=== PATIENT | female | born 1950 | race Caucasian/White ===

== ENCOUNTER 2018-01-13 17:11 | Inpatient (IN) | payer MEDICARE, OTHER, SELFPAY ==
[2018-01-13] VITALS (27 sets, daily range): BP systolic 69–143; BP diastolic 40–93; PULSE 94–118; RESP 17–30; TEMP 36.6–36.7; O2SAT 91–100; BMI 21.9
[2018-01-13] MEDS: Lactated Ringers 1,000 ML 250 ML IV (14:30)
--- NOTE | 2018-01-13 14:38 | PCM.CON.CC ---
Reason for Consult Date of Consultation: 01/13/18 Reason for Consultation: Diabetic ketoacidosis/metabolic encephalopathy/acute kidney injury History of Present Illness: The patient is a 67-year-old female, with a history as outlined below, who presented as a direct admit to the ICU from [facility] on January 13 with complaints of generalized malaise, weakness, poor p.o. intake, nausea and vomiting of 3-4 days duration. 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 She denies a previous history of diabetes. On presentation to the outside hospital emergency department, the patient was noted to be hypotensive and tachycardic. However, she was maintaining appropriate oxygen saturations on room air. Initial laboratory evaluation revealed a sodium of 114, potassium of 3.1, chloride of 77, serum bicarbonate of 20 and an elevated creatinine of 2.78. There was evidence of transaminitis with an elevated AST and ALT to 230 and 128, respectively. Alkaline phosphatase was elevated to 373. Glucose was elevated to 903. The patient had an elevated white blood cell count of 14,000. Platelet count was noted to be 83,000. CK was elevated to 1406 with an INR of 1.32. Venous blood gas pH was noted to be 7.28. Urinalysis was negative for nitrites, positive for leukocyte esterase, 6-12 white blood cells and many bacteria. Lipase was normal at 65. Troponin was negative. Small serum acetone was noted. Plain film chest x-ray was obtained and revealed no acute cardiopulmonary process. The patient received several liters of supplemental IV fluids along with ceftriaxone and potassium repletion. Past Medical History Home Medications: Ambulatory Orders Medication Instructions Recorded Aspirin [Aspirin, Baby] 81 mg PO DAILY@0800 01/13/18 Fish Oil/Dha/Epa [Fish Oil 1,200 2 each PO DAILY 01/13/18 mg Fish Oil] Lactobacillus Combination No.4 1 each PO DAILY 01/13/18 [Probiotic] Multivitamin [Daily Multiple 1 tab PO DAILY 01/13/18 Vitamin] Vit A/C/E/Zinc/Selenium/Copper 1 each PO DAILY 01/13/18 [Vision Formula Tablet] - *Family History Maternal History Items: No pertinent history Paternal History Items: No pertinent history Review of Systems Constitutional: Reports: Anorexia, Malaise, Weakness, Fatigue Eyes: Denies: Blurred vision, Double vision HEENT: Denies: Head Aches, Sinus Congestion, Sinus Drainage Cardiovascular: Denies: Chest Pain, Palpitations Respiratory: Denies: Cough, Shortness of breath at rest, Sputum production Gastrointestinal: Reports: Abdominal Pain, Diarrhea, Nausea, Vomiting Genitourinary: Reports: Incontinence Musculoskeletal: Denies: Joint Pain, Joint Tenderness Skin: Denies: Rash, Wounds Neurological: Reports: Confusion Psychiatric: Denies: Anxiety, Depression, Homicidal Ideations, Suicidal Ideations Hematologic/ Lymphatic: Denies: Easy Bruising, Easy Bleeding Patient Problems: Active and Suspected Problems Lethargy (Acute) Altered mental status (Acute) Objective: The patient's most recent lab work, culture data and imaging studies have all been personally reviewed. - Physical Exam General: Alert, Confused, Disoriented, - - Quite ill in appearance. HEENT: Atraumatic, PERRLA, Normocephalic Oral: Dry Mucosa, - - Edentulous Neck: Supple, No Nodes, Trachea Midline Lungs: No rhonchi, No wheeze, No rales, - - Poor inspiratory effort. Cardiovascular: Normal S1, Normal S2, No murmurs, Tachycardic Abdomen: Soft, Non Tender, Hypoactive Bowel Sounds Extremities: No clubbing, No cyanosis, No edema Skin: No breakdown Musculoskeletal: No Tenderness to Palpation of Joints or Extremities Lymphatic: No Cervical, Supraclavicular, or Inguinal Adenopathy Neurological: - - No focal neurological deficits. Psych/Mental Status: Flat Affect Labs (Last 48 Hours) 01/13/18 01/13/18 01/13/18 14:55 14:55 14:55 Sodium 122 L Potassium 3.8 Chloride 86 L Carbon Dioxide 18.0 L Anion Gap 18 H BUN 62 H Creatinine 3.04 H Estim Creat Clear Calc 15.26 Est GFR (MDRD) Af Amer 20 L Est GFR (MDRD) Non-Af 16 L BUN/Creatinine Ratio 20.4 H Glucose 785 H* Hemoglobin A1c 13.5 H Serum Osmolality 316 H Lactic Acid Calcium 7.1 L Total Bilirubin 0.50 GGT 20 AST 310 H ALT 148 H Alkaline Phosphatase 264 H Total Protein 5.4 L Albumin 1.9 L Globulin 3.5 Albumin/Globulin Ratio 0.5 L Acetone Level 10/24/18 10/24/18 14:55 14:55 Sodium Potassium Chloride Carbon Dioxide Anion Gap BUN Creatinine Estim Creat Clear Calc Est GFR (MDRD) Af Amer Est GFR (MDRD) Non-Af BUN/Creatinine Ratio Glucose Hemoglobin A1c Serum Osmolality Lactic Acid Pending Calcium Total Bilirubin GGT AST ALT Alkaline Phosphatase Total Protein Albumin Globulin Albumin/Globulin Ratio Acetone Level NEGATIVE Assessment/Plan Active and Suspected Problems Lethargy (Acute) Altered mental status (Acute) RECOMMENDATIONS: 1. Continue supplemental IV fluid hydration. 2. Place central venous catheter and initiate Levophed, if indicated, to maintain a mean arterial pressure at or above 65 mmHg. 3. Continue insulin drip and monitor serial electrolytes. 4. Obtain blood and urine cultures. 5. Start broad-spectrum antibiotics, pending infectious workup. Check MRSA screen. 6. Check serum GGT level, lactic acid and serum osmolality. IMPRESSIONS: 1. Combined hypovolemic and septic shock The patient appears to be clearly volume depleted, likely in the setting of osmotic diuresis from profound hyperglycemia. Her p.o. intake has also been poor. In addition, she does appear to have evidence of cystitis. The patient will be volume resuscitated per sepsis protocol. A central line will be placed for refractory hypotension and to initiate vasopressor support, if needed. Levophed can be started to maintain a mean arterial pressure at or above 65 mmHg. Broad-spectrum antibiotic will be initiated, pending thorough infectious workup. Will obtain urine and blood cultures accordingly. Plain film chest x-ray post central venous catheter insertion is pending. Check serum lactate level. 2. Diabetic ketoacidosis The patient appears to be a newly diagnosed diabetic who presented to the hospital in diabetic ketoacidosis, which may have been precipitated by an underlying infectious process. The patient's hemoglobin A1c is noted to be 13.5. She denies ever having been diagnosed with diabetes previously. She will be managed per DKA protocol with IV volume resuscitation and continuous insulin infusion. Aggressive electrolyte repletion as indicated. Continue insulin infusion at the very minimal until the patient's anion gap has been closed x2. 3. Metabolic encephalopathy Likely secondary to the above. Anticipate improvement in mentation with correction of the patient's underlying metabolic derangements. CT head was noted to be negative. Avoid sedating medications. 4. Hypovolemic hyponatremia Again likely secondary to osmotic diuresis in the setting of diabetic ketoacidosis. The patient is currently being volume resuscitated. Close monitoring of serum sodium level is indicated. 5. Acute kidney injury/anion gap metabolic acidosis Likely prerenal in etiology with possible ischemic ATN in the setting of #1. Continue current supportive measures as outlined above and initiate vasopressor support, as clinically indicated, to maintain a mean arterial pressure at or above 65 mmHg. Anticipate improvement in creatinine with stabilization of hemodynamics. Continue to monitor urine output. No current indication for renal replacement therapy. Renal ultrasound is currently pending. 6. Elevated transaminases Likely secondary to the patient's hypovolemic state. Given elevated alkaline phosphatase, will check serum GGT. If elevated, would recommend checking liver ultrasound. 7. Thrombocytopenia Unclear chronicity, as there are no previous lab work available for comparison. However, this may be secondary to a consumptive process in the setting of septic shock. We will continue to monitor accordingly. No indication for transfusion at this time. TIME: 45 minutes of critical care time, independent of procedures, was spent addressing the patient's combined hypovolemic and septic shock, diabetic ketoacidosis, metabolic encephalopathy, hypovolemic hyponatremia, acute kidney injury, anion gap metabolic acidosis, elevated transaminases, thrombocytopenia, review of all data and collaboration with the care team. ([id number]) Code Visit 9xxxx: 11215 Critical care first hour
--- NOTE | 2018-01-13 15:11 | PCM.HP.STD ---
Problem List (1) Lethargy Status: Acute (2) Altered mental status Status: Acute History of Present Illness Date of Admission: 01/13/18 Chief Complaint: lethargy, altered mental status The patient is a 67 year old F with no significant PMH. She was admitted from [facility] where she had reported with a complaint of worsening lethargy, confusion and altered mental status for a few days prior to admission. History was mainly taken from her . He said he had noticed that she had been loosing weight for the past few months. Over the past few days, she started getting increasingly lethargic, with associated frequency of urination and weakness. She had no associated fever, chills, cough, chest pain, SOB, abdominal pain, diarrhea or vomiting. He took her to [place] ED today after he found her on the floor with the gas on, and she said she was too weak to even get up to turn the gas off. In [place], she was found to have markedly elevated blood sugars, and was also hypotensive and tachycardic. Labs done in [place] showed sodium of 114, potassium of 3.1, bicarb of 20 and Cr of 2.78. glucose was 903. Initial troponin was negative, and UA showed 6-12 wbc and many bacteria, and LEs. Small acetone was noted and CXR showed no acute cardiopulmonary process. Patient received IVF, potassium supplementation and IV ceftriaxone and was transferred to [facility]. 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 Denies: Chills, Fever Eyes: Denies: Blurred vision HEENT: Denies: Head Aches, Sinus Congestion, Sinus Drainage Cardiovascular: Denies: Chest Pain, Palpitations Respiratory: Denies: Cough, Shortness of breath at rest, Sputum production Gastrointestinal: Denies: Abdominal Pain, Nausea, Vomiting Genitourinary: Reports: Frequency. Denies: Dysuria Musculoskeletal: Denies: Joint Pain, Joint Tenderness Skin: Denies: Rash, Wounds Neurological: Reports: Confusion. Denies: Focal weakness, Numbness, Tingling Psychiatric: Denies: Anxiety, Depression, Homicidal Ideations, Suicidal Ideations Hematologic/ Lymphatic: Denies: Easy Bruising, Easy Bleeding VTE Information - Inpt Only VTE Present on Admission: No VTE Pharm Prophylaxis ordered?: Yes Patient Problems: Active and Suspected Problems Lethargy (Acute) Altered mental status (Acute) - Physical Exam General: Confused, Disoriented, Lethargic HEENT: Atraumatic, PERRLA, EOMI, Normocephalic Oral: Dry Mucosa Neck: Supple, No JVD, Negative Carotid Bruits Lungs: Clear to auscultation, Normal air movement, No rhonchi, No wheeze, No rales Cardiovascular: Normal S1, Normal S2, No murmurs, Tachycardic Abdomen: Bowel Sounds Present, Soft, Non Tender, Non-Distended, No Hepato-splenomegaly Extremities: No clubbing, No cyanosis, No edema, Capillary Refill Less than 3 Seconds Skin: No rashes, No breakdown, - - few abrasions on knee from when she fell at home Musculoskeletal: No Tenderness to Palpation of Joints or Extremities Lymphatic: No Cervical, Supraclavicular, or Inguinal Adenopathy Neurological: - - mild left nasolabial flattening. RLE is externally rotated. Patient unable to follow instructions very well; power ~4/5 in UEs and 3/5 in LEs. CN otherwise intact. Unable to check sensory response to light touch, but patient flexes towards pain. GCS-11/15 Psych/Mental Status: - - confused Weight: 123 lb 10.869 oz Body Mass Index (BMI) 21.9 Laboratory Tests Past 24 Hrs 1001/13/18 01/13/18 14:55 14:55 14:55 Sodium Pending Potassium Pending Chloride Pending Carbon Dioxide Pending Anion Gap Pending BUN Pending Creatinine Pending Est GFR (MDRD) Af Amer Pending Est GFR (MDRD) Non-Af Pending BUN/Creatinine Ratio Pending Glucose Pending Hemoglobin A1c Pending Serum Osmolality Pending Lactic Acid Calcium Pending Total Bilirubin Pending GGT Pending AST Pending ALT Pending Alkaline Phosphatase Pending Total Protein Pending Albumin Pending Acetone Level 01/13/18 01/13/18 14:55 14:55 Sodium Potassium Chloride Carbon Dioxide Anion Gap BUN Creatinine Est GFR (MDRD) Af Amer Est GFR (MDRD) Non-Af BUN/Creatinine Ratio Glucose Hemoglobin A1c Serum Osmolality Lactic Acid Pending Calcium Total Bilirubin GGT AST ALT Alkaline Phosphatase Total Protein Albumin Acetone Level Pending Diagnostic Data Chest X-Ray 01/13/18 16:15 IMPRESSION: Right IJ catheter as above. No pneumothorax. Electronically Signed: Jamison Munguia MD at 16:23 EDT , Service support , Assessment/Plan All Active Problems Lethargy (Acute) Altered mental status (Acute) 67 y/o with no signficant PMH presenting with altered mental status, lethargy and elevated blood sugars 1. 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 Will get CT brain to evaluate for any intracranial pathology 2. DKA in a newly diagnosed diabetic as under 1. 3. Hypovolemic and hypovolemic shock due to severe dehydration from DKA and also sepsis from UTI BP was 69/57 on admission SIRS criteria is central line inserted in ICU; on IVF and pressors for BP support continue IVF and pressors 4. SEptic shock due to UTI: UA showed brown, turbid urine, with LE of 500. on IV cefepime 5. BIBIANA: Cr was 3.04 on admission to [facility]. Baseline unknown. Likely pre-renal due to severe dehydration will check urine electrolytes and renal USG if Cr doesnt trend down, will get nephrology consult continue hydration with IVF and levophed for pressor support 6. ANion gap acidosis: due to DKA and lactic acidosis. osmolar gap is 6, therefore it is unlikely there is anything else contributing to anion gap acidosis. ABG pending. Will continue hydration with IVF and trend lactic acid. Check BNP q2 hourly 7. Lactic acidosis: lactic acid is 4.2; likely due to hypovolemic and septic shock. Continue IVF hydration and trend. 8. Acute hyponatremia: Na is 122; baseline not known. THis is likely due to hyperglycemia. Corrected sodium is 133. Will likely correct with IVF administration 9. Elevated transaminases: AST/ALT elevated at 310/148 and ALP is 264. This is likely due to shock. Will trend; should improve once shock resolves DVT prophylaxis: heparin GI prophylaxis: famotidine Code status: full code patient's , who is her next of kin counselled about different types of code status, namely full code, DNRCC and DNRCCA. elects for patient to be full code. Code Visit Inpatient E&M: 65895 Init Hosp L3 Procedures: 36811 Advncd Care Plan 30 Min
[2018-01-13 15:19] LABS: Osmolality, Serum 316 mOsm/KG (280-301)
[2018-01-13 15:25] LABS: ALB/GLOB Ratio 0.5 RATIO (0.9-2.4); AST(SGOT) 310 U/L (15-37); Alanine Aminotransfer ALT/SGPT 148 U/L (13-56); Albumin, Serum 1.9 g/dL (3.2-5.0); Alkaline Phosphatase 264 U/L (45-117); Anion Gap 18 (5-15); BUN 62 mg/dL (7-18); BUN/Creat Ratio 20.4 RATIO (10-20); Calcium,Total 7.1 mg/dL (8.5-10.1); Chloride 86 mmol/L (98-107); Creatinine, Serum 3.04 mg/dL (0.55-1.02); EST Glomerular Filtration Rate 16 mL/min (>60); Est Glom Filt Rate - Afr Amer 20 mL/min (>60); Estimated Creatinine Clearance 15.26 ml/min; GGTP 20 U/L (5-55); Globulin 3.5 g/dL (2.2-4.2); Glucose 785 mg/dL (74-106); Potassium 3.8 mmol/L (3.5-5.1); Protein, Total 5.4 g/dL (6.4-8.2); Sodium Level 122 mmol/L (136-145)
[2018-01-13 15:26] LABS: Hemoglobin A1c 13.5 % (4.2-6.3)
[2018-01-13 15:38] LABS: Lactic Acid 4.2 mmol/L (0.4-2.0)
[2018-01-13] MEDS: 0.9% Normal Saline 1,000 ML 999 ML IV (15:55)
--- NOTE | 2018-01-13 16:02 | NURSING ---
1600: Unable to increase levophed gtts at this time. Levophed infusing into peripheral IV. Waiting for central line confirmation. Bolus infusing.
--- NOTE | 2018-01-13 16:13 | CT_ITS ---
STUDY: CT BRAIN WITHOUT CONTRAST REASON FOR EXAM: Female, 67 years old. Confusion RADIATION DOSAGE (If Supplied By Facility): CTDIvol = ( 60.81 ) mGy, DLP = ( 1021.47 ) mGycm TECHNIQUE: Transaxial CT imaging of the brain was performed without administration of intravenous contrast material. Individualized dose optimization techniques were used for this CT. COMPARISON: None. FINDINGS: Normal soft tissue structures. Normal calvarium. Normal size ventricles and extra-axial spaces for the patient's age. Normal white matter tracts of the cerebral hemispheres. Normal basal ganglia and thalami. Normal brainstem. Normal cerebellum. There is no intracranial hemorrhage. There are no findings of an acute ischemic infarction. Normal visualized paranasal sinuses. CT/Brain/Head without Contrast IMPRESSION: Normal unenhanced CT scan of the brain. Electronically Signed: Jamison Munguia MD at 17:33 EDT , Service support ,
--- NOTE | 2018-01-13 16:15 | RAD_ITS ---
STUDY: X-RAY CHEST REASON FOR EXAM: Female, 67 years old. Line placement TECHNIQUE: Single frontal view of the chest. COMPARISON: None. FINDINGS: Right IJ catheter terminates in the right atrium. No pneumothorax. The lungs are clear and expanded. There is no demonstrated pleural abnormality. Normal size heart. Normal mediastinum and hermann. Normal visualized pulmonary arteries. Normal visualized aortic arch and descending thoracic aorta. Normal visualized thoracic spine. Normal visualized ribs, clavicles, and shoulders. There is no demonstrated abnormality of the visualized soft tissue structures of the upper abdomen. RAD/Chest 1 View (Portable) IMPRESSION: Right IJ catheter as above. No pneumothorax. Electronically Signed: Jamison Munguia MD at 16:23 EDT , Service support ,
[2018-01-13 16:39] LABS: Bacteria 0 SEEN /hpf (None Seen); Mucous, Urine 0 SEEN /hpf (<or=2+); Red Blood Cells-Urine 0 SEEN /hpf (0-5); Squamous Epithelial Cells - UA 0 SEEN /hpf (5-10)
--- NOTE | 2018-01-13 16:39 | PCM.OP.BLANK ---
Operative Report Date of Procedure: 01/13/18 Central line placement procedure note Indication: IV access/hemodynamic instability/vasoactive medications Procedure: A time-out was completed to verify correct patient, indication, medication allergies, procedure, coagulation studies, informed consent signed, and equipment needed. The patient was placed in the supine position for a central line placement to the rt IJ vein. The patients rt neck was prepped using chlorhexidine and a full body sterile drape was applied. 1% lidocaine was used to anesthetize the surrounding skin. A 7fr 16 cm blue guard triple lumen catheter introduced into the internal jugular vein using the modified Seldinger technique with the assistance of ultrasound. The catheter was threaded smoothly over the guidewire, the guidewire was removed easily, nonpulsatile blood returned. All ports were aspirated of air and flushed with sterile saline. The catheter was sutured in place and covered with an occlusive dressing impregnated with chlorhexidine. Post-procedure: The patient tolerated the procedure well. Vital signs remained stable. EBL 3 cc. No complications. Chest X Ray ordered and confirmed tip placement and ruled out pneumothorax. The catheter is okay to use. Code Visit Procedures: [id number] Insert Non-tunnel CV Cath
[2018-01-13 17:02] LABS: Color, Urine Brown (Yellow); Glucose, Dipstick 1000 mg/dl (Normal); Ketone-Dipstick 5 mg/dl (Negative); Leukocyte Esterase-Dipstick 500 /ul (Negative); Nitrite-Dipstick Negative (Negative); Occult Blood-Urine 250 /ul (Negative); Protein-Dipstick 500 mg/dl (Negative); Urine Bilirubin Dipstick Negative (Negative); Urine Clarity Turbid (Clear); Urine Urobilinogen Normal (Normal)
[2018-01-13 17:14] LABS: White Blood Cells >100 SEEN /hpf (0-5)
[2018-01-13] MEDS: 0.9% Normal Saline 1,000 ML 500 ML IV (17:15)
--- NOTE | 2018-01-13 17:18 | US_ITS ---
STUDY: RENAL ULTRASOUND - COMPLETE REASON FOR EXAM: Female, 67 years old. Acute renal failure TECHNIQUE: Ultrasound evaluation of the kidneys was performed with real-time and static jolly-scale imaging. COMPARISON: None. FINDINGS: RIGHT KIDNEY: Normal location of the right kidney, which is normal in size. The right kidney measures 11 cm. There is a normal cortex of the right kidney. The renal cortex measures 1.3 cm. There is no right renal mass or cyst. There are no right renal calculi. There is no right hydronephrosis. DISTAL RIGHT URETER: There is non-visualization of the distal right ureter. There is no demonstrated right ureterovesical junction calculus. There is a non-visualized right ureteral jet. LEFT KIDNEY: Normal location of the left kidney, which is normal in size. The left kidney measures 11.5 cm. There is a normal cortex of the left kidney. The renal cortex measures 1.6 cm. There is no left renal mass or cyst. There are no left renal calculi. There is no left hydronephrosis. DISTAL LEFT URETER: There is non-visualization of the distal left ureter. There is no demonstrated left ureterovesical junction calculus. There is a non-visualized left ureteral jet. The visualized BLADDER: Decompressed with a Miranda catheter. US/Kidney and Bladder IMPRESSION: Normal ultrasound of the kidneys and urinary bladder. Electronically Signed: Jamison Munguia MD at 20:48 EDT , Service support ,
[2018-01-13 17:20] LABS: Bedside Glucose > 500 mg/dL (70-110)
[2018-01-13 18:03] LABS: Glucose 706 mg/dL (74-106)
--- NOTE | 2018-01-13 18:06 | NURSING ---
Lab notified this RN of critical glucose value drawn at 1715. DKA Protocol followed
[2018-01-13 18:11] LABS: M R Staph aureus DNA By PCR Negative (Negative); Probe Check PASS; Specimen Processing Control PASS
[2018-01-13 18:51] LABS: Allen Test POS; Base Excess -13 mmol/L (-2 to +2); Bicarbonate 13.7 mmol/L (22-26); Blood Gas Specimen Type ART; O2 Delivery Device Room Air; PO2 70 mmHG (75-100); SITE L Radial; SO2 92 % (95-99); Time Given 1838; Total Carbon Dioxide 15 mmol/L; pCO2 27.8 mmHg (35-45)
[2018-01-13] MEDS: 0.9% Normal Saline 1,000 ML 250 ML IV (18:54)
[2018-01-13 18:55] LABS: Bedside Glucose > 500 mg/dL (70-110)
[2018-01-13 18:57] LABS: Metamyelocyte 2 % (0-1); Monocyte 4 % (0-10); Neutrophil-Band 16 % (0-5); Neutrophil-Segmented 78 % (47-70); Total Cells Counted 100 (MANUAL DIFF)
[2018-01-13 19:04] LABS: Reflex Lactate? Y
[2018-01-13] MEDS: 0.9% NaCl Peripheral Flush Adult/Peds IV ×3 (19:36→23:12)
[2018-01-13 19:54] LABS: Anion Gap 15 (5-15); BUN 61 mg/dL (7-18); BUN/Creat Ratio 22.3 RATIO (10-20); Chloride 93 mmol/L (98-107); Creatinine, Serum 2.74 mg/dL (0.55-1.02); EST Glomerular Filtration Rate 18 mL/min (>60); Est Glom Filt Rate - Afr Amer 22 mL/min (>60); Estimated Creatinine Clearance 16.93 ml/min; Glucose 624 mg/dL (74-106); Potassium 3.4 mmol/L (3.5-5.1); Sodium Level 126 mmol/L (136-145)
[2018-01-13 20:16] LABS: Lactic Acid 3.5 mmol/L (0.4-2.0)
[2018-01-13] MEDS: Heparin Injection (Vial) 5,000 UNIT/ML VIAL 5000 UNIT SC (21:18)
[2018-01-13 21:31] LABS: Hematocrit 33.4 % (37-47); Hemoglobin 11.5 g/dl (12.0-15.0); Mean Corp Hgb Conc 34.4 g/gl (32-36); Mean Corpuscular Hgb 28.7 pg (27.0-32.0); Mean Corpuscular Volume 83.3 fL (81-99); RBC Distribution Width CV 12.5 % (11.6-14.6); RBC Distribution Width SD 38.1 fl (35.1-43.9); Red Blood Count 4.01 M/mm3 (4.2-5.4)
[2018-01-13 21:32] LABS: Differential Indicated MANUAL DIFF; Mean Platelet Vol. 12.3 fl (6.2-12.0); POSITIVE COUNT YES; POSITIVE DIFFERENTIAL NO; POSITIVE MORPHOLOGY YES
[2018-01-13 21:34] LABS: Platelet Morphology LARGE
[2018-01-13 21:35] LABS: Platelet Count 39 K/mm3 (150-450)
[2018-01-13 21:36] LABS: Absolute Nucleated RBC Count 0.02 10^3/uL (0-5); NRBC Flagged by Analyzer 0.1 % (0-5)
[2018-01-13 21:39] LABS: Urine Sodium 53 mmol/L (Not Establ.)
--- NOTE | 2018-01-13 21:45 | US_ITS ---
STUDY: ABDOMINAL ULTRASOUND - RIGHT UPPER QUADRANT REASON FOR VISIT: Female, 67 years old. Abnormal labs TECHNIQUE: Ultrasound evaluation of the right upper quadrant was performed with real-time and static ann-scale imaging. TECHNICAL QUALITY: Adequate. COMPARISON: Renal ultrasound January 13, 2018 FINDINGS: Liver: The liver measures 14.9 cm. There is normal echogenicity of the liver. The bile ducts are within normal limits. There is hepatic color flow. The direction of portal flow is hepatopetal. There is no demonstrated mass lesion. Gallbladder: Normal distended gallbladder. The gallbladder wall measures 2 mm. There is a negative sonographic Nolasco's sign. There is no pericholecystic fluid. There are no gallstones. Common Bile Duct (C.B.D.): The common bile duct measures 4 mm. Pancreas: Normal size of the head, body and tail of the pancreas. There is normal echogenicity of the pancreas. There is no demonstrated pancreatic mass or cyst. Right Kidney: Normal size of the right kidney. The right kidney measures 11.6 cm. Normal renal cortex. The right cortex measures 1.5 cm. There is no demonstrated renal mass or cyst. There is no right hydronephrosis. Trace Right pleural effusion and ascites US/Liver IMPRESSION: Small right pleural effusion and ascites otherwise no acute disease Electronically Signed: Jamison Munguia MD at 23:07 EDT , Service support ,
[2018-01-13 22:00] LABS: Glucose 606 mg/dL (74-106)
[2018-01-13 23:06] LABS: Bedside Glucose > 500 mg/dL (70-110)
[2018-01-13 23:06] LABS: Bedside Glucose > 500 mg/dL (70-110)
[2018-01-13] MEDS: 0.9% Normal Saline 1,000 ML 125 ML IV (23:08)
[2018-01-13 23:45] LABS: Anion Gap 15 (5-15); BUN 65 mg/dL (7-18); BUN/Creat Ratio 25.3 RATIO (10-20); Chloride 96 mmol/L (98-107); Creatinine, Serum 2.57 mg/dL (0.55-1.02); EST Glomerular Filtration Rate 20 mL/min (>60); Est Glom Filt Rate - Afr Amer 24 mL/min (>60); Estimated Creatinine Clearance 18.05 ml/min; Glucose 569 mg/dL (74-106); Potassium 4.6 mmol/L (3.5-5.1); Sodium Level 129 mmol/L (136-145)
[2018-01-14] VITALS (26 sets, daily range): BP systolic 80–102; BP diastolic 53–67; PULSE 102–112; RESP 17–36; TEMP 36.4–37.1; O2SAT 93–98
[2018-01-14 00:06] LABS: Bedside Glucose > 500 mg/dL (70-110)
[2018-01-14 00:56] LABS: Bedside Glucose > 500 mg/dL (70-110)
[2018-01-14 02:56] LABS: Bedside Glucose > 500 mg/dL (70-110)
[2018-01-14 02:56] LABS: Bedside Glucose > 500 mg/dL (70-110)
[2018-01-14 03:13] LABS: Absolute Lymphocyte Count 0.46 X10^3/ul (0.83-4.51); Basophil# 0.02 X10^3/uL; Basophil% 0.1 % (0-1); Eosinophil# 0.01 X10^3/uL; Eosinophils% 0.1 % (0-5); Hematocrit 30.5 % (37-47); Hemoglobin 10.4 g/dl (12.0-15.0); Lymphocyte # 0.46 X10^3/ul (4.0); Lymphocyte % 2.7 % (19-41); Mean Corp Hgb Conc 34.1 g/gl (32-36); Mean Corpuscular Hgb 28.3 pg (27.0-32.0); Mean Corpuscular Volume 82.9 fL (81-99); Monocyte# 0.42 X10^3/uL; Monocyte% 2.4 % (0-10); Neutrophil # 15.99 X10^3/uL (2.7-7.7); RBC Distribution Width CV 12.5 % (11.6-14.6); RBC Distribution Width SD 37.8 fl (35.1-43.9); Red Blood Count 3.68 M/mm3 (4.2-5.4); White Blood Count 17.2 K/mm3 (4.4-11.0)
[2018-01-14 03:15] LABS: Differential Indicated SCAN CRITERIA MET; POSITIVE COUNT YES; POSITIVE DIFFERENTIAL YES; POSITIVE MORPHOLOGY YES; Platelet Count 19 K/mm3 (150-450)
[2018-01-14 03:44] LABS: Anion Gap 12 (5-15); BUN 68 mg/dL (7-18); Chloride 98 mmol/L (98-107); Creatinine, Serum 2.62 mg/dL (0.55-1.02); EST Glomerular Filtration Rate 19 mL/min (>60); Est Glom Filt Rate - Afr Amer 24 mL/min (>60); Estimated Creatinine Clearance 17.71 ml/min; Glucose 497 mg/dL (74-106); Potassium 4.3 mmol/L (3.5-5.1); Sodium Level 129 mmol/L (136-145)
[2018-01-14] MEDS: 0.9% Normal Saline 1,000 ML 125 ML IV ×2 (03:54→07:20)
[2018-01-14] MEDS: CHLORHEXIDINE GLUC 2% CLOTH 1 EACH TOWELETTE TOPICAL (04:17)
[2018-01-14 04:39] LABS: Differential Comment SCANNED
[2018-01-14 05:15] LABS: Bedside Glucose 460 mg/dL (70-110)
[2018-01-14 05:15] LABS: Bedside Glucose > 500 mg/dL (70-110)
--- NOTE | 2018-01-14 07:04 | PN_ITS ---
Subjective: The patient was seen and examined at the bedside this morning. Events from the last 24 hours have been reviewed. The patient is currently afebrile, hemodynamically stable and maintaining appropriate oxygen saturations on room air. The patient's Levophed was discontinued last evening around 2100 hrs. Although her hemodynamics remain tenuous, vasopressor support never had to be reinitiated. The patient is currently overall net +4.6 L for the admission. Metabolic derangements are improving. The patient's thrombocytopenia has worsened overnight. The patient subcutaneous heparin was subsequently discontinued. The patient's anion gap remains elevated to 17, when corrected for albumin level. She remains on an insulin infusion. The patient has a corrected serum sodium of 135, when accounting for hyperglycemia. The patient's mentation is improved this morning. She is alert and oriented x3. She denies any pain complaints. She denies shortness of breath, chest pain or cough. Objective: The patient's most recent lab work, culture data and imaging studies have all been personally reviewed. Both liver and renal ultrasound were unremarkable. Plain film chest x-ray revealed no acute cardiopulmonary process with stable central venous catheter in place. Head CT was unremarkable. Blood and urine cultures are currently pending. General: Alert, Cooperative, No apparent distress HEENT: Atraumatic, PERRLA, Normocephalic Oral: Moist Mucosa, - - Edentulous Neck: Supple, No Nodes, Trachea Midline, - - Right-sided central venous catheter in place Lungs: No rhonchi, No wheeze, No rales, Diminished Cardiovascular: Normal S1, Normal S2, No murmurs, No rub noted, No Gallop, Tachycardic Abdomen: Soft, Non Tender, Hypoactive Bowel Sounds Extremities: No clubbing, No cyanosis, No edema Skin: - - No significant change from previous. Musculoskeletal: No Tenderness to Palpation of Joints or Extremities Lymphatic: No Cervical, Supraclavicular, or Inguinal Adenopathy Neurological: Neuro grossly intact Psych/Mental Status: Normal Affect, Appropriate Vital Signs Temp Pulse Resp BP Pulse Ox 98.0 F 107 H 29 H 88/59 L 95 01/14/18 04:00 01/14/18 06:00 01/14/18 06:00 01/14/18 06:00 01/14/18 06:00 Oxygen Flow Rate (L/min) 2 Oxygen Delivery Method Room Air Weight: 124 lb 12.506 oz Body Mass Index (BMI) 21.9 Finger Stick Blood Glucose 408 Intake and Output for Last 24 Hours 01/12/18 01/13/18 01/14/18 23:59 23:59 23:59 Intake Total 2156.1 / 2156.1 3332.6 / 3332.6 Output Total 375 / 375 450 / 450 Balance 1781.1 / 1781.1 2882.6 / 2882.6 Labs (Last 48 Hours) 01/13/18 01/13/18 01/13/18 14:55 14:55 14:55 WBC RBC Hgb Hct MCV MCH MCHC RDW RDW Differential Plt Count MPV Immature Gran % (Auto) Neut % (Auto) Lymph % (Auto) [place] % (Auto) Eos % (Auto) Baso % (Auto) Absolute Neuts (auto) Absolute Lymphs (auto) Total Counted Neutrophils % (Manual) Band Neutrophils % Monocytes % (Manual) Metamyelocytes % Nucleated RBC % Differential Comment Diff Path Review Plt Morphology Comment Absolute Retic Specimen Type Sample Site pH Bicarbonate Actual POC Total CO2 Base Excess O2 Saturation ABG pCO2 ABG pO2 Jose David Test O2 Delivery Device Blood Gas Notified Whom Blood Gas Notified Time Sodium 122 L Potassium 3.8 Chloride 86 L Carbon Dioxide 18.0 L Anion Gap 18 H BUN 62 H Creatinine 3.04 H Estim Creat Clear Calc 15.26 Est GFR (MDRD) Af Amer 20 L Est GFR (MDRD) Non-Af 16 L BUN/Creatinine Ratio 20.4 H Glucose 785 H* Hemoglobin A1c 13.5 H Serum Osmolality 316 H Lactic Acid Calcium 7.1 L Total Bilirubin 0.50 GGT 20 AST 310 H ALT 148 H Alkaline Phosphatase 264 H Total Protein 5.4 L Albumin 1.9 L Globulin 3.5 Albumin/Globulin Ratio 0.5 L Urine Color Urine Clarity Urine pH Ur Specific [place] Urine Protein Urine Glucose (UA) Urine Ketones Urine Occult Blood Urine Nitrite Urine Bilirubin Urine Urobilinogen Ur Leukocyte Esterase Urine RBC Urine WBC Ur Squamous Epith Cells Urine Bacteria Urine Mucus Ur Random Sodium Urine Creatinine Acetone Level MRSA (PCR) POC Glucose 01/13/18 01/13/18 01/13/18 14:55 14:55 14:55 WBC 18.0 H RBC 4.01 L Hgb 11.5 L Hct 33.4 L MCV 83.3 MCH 28.7 MCHC 34.4 RDW 12.5 RDW Differential 38.1 Plt Count 39 L* MPV 12.3 H Immature Gran % (Auto) Neut % (Auto) Not Reportable Lymph % (Auto) [place] % (Auto) Eos % (Auto) Baso % (Auto) Absolute Neuts (auto) 17.0 H Absolute Lymphs (auto) 0.00 L Total Counted 100 Neutrophils % (Manual) 78 H Band Neutrophils % 16 H Monocytes % (Manual) 4 Metamyelocytes % 2 H Nucleated RBC % 0.1 Differential Comment Diff Path Review May foll Plt Morphology Comment LARGE Absolute Retic 0.02 Specimen Type Sample Site pH Bicarbonate Actual POC Total CO2 Base Excess O2 Saturation ABG pCO2 ABG pO2 Jose David Test O2 Delivery Device Blood Gas Notified Whom Blood Gas Notified Time Sodium Potassium Chloride Carbon Dioxide Anion Gap BUN Creatinine Estim Creat Clear Calc Est GFR (MDRD) Af Amer Est GFR (MDRD) Non-Af BUN/Creatinine Ratio Glucose Hemoglobin A1c Serum Osmolality Lactic Acid 4.2 H* Calcium Total Bilirubin GGT AST ALT Alkaline Phosphatase Total Protein Albumin Globulin Albumin/Globulin Ratio Urine Color Urine Clarity Urine pH Ur Specific [place] Urine Protein Urine Glucose (UA) Urine Ketones Urine Occult Blood Urine Nitrite Urine Bilirubin Urine Urobilinogen Ur Leukocyte Esterase Urine RBC Urine WBC Ur Squamous Epith Cells Urine Bacteria Urine Mucus Ur Random Sodium Urine Creatinine Acetone Level NEGATIVE MRSA (PCR) POC Glucose 01/13/18 01/13/18 01/13/18 15:30 16:40 17:15 WBC RBC Hgb Hct MCV MCH MCHC RDW RDW Differential Plt Count MPV Immature Gran % (Auto) Neut % (Auto) Lymph % (Auto) [place] % (Auto) Eos % (Auto) Baso % (Auto) Absolute Neuts (auto) Absolute Lymphs (auto) Total Counted Neutrophils % (Manual) Band Neutrophils % Monocytes % (Manual) Metamyelocytes % Nucleated RBC % Differential Comment Diff Path Review Plt Morphology Comment Absolute Retic Specimen Type Sample Site pH Bicarbonate Actual POC Total CO2 Base Excess O2 Saturation ABG pCO2 ABG pO2 Jose David Test O2 Delivery Device Blood Gas Notified Whom Blood Gas Notified Time Sodium Potassium Chloride Carbon Dioxide Anion Gap BUN Creatinine Estim Creat Clear Calc Est GFR (MDRD) Af Amer Est GFR (MDRD) Non-Af BUN/Creatinine Ratio Glucose 706 H* Hemoglobin A1c Serum Osmolality Lactic Acid Calcium Total Bilirubin GGT AST ALT Alkaline Phosphatase Total Protein Albumin Globulin Albumin/Globulin Ratio Urine Color Brown Urine Clarity Turbid Urine pH 5.0 Ur Specific [place] 1.020 Urine Protein 500 H Urine Glucose (UA) 1000 H Urine Ketones 5 H Urine Occult Blood 250 H Urine Nitrite Negative Urine Bilirubin Negative Urine Urobilinogen Normal Ur Leukocyte Esterase 500 H Urine RBC 0 SEEN Urine WBC >100 SEEN Ur Squamous Epith Cells 0 SEEN Urine Bacteria 0 SEEN Urine Mucus 0 SEEN Ur Random Sodium Urine Creatinine Acetone Level MRSA (PCR) Negative POC Glucose 01/13/18 01/13/18 01/13/18 17:16 18:45 18:50 WBC RBC Hgb Hct MCV MCH MCHC RDW RDW Differential Plt Count MPV Immature Gran % (Auto) Neut % (Auto) Lymph % (Auto) [place] % (Auto) Eos % (Auto) Baso % (Auto) Absolute Neuts (auto) Absolute Lymphs (auto) Total Counted Neutrophils % (Manual) Band Neutrophils % Monocytes % (Manual) Metamyelocytes % Nucleated RBC % Differential Comment Diff Path Review Plt Morphology Comment Absolute Retic Specimen Type ART Sample Site L Radial pH 7.30 L Bicarbonate Actual 13.7 L POC Total CO2 15 Base Excess -13 L O2 Saturation 92 L ABG pCO2 27.8 L ABG pO2 70 L Jose David Test POS O2 Delivery Device Room Air Blood Gas Notified Whom HOSP Blood Gas Notified Time 1838 Sodium Potassium Chloride Carbon Dioxide Anion Gap BUN Creatinine Estim Creat Clear Calc Est GFR (MDRD) Af Amer Est GFR (MDRD) Non-Af BUN/Creatinine Ratio Glucose Hemoglobin A1c Serum Osmolality Lactic Acid Calcium Total Bilirubin GGT AST ALT Alkaline Phosphatase Total Protein Albumin Globulin Albumin/Globulin Ratio Urine Color Urine Clarity Urine pH Ur Specific [place] Urine Protein Urine Glucose (UA) Urine Ketones Urine Occult Blood Urine Nitrite Urine Bilirubin Urine Urobilinogen Ur Leukocyte Esterase Urine RBC Urine WBC Ur Squamous Epith Cells Urine Bacteria Urine Mucus Ur Random Sodium Urine Creatinine Acetone Level MRSA (PCR) POC Glucose > 500 H* > 500 H* 01/13/18 01/13/18 01/13/18 18:55 19:40 20:00 WBC RBC Hgb Hct MCV MCH MCHC RDW RDW Differential Plt Count MPV Immature Gran % (Auto) Neut % (Auto) Lymph % (Auto) [place] % (Auto) Eos % (Auto) Baso % (Auto) Absolute Neuts (auto) Absolute Lymphs (auto) Total Counted Neutrophils % (Manual) Band Neutrophils % Monocytes % (Manual) Metamyelocytes % Nucleated RBC % Differential Comment Diff Path Review Plt Morphology Comment Absolute Retic Specimen Type Sample Site pH Bicarbonate Actual POC Total CO2 Base Excess O2 Saturation ABG pCO2 ABG pO2 Jose David Test O2 Delivery Device Blood Gas Notified Whom Blood Gas Notified Time Sodium 126 L Potassium 3.4 L Chloride 93 L Carbon Dioxide 18.0 L Anion Gap 15 BUN 61 H Creatinine 2.74 H Estim Creat Clear Calc 16.93 Est GFR (MDRD) Af Amer 22 L Est GFR (MDRD) Non-Af 18 L BUN/Creatinine Ratio 22.3 H Glucose 624 H* Hemoglobin A1c Serum Osmolality Lactic Acid 3.5 H Calcium 7.0 L Total Bilirubin GGT AST ALT Alkaline Phosphatase Total Protein Albumin Globulin Albumin/Globulin Ratio Urine Color Urine Clarity Urine pH Ur Specific [place] Urine Protein Urine Glucose (UA) Urine Ketones Urine Occult Blood Urine Nitrite Urine Bilirubin Urine Urobilinogen Ur Leukocyte Esterase Urine RBC Urine WBC Ur Squamous Epith Cells Urine Bacteria Urine Mucus Ur Random Sodium Urine Creatinine 18.60 Acetone Level MRSA (PCR) POC Glucose 01/13/18 01/13/18 01/13/18 20:00 21:05 21:10 WBC RBC Hgb Hct MCV MCH MCHC RDW RDW Differential Plt Count MPV Immature Gran % (Auto) Neut % (Auto) Lymph % (Auto) [place] % (Auto) Eos % (Auto) Baso % (Auto) Absolute Neuts (auto) Absolute Lymphs (auto) Total Counted Neutrophils % (Manual) Band Neutrophils % Monocytes % (Manual) Metamyelocytes % Nucleated RBC % Differential Comment Diff Path Review Plt Morphology Comment Absolute Retic Specimen Type Sample Site pH Bicarbonate Actual POC Total CO2 Base Excess O2 Saturation ABG pCO2 ABG pO2 Jose David Test O2 Delivery Device Blood Gas Notified Whom Blood Gas Notified Time Sodium Potassium Chloride Carbon Dioxide Anion Gap BUN Creatinine Estim Creat Clear Calc Est GFR (MDRD) Af Amer Est GFR (MDRD) Non-Af BUN/Creatinine Ratio Glucose 606 H* Hemoglobin A1c Serum Osmolality Lactic Acid Calcium Total Bilirubin GGT AST ALT Alkaline Phosphatase Total Protein Albumin Globulin Albumin/Globulin Ratio Urine Color Urine Clarity Urine pH Ur Specific [place] Urine Protein Urine Glucose (UA) Urine Ketones Urine Occult Blood Urine Nitrite Urine Bilirubin Urine Urobilinogen Ur Leukocyte Esterase Urine RBC Urine WBC Ur Squamous Epith Cells Urine Bacteria Urine Mucus Ur Random Sodium 53 Urine Creatinine Acetone Level MRSA (PCR) POC Glucose > 500 H* 01/13/18 01/13/18 01/13/18 22:09 23:10 23:15 WBC RBC Hgb Hct MCV MCH MCHC RDW RDW Differential Plt Count MPV Immature Gran % (Auto) Neut % (Auto) Lymph % (Auto) [place] % (Auto) Eos % (Auto) Baso % (Auto) Absolute Neuts (auto) Absolute Lymphs (auto) Total Counted Neutrophils % (Manual) Band Neutrophils % Monocytes % (Manual) Metamyelocytes % Nucleated RBC % Differential Comment Diff Path Review Plt Morphology Comment Absolute Retic Specimen Type Sample Site pH Bicarbonate Actual POC Total CO2 Base Excess O2 Saturation ABG pCO2 ABG pO2 Jose David Test O2 Delivery Device Blood Gas Notified Whom Blood Gas Notified Time Sodium 129 L Potassium 4.6 Chloride 96 L Carbon Dioxide 18.0 L Anion Gap 15 BUN 65 H Creatinine 2.57 H Estim Creat Clear Calc 18.05 Est GFR (MDRD) Af Amer 24 L Est GFR (MDRD) Non-Af 20 L BUN/Creatinine Ratio 25.3 H Glucose 569 H* Hemoglobin A1c Serum Osmolality Lactic Acid Calcium 7.0 L Total Bilirubin GGT AST ALT Alkaline Phosphatase Total Protein Albumin Globulin Albumin/Globulin Ratio Urine Color Urine Clarity Urine pH Ur Specific [place] Urine Protein Urine Glucose (UA) Urine Ketones Urine Occult Blood Urine Nitrite Urine Bilirubin Urine Urobilinogen Ur Leukocyte Esterase Urine RBC Urine WBC Ur Squamous Epith Cells Urine Bacteria Urine Mucus Ur Random Sodium Urine Creatinine Acetone Level MRSA (PCR) POC Glucose > 500 H* > 500 H* 01/14/18 01/14/18 01/14/18 00:02 01:04 02:02 WBC RBC Hgb Hct MCV MCH MCHC RDW RDW Differential Plt Count MPV Immature Gran % (Auto) Neut % (Auto) Lymph % (Auto) [place] % (Auto) Eos % (Auto) Baso % (Auto) Absolute Neuts (auto) Absolute Lymphs (auto) Total Counted Neutrophils % (Manual) Band Neutrophils % Monocytes % (Manual) Metamyelocytes % Nucleated RBC % Differential Comment Diff Path Review Plt Morphology Comment Absolute Retic Specimen Type Sample Site pH Bicarbonate Actual POC Total CO2 Base Excess O2 Saturation ABG pCO2 ABG pO2 Jose David Test O2 Delivery Device Blood Gas Notified Whom Blood Gas Notified Time Sodium Potassium Chloride Carbon Dioxide Anion Gap BUN Creatinine Estim Creat Clear Calc Est GFR (MDRD) Af Amer Est GFR (MDRD) Non-Af BUN/Creatinine Ratio Glucose Hemoglobin A1c Serum Osmolality Lactic Acid Calcium Total Bilirubin GGT AST ALT Alkaline Phosphatase Total Protein Albumin Globulin Albumin/Globulin Ratio Urine Color Urine Clarity Urine pH Ur Specific [place] Urine Protein Urine Glucose (UA) Urine Ketones Urine Occult Blood Urine Nitrite Urine Bilirubin Urine Urobilinogen Ur Leukocyte Esterase Urine RBC Urine WBC Ur Squamous Epith Cells Urine Bacteria Urine Mucus Ur Random Sodium Urine Creatinine Acetone Level MRSA (PCR) POC Glucose > 500 H* > 500 H* > 500 H* 01/14/18 01/14/18 01/14/18 02:50 02:50 02:54 WBC 17.2 H RBC 3.68 L Hgb 10.4 L Hct 30.5 L MCV 82.9 MCH 28.3 MCHC 34.1 RDW 12.5 RDW Differential 37.8 Plt Count 19 L* MPV Immature Gran % (Auto) 1.700 H Neut % (Auto) 93.0 H Lymph % (Auto) 2.7 L [place] % (Auto) 2.4 Eos % (Auto) 0.1 Baso % (Auto) 0.1 Absolute Neuts (auto) 16.0 H Absolute Lymphs (auto) 0.46 L Total Counted Not Reportable Neutrophils % (Manual) Band Neutrophils % Monocytes % (Manual) Metamyelocytes % Nucleated RBC % Differential Comment SCANNED Diff Path Review May foll Plt Morphology Comment Absolute Retic Specimen Type Sample Site pH Bicarbonate Actual POC Total CO2 Base Excess O2 Saturation ABG pCO2 ABG pO2 Jose David Test O2 Delivery Device Blood Gas Notified Whom Blood Gas Notified Time Sodium 129 L Potassium 4.3 Chloride 98 Carbon Dioxide 19.0 L Anion Gap 12 BUN 68 H Creatinine 2.62 H Estim Creat Clear Calc 17.71 Est GFR (MDRD) Af Amer 24 L Est GFR (MDRD) Non-Af 19 L BUN/Creatinine Ratio 26.0 H Glucose 497 H* Hemoglobin A1c Serum Osmolality Lactic Acid Calcium 7.0 L Total Bilirubin GGT AST ALT Alkaline Phosphatase Total Protein Albumin Globulin Albumin/Globulin Ratio Urine Color Urine Clarity Urine pH Ur Specific [place] Urine Protein Urine Glucose (UA) Urine Ketones Urine Occult Blood Urine Nitrite Urine Bilirubin Urine Urobilinogen Ur Leukocyte Esterase Urine RBC Urine WBC Ur Squamous Epith Cells Urine Bacteria Urine Mucus Ur Random Sodium Urine Creatinine Acetone Level MRSA (PCR) POC Glucose > 500 H* 01/14/18 04:00 WBC RBC Hgb Hct MCV MCH MCHC RDW RDW Differential Plt Count MPV Immature Gran % (Auto) Neut % (Auto) Lymph % (Auto) [place] % (Auto) Eos % (Auto) Baso % (Auto) Absolute Neuts (auto) Absolute Lymphs (auto) Total Counted Neutrophils % (Manual) Band Neutrophils % Monocytes % (Manual) Metamyelocytes % Nucleated RBC % Differential Comment Diff Path Review Plt Morphology Comment Absolute Retic Specimen Type Sample Site pH Bicarbonate Actual POC Total CO2 Base Excess O2 Saturation ABG pCO2 ABG pO2 Jose David Test O2 Delivery Device Blood Gas Notified Whom Blood Gas Notified Time Sodium Potassium Chloride Carbon Dioxide Anion Gap BUN Creatinine Estim Creat Clear Calc Est GFR (MDRD) Af Amer Est GFR (MDRD) Non-Af BUN/Creatinine Ratio Glucose Hemoglobin A1c Serum Osmolality Lactic Acid Calcium Total Bilirubin GGT AST ALT Alkaline Phosphatase Total Protein Albumin Globulin Albumin/Globulin Ratio Urine Color Urine Clarity Urine pH Ur Specific [place] Urine Protein Urine Glucose (UA) Urine Ketones Urine Occult Blood Urine Nitrite Urine Bilirubin Urine Urobilinogen Ur Leukocyte Esterase Urine RBC Urine WBC Ur Squamous Epith Cells Urine Bacteria Urine Mucus Ur Random Sodium Urine Creatinine Acetone Level MRSA (PCR) POC Glucose 460 H* Clinical Impression(s) from Imaging Studies Brain CT 01/13/18 16:13 IMPRESSION: Normal unenhanced CT scan of the brain. Electronically Signed: Jamison Munguia MD at 17:33 EDT , Service support , Chest X-Ray 01/13/18 16:15 IMPRESSION: Right IJ catheter as above. No pneumothorax. Electronically Signed: Jamison Munguia MD at 16:23 EDT , Service support , Renal Ultrasound 01/13/18 17:18 IMPRESSION: Normal ultrasound of the kidneys and urinary bladder. Electronically Signed: Jamison Munguia MD at 20:48 EDT , Service support , Liver Ultrasound 01/13/18 21:45 IMPRESSION: Small right pleural effusion and ascites otherwise no acute disease Electronically Signed: Jamison Munguia MD at 23:07 EDT , Service support , Medical Necessity - Tobacco Use Smoking Status: Never smoker Tobacco Use: Non-smoker Assessment/Plan All Active Problems Lethargy (Acute) Altered mental status (Acute) RECOMMENDATIONS: 1. Continue supplemental IV fluid hydration until the patient is no longer n.p.o. 2. Continue insulin infusion, as the patient's anion gap remains elevated when corrected for albumin level. 3. Monitor platelet count carefully. Given that spontaneous bleeding is more likely to occur with a platelet count below 10,000, would plan to transfuse if her level reaches that threshold. 4. Continue broad-spectrum antibiotics, pending finalized infectious workup. 5. Physical therapy to work with patient today. 6. Recommend speech therapy evaluation prior to advancing diet. IMPRESSIONS: 1. Combined hypovolemic and septic shock The patient appears to be clearly volume depleted, likely in the setting of osmotic diuresis from profound hyperglycemia. Her p.o. intake has also been poor. In addition, she does appear to have evidence of cystitis. The patient was volume resuscitated per sepsis protocol. The patient did require transient vasopressor support to maintain hemodynamic stability. The patient will be continued on supplemental IV fluid hydration until her p.o. status is advanced. Broad-spectrum antibiotics will be continued, pending finalized infectious workup. 2. Diabetic ketoacidosis The patient appears to be a newly diagnosed diabetic who presented to the hospital in diabetic ketoacidosis, which may have been precipitated by an underlying infectious process. The patient's hemoglobin A1c is noted to be 13.5. She denies ever having been diagnosed with diabetes previously. She will continue to be managed per DKA protocol with IV volume resuscitation and continuous insulin infusion. Aggressive electrolyte repletion as indicated. Continue insulin infusion at the very minimal until the patient's anion gap has been closed x2. Although her anion gap is reported to be normal on her chemistry profile, when corrected for serum albumin level it is still elevated. 3. Metabolic encephalopathy Improving. Likely secondary to the above. Anticipate improvement in mentation with correction of the patient's underlying metabolic derangements. CT head was noted to be negative. Avoid sedating medications. 4. Hypovolemic hyponatremia Improving. Again likely secondary to osmotic diuresis in the setting of diabetic ketoacidosis. The patient is currently being volume resuscitated. Close monitoring of serum sodium level is indicated. 5. Acute kidney injury/anion gap metabolic acidosis Likely prerenal in etiology with possible ischemic ATN in the setting of #1. Continue current supportive measures as outlined above. Anticipate improvement in creatinine with stabilization of hemodynamics. Continue to monitor urine output. No current indication for renal replacement therapy. Renal ultrasound was unremarkable. 6. Elevated transaminases Likely secondary to the patient's hypovolemic state. Liver ultrasound was unremarkable. Recheck hepatic function profile this morning. 7. Thrombocytopenia Unclear chronicity, as there are no previous lab work available for comparison. However, this may be secondary to a consumptive process in the setting of septic shock. The patient's platelet count again dropped this morning. All heparin containing products have been discontinued. We will continue to monitor accordingly. Would plan to transfuse if the patient's platelet count drops below 10,000, as she would be at increased risk for spontaneous bleeding. This note was generated with [employer] dictation software. It may contain incorrect words, spelling, and punctuation that were not noted in checking the note before signing. Code Visit Inpatient E&M: 08900 [facility]
[2018-01-14 07:16] LABS: Bedside Glucose 425 mg/dL (70-110)
[2018-01-14 07:16] LABS: Bedside Glucose 408 mg/dL (70-110)
[2018-01-14 07:27] LABS: Anion Gap 14 (5-15); BUN 70 mg/dL (7-18); BUN/Creat Ratio 26.6 RATIO (10-20); Calcium,Total 6.9 mg/dL (8.5-10.1); Chloride 101 mmol/L (98-107); Creatinine, Serum 2.63 mg/dL (0.55-1.02); EST Glomerular Filtration Rate 19 mL/min (>60); Est Glom Filt Rate - Afr Amer 23 mL/min (>60); Estimated Creatinine Clearance 17.64 ml/min; Glucose 403 mg/dL (74-106); Sodium Level 132 mmol/L (136-145)
[2018-01-14 08:16] LABS: Bedside Glucose 435 mg/dL (70-110)
[2018-01-14 08:16] LABS: Bedside Glucose 365 mg/dL (70-110)
[2018-01-14] MEDS: 0.9% NaCl Peripheral Flush Adult/Peds IV ×4 (08:27→23:27)
[2018-01-14 08:48] LABS: AST(SGOT) 541 U/L (15-37); Alanine Aminotransfer ALT/SGPT 301 U/L (13-56); Albumin, Serum 1.4 g/dL (3.2-5.0); Alkaline Phosphatase 164 U/L (45-117); Bilirubin, Direct 0.21 mg/dL (0.00-0.30); Globulin 3.1 g/dL (2.2-4.2); Protein, Total 4.5 g/dL (6.4-8.2)
--- NOTE | 2018-01-14 08:50 | PCM.PN.HOSP ---
Patient Problems: Active and Suspected Problems Lethargy (Acute) Altered mental status (Acute) Subjective: Resting comfortably, denies pain, and states she feels a little better Vitals/I&O's: Vital Signs Temp Pulse Resp BP Pulse Ox 97.6 F L 102 H 24 H 98/66 94 01/14/18 08:00 01/14/18 08:00 01/14/18 08:00 01/14/18 08:00 01/14/18 08:00 Oxygen Flow Rate (L/min) 2 Oxygen Delivery Method Room Air Weight: 124 lb 12.506 oz Body Mass Index (BMI) 21.9 Finger Stick Blood Glucose 365 Intake and Output for Last 24 Hours 01/12/18 01/13/18 01/14/18 23:59 23:59 23:59 Intake Total 2156.1 / 2156.1 3332.6 / 3332.6 Output Total 375 / 375 450 / 450 Balance 1781.1 / 1781.1 2882.6 / 2882.6 General: Alert, Oriented x3, Cooperative, No apparent distress HEENT: Atraumatic, EOMI, Normocephalic Oral: Moist Mucosa Neck: Supple, No JVD Lungs: Clear to auscultation, Normal air movement, No rhonchi, No wheeze, No rales, Diminished Cardiovascular: Regular Rhythm, Normal S1, Normal S2, Tachycardic Abdomen: Soft, Non Tender, Non-Distended, No Hepato-splenomegaly Extremities: No edema, Capillary Refill Less than 3 Seconds Skin: No rashes, No breakdown Neurological: Neuro grossly intact, Sensory exam intact to light touch and pain Psych/Mental Status: Normal Affect, Appropriate Laboratory Results 01/13/18 14:55: Hemoglobin A1c 13.5 H 01/13/18 14:55: Sodium 122 L, Potassium 3.8, Chloride 86 L, Carbon Dioxide 18.0 L, Anion Gap 18 H, BUN 62 H, Creatinine 3.04 H, Estim Creat Clear Calc 15.26, Est GFR (MDRD) Af Amer 20 L, Est GFR (MDRD) Non-Af 16 L, BUN/Creatinine Ratio 20.4 H, Glucose 785 H*, Calcium 7.1 L, Total Bilirubin 0.50, GGT 20, AST 310 H, ALT 148 H, Alkaline Phosphatase 264 H, Total Protein 5.4 L, Albumin 1.9 L, Globulin 3.5, Albumin/Globulin Ratio 0.5 L 01/13/18 14:55: Serum Osmolality 316 H 01/13/18 14:55: Acetone Level NEGATIVE 01/13/18 14:55: Lactic Acid 4.2 H* 01/13/18 14:55: WBC 18.0 H, RBC 4.01 L, Hgb 11.5 L, Hct 33.4 L, MCV 83.3, MCH 28.7, MCHC 34.4, RDW 12.5, RDW Differential 38.1, Plt Count 39 L*, MPV 12.3 H, Neut % (Auto) Not Reportable, Absolute Neuts (auto) 17.0 H, Absolute Lymphs (auto) 0.00 L, Total Counted 100, Neutrophils % (Manual) 78 H, Band Neutrophils % 16 H, Monocytes % (Manual) 4, Metamyelocytes % 2 H, Nucleated RBC % 0.1, Diff Path Review May foll, Plt Morphology Comment LARGE, Absolute Retic 0.02 01/13/18 15:30: Urine Color Brown, Urine Clarity Turbid, Urine pH 5.0, Ur Specific [place] 1.020, Urine Protein 500 H, Urine Glucose (UA) 1000 H, Urine Ketones 5 H, Urine Occult Blood 250 H, Urine Nitrite Negative, Urine Bilirubin Negative, Urine Urobilinogen Normal, Ur Leukocyte Esterase 500 H, Urine RBC 0 SEEN, Urine WBC >100 SEEN, Ur Squamous Epith Cells 0 SEEN, Urine Bacteria 0 SEEN, Urine Mucus 0 SEEN 01/13/18 16:40: MRSA (PCR) Negative 01/13/18 17:15: Glucose 706 H* 01/13/18 17:16: POC Glucose > 500 H* 01/13/18 18:45: Specimen Type ART, Sample Site L Radial, pH 7.30 L, Bicarbonate Actual 13.7 L, POC Total CO2 15, Base Excess -13 L, O2 Saturation 92 L, ABG pCO2 27.8 L, ABG pO2 70 L, Jose David Test POS, O2 Delivery Device Room Air, Blood Gas Notified Whom JORDY CAIN, Blood Gas Notified Time 1838 01/13/18 18:50: POC Glucose > 500 H* 01/13/18 18:55: Sodium 126 L, Potassium 3.4 L, Chloride 93 L, Carbon Dioxide 18.0 L, Anion Gap 15, BUN 61 H, Creatinine 2.74 H, Estim Creat Clear Calc 16.93, Est GFR (MDRD) Af Amer 22 L, Est GFR (MDRD) Non-Af 18 L, BUN/Creatinine Ratio 22.3 H, Glucose 624 H*, Calcium 7.0 L 01/13/18 19:40: Lactic Acid 3.5 H 01/13/18 20:00: Urine Creatinine 18.60 01/13/18 20:00: Ur Random Sodium 53 01/13/18 21:05: POC Glucose > 500 H* 01/13/18 21:10: Glucose 606 H* 01/13/18 22:09: POC Glucose > 500 H* 01/13/18 23:10: POC Glucose > 500 H* 01/13/18 23:15: Sodium 129 L, Potassium 4.6, Chloride 96 L, Carbon Dioxide 18.0 L, Anion Gap 15, BUN 65 H, Creatinine 2.57 H, Estim Creat Clear Calc 18.05, Est GFR (MDRD) Af Amer 24 L, Est GFR (MDRD) Non-Af 20 L, BUN/Creatinine Ratio 25.3 H, Glucose 569 H*, Calcium 7.0 L 01/14/18 00:02: POC Glucose > 500 H* 01/14/18 01:04: POC Glucose > 500 H* 01/14/18 02:02: POC Glucose > 500 H* 01/14/18 02:50: Sodium 129 L, Potassium 4.3, Chloride 98, Carbon Dioxide 19.0 L, Anion Gap 12, BUN 68 H, Creatinine 2.62 H, Estim Creat Clear Calc 17.71, Est GFR (MDRD) Af Amer 24 L, Est GFR (MDRD) Non-Af 19 L, BUN/Creatinine Ratio 26.0 H, Glucose 497 H*, Calcium 7.0 L 01/14/18 02:50: WBC 17.2 H, RBC 3.68 L, Hgb 10.4 L, Hct 30.5 L, MCV 82.9, MCH 28.3, MCHC 34.1, RDW 12.5, RDW Differential 37.8, Plt Count 19 L*, Immature Gran % (Auto) 1.700 H, Neut % (Auto) 93.0 H, Lymph % (Auto) 2.7 L, [place] % (Auto) 2.4, Eos % (Auto) 0.1, Baso % (Auto) 0.1, Absolute Neuts (auto) 16.0 H, Absolute Lymphs (auto) 0.46 L, Total Counted Not Reportable, Differential Comment SCANNED, Diff Path Review July01/14/18 02:54: POC Glucose > 500 H* 01/14/18 04:00: POC Glucose 460 H* 01/14/18 05:12: POC Glucose 425 H 01/14/18 06:16: POC Glucose 408 H 01/14/18 07:02: POC Glucose 435 H 01/14/18 07:03: Sodium 132 L, Potassium 4.0, Chloride 101, Carbon Dioxide 17.0 L, Anion Gap 14, BUN 70 H, Creatinine 2.63 H, Estim Creat Clear Calc 17.64, Est GFR (MDRD) Af Amer 23 L, Est GFR (MDRD) Non-Af 19 L, BUN/Creatinine Ratio 26.6 H, Glucose 403 H, Calcium 6.9 L 01/14/18 07:03: Total Bilirubin 0.40, Direct Bilirubin 0.21, AST 541 H, ALT 301 H, Alkaline Phosphatase 164 H, Total Protein 4.5 L, Albumin 1.4 L, Globulin 3.1 01/14/18 08:14: POC Glucose 365 H Current Medications Chlorhexidine Gluconate () 1 each TOPICAL DAILY [facility] Last Admin: 01/14/18 04:17 Dose: 1 each Dextrose (D50w Syringe) 0 gm IV X1 PRN; Protocol PRN Reason: HYPOGLYCEMIA Sodium Chloride () 250 mls @ 15 mls/hr IV .[id number] PRN PRN Reason: SALINE FLUSH Last Admin: 01/14/18 04:16 Dose: 15 mls/hr Sodium Chloride () 500 mls @ 15 mls/hr IV .[id number] PRN PRN Reason: SALINE FLUSH Cefepime HCl 2 gm/ Sodium (Chloride) 100 mls @ 200 mls/hr IV Q24 [facility] Last Admin: 01/13/18 16:23 Dose: 200 mls/hr Insulin Human Lispro 100 unit/ (Sodium Chloride) 100 mls @ 5.61 mls/hr IV .[id number] [facility]; Protocol Last Admin: 01/14/18 08:33 Dose: Not Given Pantoprazole Sodium 40 mg/ (Sodium Chloride) 110 mls @ 330 mls/hr IV Q12 [facility] Last Admin: 01/13/18 23:12 Dose: 330 mls/hr Sodium Chloride () 1,000 mls @ 125 mls/hr IV .Q8H [facility] Last Admin: 01/14/18 07:20 Dose: 125 mls/hr Magnesium Hydroxide (Milk Of Magnesia) 30 ml PO DAILY PRN PRN PRN Reason: Constipation Sodium Chloride () 5 - 30 ml IV UD PRN PRN Reason: SALINE FLUSH Last Admin: 01/14/18 08:29 Dose: 20 ml Medical Necessity - Tobacco Use Smoking Status: Never smoker Tobacco Use: Non-smoker Assessment/Plan All Active Problems Lethargy (Acute) Altered mental status (Acute) 1. 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
--- NOTE | 2018-01-14 08:54 | PN_ITS ---
Patient Problems: Active and Suspected Problems Lethargy (Acute) Altered mental status (Acute) Subjective: Resting comfortably, denies pain, and states she feels a little better Vitals/I&O's: Vital Signs Temp Pulse Resp BP Pulse Ox 97.6 F L 102 H 24 H 98/66 94 01/14/18 08:00 01/14/18 08:00 01/14/18 08:00 01/14/18 08:00 01/14/18 08:00 Oxygen Flow Rate (L/min) 2 Oxygen Delivery Method Room Air Weight: 124 lb 12.506 oz Body Mass Index (BMI) 21.9 Finger Stick Blood Glucose 365 Intake and Output for Last 24 Hours 01/12/18 01/13/18 01/14/18 23:59 23:59 23:59 Intake Total 2156.1 / 2156.1 3332.6 / 3332.6 Output Total 375 / 375 450 / 450 Balance 1781.1 / 1781.1 2882.6 / 2882.6 General: Alert, Oriented x3, Cooperative, No apparent distress HEENT: Atraumatic, EOMI, Normocephalic Oral: Moist Mucosa Neck: Supple, No JVD Lungs: Clear to auscultation, Normal air movement, No rhonchi, No wheeze, No rales, Diminished Cardiovascular: Regular Rhythm, Normal S1, Normal S2, Tachycardic Abdomen: Soft, Non Tender, Non-Distended, No Hepato-splenomegaly Extremities: No edema, Capillary Refill Less than 3 Seconds Skin: No rashes, No breakdown Neurological: Neuro grossly intact, Sensory exam intact to light touch and pain Psych/Mental Status: Normal Affect, Appropriate Laboratory Results 01/13/18 14:55: Hemoglobin A1c 13.5 H 01/13/18 14:55: Sodium 122 L, Potassium 3.8, Chloride 86 L, Carbon Dioxide 18.0 L, Anion Gap 18 H, BUN 62 H, Creatinine 3.04 H, Estim Creat Clear Calc 15.26, Est GFR (MDRD) Af Amer 20 L, Est GFR (MDRD) Non-Af 16 L, BUN/Creatinine Ratio 20.4 H, Glucose 785 H*, Calcium 7.1 L, Total Bilirubin 0.50, GGT 20, AST 310 H, ALT 148 H, Alkaline Phosphatase 264 H, Total Protein 5.4 L, Albumin 1.9 L, Globulin 3.5, Albumin/Globulin Ratio 0.5 L 01/13/18 14:55: Serum Osmolality 316 H 01/13/18 14:55: Acetone Level NEGATIVE 01/13/18 14:55: Lactic Acid 4.2 H* 01/13/18 14:55: WBC 18.0 H, RBC 4.01 L, Hgb 11.5 L, Hct 33.4 L, MCV 83.3, MCH 28.7, MCHC 34.4, RDW 12.5, RDW Differential 38.1, Plt Count 39 L*, MPV 12.3 H, Neut % (Auto) Not Reportable, Absolute Neuts (auto) 17.0 H, Absolute Lymphs (auto) 0.00 L, Total Counted 100, Neutrophils % (Manual) 78 H, Band Neutrophils % 16 H, Monocytes % (Manual) 4, Metamyelocytes % 2 H, Nucleated RBC % 0.1, Diff Path Review May foll, Plt Morphology Comment LARGE, Absolute Retic 0.02 01/13/18 15:30: Urine Color Brown, Urine Clarity Turbid, Urine pH 5.0, Ur S pecific [place] 1.020, Urine Protein 500 H, Urine Glucose (UA) 1000 H, Urine Ketones 5 H, Urine Occult Blood 250 H, Urine Nitrite Negative, Urine Bilirubin Negative, Urine Urobilinogen Normal, Ur Leukocyte Esterase 500 H, Urine RBC 0 SEEN, Urine WBC >100 SEEN, Ur Squamous Epith Cells 0 SEEN, Urine Bacteria 0 SEEN, Urine Mucus 0 SEEN 01/13/18 16:40: MRSA (PCR) Negative 01/13/18 17:15: Glucose 706 H* 01/13/18 17:16: POC Glucose > 500 H* 01/13/18 18:45: Specimen Type ART, Sample Site L Radial, pH 7.30 L, Bicarbonate Actual 13.7 L, POC Total CO2 15, Base Excess -13 L, O2 Saturation 92 L, ABG pCO2 27.8 L, ABG pO2 70 L, Jose Daivd Test POS, O2 Delivery Device Room Air, Blood Gas Notified Whom JORDY CAIN, Blood Gas Notified Time 1838 01/13/18 18:50: POC Glucose > 500 H* 01/13/18 18:55: Sodium 126 L, Potassium 3.4 L, Chloride 93 L, Carbon Dioxide 18.0 L, Anion Gap 15, BUN 61 H, Creatinine 2.74 H, Estim Creat Clear Calc 16.93, Est GFR (MDRD) Af Amer 22 L, Est GFR (MDRD) Non-Af 18 L, BUN/Creatinine Ratio 22.3 H, Glucose 624 H*, Calcium 7.0 L 01/13/18 19:40: Lactic Acid 3.5 H 01/13/18 20:00: Urine Creatinine 18.60 01/13/18 20:00: Ur Random Sodium 53 01/13/18 21:05: POC Glucose > 500 H* 01/13/18 21:10: Glucose 606 H* 01/13/18 22:09: POC Glucose > 500 H* 01/13/18 23:10: POC Glucose > 500 H* 01/13/18 23:15: Sodium 129 L, Potassium 4.6, Chloride 96 L, Carbon Dioxide 18.0 L, Anion Gap 15, BUN 65 H, Creatinine 2.57 H, Estim Creat Clear Calc 18.05, Est GFR (MDRD) Af Amer 24 L, Est GFR (MDRD) Non-Af 20 L, BUN/Creatinine Ratio 25.3 H , Glucose 569 H*, Calcium 7.0 L 01/14/18 00:02: POC Glucose > 500 H* 01/14/18 01:04: POC Glucose > 500 H* 01/14/18 02:02: POC Glucose > 500 H* 01/14/18 02:50: Sodium 129 L, Potassium 4.3, Chloride 98, Carbon Dioxide 19.0 L, Anion Gap 12, BUN 68 H, Creatinine 2.62 H, Estim Creat Clear Calc 17.71, Est GFR (MDRD) Af Amer 24 L, Est GFR (MDRD) Non-Af 19 L, BUN/Creatinine Ratio 26.0 H, Glucose 497 H*, Calcium 7.0 L 01/14/18 02:50: WBC 17.2 H, RBC 3.68 L, Hgb 10.4 L, Hct 30.5 L, MCV 82.9, MCH 28.3, MCHC 34.1, RDW 12.5, RDW Differential 37.8, Plt Count 19 L*, Immature Gran % (Auto) 1.700 H, Neut % (Auto) 93.0 H, Lymph % (Auto) 2.7 L, [place] % (Auto) 2.4, Eos % (Auto) 0.1, Baso % (Auto) 0.1, Absolute Neuts (auto) 16.0 H, Absolute Lymphs (auto) 0.46 L, Total Counted Not Reportable, Differential Comment SCANNED, Diff Path Review July01/14/18 02:54: POC Glucose > 500 H* 01/14/18 04:00: POC Glucose 460 H* 01/14/18 05:12: POC Glucose 425 H 01/14/18 06:16: POC Glucose 408 H 01/14/18 07:02: POC Glucose 435 H 01/14/18 07:03: Sodium 132 L, Potassium 4.0, Chloride 101, Carbon Dioxide 17.0 L , Anion Gap 14, BUN 70 H, Creatinine 2.63 H, Estim Creat Clear Calc 17.64, Est GFR (MDRD) Af Amer 23 L, Est GFR (MDRD) Non-Af 19 L, BUN/Creatinine Ratio 26.6 H , Glucose 403 H, Calcium 6.9 L 01/14/18 07:03: Total Bilirubin 0.40, Direct Bilirubin 0.21, AST 541 H, ALT 301 H, Alkaline Phosphatase 164 H, Total Protein 4.5 L, Albumin 1.4 L, Globulin 3.1 01/14/18 08:14: POC Glucose 365 H Current Medications Chlorhexidine Gluconate () 1 each TOPICAL DAILY [facility] Last Admin: 01/14/18 04:17 Dose: 1 each Dextrose (D50w Syringe) 0 gm IV X1 PRN; Protocol PRN Reason: HYPOGLYCEMIA Sodium Chloride () 250 mls @ 15 mls/hr IV .[id number] PRN PRN Reason: SALINE FLUSH Last Admin: 01/14/18 04:16 Dose: 15 mls/hr Sodium Chloride () 500 mls @ 15 mls/hr IV .[id number] PRN PRN Reason: SALINE FLUSH Cefepime HCl 2 gm/ Sodium (Chloride) 100 mls @ 200 mls/hr IV Q24 [facility] Last Admin: 01/13/18 16:23 Dose: 200 mls/hr Insulin Human Lispro 100 unit/ (Sodium Chloride) 100 mls @ 5.61 mls/hr IV .[id number] [facility]; Protocol Last Admin: 01/14/18 08:33 Dose: Not Given Pantoprazole Sodium 40 mg/ (Sodium Chloride) 110 mls @ 330 mls/hr IV Q12 [facility] Last Admin: 01/13/18 23:12 Dose: 330 mls/hr Sodium Chloride () 1,000 mls @ 125 mls/hr IV .Q8H [facility] Last Admin: 01/14/18 07:20 Dose: 125 mls/hr Magnesium Hydroxide (Milk Of Magnesia) 30 ml PO DAILY PRN PRN PRN Reason: Constipation Sodium Chloride () 5 - 30 ml IV UD PRN PRN Reason: SALINE FLUSH Last Admin: 01/14/18 08:29 Dose: 20 ml Medical Necessity - Tobacco Use Smoking Status: Never smoker Tobacco Use: Non-smoker Assessment/Plan All Active Problems Lethargy (Acute) Altered mental status (Acute) 1. 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
[2018-01-14 09:31] LABS: Bedside Glucose 339 mg/dL (70-110)
--- NOTE | 2018-01-14 10:18 | NURSING ---
wound photo: left knee
--- NOTE | 2018-01-14 10:19 | NURSING ---
wound photo: right knee
[2018-01-14 10:25] LABS: Bedside Glucose > 500 mg/dL (70-110)
[2018-01-14 10:25] LABS: Bedside Glucose 335 mg/dL (70-110)
[2018-01-14 10:25] LABS: Bedside Glucose > 500 mg/dL (70-110)
--- NOTE | 2018-01-14 10:50 | CASEMGMT ---
RENEE SAMAYOA INITIAL REVIEW ASSESSMENT D/C PLAN: Undetermined at this time. Face to Face with family for initial transition planning/care coordination assessment. RENEE SAMAYOA introduced self and role at [facility]. Pt sleepy and drifted off to sleep throughout the assessment. , son, and DIL all @ bedside and provided information. Demographics verified. PCP: No PCP. Family given local PCP list. RENEE SAMAYOA discussed with family importance of getting PCP established as soon as possible for follow-up and monitoring Insurance: [facility] A & B. Preferred Pharmacy/Prescription Benefit: Does not have prescription coverage. Family made aware when pt given discharge instructions and once prescriptions are given that izquierdo checks can be done on medications to determine [id number] cost. states prefers [facility] in [place] but is also interested in [facility] Retail pharmacy on day of discharge, depending on cost of meds. Also given information on [facility] to assist w/prescription cost and family provided with list of diabetic meds on the $4 list @ [facility]. Pt with new diabetic diagnosis this admission and does not have any diabetic supplies or meds at home. Family provided with Diabetic Clinic information as well. Living Will/HPOA: Does not have LW or HCPOA. Family state they are interested in further information. Given AD packet. Informed that SW can discuss this with pt once she is oriented and able to make these decisions. Family also made aware AD can be done as an out-pt and provided with AD info card with phone number to make appt then if they would like to. HANS Li, made aware family would like for SW to talk with pt about AD once she is able to. LNOK: , Thom. Pt has one son, who is present in room during assessment. He states he and his live in [place]. Living Arrangements: Lives with Thom in a 2-story home. 4 steps to enter. 13 steps b/w ground floor and upstairs. There is a 1/2 bath on ground floor (has no shower/tub). Bedroom and full bathroom w/shower is on the 2nd floor. Transportation: Pt drove prior to hospitalization. drives and able to assist with transportation if needed. DIL states she has family that live fairly close that can also assist. 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 states there is a cane available but no one uses it. Hand held shower in the home. Unknown at this time if pt will need any DME upon discharge. states he prefers [facility]. Made aware [facility] is closing this week and given a list of DME companies and phone numbers in the area. CM to continue to follow for any DME needs. HH/CSNF: Pt has never used HHC or been to a SNF in the past. Family agreeable to [facility] on d/c if pt would need/qualify for it. SNF not discussed at this time. Awaiting PT/OT/ST budals. Family made aware it is currently open enrollment for prescription coverage and insurance coverage at this time and RN CM recommended they look into this to get further information. Family informed CM will continue to follow pt and help with discharge planning needs as they arise. Get BATES RN CM
[2018-01-14 11:25] LABS: Anion Gap 11 (5-15); BUN 70 mg/dL (7-18); BUN/Creat Ratio 27.7 RATIO (10-20); Chloride 104 mmol/L (98-107); Creatinine, Serum 2.53 mg/dL (0.55-1.02); EST Glomerular Filtration Rate 20 mL/min (>60); Est Glom Filt Rate - Afr Amer 24 mL/min (>60); Estimated Creatinine Clearance 18.34 ml/min; Glucose 321 mg/dL (74-106); Potassium 3.8 mmol/L (3.5-5.1); Sodium Level 133 mmol/L (136-145)
[2018-01-14 11:25] LABS: Bedside Glucose 292 mg/dL (70-110)
[2018-01-14] MEDS: Menthol/Lanolin/Calamine/Znox 113 GM Tube 1 APPLIC TOPICAL ×2 (12:00→22:00)
[2018-01-14 12:56] LABS: Bedside Glucose 292 mg/dL (70-110)
[2018-01-14 13:29] LABS: Pathologist Review Reviewed
[2018-01-14 13:32] LABS: Pathologist Review Reviewed
[2018-01-14 15:11] LABS: Bedside Glucose 267 mg/dL (70-110)
[2018-01-14 15:33] LABS: Anion Gap 13 (5-15); BUN 71 mg/dL (7-18); BUN/Creat Ratio 28.4 RATIO (10-20); Chloride 105 mmol/L (98-107); EST Glomerular Filtration Rate 21 mL/min (>60); Est Glom Filt Rate - Afr Amer 25 mL/min (>60); Estimated Creatinine Clearance 18.56 ml/min; Glucose 253 mg/dL (74-106); Potassium 3.6 mmol/L (3.5-5.1); Sodium Level 135 mmol/L (136-145)
[2018-01-14 16:11] LABS: Bedside Glucose 231 mg/dL (70-110)
[2018-01-14] MEDS: Dext 5%-0.45% NS 1,000 ML 125 ML IV (17:05)
[2018-01-14 18:16] LABS: Bedside Glucose 220 mg/dL (70-110)
[2018-01-14 20:08] LABS: Anion Gap 11 (5-15); BUN 73 mg/dL (7-18); BUN/Creat Ratio 29.7 RATIO (10-20); Calcium,Total 7.1 mg/dL (8.5-10.1); Chloride 107 mmol/L (98-107); Creatinine, Serum 2.46 mg/dL (0.55-1.02); EST Glomerular Filtration Rate 21 mL/min (>60); Est Glom Filt Rate - Afr Amer 25 mL/min (>60); Estimated Creatinine Clearance 18.86 ml/min; Glucose 246 mg/dL (74-106); Potassium 3.7 mmol/L (3.5-5.1); Sodium Level 135 mmol/L (136-145)
[2018-01-14 20:16] LABS: Bedside Glucose 239 mg/dL (70-110)
[2018-01-14 22:15] LABS: Bedside Glucose 233 mg/dL (70-110)
[2018-01-15] VITALS (23 sets, daily range): BP systolic 90–133; BP diastolic 53–101; PULSE 85–112; RESP 11–24; TEMP 36.4–37.1; O2SAT 96–100
[2018-01-15 00:12] LABS: Anion Gap 12 (5-15); BUN 72 mg/dL (7-18); BUN/Creat Ratio 28.6 RATIO (10-20); Chloride 107 mmol/L (98-107); Creatinine, Serum 2.52 mg/dL (0.55-1.02); EST Glomerular Filtration Rate 20 mL/min (>60); Est Glom Filt Rate - Afr Amer 25 mL/min (>60); Estimated Creatinine Clearance 18.41 ml/min; Glucose 254 mg/dL (74-106); Potassium 3.5 mmol/L (3.5-5.1); Sodium Level 136 mmol/L (136-145)
[2018-01-15 00:16] LABS: Bedside Glucose 247 mg/dL (70-110)
[2018-01-15 01:06] LABS: Bedside Glucose 212 mg/dL (70-110)
[2018-01-15] MEDS: Dext 5%-0.45% NS 1,000 ML 125 ML IV ×2 (01:15→08:52)
[2018-01-15 02:06] LABS: Bedside Glucose 243 mg/dL (70-110)
[2018-01-15] MEDS: 0.9% NaCl Peripheral Flush Adult/Peds IV ×3 (03:02→19:13)
[2018-01-15 03:06] LABS: Bedside Glucose 215 mg/dL (70-110)
[2018-01-15 03:26] LABS: Hematocrit 30.1 % (37-47); Hemoglobin 10.1 g/dl (12.0-15.0); Mean Corp Hgb Conc 33.6 g/gl (32-36); Mean Corpuscular Hgb 27.9 pg (27.0-32.0); Mean Corpuscular Volume 83.1 fL (81-99); RBC Distribution Width CV 12.5 % (11.6-14.6); RBC Distribution Width SD 36.7 fl (35.1-43.9); Red Blood Count 3.62 M/mm3 (4.2-5.4); White Blood Count 20.9 K/mm3 (4.4-11.0)
[2018-01-15 03:27] LABS: Platelet Count 13 K/mm3 (150-450); Scan Indicated on CBC? Y/N YES- FLAGS NOTED
[2018-01-15 03:36] LABS: Anion Gap 13 (5-15); BUN 76 mg/dL (7-18); BUN/Creat Ratio 30.5 RATIO (10-20); Calcium,Total 7.2 mg/dL (8.5-10.1); Chloride 108 mmol/L (98-107); Creatinine, Serum 2.49 mg/dL (0.55-1.02); EST Glomerular Filtration Rate 21 mL/min (>60); Est Glom Filt Rate - Afr Amer 25 mL/min (>60); Estimated Creatinine Clearance 18.63 ml/min; Glucose 231 mg/dL (74-106); Potassium 3.3 mmol/L (3.5-5.1); Sodium Level 138 mmol/L (136-145)
[2018-01-15 05:06] LABS: Bedside Glucose 201 mg/dL (70-110)
[2018-01-15 06:11] LABS: Bedside Glucose 177 mg/dL (70-110)
--- NOTE | 2018-01-15 06:21 | PN_ITS ---
Subjective: The patient was seen and examined at the bedside this morning. Events from the last 24 hours have been reviewed. The patient is currently afebrile, hemodynamically stable and maintaining appropriate oxygen saturations on room air. The patient's white blood cell count remains elevated. Platelet count remains depressed at 13,000. Creatinine appears to have plateaued at 2.5. The patient remains on a continuous insulin infusion at this time. The patient denies abdominal pain, shortness of breath or chest pain. Objective: The patient's most recent lab work, culture data and imaging studies have all been personally reviewed. Both liver and renal ultrasound were unremarkable. Plain film chest x-ray revealed no acute cardiopulmonary process with stable central venous catheter in place. Head CT was unremarkable. Blood cultures are pending. Urine Gram stain revealed the presence of a gram-negative cherelle. General: Alert, Cooperative, Confused HEENT: Atraumatic, PERRLA, Normocephalic Oral: No Gingival or Mucosal Lesions/ Ulcerations, - - Edentulous Neck: Supple, No Nodes, Trachea Midline, - - Right-sided central venous catheter remains in place Lungs: No rhonchi, No wheeze, No rales, Diminished Cardiovascular: Regular rate, Regular Rhythm, Normal S1, Normal S2, No murmurs Abdomen: Bowel Sounds Present, Soft, Non Tender Extremities: No clubbing, No cyanosis, Edema - Trace Skin: - - No significant change from previous Musculoskeletal: No Tenderness to Palpation of Joints or Extremities Lymphatic: No Cervical, Supraclavicular, or Inguinal Adenopathy Neurological: - - No focal neurological deficits Psych/Mental Status: Flat Affect Vital Signs Temp Pulse Resp BP Pulse Ox 97.5 F L 107 H 17 98/76 98 01/15/18 04:00 01/15/18 06:00 01/15/18 06:00 01/15/18 06:00 01/15/18 06:00 Oxygen Flow Rate (L/min) 2 Oxygen Delivery Method Room Air Weight: 130 lb 11.746 oz Body Mass Index (BMI) 21.9 Finger Stick Blood Glucose 177 Intake and Output for Last 24 Hours 01/13/18 01/14/18 01/15/18 23:59 23:59 23:59 Intake Total 2156.1 / 2156.1 5349.6 / 5349.6 1682.7 / 1682.7 Output Total 375 / 375 925 / 925 750 / 750 Balance 1781.1 / 1781.1 4424.6 / 4424.6 932.7 / 932.7 Labs (Last 48 Hours) 01/13/18 01/13/18 01/13/18 14:28 14:30 14:55 WBC RBC Hgb Hct MCV MCH MCHC RDW RDW Differential Plt Count MPV Immature Gran % (Auto) Neut % (Auto) Lymph % (Auto) [place] % (Auto) Eos % (Auto) Baso % (Auto) Absolute Neuts (auto) Absolute Lymphs (auto) Total Counted Neutrophils % (Manual) Band Neutrophils % Monocytes % (Manual) Metamyelocytes % Nucleated RBC % Differential Comment Diff Path Review Plt Morphology Comment Absolute Retic Specimen Type Sample Site pH Bicarbonate Actual POC Total CO2 Base Excess O2 Saturation ABG pCO2 ABG pO2 Jose David Test O2 Delivery Device Blood Gas Notified Whom Blood Gas Notified Time Sodium Potassium Chloride Carbon Dioxide Anion Gap BUN Creatinine Estim Creat Clear Calc Est GFR (MDRD) Af Amer Est GFR (MDRD) Non-Af BUN/Creatinine Ratio Glucose Hemoglobin A1c 13.5 H Serum Osmolality Lactic Acid Calcium Total Bilirubin Direct Bilirubin GGT AST ALT Alkaline Phosphatase Total Protein Albumin Globulin Albumin/Globulin Ratio Urine Color Urine Clarity Urine pH Ur Specific Angle Inlet Urine Protein Urine Glucose (UA) Urine Ketones Urine Occult Blood Urine Nitrite Urine Bilirubin Urine Urobilinogen Ur Leukocyte Esterase Urine RBC Urine WBC Ur Squamous Epith Cells Urine Bacteria Urine Mucus Ur Random Sodium Urine Creatinine Acetone Level MRSA (PCR) POC Glucose > 500 H* > 500 H* Blood Type Antibody Screen 01/13/18 01/13/18 01/13/18 14:55 14:55 14:55 WBC RBC Hgb Hct MCV MCH MCHC RDW RDW Differential Plt Count MPV Immature Gran % (Auto) Neut % (Auto) Lymph % (Auto) [place] % (Auto) Eos % (Auto) Baso % (Auto) Absolute Neuts (auto) Absolute Lymphs (auto) Total Counted Neutrophils % (Manual) Band Neutrophils % Monocytes % (Manual) Metamyelocytes % Nucleated RBC % Differential Comment Diff Path Review Plt Morphology Comment Absolute Retic Specimen Type Sample Site pH Bicarbonate Actual POC Total CO2 Base Excess O2 Saturation ABG pCO2 ABG pO2 Jose David Test O2 Delivery Device Blood Gas Notified Whom Blood Gas Notified Time Sodium 122 L Potassium 3.8 Chloride 86 L Carbon Dioxide 18.0 L Anion Gap 18 H BUN 62 H Creatinine 3.04 H Estim Creat Clear Calc 15.26 Est GFR (MDRD) Af Amer 20 L Est GFR (MDRD) Non-Af 16 L BUN/Creatinine Ratio 20.4 H Glucose 785 H* Hemoglobin A1c Serum Osmolality 316 H Lactic Acid Calcium 7.1 L Total Bilirubin 0.50 Direct Bilirubin GGT 20 AST 310 H ALT 148 H Alkaline Phosphatase 264 H Total Protein 5.4 L Albumin 1.9 L Globulin 3.5 Albumin/Globulin Ratio 0.5 L Urine Color Urine Clarity Urine pH Ur Specific Angle Inlet Urine Protein Urine Glucose (UA) Urine Ketones Urine Occult Blood Urine Nitrite Urine Bilirubin Urine Urobilinogen Ur Leukocyte Esterase Urine RBC Urine WBC Ur Squamous Epith Cells Urine Bacteria Urine Mucus Ur Random Sodium Urine Creatinine Acetone Level NEGATIVE MRSA (PCR) POC Glucose Blood Type Antibody Screen 01/13/18 01/13/18 01/13/18 14:55 14:55 15:30 WBC 18.0 H RBC 4.01 L Hgb 11.5 L Hct 33.4 L MCV 83.3 MCH 28.7 MCHC 34.4 RDW 12.5 RDW Differential 38.1 Plt Count 39 L* MPV 12.3 H Immature Gran % (Auto) Neut % (Auto) Not Reportable Lymph % (Auto) [place] % (Auto) Eos % (Auto) Baso % (Auto) Absolute Neuts (auto) 17.0 H Absolute Lymphs (auto) 0.00 L Total Counted 100 Neutrophils % (Manual) 78 H Band Neutrophils % 16 H Monocytes % (Manual) 4 Metamyelocytes % 2 H Nucleated RBC % 0.1 Differential Comment Diff Path Review Reviewed Plt Morphology Comment LARGE Absolute Retic 0.02 Specimen Type Sample Site pH Bicarbonate Actual POC Total CO2 Base Excess O2 Saturation ABG pCO2 ABG pO2 Jose David Test O2 Delivery Device Blood Gas Notified Whom Blood Gas Notified Time Sodium Potassium Chloride Carbon Dioxide Anion Gap BUN Creatinine Estim Creat Clear Calc Est GFR (MDRD) Af Amer Est GFR (MDRD) Non-Af BUN/Creatinine Ratio Glucose Hemoglobin A1c Serum Osmolality Lactic Acid 4.2 H* Calcium Total Bilirubin Direct Bilirubin GGT AST ALT Alkaline Phosphatase Total Protein Albumin Globulin Albumin/Globulin Ratio Urine Color Brown Urine Clarity Turbid Urine pH 5.0 Ur Specific Angle Inlet 1.020 Urine Protein 500 H Urine Glucose (UA) 1000 H Urine Ketones 5 H Urine Occult Blood 250 H Urine Nitrite Negative Urine Bilirubin Negative Urine Urobilinogen Normal Ur Leukocyte Esterase 500 H Urine RBC 0 SEEN Urine WBC >100 SEEN Ur Squamous Epith Cells 0 SEEN Urine Bacteria 0 SEEN Urine Mucus 0 SEEN Ur Random Sodium Urine Creatinine Acetone Level MRSA (PCR) POC Glucose Blood Type Antibody Screen 01/13/18 01/13/18 01/13/18 16:40 17:15 17:16 WBC RBC Hgb Hct MCV MCH MCHC RDW RDW Differential Plt Count MPV Immature Gran % (Auto) Neut % (Auto) Lymph % (Auto) [place] % (Auto) Eos % (Auto) Baso % (Auto) Absolute Neuts (auto) Absolute Lymphs (auto) Total Counted Neutrophils % (Manual) Band Neutrophils % Monocytes % (Manual) Metamyelocytes % Nucleated RBC % Differential Comment Diff Path Review Plt Morphology Comment Absolute Retic Specimen Type Sample Site pH Bicarbonate Actual POC Total CO2 Base Excess O2 Saturation ABG pCO2 ABG pO2 Jose David Test O2 Delivery Device Blood Gas Notified Whom Blood Gas Notified Time Sodium Potassium Chloride Carbon Dioxide Anion Gap BUN Creatinine Estim Creat Clear Calc Est GFR (MDRD) Af Amer Est GFR (MDRD) Non-Af BUN/Creatinine Ratio Glucose 706 H* Hemoglobin A1c Serum Osmolality Lactic Acid Calcium Total Bilirubin Direct Bilirubin GGT AST ALT Alkaline Phosphatase Total Protein Albumin Globulin Albumin/Globulin Ratio Urine Color Urine Clarity Urine pH Ur Specific Angle Inlet Urine Protein Urine Glucose (UA) Urine Ketones Urine Occult Blood Urine Nitrite Urine Bilirubin Urine Urobilinogen Ur Leukocyte Esterase Urine RBC Urine WBC Ur Squamous Epith Cells Urine Bacteria Urine Mucus Ur Random Sodium Urine Creatinine Acetone Level MRSA (PCR) Negative POC Glucose > 500 H* Blood Type Antibody Screen 01/13/18 01/13/18 01/13/18 18:45 18:50 18:55 WBC RBC Hgb Hct MCV MCH MCHC RDW RDW Differential Plt Count MPV Immature Gran % (Auto) Neut % (Auto) Lymph % (Auto) [place] % (Auto) Eos % (Auto) Baso % (Auto) Absolute Neuts (auto) Absolute Lymphs (auto) Total Counted Neutrophils % (Manual) Band Neutrophils % Monocytes % (Manual) Metamyelocytes % Nucleated RBC % Differential Comment Diff Path Review Plt Morphology Comment Absolute Retic Specimen Type ART Sample Site L Radial pH 7.30 L Bicarbonate Actual 13.7 L POC Total CO2 15 Base Excess -13 L O2 Saturation 92 L ABG pCO2 27.8 L ABG pO2 70 L Jose David Test POS O2 Delivery Device Room Air Blood Gas Notified Whom [facility] Blood Gas Notified Time 1838 Sodium 126 L Potassium 3.4 L Chloride 93 L Carbon Dioxide 18.0 L Anion Gap 15 BUN 61 H Creatinine 2.74 H Estim Creat Clear Calc 16.93 Est GFR (MDRD) Af Amer 22 L Est GFR (MDRD) Non-Af 18 L BUN/Creatinine Ratio 22.3 H Glucose 624 H* Hemoglobin A1c Serum Osmolality Lactic Acid Calcium 7.0 L Total Bilirubin Direct Bilirubin GGT AST ALT Alkaline Phosphatase Total Protein Albumin Globulin Albumin/Globulin Ratio Urine Color Urine Clarity Urine pH Ur Specific Angle Inlet Urine Protein Urine Glucose (UA) Urine Ketones Urine Occult Blood Urine Nitrite Urine Bilirubin Urine Urobilinogen Ur Leukocyte Esterase Urine RBC Urine WBC Ur Squamous Epith Cells Urine Bacteria Urine Mucus Ur Random Sodium Urine Creatinine Acetone Level MRSA (PCR) POC Glucose > 500 H* Blood Type Antibody Screen 01/13/18 01/13/18 01/13/18 19:40 20:00 20:00 WBC RBC Hgb Hct MCV MCH MCHC RDW RDW Differential Plt Count MPV Immature Gran % (Auto) Neut % (Auto) Lymph % (Auto) [place] % (Auto) Eos % (Auto) Baso % (Auto) Absolute Neuts (auto) Absolute Lymphs (auto) Total Counted Neutrophils % (Manual) Band Neutrophils % Monocytes % (Manual) Metamyelocytes % Nucleated RBC % Differential Comment Diff Path Review Plt Morphology Comment Absolute Retic Specimen Type Sample Site pH Bicarbonate Actual POC Total CO2 Base Excess O2 Saturation ABG pCO2 ABG pO2 Jose David Test O2 Delivery Device Blood Gas Notified Whom Blood Gas Notified Time Sodium Potassium Chloride Carbon Dioxide Anion Gap BUN Creatinine Estim Creat Clear Calc Est GFR (MDRD) Af Amer Est GFR (MDRD) Non-Af BUN/Creatinine Ratio Glucose Hemoglobin A1c Serum Osmolality Lactic Acid 3.5 H Calcium Total Bilirubin Direct Bilirubin GGT AST ALT Alkaline Phosphatase Total Protein Albumin Globulin Albumin/Globulin Ratio Urine Color Urine Clarity Urine pH Ur Specific Angle Inlet Urine Protein Urine Glucose (UA) Urine Ketones Urine Occult Blood Urine Nitrite Urine Bilirubin Urine Urobilinogen Ur Leukocyte Esterase Urine RBC Urine WBC Ur Squamous Epith Cells Urine Bacteria Urine Mucus Ur Random Sodium 53 Urine Creatinine 18.60 Acetone Level MRSA (PCR) POC Glucose Blood Type Antibody Screen 01/13/18 01/13/18 01/13/18 21:05 21:10 22:09 WBC RBC Hgb Hct MCV MCH MCHC RDW RDW Differential Plt Count MPV Immature Gran % (Auto) Neut % (Auto) Lymph % (Auto) [place] % (Auto) Eos % (Auto) Baso % (Auto) Absolute Neuts (auto) Absolute Lymphs (auto) Total Counted Neutrophils % (Manual) Band Neutrophils % Monocytes % (Manual) Metamyelocytes % Nucleated RBC % Differential Comment Diff Path Review Plt Morphology Comment Absolute Retic Specimen Type Sample Site pH Bicarbonate Actual POC Total CO2 Base Excess O2 Saturation ABG pCO2 ABG pO2 Jose David Test O2 Delivery Device Blood Gas Notified Whom Blood Gas Notified Time Sodium Potassium Chloride Carbon Dioxide Anion Gap BUN Creatinine Estim Creat Clear Calc Est GFR (MDRD) Af Amer Est GFR (MDRD) Non-Af BUN/Creatinine Ratio Glucose 606 H* Hemoglobin A1c Serum Osmolality Lactic Acid Calcium Total Bilirubin Direct Bilirubin GGT AST ALT Alkaline Phosphatase Total Protein Albumin Globulin Albumin/Globulin Ratio Urine Color Urine Clarity Urine pH Ur Specific Angle Inlet Urine Protein Urine Glucose (UA) Urine Ketones Urine Occult Blood Urine Nitrite Urine Bilirubin Urine Urobilinogen Ur Leukocyte Esterase Urine RBC Urine WBC Ur Squamous Epith Cells Urine Bacteria Urine Mucus Ur Random Sodium Urine Creatinine Acetone Level MRSA (PCR) POC Glucose > 500 H* > 500 H* Blood Type Antibody Screen 01/13/18 01/13/18 01/14/18 23:10 23:15 00:02 WBC RBC Hgb Hct MCV MCH MCHC RDW RDW Differential Plt Count MPV Immature Gran % (Auto) Neut % (Auto) Lymph % (Auto) [place] % (Auto) Eos % (Auto) Baso % (Auto) Absolute Neuts (auto) Absolute Lymphs (auto) Total Counted Neutrophils % (Manual) Band Neutrophils % Monocytes % (Manual) Metamyelocytes % Nucleated RBC % Differential Comment Diff Path Review Plt Morphology Comment Absolute Retic Specimen Type Sample Site pH Bicarbonate Actual POC Total CO2 Base Excess O2 Saturation ABG pCO2 ABG pO2 Jose David Test O2 Delivery Device Blood Gas Notified Whom Blood Gas Notified Time Sodium 129 L Potassium 4.6 Chloride 96 L Carbon Dioxide 18.0 L Anion Gap 15 BUN 65 H Creatinine 2.57 H Estim Creat Clear Calc 18.05 Est GFR (MDRD) Af Amer 24 L Est GFR (MDRD) Non-Af 20 L BUN/Creatinine Ratio 25.3 H Glucose 569 H* Hemoglobin A1c Serum Osmolality Lactic Acid Calcium 7.0 L Total Bilirubin Direct Bilirubin GGT AST ALT Alkaline Phosphatase Total Protein Albumin Globulin Albumin/Globulin Ratio Urine Color Urine Clarity Urine pH Ur Specific Angle Inlet Urine Protein Urine Glucose (UA) Urine Ketones Urine Occult Blood Urine Nitrite Urine Bilirubin Urine Urobilinogen Ur Leukocyte Esterase Urine RBC Urine WBC Ur Squamous Epith Cells Urine Bacteria Urine Mucus Ur Random Sodium Urine Creatinine Acetone Level MRSA (PCR) POC Glucose > 500 H* > 500 H* Blood Type Antibody Screen 01/14/18 01/14/18 01/14/18 01:04 02:02 02:50 WBC RBC Hgb Hct MCV MCH MCHC RDW RDW Differential Plt Count MPV Immature Gran % (Auto) Neut % (Auto) Lymph % (Auto) [place] % (Auto) Eos % (Auto) Baso % (Auto) Absolute Neuts (auto) Absolute Lymphs (auto) Total Counted Neutrophils % (Manual) Band Neutrophils % Monocytes % (Manual) Metamyelocytes % Nucleated RBC % Differential Comment Diff Path Review Plt Morphology Comment Absolute Retic Specimen Type Sample Site pH Bicarbonate Actual POC Total CO2 Base Excess O2 Saturation ABG pCO2 ABG pO2 Jose David Test O2 Delivery Device Blood Gas Notified Whom Blood Gas Notified Time Sodium 129 L Potassium 4.3 Chloride 98 Carbon Dioxide 19.0 L Anion Gap 12 BUN 68 H Creatinine 2.62 H Estim Creat Clear Calc 17.71 Est GFR (MDRD) Af Amer 24 L Est GFR (MDRD) Non-Af 19 L BUN/Creatinine Ratio 26.0 H Glucose 497 H* Hemoglobin A1c Serum Osmolality Lactic Acid Calcium 7.0 L Total Bilirubin Direct Bilirubin GGT AST ALT Alkaline Phosphatase Total Protein Albumin Globulin Albumin/Globulin Ratio Urine Color Urine Clarity Urine pH Ur Specific Angle Inlet Urine Protein Urine Glucose (UA) Urine Ketones Urine Occult Blood Urine Nitrite Urine Bilirubin Urine Urobilinogen Ur Leukocyte Esterase Urine RBC Urine WBC Ur Squamous Epith Cells Urine Bacteria Urine Mucus Ur Random Sodium Urine Creatinine Acetone Level MRSA (PCR) POC Glucose > 500 H* > 500 H* Blood Type Antibody Screen 01/14/18 01/14/18 01/14/18 02:50 02:54 04:00 WBC 17.2 H RBC 3.68 L Hgb 10.4 L Hct 30.5 L MCV 82.9 MCH 28.3 MCHC 34.1 RDW 12.5 RDW Differential 37.8 Plt Count 19 L* MPV Immature Gran % (Auto) 1.700 H Neut % (Auto) 93.0 H Lymph % (Auto) 2.7 L [place] % (Auto) 2.4 Eos % (Auto) 0.1 Baso % (Auto) 0.1 Absolute Neuts (auto) 16.0 H Absolute Lymphs (auto) 0.46 L Total Counted Not Reportable Neutrophils % (Manual) Band Neutrophils % Monocytes % (Manual) Metamyelocytes % Nucleated RBC % Differential Comment SCANNED Diff Path Review Reviewed Plt Morphology Comment Absolute Retic Specimen Type Sample Site pH Bicarbonate Actual POC Total CO2 Base Excess O2 Saturation ABG pCO2 ABG pO2 Jose David Test O2 Delivery Device Blood Gas Notified Whom Blood Gas Notified Time Sodium Potassium Chloride Carbon Dioxide Anion Gap BUN Creatinine Estim Creat Clear Calc Est GFR (MDRD) Af Amer Est GFR (MDRD) Non-Af BUN/Creatinine Ratio Glucose Hemoglobin A1c Serum Osmolality Lactic Acid Calcium Total Bilirubin Direct Bilirubin GGT AST ALT Alkaline Phosphatase Total Protein Albumin Globulin Albumin/Globulin Ratio Urine Color Urine Clarity Urine pH Ur Specific Angle Inlet Urine Protein Urine Glucose (UA) Urine Ketones Urine Occult Blood Urine Nitrite Urine Bilirubin Urine Urobilinogen Ur Leukocyte Esterase Urine RBC Urine WBC Ur Squamous Epith Cells Urine Bacteria Urine Mucus Ur Random Sodium Urine Creatinine Acetone Level MRSA (PCR) POC Glucose > 500 H* 460 H* Blood Type Antibody Screen 01/14/18 01/14/18 01/14/18 05:12 06:16 07:02 WBC RBC Hgb Hct MCV MCH MCHC RDW RDW Differential Plt Count MPV Immature Gran % (Auto) Neut % (Auto) Lymph % (Auto) [place] % (Auto) Eos % (Auto) Baso % (Auto) Absolute Neuts (auto) Absolute Lymphs (auto) Total Counted Neutrophils % (Manual) Band Neutrophils % Monocytes % (Manual) Metamyelocytes % Nucleated RBC % Differential Comment Diff Path Review Plt Morphology Comment Absolute Retic Specimen Type Sample Site pH Bicarbonate Actual POC Total CO2 Base Excess O2 Saturation ABG pCO2 ABG pO2 Jose David Test O2 Delivery Device Blood Gas Notified Whom Blood Gas Notified Time Sodium Potassium Chloride Carbon Dioxide Anion Gap BUN Creatinine Estim Creat Clear Calc Est GFR (MDRD) Af Amer Est GFR (MDRD) Non-Af BUN/Creatinine Ratio Glucose Hemoglobin A1c Serum Osmolality Lactic Acid Calcium Total Bilirubin Direct Bilirubin GGT AST ALT Alkaline Phosphatase Total Protein Albumin Globulin Albumin/Globulin Ratio Urine Color Urine Clarity Urine pH Ur Specific Angle Inlet Urine Protein Urine Glucose (UA) Urine Ketones Urine Occult Blood Urine Nitrite Urine Bilirubin Urine Urobilinogen Ur Leukocyte Esterase Urine RBC Urine WBC Ur Squamous Epith Cells Urine Bacteria Urine Mucus Ur Random Sodium Urine Creatinine Acetone Level MRSA (PCR) POC Glucose 425 H 408 H 435 H Blood Type Antibody Screen 01/14/18 01/14/18 01/14/18 07:03 07:03 08:14 WBC RBC Hgb Hct MCV MCH MCHC RDW RDW Differential Plt Count MPV Immature Gran % (Auto) Neut % (Auto) Lymph % (Auto) [place] % (Auto) Eos % (Auto) Baso % (Auto) Absolute Neuts (auto) Absolute Lymphs (auto) Total Counted Neutrophils % (Manual) Band Neutrophils % Monocytes % (Manual) Metamyelocytes % Nucleated RBC % Differential Comment Diff Path Review Plt Morphology Comment Absolute Retic Specimen Type Sample Site pH Bicarbonate Actual POC Total CO2 Base Excess O2 Saturation ABG pCO2 ABG pO2 Jose David Test O2 Delivery Device Blood Gas Notified Whom Blood Gas Notified Time Sodium 132 L Potassium 4.0 Chloride 101 Carbon Dioxide 17.0 L Anion Gap 14 BUN 70 H Creatinine 2.63 H Estim Creat Clear Calc 17.64 Est GFR (MDRD) Af Amer 23 L Est GFR (MDRD) Non-Af 19 L BUN/Creatinine Ratio 26.6 H Glucose 403 H Hemoglobin A1c Serum Osmolality Lactic Acid Calcium 6.9 L Total Bilirubin 0.40 Direct Bilirubin 0.21 GGT AST 541 H ALT 301 H Alkaline Phosphatase 164 H Total Protein 4.5 L Albumin 1.4 L Globulin 3.1 Albumin/Globulin Ratio Urine Color Urine Clarity Urine pH Ur Specific Angle Inlet Urine Protein Urine Glucose (UA) Urine Ketones Urine Occult Blood Urine Nitrite Urine Bilirubin Urine Urobilinogen Ur Leukocyte Esterase Urine RBC Urine WBC Ur Squamous Epith Cells Urine Bacteria Urine Mucus Ur Random Sodium Urine Creatinine Acetone Level MRSA (PCR) POC Glucose 365 H Blood Type Antibody Screen 01/14/18 01/14/18 01/14/18 09:20 10:21 10:55 WBC RBC Hgb Hct MCV MCH MCHC RDW RDW Differential Plt Count MPV Immature Gran % (Auto) Neut % (Auto) Lymph % (Auto) [place] % (Auto) Eos % (Auto) Baso % (Auto) Absolute Neuts (auto) Absolute Lymphs (auto) Total Counted Neutrophils % (Manual) Band Neutrophils % Monocytes % (Manual) Metamyelocytes % Nucleated RBC % Differential Comment Diff Path Review Plt Morphology Comment Absolute Retic Specimen Type Sample Site pH Bicarbonate Actual POC Total CO2 Base Excess O2 Saturation ABG pCO2 ABG pO2 Jose David Test O2 Delivery Device Blood Gas Notified Whom Blood Gas Notified Time Sodium 133 L Potassium 3.8 Chloride 104 Carbon Dioxide 18.0 L Anion Gap 11 BUN 70 H Creatinine 2.53 H Estim Creat Clear Calc 18.34 Est GFR (MDRD) Af Amer 24 L Est GFR (MDRD) Non-Af 20 L BUN/Creatinine Ratio 27.7 H Glucose 321 H Hemoglobin A1c Serum Osmolality Lactic Acid Calcium 7.0 L Total Bilirubin Direct Bilirubin GGT AST ALT Alkaline Phosphatase Total Protein Albumin Globulin Albumin/Globulin Ratio Urine Color Urine Clarity Urine pH Ur Specific Angle Inlet Urine Protein Urine Glucose (UA) Urine Ketones Urine Occult Blood Urine Nitrite Urine Bilirubin Urine Urobilinogen Ur Leukocyte Esterase Urine RBC Urine WBC Ur Squamous Epith Cells Urine Bacteria Urine Mucus Ur Random Sodium Urine Creatinine Acetone Level MRSA (PCR) POC Glucose 339 H 335 H Blood Type Antibody Screen 01/14/18 01/14/18 01/14/18 10:55 11:19 12:29 WBC RBC Hgb Hct MCV MCH MCHC RDW RDW Differential Plt Count MPV Immature Gran % (Auto) Neut % (Auto) Lymph % (Auto) [place] % (Auto) Eos % (Auto) Baso % (Auto) Absolute Neuts (auto) Absolute Lymphs (auto) Total Counted Neutrophils % (Manual) Band Neutrophils % Monocytes % (Manual) Metamyelocytes % Nucleated RBC % Differential Comment Diff Path Review Plt Morphology Comment Absolute Retic Specimen Type Sample Site pH Bicarbonate Actual POC Total CO2 Base Excess O2 Saturation ABG pCO2 ABG pO2 Jose David Test O2 Delivery Device Blood Gas Notified Whom Blood Gas Notified Time Sodium Potassium Chloride Carbon Dioxide Anion Gap BUN Creatinine Estim Creat Clear Calc Est GFR (MDRD) Af Amer Est GFR (MDRD) Non-Af BUN/Creatinine Ratio Glucose Hemoglobin A1c Serum Osmolality Lactic Acid Calcium Total Bilirubin Direct Bilirubin GGT AST ALT Alkaline Phosphatase Total Protein Albumin Globulin Albumin/Globulin Ratio Urine Color Urine Clarity Urine pH Ur Specific Angle Inlet Urine Protein Urine Glucose (UA) Urine Ketones Urine Occult Blood Urine Nitrite Urine Bilirubin Urine Urobilinogen Ur Leukocyte Esterase Urine RBC Urine WBC Ur Squamous Epith Cells Urine Bacteria Urine Mucus Ur Random Sodium Urine Creatinine Acetone Level MRSA (PCR) POC Glucose 292 H 292 H Blood Type A POSITIVE Antibody Screen NEGATIVE 01/14/18 01/14/18 01/14/18 14:22 15:00 15:00 WBC RBC Hgb Hct MCV MCH MCHC RDW RDW Differential Plt Count 13 L* MPV Immature Gran % (Auto) Neut % (Auto) Lymph % (Auto) [place] % (Auto) Eos % (Auto) Baso % (Auto) Absolute Neuts (auto) Absolute Lymphs (auto) Total Counted Neutrophils % (Manual) Band Neutrophils % Monocytes % (Manual) Metamyelocytes % Nucleated RBC % Differential Comment Diff Path Review Plt Morphology Comment Absolute Retic Specimen Type Sample Site pH Bicarbonate Actual POC Total CO2 Base Excess O2 Saturation ABG pCO2 ABG pO2 Jose David Test O2 Delivery Device Blood Gas Notified Whom Blood Gas Notified Time Sodium 135 L Potassium 3.6 Chloride 105 Carbon Dioxide 17.0 L Anion Gap 13 BUN 71 H Creatinine 2.50 H Estim Creat Clear Calc 18.56 Est GFR (MDRD) Af Amer 25 L Est GFR (MDRD) Non-Af 21 L BUN/Creatinine Ratio 28.4 H Glucose 253 H Hemoglobin A1c Serum Osmolality Lactic Acid Calcium 7.0 L Total Bilirubin Direct Bilirubin GGT AST ALT Alkaline Phosphatase Total Protein Albumin Globulin Albumin/Globulin Ratio Urine Color Urine Clarity Urine pH Ur Specific Angle Inlet Urine Protein Urine Glucose (UA) Urine Ketones Urine Occult Blood Urine Nitrite Urine Bilirubin Urine Urobilinogen Ur Leukocyte Esterase Urine RBC Urine WBC Ur Squamous Epith Cells Urine Bacteria Urine Mucus Ur Random Sodium Urine Creatinine Acetone Level MRSA (PCR) POC Glucose 267 H Blood Type Antibody Screen 01/14/18 01/14/18 01/14/18 16:04 18:04 19:30 WBC RBC Hgb Hct MCV MCH MCHC RDW RDW Differential Plt Count MPV Immature Gran % (Auto) Neut % (Auto) Lymph % (Auto) [place] % (Auto) Eos % (Auto) Baso % (Auto) Absolute Neuts (auto) Absolute Lymphs (auto) Total Counted Neutrophils % (Manual) Band Neutrophils % Monocytes % (Manual) Metamyelocytes % Nucleated RBC % Differential Comment Diff Path Review Plt Morphology Comment Absolute Retic Specimen Type Sample Site pH Bicarbonate Actual POC Total CO2 Base Excess O2 Saturation ABG pCO2 ABG pO2 Jose David Test O2 Delivery Device Blood Gas Notified Whom Blood Gas Notified Time Sodium 135 L Potassium 3.7 Chloride 107 Carbon Dioxide 17.0 L Anion Gap 11 BUN 73 H Creatinine 2.46 H Estim Creat Clear Calc 18.86 Est GFR (MDRD) Af Amer 25 L Est GFR (MDRD) Non-Af 21 L BUN/Creatinine Ratio 29.7 H Glucose 246 H Hemoglobin A1c Serum Osmolality Lactic Acid Calcium 7.1 L Total Bilirubin Direct Bilirubin GGT AST ALT Alkaline Phosphatase Total Protein Albumin Globulin Albumin/Globulin Ratio Urine Color Urine Clarity Urine pH Ur Specific Angle Inlet Urine Protein Urine Glucose (UA) Urine Ketones Urine Occult Blood Urine Nitrite Urine Bilirubin Urine Urobilinogen Ur Leukocyte Esterase Urine RBC Urine WBC Ur Squamous Epith Cells Urine Bacteria Urine Mucus Ur Random Sodium Urine Creatinine Acetone Level MRSA (PCR) POC Glucose 231 H 220 H Blood Type Antibody Screen 01/14/18 01/14/18 01/14/18 20:08 21:55 23:30 WBC RBC Hgb Hct MCV MCH MCHC RDW RDW Differential Plt Count MPV Immature Gran % (Auto) Neut % (Auto) Lymph % (Auto) [place] % (Auto) Eos % (Auto) Baso % (Auto) Absolute Neuts (auto) Absolute Lymphs (auto) Total Counted Neutrophils % (Manual) Band Neutrophils % Monocytes % (Manual) Metamyelocytes % Nucleated RBC % Differential Comment Diff Path Review Plt Morphology Comment Absolute Retic Specimen Type Sample Site pH Bicarbonate Actual POC Total CO2 Base Excess O2 Saturation ABG pCO2 ABG pO2 Jose David Test O2 Delivery Device Blood Gas Notified Whom Blood Gas Notified Time Sodium 136 Potassium 3.5 Chloride 107 Carbon Dioxide 17.0 L Anion Gap 12 BUN 72 H Creatinine 2.52 H Estim Creat Clear Calc 18.41 Est GFR (MDRD) Af Amer 25 L Est GFR (MDRD) Non-Af 20 L BUN/Creatinine Ratio 28.6 H Glucose 254 H Hemoglobin A1c Serum Osmolality Lactic Acid Calcium 7.0 L Total Bilirubin Direct Bilirubin GGT AST ALT Alkaline Phosphatase Total Protein Albumin Globulin Albumin/Globulin Ratio Urine Color Urine Clarity Urine pH Ur Specific Angle Inlet Urine Protein Urine Glucose (UA) Urine Ketones Urine Occult Blood Urine Nitrite Urine Bilirubin Urine Urobilinogen Ur Leukocyte Esterase Urine RBC Urine WBC Ur Squamous Epith Cells Urine Bacteria Urine Mucus Ur Random Sodium Urine Creatinine Acetone Level MRSA (PCR) POC Glucose 239 H 233 H Blood Type Antibody Screen 01/15/18 01/15/18 01/15/18 00:09 01:00 02:02 WBC RBC Hgb Hct MCV MCH MCHC RDW RDW Differential Plt Count MPV Immature Gran % (Auto) Neut % (Auto) Lymph % (Auto) [place] % (Auto) Eos % (Auto) Baso % (Auto) Absolute Neuts (auto) Absolute Lymphs (auto) Total Counted Neutrophils % (Manual) Band Neutrophils % Monocytes % (Manual) Metamyelocytes % Nucleated RBC % Differential Comment Diff Path Review Plt Morphology Comment Absolute Retic Specimen Type Sample Site pH Bicarbonate Actual POC Total CO2 Base Excess O2 Saturation ABG pCO2 ABG pO2 Jose David Test O2 Delivery Device Blood Gas Notified Whom Blood Gas Notified Time Sodium Potassium Chloride Carbon Dioxide Anion Gap BUN Creatinine Estim Creat Clear Calc Est GFR (MDRD) Af Amer Est GFR (MDRD) Non-Af BUN/Creatinine Ratio Glucose Hemoglobin A1c Serum Osmolality Lactic Acid Calcium Total Bilirubin Direct Bilirubin GGT AST ALT Alkaline Phosphatase Total Protein Albumin Globulin Albumin/Globulin Ratio Urine Color Urine Clarity Urine pH Ur Specific Angle Inlet Urine Protein Urine Glucose (UA) Urine Ketones Urine Occult Blood Urine Nitrite Urine Bilirubin Urine Urobilinogen Ur Leukocyte Esterase Urine RBC Urine WBC Ur Squamous Epith Cells Urine Bacteria Urine Mucus Ur Random Sodium Urine Creatinine Acetone Level MRSA (PCR) POC Glucose 247 H 212 H 243 H Blood Type Antibody Screen 01/15/18 01/15/18 01/15/18 02:59 03:00 03:00 WBC 20.9 H RBC 3.62 L Hgb 10.1 L Hct 30.1 L MCV 83.1 MCH 27.9 MCHC 33.6 RDW 12.5 RDW Differential 36.7 Plt Count 13 L* MPV Immature Gran % (Auto) Neut % (Auto) Lymph % (Auto) [place] % (Auto) Eos % (Auto) Baso % (Auto) Absolute Neuts (auto) Absolute Lymphs (auto) Total Counted Neutrophils % (Manual) Band Neutrophils % Monocytes % (Manual) Metamyelocytes % Nucleated RBC % Differential Comment Diff Path Review May foll Plt Morphology Comment Absolute Retic Specimen Type Sample Site pH Bicarbonate Actual POC Total CO2 Base Excess O2 Saturation ABG pCO2 ABG pO2 Jose David Test O2 Delivery Device Blood Gas Notified Whom Blood Gas Notified Time Sodium 138 Potassium 3.3 L Chloride 108 H Carbon Dioxide 17.0 L Anion Gap 13 BUN 76 H Creatinine 2.49 H Estim Creat Clear Calc 18.63 Est GFR (MDRD) Af Amer 25 L Est GFR (MDRD) Non-Af 21 L BUN/Creatinine Ratio 30.5 H Glucose 231 H Hemoglobin A1c Serum Osmolality Lactic Acid Calcium 7.2 L Total Bilirubin Direct Bilirubin GGT AST ALT Alkaline Phosphatase Total Protein Albumin Globulin Albumin/Globulin Ratio Urine Color Urine Clarity Urine pH Ur Specific Angle Inlet Urine Protein Urine Glucose (UA) Urine Ketones Urine Occult Blood Urine Nitrite Urine Bilirubin Urine Urobilinogen Ur Leukocyte Esterase Urine RBC Urine WBC Ur Squamous Epith Cells Urine Bacteria Urine Mucus Ur Random Sodium Urine Creatinine Acetone Level MRSA (PCR) POC Glucose 215 H Blood Type Antibody Screen 01/15/18 01/15/18 04:59 06:06 WBC RBC Hgb Hct MCV MCH MCHC RDW RDW Differential Plt Count MPV Immature Gran % (Auto) Neut % (Auto) Lymph % (Auto) [place] % (Auto) Eos % (Auto) Baso % (Auto) Absolute Neuts (auto) Absolute Lymphs (auto) Total Counted Neutrophils % (Manual) Band Neutrophils % Monocytes % (Manual) Metamyelocytes % Nucleated RBC % Differential Comment Diff Path Review Plt Morphology Comment Absolute Retic Specimen Type Sample Site pH Bicarbonate Actual POC Total CO2 Base Excess O2 Saturation ABG pCO2 ABG pO2 Jose David Test O2 Delivery Device Blood Gas Notified Whom Blood Gas Notified Time Sodium Potassium Chloride Carbon Dioxide Anion Gap BUN Creatinine Estim Creat Clear Calc Est GFR (MDRD) Af Amer Est GFR (MDRD) Non-Af BUN/Creatinine Ratio Glucose Hemoglobin A1c Serum Osmolality Lactic Acid Calcium Total Bilirubin Direct Bilirubin GGT AST ALT Alkaline Phosphatase Total Protein Albumin Globulin Albumin/Globulin Ratio Urine Color Urine Clarity Urine pH Ur Specific Angle Inlet Urine Protein Urine Glucose (UA) Urine Ketones Urine Occult Blood Urine Nitrite Urine Bilirubin Urine Urobilinogen Ur Leukocyte Esterase Urine RBC Urine WBC Ur Squamous Epith Cells Urine Bacteria Urine Mucus Ur Random Sodium Urine Creatinine Acetone Level MRSA (PCR) POC Glucose 201 H 177 H Blood Type Antibody Screen Microbiology 01/13/18 15:30 Urine Catheter - Miranda Urine Culture - Preliminary Gram negative cherelle Clinical Impression(s) from Imaging Studies Brain CT 01/13/18 16:13 IMPRESSION: Normal unenhanced CT scan of the brain. Electronically Signed: Jamison Munguia MD at 17:33 EDT , Service support , Chest X-Ray 01/13/18 16:15 IMPRESSION: Right IJ catheter as above. No pneumothorax. Electronically Signed: Jamison Munguia MD at 16:23 EDT , Service support , Renal Ultrasound 01/13/18 17:18 IMPRESSION: Normal ultrasound of the kidneys and urinary bladder. Electronically Signed: Jamison Munguia MD at 20:48 EDT , Service support , Liver Ultrasound 01/13/18 21:45 IMPRESSION: Small right pleural effusion and ascites otherwise no acute disease Electronically Signed: Jamison Munguia MD at 23:07 EDT , Service support , Medical Necessity - Tobacco Use Smoking Status: Never smoker Tobacco Use: Non-smoker Assessment/Plan All Active Problems Lethargy (Acute) Altered mental status (Acute) RECOMMENDATIONS: 1. Initiate modified diet per speech therapy recommendations. 2. Once tolerating p.o. intake, discontinue supplemental IV fluids. 3. Transition from continuous insulin infusion to basal insulin and sliding scale coverage. 4. Potassium repletion as ordered. 5. Aggressive physical therapy. 6. Given that spontaneous bleeding is more likely to occur with a platelet count below 10,000, will transfuse platelets today. 7. Continue antibiotics IMPRESSIONS: 1. Combined hypovolemic and septic shock Resolved. The patient appeared to be clearly volume depleted, likely in the setting of osmotic diuresis from profound hyperglycemia. Her p.o. intake has also been poor. In addition, she does appear to have evidence of cystitis. The patient was volume resuscitated per sepsis protocol. The patient did require transient vasopressor support to maintain hemodynamic stability. The patient will be continued on supplemental IV fluid hydration until her p.o. status is advanced. Antibiotics will also be continued. 2. Diabetic ketoacidosis Resolved. The patient appeared to be a newly diagnosed diabetic who presented to the hospital in diabetic ketoacidosis, which may have been precipitated by an underlying infectious process. The patient's hemoglobin A1c is noted to be 13.5. She denied ever having been diagnosed with diabetes previously. The patient's insulin drip can be discontinued from my perspective and she can be transitioned to a basal insulin regimen. 3. Metabolic encephalopathy Improving. Likely secondary to the above. Anticipate improvement in mentation with correction of the patient's underlying metabolic derangements. CT head was noted to be negative. Avoid sedating medications. 4. Hypovolemic hyponatremia Improving. Again likely secondary to osmotic diuresis in the setting of diabetic ketoacidosis. The patient is currently being volume resuscitated. Close monitoring of serum sodium level is indicated. 5. Acute kidney injury/anion gap metabolic acidosis Likely prerenal in etiology with possible ischemic ATN in the setting of #1. Continue current supportive measures as outlined above. Anticipate improvement in creatinine with stabilization of hemodynamics. Continue to monitor urine output. No current indication for renal replacement therapy. Renal ultrasound was unremarkable. 6. Elevated transaminases Likely secondary to the patient's hypovolemic state. Liver ultrasound was unremarkable. 7. Hypophosphatemia Electrolyte repletion is underway. Recheck levels in the morning. 8. Thrombocytopenia Unclear chronicity, as there are no previous lab work available for comparison. However, this may be secondary to a consumptive process in the setting of septic shock. The patient's platelet count currently anita at 13,000. Given the increased risk of spontaneous bleeding at or below a platelet count of 10,000, will empirically provide the patient with a platelet transfusion today. This note was generated with [employer] dictation software. It may contain incorrect words, spelling, and punctuation that were not noted in checking the note before signing. Code Visit Inpatient E&M: 02948 [facility] L3
[2018-01-15 07:01] LABS: Bedside Glucose 170 mg/dL (70-110)
[2018-01-15 09:00] LABS: Bedside Glucose 147 mg/dL (70-110)
--- NOTE | 2018-01-15 09:10 | PCM.PN.HOSP ---
Patient Problems: Active and Suspected Problems Lethargy (Acute) Altered mental status (Acute) Subjective: Feels much better than when she came in. No pain Vitals/I&O's: Vital Signs Temp Pulse Resp BP Pulse Ox 97.5 F L 108 H 24 H 97/68 99 01/15/18 04:00 01/15/18 09:00 01/15/18 09:00 01/15/18 09:00 01/15/18 09:00 Oxygen Flow Rate (L/min) 2 Oxygen Delivery Method Room Air Weight: 130 lb 11.746 oz Body Mass Index (BMI) 21.9 Finger Stick Blood Glucose 147 Intake and Output for Last 24 Hours 01/13/18 01/14/18 01/15/18 23:59 23:59 23:59 Intake Total 2156.1 / 2156.1 5349.6 / 5349.6 1682.7 / 1682.7 Output Total 375 / 375 925 / 925 750 / 750 Balance 1781.1 / 1781.1 4424.6 / 4424.6 932.7 / 932.7 General: Alert, Oriented x3, Cooperative, No apparent distress HEENT: Atraumatic, EOMI, Normocephalic Oral: Moist Mucosa Neck: Supple, No JVD Lungs: Clear to auscultation, Normal air movement, No rhonchi, No wheeze, No rales, Diminished Cardiovascular: Regular Rhythm, Normal S1, Normal S2, Tachycardic Abdomen: Soft, Non Tender, Non-Distended, No Hepato-splenomegaly Extremities: No edema, Capillary Refill Less than 3 Seconds Skin: No rashes, No breakdown Neurological: Neuro grossly intact, Sensory exam intact to light touch and pain Psych/Mental Status: Normal Affect, Appropriate Microbiology Past 72 Hours 01/13/18 15:30 Urine Catheter - Miranda Urine Culture - Preliminary Gram negative cherelle Laboratory Results 01/13/18 14:28: POC Glucose > 500 H* 01/13/18 14:30: POC Glucose > 500 H* 01/13/18 14:55: Diff Path Review Reviewed 01/14/18 02:50: Diff Path Review Reviewed 01/14/18 09:20: POC Glucose 339 H 01/14/18 10:21: POC Glucose 335 H 01/14/18 10:55: Sodium 133 L, Potassium 3.8, Chloride 104, Carbon Dioxide 18.0 L, Anion Gap 11, BUN 70 H, Creatinine 2.53 H, Estim Creat Clear Calc 18.34, Est GFR (MDRD) Af Amer 24 L, Est GFR (MDRD) Non-Af 20 L, BUN/Creatinine Ratio 27.7 H, Glucose 321 H, Calcium 7.0 L 01/14/18 10:55: Blood Type A POSITIVE, Antibody Screen NEGATIVE 01/14/18 11:19: POC Glucose 292 H 01/14/18 12:29: POC Glucose 292 H 01/14/18 14:22: POC Glucose 267 H 01/14/18 15:00: Sodium 135 L, Potassium 3.6, Chloride 105, Carbon Dioxide 17.0 L, Anion Gap 13, BUN 71 H, Creatinine 2.50 H, Estim Creat Clear Calc 18.56, Est GFR (MDRD) Af Amer 25 L, Est GFR (MDRD) Non-Af 21 L, BUN/Creatinine Ratio 28.4 H, Glucose 253 H, Calcium 7.0 L 01/14/18 15:00: Plt Count 13 L* 01/14/18 16:04: POC Glucose 231 H 01/14/18 18:04: POC Glucose 220 H 01/14/18 19:30: Sodium 135 L, Potassium 3.7, Chloride 107, Carbon Dioxide 17.0 L, Anion Gap 11, BUN 73 H, Creatinine 2.46 H, Estim Creat Clear Calc 18.86, Est GFR (MDRD) Af Amer 25 L, Est GFR (MDRD) Non-Af 21 L, BUN/Creatinine Ratio 29.7 H, Glucose 246 H, Calcium 7.1 L 01/14/18 20:08: POC Glucose 239 H 01/14/18 21:55: POC Glucose 233 H 01/14/18 23:30: Sodium 136, Potassium 3.5, Chloride 107, Carbon Dioxide 17.0 L, Anion Gap 12, BUN 72 H, Creatinine 2.52 H, Estim Creat Clear Calc 18.41, Est GFR (MDRD) Af Amer 25 L, Est GFR (MDRD) Non-Af 20 L, BUN/Creatinine Ratio 28.6 H, Glucose 254 H, Calcium 7.0 L 01/15/18 00:09: POC Glucose 247 H 01/15/18 01:00: POC Glucose 212 H 01/15/18 02:02: POC Glucose 243 H 01/15/18 02:59: POC Glucose 215 H 01/15/18 03:00: Sodium 138, Potassium 3.3 L, Chloride 108 H, Carbon Dioxide 17.0 L, Anion Gap 13, BUN 76 H, Creatinine 2.49 H, Estim Creat Clear Calc 18.63, Est GFR (MDRD) Af Amer 25 L, Est GFR (MDRD) Non-Af 21 L, BUN/Creatinine Ratio 30.5 H, Glucose 231 H, Calcium 7.2 L 01/15/18 03:00: WBC 20.9 H, RBC 3.62 L, Hgb 10.1 L, Hct 30.1 L, MCV 83.1, MCH 27.9, MCHC 33.6, RDW 12.5, RDW Differential 36.7, Plt Count 13 L*, Differential Comment , Diff Path Review July01/15/18 04:59: POC Glucose 201 H 01/15/18 06:06: POC Glucose 177 H 01/15/18 06:58: POC Glucose 170 H 01/15/18 08:57: POC Glucose 147 H Current Medications Calamine/Phenol (Calmoseptine Ointment) 1 applic TOPICAL BID MENG; Protocol Last Admin: 01/14/18 22:00 Dose: 1 applicatio Chlorhexidine Gluconate () 1 each TOPICAL DAILY MENG Last Admin: 01/14/18 04:17 Dose: 1 each Dextrose (D50w Syringe) 0 gm IV X1 PRN; Protocol PRN Reason: HYPOGLYCEMIA Sodium Chloride () 250 mls @ 15 mls/hr IV .[id number] PRN PRN Reason: SALINE FLUSH Last Admin: 01/14/18 22:08 Dose: 15 mls/hr Sodium Chloride () 500 mls @ 15 mls/hr IV .[id number] PRN PRN Reason: SALINE FLUSH Cefepime HCl 2 gm/ Sodium (Chloride) 100 mls @ 200 mls/hr IV Q24 MENG Last Admin: 01/14/18 10:24 Dose: 200 mls/hr Insulin Human Lispro 100 unit/ (Sodium Chloride) 100 mls @ 5.61 mls/hr IV .[id number] MENG; Protocol Last Admin: 01/14/18 22:01 Dose: 5.61 mls/hr Pantoprazole Sodium 40 mg/ (Sodium Chloride) 110 mls @ 330 mls/hr IV Q12 MENG Last Admin: 01/14/18 22:01 Dose: 330 mls/hr Dextrose/Sodium Chloride () 1,000 mls @ 125 mls/hr IV .Q8H MENG Last Admin: 01/15/18 08:52 Dose: 125 mls/hr Potassium Chloride 40 meq/ (Sodium Chloride) 120 mls @ 100 mls/hr IV BOLUS X1 ONE Stop: 01/15/18 09:41 Last Admin: 01/15/18 08:51 Dose: 100 mls/hr Magnesium Hydroxide (Milk Of Magnesia) 30 ml PO DAILY PRN PRN PRN Reason: Constipation Sodium Chloride () 5 - 30 ml IV UD PRN PRN Reason: SALINE FLUSH Last Admin: 01/15/18 03:02 Dose: 20 ml Medical Necessity - Tobacco Use Smoking Status: Never smoker Tobacco Use: Non-smoker Assessment/Plan All Active Problems Lethargy (Acute) Altered mental status (Acute) 1. DKA with metabolic encephalopathy/Hypovolemic shock (resolved)/Septic shock (resolved) d/t UTI/BIBIANA/elevated liver function tests with thrombocytopenia - Transfer from [facility] with BG >900, not transferred on an Insulin drip - CO2 on transfer was 20, on admission was 18 - Central line placed and on insulin drip which is being weaned as her BG is 231 - Start 70/30 20 U BID and a SSI - A1c 13.5 - Urine cx pending - Gap is closed - C/w IVF resuscitation, Bp is imprvong with MAPs in the 70's - IV cefepime for the UTI - Will monitor LFTs which hopefully improve with hemodynamic and intravascular volume stabilization - Presented with BIBIANA and Cr holding stable at 2.62, she is making urine and this is likely now ATN, she will need metformin as an outpatient once her creatinine improves DVT prophylaxis: heparin Diet: Cardiac Code Visit Inpatient E&M: 60031 Subs Hosp L2
--- NOTE | 2018-01-15 09:15 | PN_ITS ---
Patient Problems: Active and Suspected Problems Lethargy (Acute) Altered mental status (Acute) Subjective: Feels much better than when she came in. No pain Vitals/I&O's: Vital Signs Temp Pulse Resp BP Pulse Ox 97.5 F L 108 H 24 H 97/68 99 01/15/18 04:00 01/15/18 09:00 01/15/18 09:00 01/15/18 09:00 01/15/18 09:00 Oxygen Flow Rate (L/min) 2 Oxygen Delivery Method Room Air Weight: 130 lb 11.746 oz Body Mass Index (BMI) 21.9 Finger Stick Blood Glucose 147 Intake and Output for Last 24 Hours 01/13/18 01/14/18 01/15/18 23:59 23:59 23:59 Intake Total 2156.1 / 2156.1 5349.6 / 5349.6 1682.7 / 1682.7 Output Total 375 / 375 925 / 925 750 / 750 Balance 1781.1 / 1781.1 4424.6 / 4424.6 932.7 / 932.7 General: Alert, Oriented x3, Cooperative, No apparent distress HEENT: Atraumatic, EOMI, Normocephalic Oral: Moist Mucosa Neck: Supple, No JVD Lungs: Clear to auscultation, Normal air movement, No rhonchi, No wheeze, No rales, Diminished Cardiovascular: Regular Rhythm, Normal S1, Normal S2, Tachycardic Abdomen: Soft, Non Tender, Non-Distended, No Hepato-splenomegaly Extremities: No edema, Capillary Refill Less than 3 Seconds Skin: No rashes, No breakdown Neurological: Neuro grossly intact, Sensory exam intact to light touch and pain Psych/Mental Status: Normal Affect, Appropriate Microbiology Past 72 Hours 01/13/18 15:30 Urine Catheter - Miranda Urine Culture - Preliminary Gram negative cherelle Laboratory Results 01/13/18 14:28: POC Glucose > 500 H* 01/13/18 14:30: POC Glucose > 500 H* 01/13/18 14:55: Diff Path Review Reviewed 01/14/18 02:50: Diff Path Review Reviewed 01/14/18 09:20: POC Glucose 339 H 01/14/18 10:21: POC Glucose 335 H 01/14/18 10:55: Sodium 133 L, Potassium 3.8, Chloride 104, Carbon Dioxide 18.0 L , Anion Gap 11, BUN 70 H, Creatinine 2.53 H, Estim Creat Clear Calc 18.34, Est GFR (MDRD) Af Amer 24 L, Est GFR (MDRD) Non-Af 20 L, BUN/Creatinine Ratio 27.7 H , Glucose 321 H, Calcium 7.0 L 01/14/18 10:55: Blood Type A POSITIVE, Antibody Screen NEGATIVE 01/14/18 11:19: POC Glucose 292 H 01/14/18 12:29: POC Glucose 292 H 01/14/18 14:22: POC Glucose 267 H 01/14/18 15:00: Sodium 135 L, Potassium 3.6, Chloride 105, Carbon Dioxide 17.0 L , Anion Gap 13, BUN 71 H, Creatinine 2.50 H, Estim Creat Clear Calc 18.56, Est GFR (MDRD) Af Amer 25 L, Est GFR (MDRD) Non-Af 21 L, BUN/Creatinine Ratio 28.4 H , Glucose 253 H, Calcium 7.0 L 01/14/18 15:00: Plt Count 13 L* 01/14/18 16:04: POC Glucose 231 H 01/14/18 18:04: POC Glucose 220 H 01/14/18 19:30: Sodium 135 L, Potassium 3.7, Chloride 107, Carbon Dioxide 17.0 L , Anion Gap 11, BUN 73 H, Creatinine 2.46 H, Estim Creat Clear Calc 18.86, Est GFR (MDRD) Af Amer 25 L, Est GFR (MDRD) Non-Af 21 L, BUN/Creatinine Ratio 29.7 H , Glucose 246 H, Calcium 7.1 L 01/14/18 20:08: POC Glucose 239 H 01/14/18 21:55: POC Glucose 233 H 01/14/18 23:30: Sodium 136, Potassium 3.5, Chloride 107, Carbon Dioxide 17.0 L, Anion Gap 12, BUN 72 H, Creatinine 2.52 H, Estim Creat Clear Calc 18.41, Est GFR (MDRD) Af Amer 25 L, Est GFR (MDRD) Non-Af 20 L, BUN/Creatinine Ratio 28.6 H, Glucose 254 H, Calcium 7.0 L 01/15/18 00:09: POC Glucose 247 H 01/15/18 01:00: POC Glucose 212 H 01/15/18 02:02: POC Glucose 243 H 01/15/18 02:59: POC Glucose 215 H 01/15/18 03:00: Sodium 138, Potassium 3.3 L, Chloride 108 H, Carbon Dioxide 17.0 L, Anion Gap 13, BUN 76 H, Creatinine 2.49 H, Estim Creat Clear Calc 18.63, Est GFR (MDRD) Af Amer 25 L, Est GFR (MDRD) Non-Af 21 L, BUN/Creatinine Ratio 30.5 H , Glucose 231 H, Calcium 7.2 L 01/15/18 03:00: WBC 20.9 H, RBC 3.62 L, Hgb 10.1 L, Hct 30.1 L, MCV 83.1, MCH 27.9, MCHC 33.6, RDW 12.5, RDW Differential 36.7, Plt Count 13 L*, Differential Comment , Diff Path Review July01/15/18 04:59: POC Glucose 201 H 01/15/18 06:06: POC Glucose 177 H 01/15/18 06:58: POC Glucose 170 H 01/15/18 08:57: POC Glucose 147 H Current Medications Calamine/Phenol (Calmoseptine Ointment) 1 applic TOPICAL BID MENG; Protocol Last Admin: 01/14/18 22:00 Dose: 1 applicatio Chlorhexidine Gluconate () 1 each TOPICAL DAILY MENG Last Admin: 01/14/18 04:17 Dose: 1 each Dextrose (D50w Syringe) 0 gm IV X1 PRN; Protocol PRN Reason: HYPOGLYCEMIA Sodium Chloride () 250 mls @ 15 mls/hr IV .[id number] PRN PRN Reason: SALINE FLUSH Last Admin: 01/14/18 22:08 Dose: 15 mls/hr Sodium Chloride () 500 mls @ 15 mls/hr IV .[id number] PRN PRN Reason: SALINE FLUSH Cefepime HCl 2 gm/ Sodium (Chloride) 100 mls @ 200 mls/hr IV Q24 MENG Last Admin: 01/14/18 10:24 Dose: 200 mls/hr Insulin Human Lispro 100 unit/ (Sodium Chloride) 100 mls @ 5.61 mls/hr IV .[id number] MENG; Protocol Last Admin: 01/14/18 22:01 Dose: 5.61 mls/hr Pantoprazole Sodium 40 mg/ (Sodium Chloride) 110 mls @ 330 mls/hr IV Q12 MENG Last Admin: 01/14/18 22:01 Dose: 330 mls/hr Dextrose/Sodium Chloride () 1,000 mls @ 125 mls/hr IV .Q8H MENG Last Admin: 01/15/18 08:52 Dose: 125 mls/hr Potassium Chloride 40 meq/ (Sodium Chloride) 120 mls @ 100 mls/hr IV BOLUS X1 ONE Stop: 01/15/18 09:41 Last Admin: 01/15/18 08:51 Dose: 100 mls/hr Magnesium Hydroxide (Milk Of Magnesia) 30 ml PO DAILY PRN PRN PRN Reason: Constipation Sodium Chloride () 5 - 30 ml IV UD PRN PRN Reason: SALINE FLUSH Last Admin: 01/15/18 03:02 Dose: 20 ml Medical Necessity - Tobacco Use Smoking Status: Never smoker Tobacco Use: Non-smoker Assessment/Plan All Active Problems Lethargy (Acute) Altered mental status (Acute) 1. DKA with metabolic encephalopathy/Hypovolemic shock (resolved)/Septic shock (resolved) d/t UTI/BIBIANA/elevated liver function tests with thrombocytopenia - Transfer from [facility] with BG >900, not transferred on an Insulin drip - CO2 on transfer was 20, on admission was 18 - Central line placed and on insulin drip which is being weaned as her BG is 231 - Start 70/30 20 U BID and a SSI - A1c 13.5 - Urine cx pending - Gap is closed - C/w IVF resuscitation, Bp is imprvong with MAPs in the 70's - IV cefepime for the UTI - Will monitor LFTs which hopefully improve with hemodynamic and intravascular volume stabilization - Presented with BIBIANA and Cr holding stable at 2.62, she is making urine and this is likely now ATN, she will need metformin as an outpatient once her creatinine improves DVT prophylaxis: heparin Diet: Cardiac Code Visit Inpatient E&M: 12719 Subs Hosp L2
[2018-01-15 09:49] LABS: Magnesium 1.7 mg/dL (1.6-2.6); Phosphorus 1.1 mg/dL (2.5-4.9)
[2018-01-15] MEDS: CHLORHEXIDINE GLUC 2% CLOTH 1 EACH TOWELETTE TOPICAL (10:02)
[2018-01-15] MEDS: Menthol/Lanolin/Calamine/Znox 113 GM Tube 1 APPLIC TOPICAL ×2 (10:02→21:40)
--- NOTE | 2018-01-15 10:03 | CASEMGMT ---
Addendum entered by Jen Sampson 01/15/18 11:37: TCU can take pt. SW let pt's and daughter in law in room know that TCU nena have a bed for pt when ready, family in agreement w/plan. Green sheet placed on chart in anticipation of weekend discharge. SW also did leave SW in TCU a message to speak w/pt about POA when pt is able, and to let her know that pt does not have prescription coverage, so may need assist w/meds when discharged from TCU, as pt is a newly diagnosed diabetic. KEN Henderson, PHYTOCHEMISTRY PROFESSOR Original Note: SW spoke w/pt and family in room, pt's , son and daughter in law are present. We reviewed discharge options, family in agreement w/pt going somewhere short term for rehab. SW reviewed how SNF is covered under Medicare, gave a list of nursing homes in the area. They would like pt to go to TCU. SW explained will call and make referral, will let them know. SW called TCU, spoke w/Shara, she will let this SW know if they can take pt. KEN Henderson, PHYTOCHEMISTRY PROFESSOR
[2018-01-15] MEDS: Insulin Human 75/25 Kwickpen 20 UNIT SC ×2 (10:11→18:58)
[2018-01-15 10:21] LABS: Bedside Glucose 152 mg/dL (70-110)
[2018-01-15 12:20] LABS: Bedside Glucose 152 mg/dL (70-110)
[2018-01-15 16:56] LABS: Bedside Glucose 298 mg/dL (70-110)
[2018-01-15] MEDS: Dext 5%-0.45% NS 1,000 ML 100 ML IV (18:08)
[2018-01-15] MEDS: Insulin Lispro 100 UNIT/ML INSULN.PEN SC ×2 (18:52→21:41)
[2018-01-15 21:45] LABS: Bedside Glucose 364 mg/dL (70-110)
[2018-01-16 01:39] VITALS: BP 98/60; PULSE 99; RESP 16; TEMP 36.7; O2SAT 96
[2018-01-16 04:14] LABS: Hematocrit 28.9 % (37-47); Hemoglobin 9.8 g/dl (12.0-15.0); Mean Corp Hgb Conc 33.9 g/gl (32-36); Mean Corpuscular Hgb 28.2 pg (27.0-32.0); Mean Platelet Vol. 10.6 fl (6.2-12.0); RBC Distribution Width CV 13.6 % (11.6-14.6); RBC Distribution Width SD 41.2 fl (35.1-43.9); Red Blood Count 3.48 M/mm3 (4.2-5.4); White Blood Count 24.5 K/mm3 (4.4-11.0)
[2018-01-16 04:21] LABS: Anion Gap 13 (5-15); BUN 75 mg/dL (7-18); Chloride 105 mmol/L (98-107); Creatinine, Serum 2.27 mg/dL (0.55-1.02); EST Glomerular Filtration Rate 23 mL/min (>60); Est Glom Filt Rate - Afr Amer 28 mL/min (>60); Estimated Creatinine Clearance 20.44 ml/min; Glucose 324 mg/dL (74-106); Potassium 4.1 mmol/L (3.5-5.1); Sodium Level 133 mmol/L (136-145)
[2018-01-16 04:29] LABS: Phosphorus 2.7 mg/dL (2.5-4.9)
[2018-01-16 04:41] LABS: Differential Indicated MANUAL DIFF; POSITIVE COUNT YES; POSITIVE DIFFERENTIAL NO; POSITIVE MORPHOLOGY YES; Platelet Count 30 K/mm3 (150-450)
[2018-01-16 04:58] LABS: Lymphocyte 2 % (19-41); Monocyte 4 % (0-10); Neutrophil-Band 3 % (0-5); Neutrophil-Segmented 91 % (47-70); Total Cells Counted 100 (MANUAL DIFF)
[2018-01-16] MEDS: Dext 5%-0.45% NS 1,000 ML 100 ML IV (04:59)
[2018-01-16] MEDS: 0.9% NaCl Peripheral Flush Adult/Peds IV (04:59)
[2018-01-16 05:00] LABS: Absolute Lymphocyte Count 0.49 X10^3/ul (0.83-4.51)
--- NOTE | 2018-01-16 06:35 | PCM.PROGNOTE ---
Patient Problems: Active and Suspected Problems Lethargy (Acute) Altered mental status (Acute) Subjective: The patient was seen and examined at the bedside this morning. Events from the last 24 hours have been reviewed. The patient is currently afebrile, hemodynamically stable and maintaining appropriate oxygen saturations on room air. The patient is currently overall net +9.9 L for the admission. The patient did receive a transfusion of 1 pack of platelets yesterday. Her platelet count is increased to 30,000 this morning. Her creatinine is slowly improving. Glucose is elevated this morning to 324. Objective: The patient's most recent lab work, culture data and imaging studies have all been personally reviewed. Both liver and renal ultrasound were unremarkable. Plain film chest x-ray revealed no acute cardiopulmonary process with stable central venous catheter in place. Head CT was unremarkable. Blood cultures are pending. Urine Gram stain revealed the presence of a gram-negative cherelle. - Physical Exam General: Alert, Cooperative, No apparent distress HEENT: Atraumatic, PERRLA, Normocephalic Oral: No Gingival or Mucosal Lesions/ Ulcerations Neck: Supple, No Nodes, Trachea Midline Lungs: No rhonchi, No wheeze, No rales, Diminished Cardiovascular: Regular rate, Regular Rhythm, Normal S1, Normal S2, No murmurs Abdomen: Bowel Sounds Present, Soft, Non Tender Extremities: No clubbing, No cyanosis, Edema Skin: - - No significant change from previous. Musculoskeletal: No Tenderness to Palpation of Joints or Extremities Lymphatic: No Cervical, Supraclavicular, or Inguinal Adenopathy Neurological: Cranial nerves II-XII grossly intact, Neuro grossly intact Psych/Mental Status: Normal Affect, Appropriate Vital Signs Temp Pulse Resp BP Pulse Ox 98.1 F 99 16 98/60 96 01/16/18 01:39 01/16/18 01:39 01/16/18 01:39 01/16/18 01:39 01/16/18 01:39 Oxygen Flow Rate (L/min) 2 Oxygen Delivery Method Room Air Weight: 138 lb 7.205 oz Body Mass Index (BMI) 21.9 Finger Stick Blood Glucose 152 Intake and Output for Last 24 Hours 01/14/18 01/15/18 01/16/18 23:59 23:59 23:59 Intake Total 5349.6 / 5349.6 4878.7 / 4878.7 1283 / 1283 Output Total 925 / 925 1175 / 1175 1275 / 1275 Balance 4424.6 / 4424.6 3703.7 / 3703.7 8 Microbiology Past 72 Hours 01/13/18 15:30 Urine Culture - Preliminary Urine Catheter - 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 Laboratory Tests Past 24 Hrs 01/15/18 01/16/18 01/16/18 03:00 03:20 03:20 WBC 24.5 H RBC 3.48 L Hgb 9.8 L Hct 28.9 L MCV 83.0 MCH 28.2 MCHC 33.9 RDW 13.6 RDW Differential 41.2 Plt Count 30 L* MPV 10.6 Neut % (Auto) Not Reportable Absolute Neuts (auto) 23.0 H Absolute Lymphs (auto) 0.49 L Total Counted 100 Neutrophils % (Manual) 91 H Band Neutrophils % 3 Lymphocytes % (Manual) 2 L Monocytes % (Manual) 4 Diff Path Review May foll Sodium 133 L Potassium 4.1 Chloride 105 Carbon Dioxide 15.0 L Anion Gap 13 BUN 75 H Creatinine 2.27 H Estim Creat Clear Calc 20.44 Est GFR (MDRD) Af Amer 28 L Est GFR (MDRD) Non-Af 23 L BUN/Creatinine Ratio 33.0 H Glucose 324 H Calcium 7.0 L Phosphorus 1.1 L* Magnesium 1.7 2.0 01/16/18 03:20 WBC RBC Hgb Hct MCV MCH MCHC RDW RDW Differential Plt Count MPV Neut % (Auto) Absolute Neuts (auto) Absolute Lymphs (auto) Total Counted Neutrophils % (Manual) Band Neutrophils % Lymphocytes % (Manual) Monocytes % (Manual) Diff Path Review Sodium Potassium Chloride Carbon Dioxide Anion Gap BUN Creatinine Estim Creat Clear Calc Est GFR (MDRD) Af Amer Est GFR (MDRD) Non-Af BUN/Creatinine Ratio Glucose Calcium Phosphorus 2.7 Magnesium POC Glucose 01/15/18 01/15/18 01/15/18 21:34 16:47 12:15 POC Glucose 364 H 298 H 152 H 01/15/18 01/15/18 01/15/18 10:10 08:57 06:58 POC Glucose 152 H 147 H 170 H Clinical Impression(s) from Imaging Studies Brain CT 01/13/18 16:13 IMPRESSION: Normal unenhanced CT scan of the brain. Electronically Signed: Jamison Munguia MD at 17:33 EDT , Service support , Chest X-Ray 01/13/18 16:15 IMPRESSION: Right IJ catheter as above. No pneumothorax. Electronically Signed: Jamison Munguia MD at 16:23 EDT , Service support , Renal Ultrasound 01/13/18 17:18 IMPRESSION: Normal ultrasound of the kidneys and urinary bladder. Electronically Signed: Jamison Munguia MD at 20:48 EDT , Service support , Liver Ultrasound 01/13/18 21:45 IMPRESSION: Small right pleural effusion and ascites otherwise no acute disease Electronically Signed: Jamison Munguia MD at 23:07 EDT , Service support , Medical Necessity - Tobacco Use Smoking Status: Never smoker Tobacco Use: Non-smoker Assessment/Plan All Active Problems Lethargy (Acute) Altered mental status (Acute) RECOMMENDATIONS: 1. Continue modified diet per speech therapy recommendations. 2. Continue basal insulin and sliding scale coverage, with upward titration as indicated. 3. Monitor CBC daily. 4. Aggressive physical therapy. 5. Continue antibiotics IMPRESSIONS: 1. Combined hypovolemic and septic shock Resolved. The patient appeared to be clearly volume depleted, likely in the setting of osmotic diuresis from profound hyperglycemia. Her p.o. intake has also been poor. In addition, she did have evidence of gram-negative cystitis. The patient was volume resuscitated per sepsis protocol. The patient did require transient vasopressor support to maintain hemodynamic stability. The patient has remained hemodynamically stable at this time. Continue antibiotics as ordered. 2. Diabetic ketoacidosis Resolved. The patient appeared to be a newly diagnosed diabetic who presented to the hospital in diabetic ketoacidosis, which may have been precipitated by an underlying infectious process. The patient's hemoglobin A1c is noted to be 13.5. She denied ever having been diagnosed with diabetes previously. Continue basal insulin regimen with sliding scale coverage. The patient will likely require upward titration, given her elevated blood sugar this morning. 3. Metabolic encephalopathy Improved. Likely secondary to the above. Improvement in mentation was noted with correction of the patient's underlying metabolic derangements. CT head was noted to be negative. Avoid sedating medications. 4. Acute kidney injury/anion gap metabolic acidosis Improving. Likely prerenal in etiology with possible ischemic ATN in the setting of #1. Continue current supportive measures as outlined above. Anticipate improvement in creatinine with stabilization of hemodynamics. Continue to monitor urine output. No current indication for renal replacement therapy. Renal ultrasound was unremarkable. 5. Elevated transaminases Likely secondary to the patient's hypovolemic state. Liver ultrasound was unremarkable. 6. Thrombocytopenia Unclear chronicity, as there are no previous lab work available for comparison. However, this may be secondary to a consumptive process in the setting of septic shock. The patient's anita platelet count was 13,000, for which she received a transfusion of platelets. There is no clinically evident bleeding present. We will continue to monitor clinically. This note was generated with [employer] dictation software. It may contain incorrect words, spelling, and punctuation that were not noted in checking the note before signing. DISPOSITION: Given the patient's lack of ongoing ICU/pulmonary needs, will sign off. Please call with any additional questions. Code Visit Inpatient E&M: [id number] Subs Hosp L2
--- NOTE | 2018-01-16 06:42 | PN_ITS ---
Patient Problems: Active and Suspected Problems Lethargy (Acute) Altered mental status (Acute) Subjective: The patient was seen and examined at the bedside this morning. Events from the last 24 hours have been reviewed. The patient is currently afebrile, hemodynamically stable and maintaining appropriate oxygen saturations on room air. The patient is currently overall net +9.9 L for the admission. The patient did receive a transfusion of 1 pack of platelets yesterday. Her platelet count is increased to 30,000 this morning. Her creatinine is slowly improving. Glucose is elevated this morning to 324. Objective: The patient's most recent lab work, culture data and imaging studies have all been personally reviewed. Both liver and renal ultrasound were unremarkable. Plain film chest x-ray revealed no acute cardiopulmonary process with stable central venous catheter in place. Head CT was unremarkable. Blood cultures are pending. Urine Gram stain revealed the presence of a gram-negative cherelle. - Physical Exam General: Alert, Cooperative, No apparent distress HEENT: Atraumatic, PERRLA, Normocephalic Oral: No Gingival or Mucosal Lesions/ Ulcerations Neck: Supple, No Nodes, Trachea Midline Lungs: No rhonchi, No wheeze, No rales, Diminished Cardiovascular: Regular rate, Regular Rhythm, Normal S1, Normal S2, No murmurs Abdomen: Bowel Sounds Present, Soft, Non Tender Extremities: No clubbing, No cyanosis, Edema Skin: - - No significant change from previous. Musculoskeletal: No Tenderness to Palpation of Joints or Extremities Lymphatic: No Cervical, Supraclavicular, or Inguinal Adenopathy Neurological: Cranial nerves II-XII grossly intact, Neuro grossly intact Psych/Mental Status: Normal Affect, Appropriate Vital Signs Temp Pulse Resp BP Pulse Ox 98.1 F 99 16 98/60 96 01/16/18 01:39 01/16/18 01:39 01/16/18 01:39 01/16/18 01:39 01/16/18 01:39 Oxygen Flow Rate (L/min) 2 Oxygen Delivery Method Room Air Weight: 138 lb 7.205 oz Body Mass Index (BMI) 21.9 Finger Stick Blood Glucose 152 Intake and Output for Last 24 Hours 01/14/18 01/15/18 01/16/18 23:59 23:59 23:59 Intake Total 5349.6 / 5349.6 4878.7 / 4878.7 1283 / 1283 Output Total 925 / 925 1175 / 1175 1275 / 1275 Balance 4424.6 / 4424.6 3703.7 / 3703.7 8 Microbiology Past 72 Hours 01/13/18 15:30 Urine Culture - Preliminary Urine Catheter - 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 Laboratory Tests Past 24 Hrs 01/15/18 01/16/18 01/16/18 03:00 03:20 03:20 WBC 24.5 H RBC 3.48 L Hgb 9.8 L Hct 28.9 L MCV 83.0 MCH 28.2 MCHC 33.9 RDW 13.6 RDW Differential 41.2 Plt Count 30 L* MPV 10.6 Neut % (Auto) Not Reportable Absolute Neuts (auto) 23.0 H Absolute Lymphs (auto) 0.49 L Total Counted 100 Neutrophils % (Manual) 91 H Band Neutrophils % 3 Lymphocytes % (Manual) 2 L Monocytes % (Manual) 4 Diff Path Review May foll Sodium 133 L Potassium 4.1 Chloride 105 Carbon Dioxide 15.0 L Anion Gap 13 BUN 75 H Creatinine 2.27 H Estim Creat Clear Calc 20.44 Est GFR (MDRD) Af Amer 28 L Est GFR (MDRD) Non-Af 23 L BUN/Creatinine Ratio 33.0 H Glucose 324 H Calcium 7.0 L Phosphorus 1.1 L* Magnesium 1.7 2.0 01/16/18 03:20 WBC RBC Hgb Hct MCV MCH MCHC RDW RDW Differential Plt Count MPV Neut % (Auto) Absolute Neuts (auto) Absolute Lymphs (auto) Total Counted Neutrophils % (Manual) Band Neutrophils % Lymphocytes % (Manual) Monocytes % (Manual) Diff Path Review Sodium Potassium Chloride Carbon Dioxide Anion Gap BUN Creatinine Estim Creat Clear Calc Est GFR (MDRD) Af Amer Est GFR (MDRD) Non-Af BUN/Creatinine Ratio Glucose Calcium Phosphorus 2.7 Magnesium POC Glucose 01/15/18 01/15/18 01/15/18 21:34 16:47 12:15 POC Glucose 364 H 298 H 152 H 01/15/18 01/15/18 01/15/18 10:10 08:57 06:58 POC Glucose 152 H 147 H 170 H Clinical Impression(s) from Imaging Studies Brain CT 01/13/18 16:13 IMPRESSION: Normal unenhanced CT scan of the brain. Electronically Signed: Jamison Munguia MD at 17:33 EDT , Service support , Chest X-Ray 01/13/18 16:15 IMPRESSION: Right IJ catheter as above. No pneumothorax. Electronically Signed: Jamison Munguia MD at 16:23 EDT , Service support , Renal Ultrasound 01/13/18 17:18 IMPRESSION: Normal ultrasound of the kidneys and urinary bladder. Electronically Signed: Jamison Munguia MD at 20:48 EDT , Service support , Liver Ultrasound 01/13/18 21:45 IMPRESSION: Small right pleural effusion and ascites otherwise no acute disease Electronically Signed: Jamison Munguia MD at 23:07 EDT , Service support , Medical Necessity - Tobacco Use Smoking Status: Never smoker Tobacco Use: Non-smoker Assessment/Plan All Active Problems Lethargy (Acute) Altered mental status (Acute) RECOMMENDATIONS: 1. Continue modified diet per speech therapy recommendations. 2. Continue basal insulin and sliding scale coverage, with upward titration as indicated. 3. Monitor CBC daily. 4. Aggressive physical therapy. 5. Continue antibiotics IMPRESSIONS: 1. Combined hypovolemic and septic shock Resolved. The patient appeared to be clearly volume depleted, likely in the setting of osmotic diuresis from profound hyperglycemia. Her p.o. intake has also been poor. In addition, she did have evidence of gram-negative cystitis. The patient was volume resuscitated per sepsis protocol. The patient did require transient vasopressor support to maintain hemodynamic stability. The patient has remained hemodynamically stable at this time. Continue antibiotics as ordered. 2. Diabetic ketoacidosis Resolved. The patient appeared to be a newly diagnosed diabetic who presented to the hospital in diabetic ketoacidosis, which may have been precipitated by an underlying infectious process. The patient's hemoglobin A1c is noted to be 13.5. She denied ever having been diagnosed with diabetes previously. Continue basal insulin regimen with sliding scale coverage. The patient will likely require upward titration, given her elevated blood sugar this morning. 3. Metabolic encephalopathy Improved. Likely secondary to the above. Improvement in mentation was noted with correction of the patient's underlying metabolic derangements. CT head was noted to be negative. Avoid sedating medications. 4. Acute kidney injury/anion gap metabolic acidosis Improving. Likely prerenal in etiology with possible ischemic ATN in the setting of #1. Continue current supportive measures as outlined above. Anticipate improvement in creatinine with stabilization of hemodynamics. Cont inue to monitor urine output. No current indication for renal replacement therapy. Renal ultrasound was unremarkable. 5. Elevated transaminases Likely secondary to the patient's hypovolemic state. Liver ultrasound was unremarkable. 6. Thrombocytopenia Unclear chronicity, as there are no previous lab work available for comparison. However, this may be secondary to a consumptive process in the setting of septic shock. The patient's anita platelet count was 13,000, for which she received a transfusion of platelets. There is no clinically evident bleeding present. We will continue to monitor clinically. This note was generated with [employer] dictation software. It may contain incorrect words, spelling, and punctuation that were not noted in checking the note before signing. DISPOSITION: Given the patient's lack of ongoing ICU/pulmonary needs, will sign off. Please call with any additional questions. Code Visit Inpatient E&M: 62178 Subs Hosp L2
[2018-01-16 06:55] VITALS: O2SAT 96
[2018-01-16 07:40] VITALS: BP 112/64; PULSE 96; RESP 16; TEMP 36.8; O2SAT 96
[2018-01-16 07:46] LABS: Bedside Glucose 366 mg/dL (70-110)
[2018-01-16] MEDS: Insulin Lispro 100 UNIT/ML INSULN.PEN SC ×5 (08:27→16:54)
[2018-01-16] MEDS: Insulin Human 75/25 Kwickpen 20 UNIT SC (08:32)
[2018-01-16] MEDS: Menthol/Lanolin/Calamine/Znox 113 GM Tube 1 APPLIC TOPICAL ×2 (10:37→22:17)
[2018-01-16] MEDS: Glucerna Shake 120 ML LIQUID PO ×2 (10:40→22:22)
--- NOTE | 2018-01-16 10:44 | PCM.PN.HOSP ---
Patient Problems: Active and Suspected Problems Lethargy (Acute) Altered mental status (Acute) Subjective: Feels better with more energy after her phos was replaced. No nausea or vomiting Vitals/I&O's: Vital Signs Temp Pulse Resp BP Pulse Ox 98.2 F 96 16 112/64 96 01/16/18 07:40 01/16/18 07:40 01/16/18 07:40 01/16/18 07:40 01/16/18 07:40 Oxygen Flow Rate (L/min) 2 Oxygen Delivery Method Room Air Weight: 138 lb 7.205 oz Body Mass Index (BMI) 21.9 Finger Stick Blood Glucose 152 Intake and Output for Last 24 Hours 01/14/18 01/15/18 01/16/18 23:59 23:59 23:59 Intake Total 5349.6 / 5349.6 4878.7 / 4878.7 1283 / 1283 Output Total 925 / 925 1175 / 1175 1275 / 1275 Balance 4424.6 / 4424.6 3703.7 / 3703.7 General: Alert, Oriented x3, Cooperative, No apparent distress HEENT: Atraumatic, EOMI, Normocephalic Oral: Moist Mucosa Neck: Supple, No JVD Lungs: Clear to auscultation, Normal air movement, No rhonchi, No wheeze, No rales, Diminished Cardiovascular: Regular rate, Regular Rhythm, Normal S1, Normal S2 Abdomen: Soft, Non Tender, Non-Distended, No Hepato-splenomegaly Extremities: No edema, Capillary Refill Less than 3 Seconds Skin: No rashes, No breakdown Neurological: Neuro grossly intact, Sensory exam intact to light touch and pain Psych/Mental Status: Normal Affect, Appropriate Microbiology Past 72 Hours 01/13/18 15:30 Urine Catheter - Miranda Urine Culture - Preliminary Klebsiella pneumoniae sp pneum 01/13/18 16:45 Blood Culture (Wb) - Line Draw Blood Culture - Preliminary No growth in 48 hours. Laboratory Results 01/15/18 12:15: POC Glucose 152 H 01/15/18 16:47: POC Glucose 298 H 01/15/18 21:34: POC Glucose 364 H 01/16/18 03:20: WBC 24.5 H, RBC 3.48 L, Hgb 9.8 L, Hct 28.9 L, MCV 83.0, MCH 28.2, MCHC 33.9, RDW 13.6, RDW Differential 41.2, Plt Count 30 L*, MPV 10.6, Neut % (Auto) Not Reportable, Absolute Neuts (auto) 23.0 H, Absolute Lymphs (auto) 0.49 L, Total Counted 100, Neutrophils % (Manual) 91 H, Band Neutrophils % 3, Lymphocytes % (Manual) 2 L, Monocytes % (Manual) 4, Diff Path Review July01/16/18 03:20: Sodium 133 L, Potassium 4.1, Chloride 105, Carbon Dioxide 15.0 L, Anion Gap 13, BUN 75 H, Creatinine 2.27 H, Estim Creat Clear Calc 20.44, Est GFR (MDRD) Af Amer 28 L, Est GFR (MDRD) Non-Af 23 L, BUN/Creatinine Ratio 33.0 H, Glucose 324 H, Calcium 7.0 L, Magnesium 2.0 01/16/18 03:20: Phosphorus 2.7 01/16/18 07:30: POC Glucose 366 H Current Medications Calamine/Phenol (Calmoseptine Ointment) 1 applic TOPICAL BID MENG; Protocol Last Admin: 01/16/18 10:37 Dose: 1 applicatio Chlorhexidine Gluconate () 1 each TOPICAL DAILY MENG Last Admin: 01/15/18 10:02 Dose: 1 each Dextrose (D50w Syringe) 0 gm IV X1 PRN; Protocol PRN Reason: HYPOGLYCEMIA Sodium Chloride () 250 mls @ 15 mls/hr IV .[id number] PRN PRN Reason: SALINE FLUSH Last Admin: 01/14/18 22:08 Dose: 15 mls/hr Sodium Chloride () 500 mls @ 15 mls/hr IV .[id number] PRN PRN Reason: SALINE FLUSH Cefepime HCl 2 gm/ Sodium (Chloride) 100 mls @ 200 mls/hr IV Q24 MENG Last Admin: 01/15/18 10:02 Dose: 200 mls/hr Pantoprazole Sodium 40 mg/ (Sodium Chloride) 110 mls @ 330 mls/hr IV Q12 MENG Last Admin: 01/16/18 10:40 Dose: 330 mls/hr Insulin Human Lispro (Humalog Kwikpen (Bkc)) 0 unit SC ACHS MENG; Protocol Last Admin: 01/16/18 08:27 Dose: 8 units Insulin Human Lispro (Humalog Kwikpen (Bkc)) 5 unit SC TIDAC MENG Magnesium Hydroxide (Milk Of Magnesia) 30 ml PO DAILY PRN PRN PRN Reason: Constipation Nutritional Formula (Lactose Free) (Glucerna Shake) 120 ml PO 4X/DAY MENG Last Admin: 01/16/18 10:40 Dose: 120 ml Sodium Chloride () 5 - 30 ml IV UD PRN PRN Reason: SALINE FLUSH Last Admin: 01/16/18 04:59 Dose: 30 ml Medical Necessity - Tobacco Use Smoking Status: Never smoker Tobacco Use: Non-smoker Assessment/Plan All Active Problems Lethargy (Acute) Altered mental status (Acute) 1. DKA with metabolic encephalopathy/Hypovolemic shock (resolved)/Septic shock (resolved) d/t UTI/BIBIANA/elevated liver function tests with thrombocytopenia - Transfer from [facility] with BG >900, not transferred on an Insulin drip - CO2 on transfer was 20, on admission was 18 - c/w 75/25 30 U BID and a SSI as well as mealtime - A1c 13.5 - Urine cx K. pneumoniae, sensitive to keflex - Gap is closed - DC IVF, BP stable, remove CVC - Will monitor LFTs which hopefully improve with hemodynamic and intravascular volume stabilization - Presented with BIBIANA and Cr improved to 2.27, she is making urine and this is likely now ATN, she will need metformin as an outpatient once her creatinine improves DVT prophylaxis: heparin Diet: Cardiac Code Visit Inpatient E&M: [id number] Subs Hosp L2
--- NOTE | 2018-01-16 10:55 | PN_ITS ---
Patient Problems: Active and Suspected Problems Lethargy (Acute) Altered mental status (Acute) Subjective: Feels better with more energy after her phos was replaced. No nausea or vomiting Vitals/I&O's: Vital Signs Temp Pulse Resp BP Pulse Ox 98.2 F 96 16 112/64 96 01/16/18 07:40 01/16/18 07:40 01/16/18 07:40 01/16/18 07:40 01/16/18 07:40 Oxygen Flow Rate (L/min) 2 Oxygen Delivery Method Room Air Weight: 138 lb 7.205 oz Body Mass Index (BMI) 21.9 Finger Stick Blood Glucose 152 Intake and Output for Last 24 Hours 01/14/18 01/15/18 01/16/18 23:59 23:59 23:59 Intake Total 5349.6 / 5349.6 4878.7 / 4878.7 1283 / 1283 Output Total 925 / 925 1175 / 1175 1275 / 1275 Balance 4424.6 / 4424.6 3703.7 / 3703.7 General: Alert, Oriented x3, Cooperative, No apparent distress HEENT: Atraumatic, EOMI, Normocephalic Oral: Moist Mucosa Neck: Supple, No JVD Lungs: Clear to auscultation, Normal air movement, No rhonchi, No wheeze, No rales, Diminished Cardiovascular: Regular rate, Regular Rhythm, Normal S1, Normal S2 Abdomen: Soft, Non Tender, Non-Distended, No Hepato-splenomegaly Extremities: No edema, Capillary Refill Less than 3 Seconds Skin: No rashes, No breakdown Neurological: Neuro grossly intact, Sensory exam intact to light touch and pain Psych/Mental Status: Normal Affect, Appropriate Microbiology Past 72 Hours 01/13/18 15:30 Urine Catheter - Miranda Urine Culture - Preliminary Klebsiella pneumoniae sp pneum 01/13/18 16:45 Blood Culture (Wb) - Line Draw Blood Culture - Preliminary No growth in 48 hours. Laboratory Results 01/15/18 12:15: POC Glucose 152 H 01/15/18 16:47: POC Glucose 298 H 01/15/18 21:34: POC Glucose 364 H 01/16/18 03:20: WBC 24.5 H, RBC 3.48 L, Hgb 9.8 L, Hct 28.9 L, MCV 83.0, MCH 28.2, MCHC 33.9, RDW 13.6, RDW Differential 41.2, Plt Count 30 L*, MPV 10.6, Neut % (Auto) Not Reportable, Absolute Neuts (auto) 23.0 H, Absolute Lymphs (auto) 0.49 L, Total Counted 100, Neutrophils % (Manual) 91 H, Band Neutrophils % 3, Lymphocytes % (Manual) 2 L, Monocytes % (Manual) 4, Diff Path Review July01/16/18 03:20: Sodium 133 L, Potassium 4.1, Chloride 105, Carbon Dioxide 15.0 L , Anion Gap 13, BUN 75 H, Creatinine 2.27 H, Estim Creat Clear Calc 20.44, Est GFR (MDRD) Af Amer 28 L, Est GFR (MDRD) Non-Af 23 L, BUN/Creatinine Ratio 33.0 H , Glucose 324 H, Calcium 7.0 L, Magnesium 2.0 01/16/18 03:20: Phosphorus 2.7 01/16/18 07:30: POC Glucose 366 H Current Medications Calamine/Phenol (Calmoseptine Ointment) 1 applic TOPICAL BID MENG; Protocol Last Admin: 01/16/18 10:37 Dose: 1 applicatio Chlorhexidine Gluconate () 1 each TOPICAL DAILY MENG Last Admin: 01/15/18 10:02 Dose: 1 each Dextrose (D50w Syringe) 0 gm IV X1 PRN; Protocol PRN Reason: HYPOGLYCEMIA Sodium Chloride () 250 mls @ 15 mls/hr IV .[id number] PRN PRN Reason: SALINE FLUSH Last Admin: 01/14/18 22:08 Dose: 15 mls/hr Sodium Chloride () 500 mls @ 15 mls/hr IV .[id number] PRN PRN Reason: SALINE FLUSH Cefepime HCl 2 gm/ Sodium (Chloride) 100 mls @ 200 mls/hr IV Q24 MENG Last Admin: 01/15/18 10:02 Dose: 200 mls/hr Pantoprazole Sodium 40 mg/ (Sodium Chloride) 110 mls @ 330 mls/hr IV Q12 MENG Last Admin: 01/16/18 10:40 Dose: 330 mls/hr Insulin Human Lispro (Humalog Kwikpen (Bkc)) 0 unit SC ACHS MENG; Protocol Last Admin: 01/16/18 08:27 Dose: 8 units Insulin Human Lispro (Humalog Kwikpen (Bkc)) 5 unit SC TIDAC MENG Magnesium Hydroxide (Milk Of Magnesia) 30 ml PO DAILY PRN PRN PRN Reason: Constipation Nutritional Formula (Lactose Free) (Glucerna Shake) 120 ml PO 4X/DAY MENG Last Admin: 01/16/18 10:40 Dose: 120 ml Sodium Chloride () 5 - 30 ml IV UD PRN PRN Reason: SALINE FLUSH Last Admin: 01/16/18 04:59 Dose: 30 ml Medical Necessity - Tobacco Use Smoking Status: Never smoker Tobacco Use: Non-smoker Assessment/Plan All Active Problems Lethargy (Acute) Altered mental status (Acute) 1. DKA with metabolic encephalopathy/Hypovolemic shock (resolved)/Septic shock (resolved) d/t UTI/BIBIANA/elevated liver function tests with thrombocytopenia - Transfer from [facility] with BG >900, not transferred on an Insulin drip - CO2 on transfer was 20, on admission was 18 - c/w 75/25 30 U BID and a SSI as well as mealtime - A1c 13.5 - Urine cx K. pneumoniae, sensitive to keflex - Gap is closed - DC IVF, BP stable, remove CVC - Will monitor LFTs which hopefully improve with hemodynamic and intravascular volume stabilization - Presented with BIBIANA and Cr improved to 2.27, she is making urine and this is likely now ATN, she will need metformin as an outpatient once her creatinine improves DVT prophylaxis: heparin Diet: Cardiac Code Visit Inpatient E&M: 56744 Subs Hosp L2
[2018-01-16 11:45] LABS: Bedside Glucose 280 mg/dL (70-110)
[2018-01-16 14:44] VITALS: BP 92/56; PULSE 99; RESP 16; TEMP 36.7; O2SAT 96
[2018-01-16] MEDS: Cephalexin 500 MG Capsule PO ×2 (14:54→22:23)
[2018-01-16 16:46] LABS: Bedside Glucose 218 mg/dL (70-110)
[2018-01-16] MEDS: Insulin Human 75/25 Kwickpen 30 UNIT SC (16:57)
[2018-01-16 22:07] VITALS: BP 98/60; PULSE 102; RESP 16; TEMP 36.4; O2SAT 96
[2018-01-16 22:30] LABS: Bedside Glucose 134 mg/dL (70-110)
--- NOTE | 2018-01-17 01:03 | NURSING ---
Ashia RN [employer] dc'd patients rt IJ, tip intact, no bleeding noted. Occlusive dressing in place, laid flat.
--- NOTE | 2018-01-17 01:06 | NURSING ---
Addendum entered by Gale Tidwell 01/17/18 01:41: BGT was 85, not 80 Original Note: BGT checked, 80. Pt denies symptoms. Will recheck in 1/2 hour.
[2018-01-17 01:10] LABS: Bedside Glucose 85 mg/dL (70-110)
[2018-01-17 02:06] LABS: Bedside Glucose 67 mg/dL (70-110)
--- NOTE | 2018-01-17 02:13 | NURSING ---
bgt 67, pt alert and oriented, denies feeling hypoglycemic. Given 4 oz oj, peanut butter crackers and milk.
[2018-01-17 02:15] VITALS: BP 105/60; PULSE 101; RESP 16; TEMP 36.6; O2SAT 96
--- NOTE | 2018-01-17 02:29 | NURSING ---
BGT 78 after juice. Eating pb crackers and drinking milk. VS obtained. secondary assessment completed.
[2018-01-17 03:36] LABS: Bedside Glucose 112 mg/dL (70-110)
[2018-01-17 03:36] LABS: Bedside Glucose 78 mg/dL (70-110)
[2018-01-17 04:41] LABS: Bedside Glucose 134 mg/dL (70-110)
[2018-01-17] MEDS: Cephalexin 500 MG Capsule PO (06:43)
[2018-01-17 07:03] LABS: Anion Gap 10 (5-15); BUN 77 mg/dL (7-18); BUN/Creat Ratio 35.6 RATIO (10-20); Calcium,Total 7.1 mg/dL (8.5-10.1); Chloride 110 mmol/L (98-107); Creatinine, Serum 2.16 mg/dL (0.55-1.02); EST Glomerular Filtration Rate 24 mL/min (>60); Est Glom Filt Rate - Afr Amer 29 mL/min (>60); Estimated Creatinine Clearance 21.48 ml/min; Glucose 154 mg/dL (74-106); Potassium 4.3 mmol/L (3.5-5.1); Sodium Level 135 mmol/L (136-145)
[2018-01-17 07:14] LABS: Hematocrit 28.7 % (37-47); Hemoglobin 9.9 g/dl (12.0-15.0); Mean Corp Hgb Conc 34.5 g/gl (32-36); Mean Corpuscular Hgb 28.4 pg (27.0-32.0); Mean Corpuscular Volume 82.5 fL (81-99); Platelet Count 28 K/mm3 (150-450); RBC Distribution Width CV 13.4 % (11.6-14.6); Red Blood Count 3.48 M/mm3 (4.2-5.4)
[2018-01-17 07:45] LABS: Bedside Glucose 172 mg/dL (70-110)
[2018-01-17 08:00] VITALS: BP 116/60; PULSE 105; RESP 16; TEMP 36.6; O2SAT 98
[2018-01-17 08:18] LABS: Differential Indicated MANUAL DIFF; POSITIVE COUNT YES; POSITIVE DIFFERENTIAL YES; POSITIVE MORPHOLOGY YES
[2018-01-17 08:19] LABS: White Blood Count 30.1 K/mm3 (4.4-11.0)
--- NOTE | 2018-01-17 08:19 | NURSING ---
Cortexted Dr. Miranda and informed him of WBC of 30.1.
[2018-01-17 08:25] LABS: Eosinophil 1 % (0-5); Lymphocyte 5 % (19-41); Monocyte 3 % (0-10); Neutrophil-Band 2 % (0-5); Neutrophil-Segmented 89 % (47-70); Platelet Estimate MKD DEC (ADEQ); Platelet Morphology LARGE; Red Cell Morphology NORM C+C NORMAL (NORM C&C); Total Cells Counted 100 (MANUAL DIFF)
[2018-01-17 08:26] LABS: Absolute Lymphocyte Count 1.51 X10^3/ul (0.83-4.51); Absolute Neutrophil Count 27.4 X10^3/uL (2.0-7.7)
[2018-01-17] MEDS: Insulin Lispro 100 UNIT/ML INSULN.PEN 10 UNIT SC ×3 (08:55→16:56)
[2018-01-17] MEDS: Insulin Lispro 100 UNIT/ML INSULN.PEN SC ×3 (08:56→21:56)
[2018-01-17] MEDS: Insulin Human 75/25 Kwickpen 30 UNIT SC ×2 (09:01→16:57)
--- NOTE | 2018-01-17 09:45 | PCM.PN.HOSP ---
Patient Problems: Active and Suspected Problems Lethargy (Acute) Altered mental status (Acute) Subjective: Says she feels better and is doing ok. Tolerating her diet and no abdominal pain, CP, or SOB Vitals/I&O's: Vital Signs Temp Pulse Resp BP Pulse Ox 97.9 F 101 H 16 105/60 96 01/17/18 02:15 01/17/18 02:15 01/17/18 02:15 01/17/18 02:15 01/17/18 02:15 Oxygen Flow Rate (L/min) 2 Oxygen Delivery Method Room Air Weight: 139 lb 8.842 oz Body Mass Index (BMI) 21.9 Finger Stick Blood Glucose 152 Intake and Output for Last 24 Hours 01/15/18 01/16/18 01/17/18 23:59 23:59 23:59 Intake Total 4878.7 / 4878.7 1283 / 1283 1314 / 1314 Output Total 1175 / 1175 2375 / 2375 1300 / 1300 Balance 3703.7 / 3703.7 -1092 / -1092 General: Alert, Oriented x3, Cooperative, No apparent distress HEENT: Atraumatic, EOMI, Normocephalic Oral: Moist Mucosa Neck: Supple, No JVD Lungs: Clear to auscultation, Normal air movement, No rhonchi, No wheeze, No rales, Diminished Cardiovascular: Regular rate, Regular Rhythm, Normal S1, Normal S2 Abdomen: Soft, Non Tender, Non-Distended, No Hepato-splenomegaly Extremities: No edema, Capillary Refill Less than 3 Seconds Skin: No rashes, No breakdown Neurological: Neuro grossly intact, Sensory exam intact to light touch and pain Psych/Mental Status: Normal Affect, Appropriate Microbiology Past 72 Hours 01/16/18 22:15 Stool C. difficile DNA Amplification - Final 01/13/18 15:30 Urine Catheter - Miranda Urine Culture - Preliminary Klebsiella pneumoniae sp pneum 01/13/18 16:45 Blood Culture (Wb) - Line Draw Blood Culture - Preliminary No growth in 48 hours. Laboratory Results 01/16/18 11:28: POC Glucose 280 H 01/16/18 16:41: POC Glucose 218 H 01/16/18 22:15: POC Glucose 134 H 01/17/18 01:04: POC Glucose 85 01/17/18 01:59: POC Glucose 67 L 01/17/18 02:25: POC Glucose 78 01/17/18 03:31: POC Glucose 112 H 01/17/18 04:37: POC Glucose 134 H 01/17/18 06:04: WBC 30.1 H*, RBC 3.48 L, Hgb 9.9 L, Hct 28.7 L, MCV 82.5, MCH 28.4, MCHC 34.5, RDW 13.4, RDW Differential 39.0, Plt Count 28 L*, Neut % (Auto) Not Reportable, Absolute Neuts (auto) 27.4 H, Absolute Lymphs (auto) 1.51, Total Counted 100, Neutrophils % (Manual) 89 H, Band Neutrophils % 2, Lymphocytes % (Manual) 5 L, Monocytes % (Manual) 3, Eosinophils % (Manual) 1, Diff Path Review July foll, Platelet Estimate MKD DEC, Plt Morphology Comment LARGE, RBC Morphology NORM C+C 01/17/18 06:04: Sodium 135 L, Potassium 4.3, Chloride 110 H, Carbon Dioxide 15.0 L, Anion Gap 10, BUN 77 H, Creatinine 2.16 H, Estim Creat Clear Calc 21.48, Est GFR (MDRD) Af Amer 29 L, Est GFR (MDRD) Non-Af 24 L, BUN/Creatinine Ratio 35.6 H, Glucose 154 H, Calcium 7.1 L 01/17/18 07:32: POC Glucose 172 H Current Medications Calamine/Phenol (Calmoseptine Ointment) 1 applic TOPICAL BID MENG; Protocol Last Admin: 01/16/18 22:17 Dose: 1 applicatio Chlorhexidine Gluconate () 1 each TOPICAL DAILY MENG Last Admin: 01/16/18 22:17 Dose: Not Given Dextrose (D50w Syringe) 0 gm IV X1 PRN; Protocol PRN Reason: HYPOGLYCEMIA Sodium Chloride () 250 mls @ 15 mls/hr IV .[id number] PRN PRN Reason: SALINE FLUSH Last Admin: 01/14/18 22:08 Dose: 15 mls/hr Sodium Chloride () 500 mls @ 15 mls/hr IV .[id number] PRN PRN Reason: SALINE FLUSH Cefepime HCl 2 gm/ Sodium (Chloride) 100 mls @ 200 mls/hr IV Q12 MENG Insulin Human Lispro (Humalog Kwikpen (Bkc)) 0 unit SC ACHS MENG; Protocol Last Admin: 01/17/18 08:56 Dose: 2 units Insulin Human Lispro (Humalog Kwikpen (Bkc)) 10 unit SC TIDAC [facility] Last Admin: 01/17/18 08:55 Dose: 10 u Magnesium Hydroxide (Milk Of Magnesia) 30 ml PO DAILY PRN PRN PRN Reason: Constipation Nutritional Formula (Lactose Free) (Glucerna Shake) 120 ml PO 4X/DAY [facility] Last Admin: 01/16/18 22:22 Dose: 120 ml Pantoprazole Sodium (Protonix) 40 mg PO DAILY [facility] Sodium Chloride () 5 - 30 ml IV UD PRN PRN Reason: SALINE FLUSH Last Admin: 01/16/18 04:59 Dose: 30 ml Medical Necessity - Tobacco Use Smoking Status: Never smoker Tobacco Use: Non-smoker Assessment/Plan All Active Problems Lethargy (Acute) Altered mental status (Acute) 1. DKA with metabolic encephalopathy/Hypovolemic shock (resolved)/Septic shock (resolved) d/t UTI/BIBIANA/ - Transfer from [facility] with BG >900, not transferred on an Insulin drip - CO2 on transfer was 20, on admission was 18 - c/w 75/25 30 U BID and a SSI as well as mealtime - A1c 13.5 - Urine cx K. pneumoniae, sensitive to keflex - Presented with BIBIANA and Cr improved to 2.16 2. Thrombocytopenia with a newly elevated leukocytosis and elevated LFTs - She does not see a doctor as an outpatient so there are no baseline labs - I am unsure as to the elevation in her WBC - She has a kleb UTI which is sensitive and she has been on appropriate abx - C. diff is negative - repeat LFTs today - C/w to hematology given her now of her WBC to 30K and her continued thrombocytopenia - Will likely not be able to be discharged today, pending hematology c/s DVT prophylaxis: heparin Diet: Cardiac Code Visit Inpatient E&M: 36990 Subs Hosp L2
--- NOTE | 2018-01-17 09:50 | PN_ITS ---
Patient Problems: Active and Suspected Problems Lethargy (Acute) Altered mental status (Acute) Subjective: Says she feels better and is doing ok. Tolerating her diet and no abdominal pain, CP, or SOB Vitals/I&O's: Vital Signs Temp Pulse Resp BP Pulse Ox 97.9 F 101 H 16 105/60 96 01/17/18 02:15 01/17/18 02:15 01/17/18 02:15 01/17/18 02:15 01/17/18 02:15 Oxygen Flow Rate (L/min) 2 Oxygen Delivery Method Room Air Weight: 139 lb 8.842 oz Body Mass Index (BMI) 21.9 Finger Stick Blood Glucose 152 Intake and Output for Last 24 Hours 01/15/18 01/16/18 01/17/18 23:59 23:59 23:59 Intake Total 4878.7 / 4878.7 1283 / 1283 1314 / 1314 Output Total 1175 / 1175 2375 / 2375 1300 / 1300 Balance 3703.7 / 3703.7 -1092 / -1092 General: Alert, Oriented x3, Cooperative, No apparent distress HEENT: Atraumatic, EOMI, Normocephalic Oral: Moist Mucosa Neck: Supple, No JVD Lungs: Clear to auscultation, Normal air movement, No rhonchi, No wheeze, No rales, Diminished Cardiovascular: Regular rate, Regular Rhythm, Normal S1, Normal S2 Abdomen: Soft, Non Tender, Non-Distended, No Hepato-splenomegaly Extremities: No edema, Capillary Refill Less than 3 Seconds Skin: No rashes, No breakdown Neurological: Neuro grossly intact, Sensory exam intact to light touch and pain Psych/Mental Status: Normal Affect, Appropriate Microbiology Past 72 Hours 01/16/18 22:15 Stool C. difficile DNA Amplification - Final 01/13/18 15:30 Urine Catheter - Miranda Urine Culture - Preliminary Klebsiella pneumoniae sp pneum 01/13/18 16:45 Blood Culture (Wb) - Line Draw Blood Culture - Preliminary No growth in 48 hours. Laboratory Results 01/16/18 11:28: POC Glucose 280 H 01/16/18 16:41: POC Glucose 218 H 01/16/18 22:15: POC Glucose 134 H 01/17/18 01:04: POC Glucose 85 01/17/18 01:59: POC Glucose 67 L 01/17/18 02:25: POC Glucose 78 01/17/18 03:31: POC Glucose 112 H 01/17/18 04:37: POC Glucose 134 H 01/17/18 06:04: WBC 30.1 H*, RBC 3.48 L, Hgb 9.9 L, Hct 28.7 L, MCV 82.5, MCH 28.4, MCHC 34.5, RDW 13.4, RDW Differential 39.0, Plt Count 28 L*, Neut % (Auto) Not Reportable, Absolute Neuts (auto) 27.4 H, Absolute Lymphs (auto) 1.51, Total Counted 100, Neutrophils % (Manual) 89 H, Band Neutrophils % 2, Lymphocytes % (Manual) 5 L, Monocytes % (Manual) 3, Eosinophils % (Manual) 1, Diff Path Review July foll, Platelet Estimate MKD DEC, Plt Morphology Comment LARGE, RBC Morphology NORM C+C 01/17/18 06:04: Sodium 135 L, Potassium 4.3, Chloride 110 H, Carbon Dioxide 15.0 L, Anion Gap 10, BUN 77 H, Creatinine 2.16 H, Estim Creat Clear Calc 21.48, Est GFR (MDRD) Af Amer 29 L, Est GFR (MDRD) Non-Af 24 L, BUN/Creatinine Ratio 35.6 H , Glucose 154 H, Calcium 7.1 L 01/17/18 07:32: POC Glucose 172 H Current Medications Calamine/Phenol (Calmoseptine Ointment) 1 applic TOPICAL BID MENG; Protocol Last Admin: 01/16/18 22:17 Dose: 1 applicatio Chlorhexidine Gluconate () 1 each TOPICAL DAILY MENG Last Admin: 01/16/18 22:17 Dose: Not Given Dextrose (D50w Syringe) 0 gm IV X1 PRN; Protocol PRN Reason: HYPOGLYCEMIA Sodium Chloride () 250 mls @ 15 mls/hr IV .[id number] PRN PRN Reason: SALINE FLUSH Last Admin: 01/14/18 22:08 Dose: 15 mls/hr Sodium Chloride () 500 mls @ 15 mls/hr IV .[id number] PRN PRN Reason: SALINE FLUSH Cefepime HCl 2 gm/ Sodium (Chloride) 100 mls @ 200 mls/hr IV Q12 MENG Insulin Human Lispro (Humalog Kwikpen (Bkc)) 0 unit SC ACHS MENG; Protocol Last Admin: 01/17/18 08:56 Dose: 2 units Insulin Human Lispro (Humalog Kwikpen (Bkc)) 10 unit SC TIDAC [facility] Last Admin: 01/17/18 08:55 Dose: 10 u Magnesium Hydroxide (Milk Of Magnesia) 30 ml PO DAILY PRN PRN PRN Reason: Constipation Nutritional Formula (Lactose Free) (Glucerna Shake) 120 ml PO 4X/DAY [facility] Last Admin: 01/16/18 22:22 Dose: 120 ml Pantoprazole Sodium (Protonix) 40 mg PO DAILY [facility] Sodium Chloride () 5 - 30 ml IV UD PRN PRN Reason: SALINE FLUSH Last Admin: 01/16/18 04:59 Dose: 30 ml Medical Necessity - Tobacco Use Smoking Status: Never smoker Tobacco Use: Non-smoker Assessment/Plan All Active Problems Lethargy (Acute) Altered mental status (Acute) 1. DKA with metabolic encephalopathy/Hypovolemic shock (resolved)/Septic shock (resolved) d/t UTI/BIBIANA/ - Transfer from [facility] with BG >900, not transferred on an Insulin drip - CO2 on transfer was 20, on admission was 18 - c/w 75/25 30 U BID and a SSI as well as mealtime - A1c 13.5 - Urine cx K. pneumoniae, sensitive to keflex - Presented with BIBIANA and Cr improved to 2.16 2. Thrombocytopenia with a newly elevated leukocytosis and elevated LFTs - She does not see a doctor as an outpatient so there are no baseline labs - I am unsure as to the elevation in her WBC - She has a kleb UTI which is sensitive and she has been on appropriate abx - C. diff is negative - repeat LFTs today - C/w to hematology given her now of her WBC to 30K and her continued thrombocytopenia - Will likely not be able to be discharged today, pending hematology c/s DVT prophylaxis: heparin Diet: Cardiac Code Visit Inpatient E&M: 33728 Subs Hosp L2
[2018-01-17 10:08] LABS: AST(SGOT) 134 U/L (15-37); Alanine Aminotransfer ALT/SGPT 144 U/L (13-56); Albumin, Serum 1.2 g/dL (3.2-5.0); Alkaline Phosphatase 543 U/L (45-117); Bilirubin, Direct 0.14 mg/dL (0.00-0.30); Globulin 3.3 g/dL (2.2-4.2); Protein, Total 4.5 g/dL (6.4-8.2)
[2018-01-17] MEDS: Glucerna Shake 120 ML LIQUID PO ×4 (10:47→21:57)
[2018-01-17] MEDS: Pantoprazole Sodium 40 MG Tablet PO (10:49)
[2018-01-17] MEDS: Menthol/Lanolin/Calamine/Znox 113 GM Tube 1 APPLIC TOPICAL ×2 (10:52→21:55)
[2018-01-17 11:13] LABS: Ferritin 828 ng/mL (8-252); Iron Binding Capacity,Total 199 ug/dL (250-450); LDH 345 U/L (84-246)
[2018-01-17 11:41] LABS: Bedside Glucose 149 mg/dL (70-110)
[2018-01-17 15:09] VITALS: BP 100/57; PULSE 107; RESP 22; TEMP 37.3; O2SAT 95
[2018-01-17 16:48] VITALS: BP 112/66; PULSE 102; RESP 20; TEMP 36.8; O2SAT 95
[2018-01-17 16:55] LABS: Bedside Glucose 262 mg/dL (70-110)
[2018-01-17 21:00] VITALS: RESP 20
[2018-01-17 21:21] VITALS: BP 108/65; PULSE 100; RESP 20; TEMP 36.6; O2SAT 98
[2018-01-17] MEDS: Nystatin Ointment 1 APPLIC TOPICAL (21:54)
[2018-01-17 22:15] LABS: Bedside Glucose 183 mg/dL (70-110)
[2018-01-18 03:00] VITALS: BP 102/58; PULSE 100; RESP 16; TEMP 36.2; O2SAT 97
[2018-01-18 03:41] LABS: Bedside Glucose 143 mg/dL (70-110)
[2018-01-18 06:53] LABS: ALB/GLOB Ratio 0.4 RATIO (0.9-2.4); AST(SGOT) 65 U/L (15-37); Alanine Aminotransfer ALT/SGPT 121 U/L (13-56); Albumin, Serum 1.3 g/dL (3.2-5.0); Alkaline Phosphatase 485 U/L (45-117); Anion Gap 11 (5-15); BUN 78 mg/dL (7-18); BUN/Creat Ratio 37.5 RATIO (10-20); Calcium,Total 7.2 mg/dL (8.5-10.1); Chloride 110 mmol/L (98-107); Creatinine, Serum 2.08 mg/dL (0.55-1.02); EST Glomerular Filtration Rate 25 mL/min (>60); Est Glom Filt Rate - Afr Amer 31 mL/min (>60); Estimated Creatinine Clearance 22.31 ml/min; Globulin 3.3 g/dL (2.2-4.2); Glucose 167 mg/dL (74-106); Potassium 4.4 mmol/L (3.5-5.1); Protein, Total 4.6 g/dL (6.4-8.2); Sodium Level 136 mmol/L (136-145)
[2018-01-18 07:04] LABS: Absolute Lymphocyte Count 0.72 X10^3/ul (0.83-4.51); Absolute Neutrophil Count 23.8 X10^3/uL (2.0-7.7); Basophil# 0.02 X10^3/uL; Basophil% 0.1 % (0-1); Eosinophil# 0.21 X10^3/uL; Eosinophils% 0.8 % (0-5); Hematocrit 29.2 % (37-47); Hemoglobin 10.1 g/dl (12.0-15.0); Lymphocyte # 0.72 X10^3/ul (4.0); Lymphocyte % 2.7 % (19-41); Mean Corp Hgb Conc 34.6 g/gl (32-36); Mean Corpuscular Hgb 28.5 pg (27.0-32.0); Mean Corpuscular Volume 82.5 fL (81-99); Mean Platelet Vol. 12.7 fl (6.2-12.0); Monocyte# 1.22 X10^3/uL; Monocyte% 4.6 % (0-10); Neutrophil # 23.76 X10^3/uL (2.7-7.7); Neutrophil % 89.5 % (47-70); Platelet Count 57 K/mm3 (150-450); RBC Distribution Width CV 13.6 % (11.6-14.6); RBC Distribution Width SD 39.5 fl (35.1-43.9); Red Blood Count 3.54 M/mm3 (4.2-5.4); White Blood Count 26.5 K/mm3 (4.4-11.0)
[2018-01-18] MEDS: Nystatin Ointment 1 APPLIC TOPICAL ×3 (07:06→21:43)
[2018-01-18 07:16] LABS: Differential Indicated SCAN CRITERIA MET; POSITIVE COUNT YES; POSITIVE DIFFERENTIAL YES; POSITIVE MORPHOLOGY YES
[2018-01-18 07:19] LABS: Differential Comment SCANNED
[2018-01-18] MEDS: Insulin Lispro 100 UNIT/ML INSULN.PEN SC ×3 (08:10→21:49)
[2018-01-18] MEDS: Insulin Lispro 100 UNIT/ML INSULN.PEN 10 UNIT SC ×2 (08:11→16:26)
[2018-01-18] MEDS: Insulin Human 75/25 Kwickpen 30 UNIT SC ×2 (08:11→16:27)
[2018-01-18 08:18] VITALS: BP 126/67; PULSE 104; RESP 12; TEMP 37.1; O2SAT 97
[2018-01-18 08:35] LABS: Vitamin B12 > 2000 pg/mL (211-911)
--- NOTE | 2018-01-18 08:35 | PN_ITS ---
Patient Problems: Active and Suspected Problems Encephalopathy (Acute) Thrombocytopenia (Acute) Elevated LFTs (Acute) Acute kidney injury (Acute) Septic shock (Acute) Newly diagnosed type 2 diabetes mellitus (Acute) Diabetic ketoacidosis (Acute) Subjective: Chief complaint: Follow-up after admission for diabetic ketoacidosis, newly diagnosed type 2 diabetes mellitus, hypovolemic and septic shock as well as acute kidney injury and elevated LFT. Patient seen and examined. No acute events overnight. She denied any significant complaints. Reportedly, she has poor appetite, not eating or drinking much. According to nursing staff, patient has been having difficulties ambulating, very weak and tired. She denied abdominal pain, nausea vomiting. She denied chest pain or shortness of breath. She had diarrhea which improved. She has been afebrile, blood pressure and heart rate were stable and pulse ox is maintained on room air. - Physical Exam General: Alert, Oriented x3, Cooperative, No apparent distress HEENT: Atraumatic, PERRLA, EOMI, Normocephalic Oral: Moist Mucosa, No Gingival or Mucosal Lesions/ Ulcerations Neck: Supple, No JVD, Negative Carotid Bruits Lungs: Clear to auscultation, No rhonchi, No wheeze, No rales, Diminished Cardiovascular: Regular rate, Regular Rhythm, Normal S1, Normal S2, PMI Normal Abdomen: Bowel Sounds Present, Soft, Non Tender, Non-Distended, No Hepato- splenomegaly Extremities: No clubbing, No cyanosis, No edema Skin: No rashes, No breakdown Lymphatic: No Cervical, Supraclavicular, or Inguinal Adenopathy Neurological: Cranial nerves II-XII grossly intact, - - Global weakness. Psych/Mental Status: Flat Affect, Alert and oriented to time, place, person, mood and affect Vital Signs Temp Pulse Resp BP Pulse Ox 98.7 F 104 H 12 126/67 H 97 01/18/18 08:18 01/18/18 08:18 01/18/18 08:18 01/18/18 08:18 01/18/18 08:18 Oxygen Flow Rate (L/min) 2 Oxygen Delivery Method Room Air Weight: 140 lb 14.006 oz Body Mass Index (BMI) 21.9 Finger Stick Blood Glucose 152 Intake and Output for Last 24 Hours 01/16/18 01/17/18 01/18/18 23:59 23:59 23:59 Intake Total 1283 / 1283 2764 / 2764 649 / 649 Output Total 2375 / 2375 1600 / 1600 4400 / 4400 Balance -1092 / -1092 1164 / 1164 -3751 / -3751 Microbiology Past 72 Hours 01/16/18 22:15 Enteric Bacteriology - Final Stool 01/13/18 15:30 Urine Culture - Final Urine Catheter - Miranda Klebsiella pneumoniae sp pneum Streptococcus agalactiae (B) 01/16/18 22:15 C. difficile DNA Amplification - Final Stool 01/13/18 16:45 Blood Culture - Preliminary Blood Culture (Wb) - Line Draw No growth in 48 hours. Laboratory Tests Past 24 Hrs 01/17/18 01/17/18 01/17/18 06:04 06:04 06:04 WBC RBC Hgb Hct MCV MCH MCHC RDW RDW Differential Plt Count MPV Immature Gran % (Auto) Neut % (Auto) Lymph % (Auto) [place] % (Auto) Eos % (Auto) Baso % (Auto) Absolute Neuts (auto) Absolute Lymphs (auto) Total Counted Differential Comment Diff Path Review Haptoglobin Sodium Cancelled Potassium Cancelled Chloride Cancelled Carbon Dioxide Cancelled Anion Gap Cancelled BUN Cancelled Creatinine Cancelled Estim Creat Clear Calc Est GFR (MDRD) Af Amer Cancelled Est GFR (MDRD) Non-Af Cancelled BUN/Creatinine Ratio Cancelled Glucose Cancelled Calcium Cancelled TIBC 199 L Ferritin 828 H Total Bilirubin 0.40 Cancelled Direct Bilirubin 0.14 AST 134 H Cancelled ALT 144 H Cancelled Alkaline Phosphatase 543 H Cancelled Lactate Dehydrogenase 345 H Total Protein 4.5 L Cancelled Total Protein (PEP) Albumin 1.2 L Cancelled Globulin 3.3 Cancelled Albumin/Globulin Ratio Cancelled Vitamin B12 Pending Folate 14.10 IgG IgA IgM Albumin (ALEXIS) Albumin/Globulin (ALEXIS) Moips-6-Comiimmla ALEXIS Bnolf-2-Pxbwsjxue ALEXIS Beta-Globulins (ALEXIS) Gamma Globulins (ALEXIS) ALEXIS M-Luis 01/18/18 01/18/18 01/18/18 06:12 06:12 06:12 WBC 26.5 H RBC 3.54 L Hgb 10.1 L Hct 29.2 L MCV 82.5 MCH 28.5 MCHC 34.6 RDW 13.6 RDW Differential 39.5 Plt Count 57 L MPV 12.7 H Immature Gran % (Auto) 2.300 H Neut % (Auto) 89.5 H Lymph % (Auto) 2.7 L [place] % (Auto) 4.6 Eos % (Auto) 0.8 Baso % (Auto) 0.1 Absolute Neuts (auto) 23.8 H Absolute Lymphs (auto) 0.72 L Total Counted Not Reportable Differential Comment SCANNED Diff Path Review May foll Haptoglobin Pending Sodium Potassium Chloride Carbon Dioxide Anion Gap BUN Creatinine Estim Creat Clear Calc Est GFR (MDRD) Af Amer Est GFR (MDRD) Non-Af BUN/Creatinine Ratio Glucose Calcium TIBC Ferritin Total Bilirubin Direct Bilirubin AST ALT Alkaline Phosphatase Lactate Dehydrogenase Total Protein Total Protein (PEP) Pending Albumin Globulin Albumin/Globulin Ratio Vitamin B12 Folate IgG Pending IgA Pending IgM Pending Albumin (ALEXIS) Pending Albumin/Globulin (ALEXIS) Pending Byxus-3-Wgzfhmrsg ALEXIS Pending [id number]-0-[id number] ALEXIS Pending Beta-Globulins (ALEXIS) Pending Gamma Globulins (ALEXIS) Pending ALEXIS M-Luis Pending 01/18/18 06:12 WBC RBC Hgb Hct MCV MCH MCHC RDW RDW Differential Plt Count MPV Immature Gran % (Auto) Neut % (Auto) Lymph % (Auto) [place] % (Auto) Eos % (Auto) Baso % (Auto) Absolute Neuts (auto) Absolute Lymphs (auto) Total Counted Differential Comment Diff Path Review Haptoglobin Sodium 136 Potassium 4.4 Chloride 110 H Carbon Dioxide 15.0 L Anion Gap 11 BUN 78 H Creatinine 2.08 H Estim Creat Clear Calc 22.31 Est GFR (MDRD) Af Amer 31 L Est GFR (MDRD) Non-Af 25 L BUN/Creatinine Ratio 37.5 H Glucose 167 H Calcium 7.2 L TIBC Ferritin Total Bilirubin 0.50 Direct Bilirubin AST 65 H ALT 121 H Alkaline Phosphatase 485 H Lactate Dehydrogenase Total Protein 4.6 L Total Protein (PEP) Albumin 1.3 L Globulin 3.3 Albumin/Globulin Ratio 0.4 L Vitamin B12 Folate IgG IgA IgM Albumin (ALEXIS) Albumin/Globulin (ALEXIS) [id number] ALEXIS Ckywr-1-Kaprtywyu ALEXIS Beta-Globulins (ALEXIS) Gamma Globulins (ALEXIS) ALEXIS M-Luis POC Glucose 01/18/18 01/17/18 01/17/18 03:34 21:44 16:38 POC Glucose 143 H 183 H 262 H 01/17/18 11:36 POC Glucose 149 H Medical Necessity - Tobacco Use Smoking Status: Never smoker Tobacco Use: Non-smoker Assessment/Plan All Active Problems Encephalopathy (Acute) Thrombocytopenia (Acute) Elevated LFTs (Acute) Acute kidney injury (Acute) Septic shock (Acute) Newly diagnosed type 2 diabetes mellitus (Acute) Diabetic ketoacidosis (Acute) This is a 67 years old female patient presented to the medicine because of lethargy and altered mental status, found to have diabetic ketoacidosis, hypovolemic and septic shock, acute cystitis, acute kidney injury, newly diagnosed type 2 diabetes mellitus, elevated LFT and thrombocytopenia. #1 hypovolemic/septic shock: It is hypovolemic shock because of diabetic ketoacidosis and also septic shock secondary to acute cystitis. This is resolved, has been maintaining blood pressure spontaneously, no IV fluids and not on pressors. Blood pressure stabilized. She has been on IV antibiotics. Patient has been having poor appetite, not eating much and she has been not ambulating. Plan: Resume IV fluids, encourage ambulation, continue IV antibiotics, PT OT evaluation and treatment. #2 diabetic ketoacidosis: Resolved. She has been on pre-meal Humalog insulin and sliding scale. Sugar has been in the range of 150-250, significant improved. Anion gap closed but her serum bicarb still low. This could be due to because of acute kidney injury. Plan to continue insulin, continue sliding scale and Accu-Cheks. #3 newly diagnosed type 2 diabetes mellitus: Hemoglobin A1c was 13.5. Patient never been on treatment for diabetes before. This is new diagnosis. She is on Humalog pre-meal insulin as above, plan as above. #4 Klebsiella pneumonia/Streptococcus agalactiae acute cystitis: She is on IV cefepime. Urine culture revealed Klebsiella pneumonia and Streptococcus ag alactiae. Blood culture showed no growth. Plan to continue same treatment. #5 acute kidney injury: Probably due to acute tubular necrosis secondary to hypovolemic shock and DKA as well as septic shock. Patient has been on IV fluids, kidney function is improving slowly. Ultrasound of the kidneys were normal. #6 Metabolic encephalopathy: This is because of shock and DKA. Today, patient is alert and oriented. #7 elevated LFT: Likely due to hypovolemic/septic shock leading to hypoperfusion. Ultrasound liver revealed normal liver size, normal bile ducts, normal gallbladder, no gallstones, no periprostatic fluids and normal CBD diameter. Liver transaminases are trending down. #8 thrombocytopenia: Unclear etiology. Patient received 1 unit of plateletpheresis today's platelet count is 57,000, improved. No evidence of active bleeding. Hematology consulted. #9 DVT prophylaxis: SCDs, no chemical prophylaxis because of thrombocytopenia. This note was generated with [employer] software. It may contain incorrect words, spelling, and punctuation that were not noted in checking the note before signing. Code Visit Inpatient E&M: 12796 Subs Hosp L2
[2018-01-18 09:05] LABS: International Normalized Ratio 1.1
[2018-01-18 09:31] LABS: Bedside Glucose 172 mg/dL (70-110)
[2018-01-18] MEDS: Glucerna Shake 120 ML LIQUID PO ×4 (09:53→21:57)
--- NOTE | 2018-01-18 09:54 | NURSING ---
Nurse calls to request breakfast tray (nonselect) from kitchen.
[2018-01-18] MEDS: Pantoprazole Sodium 40 MG Tablet PO (10:28)
--- NOTE | 2018-01-18 10:45 | NURSING ---
Addendum entered by Daksha Roland 01/18/18 11:13: [id number] out to nurses station. stated that the pt would like the flu shot. new order placed and RENEE Elizabeth aware. Original Note: entered room to discuss influenza vaccination. family at bedside. pt stated that she has not gotten the flu vaccine this year but is unsure if she wants to get it at this time. provided the flu vaccine information sheet and pt and family said they would discuss it.
[2018-01-18] MEDS: Menthol/Lanolin/Calamine/Znox 113 GM Tube 1 APPLIC TOPICAL ×2 (11:29→21:42)
[2018-01-18] MEDS: 0.9% Normal Saline 1,000 ML 100 ML IV ×2 (11:31→22:02)
[2018-01-18 12:05] LABS: Bedside Glucose 140 mg/dL (70-110)
[2018-01-18 13:07] LABS: Platelet Count 13 K/mm3 (150-450)
[2018-01-18 13:11] LABS: Pathologist Review Reviewed
--- NOTE | 2018-01-18 13:18 | ONC.CONS.INP ---
Consult Referring Physician: Hospitalist service Subjective Date of Service:: 01/18/18 Chief Complaint: Anemia/thrombocytopenia History of Present Illness: Ms. Emy Leon is a 67 year old woman who suffered a fall in her home, followed by an episode of confusion and lethargy which prompted presentation to [facility] ED via squad on 01/13/18. Found to be in DKA associated hypovolemic shock and septic shock d/t cystitis. Urine Gram stain revealed the presence of a gram-negative cherelle. Initially treated with fluid resuscitation and IV cephalosporin. Liver US obtained 01/13/18 to address transaminitis, showed no masses/lesions on the liver, no hepatomegaly but did demonstrate a small right pleural effusion and trace ascites. Thrombocytopenia and anemia noted from the time of admission, thus hematology consult requested. Patient reports she has not been evaluated by a medical provider since the delivery of her only son nearly 36 years ago. Patient reports she was in her usual state until this episode on 01/13/18, however spouse contributes that she has been weak with decreased appetite x several months. Estimates 15-20 lb weight loss in 6 mo. 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 Per son, recalls as long as he can remember patient has experienced chronic epistaxis, approx 1 nose bleed every 1-2 weeks worse in the winter months. She has never presented to an episodic care provider- patient states she is always able to stop bleeding at home. Did not have any bleeding issues occur in the post setting nor subsequent to her teeth being extracted in 2000. Drinks 16 oz or more of red wine daily, no tobacco use. Has never undergone colonoscopy but states she did have 1 mammogram in 1998 that was offered free by a mobile unit and was told imaging was normal. Does not perform BSE but denies any masses or skin changes she may have noted while bathing. Specifically denies abd pain, melena/hematochezia and constipation/diarrhea and post menopausal vaginal bleeding. LBM 01/17/18. Past family history significant for mother-,brain cancer, father- , bladder cancer and only sibiling/sister- colon ca, she is still living. Past Medical/Surgical History: Past Medical History - Most Recent Inpatient Visit Past Medical History Start: 01/13/18 14:40 Text: Status: Complete Freq: ONCE Protocol: Document 01/13/18 14:40 [facility] [place] (Rec: 01/13/18 15:31 [facility] [place] [id number]) BMI Required to complete PMH What is Patient's BMI 21.9 Neurologic Medical History Hx Stroke/TIA No Hx Dementia/Alzheimer's No Hx Parkinson's Disease No Hx Seizures No Hx Multiple Sclerosis No Hx Migraines No Cardiac Medical History VTE Present on Admission No Hx of Deep Vein Thrombosis/VTE/PE No Hx Hypertension No Hx Chest Pain/Angina No Hx Heart Attack No Hx Cardiac Surgery/Stents/Etc. No Hx Heart Failure No Hx Pacemaker/AICD No Hx Irregular Heartbeat and/or Afib No Hx Anticoagulant Therapy Yes: baby aspirin Query Text:(Coumadin, Aspirin, Plavix, Xarelto, etc.) Hx Pain in Legs when Walking/Leg Cramps No Respiratory Medical History Hx COPD No Hx Emphysema No Hx Smoking No Smoking Status Never smoker Hx Tobacco Use in last 12 months No Hx Sleep Apnea No Do you snore loudly (louder than talking No or can be heard through closed doors)? Do you often feel tired/ fatigued/ No sleepy during daytime? Has anyone observed you stop breathing No during sleep? STOP Results Negative GI Medical History Hx Ulcer No Hx Hepatitis No Hx Cirrhosis No Hx GI Bleed No Hx Unplanned Weight Loss No Genitourinary Medical History Indwelling Catheter in Place on Arrival/ No Admission Hx Renal Disease No Hx Dialysis No Musculoskeletal History Hx Arthritis Yes: generalized Hx Rheumatoid Arthritis No Endocrine Medical History Hx Diabetes Yes Hx Thyroid Disease No Hematologic Medical History Hx of Blood Transfusion No Hx of Transfusion in last 3 Months No Ever experience any problems with No transfusion(s)? Hx of Preganancy in last 3 Months N/A Nurse Filling Out Transfusion & [facility] Questions: Date: 01/13/18 Time: 15:30 Psycho/Social Medical History Hx Depression No Hx Anxiety No Hx Behavior Disorder No Hx Alcohol Use Yes: 4 glasses of wine per week Hx Substance Use No Other Medical History Hx Blood Disorders No Hx Anemia No Hx Cancer No Hx Drug Resistant Organism No Wound/Pressure Injury Present on Arrival No /Admission Query Text:If yes, chart assessment in Shift/Clinical Findings Central Line/PICC/VAD Present on Arrival No /Admission Antibiotics within last 7 days? No Methicillin Resistant Staphylococcus aureus Screening Active MRSA No Risk for Readmission Number of Risk Factors 3 At Risk for Readmission Patient is At Risk For Readmission Patient is eligible for Call Back Y Maternal Family History: No pertinent history Paternal Family History: No pertinent history - Social History Lives: Spouse/ Significant Other Smoking Status: Never smoker Tobacco Use: Non-smoker Alcohol: Occasional Drugs: None Allergies/Adverse Reactions: Allergy/AdvReac Type Severity Reaction Status Date / Time Penicillins Allergy Rash Verified 01/13/18 15:38 Review of Systems Constitutional:: Reports: Weakness, Fatigue, Weight loss, Appetite change. Denies: Fever, Sweats, Chills Cardiovascular:: Denies: Chest pain, Palpitations, Dyspnea on exertion, Orthopnea, PND, Shortness of breath Respiratory: Denies: Cough, Hemoptysis, Shortness of Breath, Wheezing Gastrointestinal:: Denies: Abdominal pain, Nausea, Vomiting, Diarrhea, Constipation, Melena, Hematochezia Genitourinary: Reports: Urinary frequency. Denies: Dysuria, Hematuria, Abnormal vaginal bleeding - specifically denies post menapausal bleeding, Flank pain Musculoskeletal:: Denies: Back pain, Myalgia, Arthralgia Skin: Denies: Rash, Skin Changes, Wounds Neurological:: Reports: Numbness, Tingling - hands bilat, Muscle weakness - BLE. Denies: Headache, Dizziness, Visual changes, Tinnitus, Hearing loss Psychiatric: Denies: Anxiety, Depression, Homicidal Ideations, Suicidal Ideations Vital Signs Height 5 ft 3 in Weight: 140 lb 14.006 oz Weight in Pounds 140.9 lbs Pulse Ox 97 Temperature 98.7 F Pulse Rate 104 Respiratory Rate 12 Blood Pressure [BP] 93/55 Blood Pressure 126/67 Blood Pressure Position [BP] Semi-Fowlers Blood Pressure Position Supine - Physical Exam General: Alert, Oriented x3, No apparent distress HEENT: Atraumatic, PERRLA, EOMI, Normocephalic Oropharynx:: Negative for: Dry mucosa, Ulcerated lesions Neck:: Supple, Trachea midline. Negative for: JVD, bilateral Cardiac:: Regular rate, Regular rhythm, Normal S1, Normal S2. Negative for: Murmur Lungs: Clear to auscultation, Excusion symmetrical. Negative for: Rhonchi, Wheezes Abdomen:: Bowel sounds x 4, Soft, Non-tender, Non-distended. Negative for: Hepatosplenomegaly - difficult to discern in chair Extremities:: Negative for: Cyanosis, Edema, Calf tenderness Skin:: Petechiae - RLE, Ecchymosis - left knee- patient attributes to fall Psychiatric:: Depressed affect, Anxious, Poor memory Lymphatics:: Negative for: Cervical lymphadenopathy, Supraclavicular lymphadenopathy, Axillary lymphadenopathy Breast:: No abnormalities noted Laboratory Data: Microbiology 01/16/18 22:15 Enteric Bacteriology - Final Stool 01/13/18 15:30 Urine Culture - Final Urine Catheter - Miranda Klebsiella pneumoniae sp pneum Streptococcus agalactiae (B) 01/16/18 22:15 C. difficile DNA Amplification - Final Stool 01/13/18 16:45 Blood Culture - Preliminary Blood Culture (Wb) - Line Draw No growth in 48 hours. Laboratory Tests 01/18/18 01/18/18 01/18/18 Range/Units 11:34 08:45 08:04 WBC (4.4-11.0) K/mm3 RBC (4.2-5.4) M/mm3 Hgb (12.0-15.0) g/dl Hct (37-47) % MCV (81-99) fL MCH (27.0-32.0) pg MCHC (32-36) g/gl RDW (11.6-14.6) % RDW Differential (35.1-43.9) fl Plt Count (150-450) K/mm3 MPV (6.2-12.0) fl Immature Gran % (Auto) (0.0-0.9) % Neut % (Auto) (47-70) % Lymph % (Auto) (19-41) % Graves % (Auto) (0-10) % Eos % (Auto) (0-5) % Baso % (Auto) (0-1) % Absolute Neuts (auto) (2.0-7.7) X10^3/uL Absolute Lymphs (auto) (0.83-4.51) X10^3/ul Total Counted Differential Comment Diff Path Review PT 14.0 (11.7-14.9) SECONDS INR 1.1 Sodium (136-145) mmol/L Potassium (3.5-5.1) mmol/L Chloride (98-107) mmol/L Carbon Dioxide (21.0-32.0) mmol/L Anion Gap (5-15) BUN (7-18) mg/dL Creatinine (0.55-1.02) mg/dL Estim Creat Clear Calc ml/min Est GFR (MDRD) Af Amer (>60) mL/min Est GFR (MDRD) Non-Af (>60) mL/min BUN/Creatinine Ratio (10-20) RATIO Glucose (74-106) mg/dL Calcium (8.5-10.1) mg/dL Total Bilirubin (0.20-1.00) mg/dL AST (15-37) U/L ALT (13-56) U/L Alkaline Phosphatase (45-117) U/L Total Protein (6.4-8.2) g/dL Albumin (3.2-5.0) g/dL Globulin (2.2-4.2) g/dL Albumin/Globulin Ratio (0.9-2.4) RATIO Vitamin B12 (211-911) pg/mL POC Glucose 140 H 172 H (70-110) mg/dL 01/18/18 01/18/18 01/18/18 Range/Units 06:12 06:12 03:34 WBC 26.5 H (4.4-11.0) K/mm3 RBC 3.54 L (4.2-5.4) M/mm3 Hgb 10.1 L (12.0-15.0) g/dl Hct 29.2 L (37-47) % MCV 82.5 (81-99) fL MCH 28.5 (27.0-32.0) pg MCHC 34.6 (32-36) g/gl RDW 13.6 (11.6-14.6) % RDW Differential 39.5 (35.1-43.9) fl Plt Count 57 L (150-450) K/mm3 MPV 12.7 H (6.2-12.0) fl Immature Gran % (Auto) 2.300 H (0.0-0.9) % Neut % (Auto) 89.5 H (47-70) % Lymph % (Auto) 2.7 L (19-41) % Graves % (Auto) 4.6 (0-10) % Eos % (Auto) 0.8 (0-5) % Baso % (Auto) 0.1 (0-1) % Absolute Neuts (auto) 23.8 H (2.0-7.7) X10^3/uL Absolute Lymphs (auto) 0.72 L (0.83-4.51) X10^3/ul Total Counted Not Reportable Differential Comment SCANNED Diff Path Review May foll PT (11.7-14.9) SECONDS INR Sodium 136 (136-145) mmol/L Potassium 4.4 (3.5-5.1) mmol/L Chloride 110 H (98-107) mmol/L Carbon Dioxide 15.0 L (21.0-32.0) mmol/L Anion Gap 11 (5-15) BUN 78 H (7-18) mg/dL Creatinine 2.08 H (0.55-1.02) mg/dL Estim Creat Clear Calc 22.31 ml/min Est GFR (MDRD) Af Amer 31 L (>60) mL/min Est GFR (MDRD) Non-Af 25 L (>60) mL/min BUN/Creatinine Ratio 37.5 H (10-20) RATIO Glucose 167 H (74-106) mg/dL Calcium 7.2 L (8.5-10.1) mg/dL Total Bilirubin 0.50 (0.20-1.00) mg/dL AST 65 H (15-37) U/L ALT 121 H (13-56) U/L Alkaline Phosphatase 485 H (45-117) U/L Total Protein 4.6 L (6.4-8.2) g/dL Albumin 1.3 L (3.2-5.0) g/dL Globulin 3.3 (2.2-4.2) g/dL Albumin/Globulin Ratio 0.4 L (0.9-2.4) RATIO Vitamin B12 (211-911) pg/mL POC Glucose 143 H (70-110) mg/dL 01/17/18 01/17/18 01/17/18 Range/Units 21:44 16:38 06:04 WBC (4.4-11.0) K/mm3 RBC (4.2-5.4) M/mm3 Hgb (12.0-15.0) g/dl Hct (37-47) % MCV (81-99) fL MCH (27.0-32.0) pg MCHC (32-36) g/gl RDW (11.6-14.6) % RDW Differential (35.1-43.9) fl Plt Count (150-450) K/mm3 MPV (6.2-12.0) fl Immature Gran % (Auto) (0.0-0.9) % Neut % (Auto) (47-70) % Lymph % (Auto) (19-41) % Graves % (Auto) (0-10) % Eos % (Auto) (0-5) % Baso % (Auto) (0-1) % Absolute Neuts (auto) (2.0-7.7) X10^3/uL Absolute Lymphs (auto) (0.83-4.51) X10^3/ul Total Counted Differential Comment Diff Path Review PT (11.7-14.9) SECONDS INR Sodium (136-145) mmol/L Potassium (3.5-5.1) mmol/L Chloride (98-107) mmol/L Carbon Dioxide (21.0-32.0) mmol/L Anion Gap (5-15) BUN (7-18) mg/dL Creatinine (0.55-1.02) mg/dL Estim Creat Clear Calc ml/min Est GFR (MDRD) Af Amer (>60) mL/min Est GFR (MDRD) Non-Af (>60) mL/min BUN/Creatinine Ratio (10-20) RATIO Glucose (74-106) mg/dL Calcium (8.5-10.1) mg/dL Total Bilirubin (0.20-1.00) mg/dL AST (15-37) U/L ALT (13-56) U/L Alkaline Phosphatase (45-117) U/L Total Protein (6.4-8.2) g/dL Albumin (3.2-5.0) g/dL Globulin (2.2-4.2) g/dL Albumin/Globulin Ratio (0.9-2.4) RATIO Vitamin B12 > 2000 H (211-911) pg/mL POC Glucose 183 H 262 H (70-110) mg/dL 01/15/18 01/14/18 Range/Units 03:00 15:00 WBC (4.4-11.0) K/mm3 RBC (4.2-5.4) M/mm3 Hgb (12.0-15.0) g/dl Hct (37-47) % MCV (81-99) fL MCH (27.0-32.0) pg MCHC (32-36) g/gl RDW (11.6-14.6) % RDW Differential (35.1-43.9) fl Plt Count 13 L* (150-450) K/mm3 MPV (6.2-12.0) fl Immature Gran % (Auto) (0.0-0.9) % Neut % (Auto) (47-70) % Lymph % (Auto) (19-41) % Graves % (Auto) (0-10) % Eos % (Auto) (0-5) % Baso % (Auto) (0-1) % Absolute Neuts (auto) (2.0-7.7) X10^3/uL Absolute Lymphs (auto) (0.83-4.51) X10^3/ul Total Counted Differential Comment Diff Path Review Reviewed PT (11.7-14.9) SECONDS INR Sodium (136-145) mmol/L Potassium (3.5-5.1) mmol/L Chloride (98-107) mmol/L Carbon Dioxide (21.0-32.0) mmol/L Anion Gap (5-15) BUN (7-18) mg/dL Creatinine (0.55-1.02) mg/dL Estim Creat Clear Calc ml/min Est GFR (MDRD) Af Amer (>60) mL/min Est GFR (MDRD) Non-Af (>60) mL/min BUN/Creatinine Ratio (10-20) RATIO Glucose (74-106) mg/dL Calcium (8.5-10.1) mg/dL Total Bilirubin (0.20-1.00) mg/dL AST (15-37) U/L ALT (13-56) U/L Alkaline Phosphatase (45-117) U/L Total Protein (6.4-8.2) g/dL Albumin (3.2-5.0) g/dL Globulin (2.2-4.2) g/dL Albumin/Globulin Ratio (0.9-2.4) RATIO Vitamin B12 (211-911) pg/mL POC Glucose (70-110) mg/dL Diagnostic Data: Diagnostic Data Brain CT 01/13/18 16:13 IMPRESSION: Normal unenhanced CT scan of the brain. Electronically Signed: Jamison Munguia MD at 17:33 EDT , Service support , Chest X-Ray 01/13/18 16:15 IMPRESSION: Right IJ catheter as above. No pneumothorax. Electronically Signed: Jamison Munguia MD at 16:23 EDT , Service support , Renal Ultrasound 01/13/18 17:18 IMPRESSION: Normal ultrasound of the kidneys and urinary bladder. Electronically Signed: Jamison Munguia MD at 20:48 EDT , Service support , Liver Ultrasound 01/13/18 21:45 IMPRESSION: Small right pleural effusion and ascites otherwise no acute disease Electronically Signed: Jamison Munguia MD at 23:07 EDT , Service support , Assessment and Plan This is a 67 years old female patient presented to the medicine because of lethargy and altered mental status, found to have diabetic ketoacidosis, hypovolemic and septic shock, acute cystitis, acute kidney injury, newly diagnosed type 2 diabetes mellitus, elevated LFT and thrombocytopenia. Care complicated by the fact she has not had any form healthcare in nearly 36 years. 1. Thrombocytopenia- Noted since the time of admission. ?Possibly ITP given patient's reported history of chronic epistaxis all her life. Platelet count today 57,000, nearly doubled from yesterday although she was given plt transfusion. No active bleeding at the present time. PT/INR WNL. Transaminitis noted, discussed below. 2. Normocytic anemia- As evidenced by Hgb 10.1 today, increasing. Ferritin 828, likely acute phase reaction. TIBC 199. Total protein low. SPEP with immunofixation pending. Haptoglobin pending. Orders placed for retic count. In the context of anemia and family history of colon ca, a FOB would be beneficial. Unintentional weight loss of nearly 20 lb/6mo. is of concern. 3. Neutrophilic leukocytosis- likely attributable to presence of Klebsiella pneumonia/Streptococcus agalactiae acute cystitis: She is on IV cefepime. WBC trending down. 4. Transaminitis- LFTs are trending down. Liver US 01/13/18 did not show any liver masses or lesions but report eluded to trace ascites. CT abd/pelvis without contrast ordered to evaluate ascites. Hepatitis panel ordered. Liver dysfunction may also be the result of ETOH intake as patient endorses significant ETOH intake, 16oz or more red wine/day. Case discussed with Dr. Grove who was in agreement with the aforementioned plan. Jody Atkinson, MSN, REPRODUCTION PRODUCTION MANAGER-C, AOCNP Medications: Prescriptions This Visit Medication Instructions Recorded Aspirin [Aspirin, Baby] 81 mg PO DAILY@0800 01/13/18 Fish Oil/Dha/Epa [Fish Oil 1,200 2 each PO DAILY 01/13/18 mg Fish Oil] Lactobacillus Combination No.4 1 each PO DAILY 01/13/18 [Probiotic] Multivitamin [Daily Multiple 1 tab PO DAILY 01/13/18 Vitamin] Vit A/C/E/Zinc/Selenium/Copper 1 each PO DAILY 01/13/18 [Vision Formula Tablet] Medications Added to Medication List This Visit Category Date Time Status 0.9% Normal Saline 1,000 ml Med 01/18/18 11:05 Active IV 100 mls/hr Influenza Vaccine (36Mos+)/Pf [Fluarix/Fluzone] Med 01/19/18 10:00 Once 0.5 ml IM .ONCE ONE Primary Care Provider: No Primary Care Phys Referring Provider: Jignesh Miranda MD
--- NOTE | 2018-01-18 13:26 | CON.PCM_ITS ---
Consult Referring Physician: Hospitalist service Subjective Date of Service:: 01/18/18 Chief Complaint: Anemia/thrombocytopenia History of Present Illness: Ms. Emy Leon is a 67 year old woman who suffered a fall in her home, followed by an episode of confusion and lethargy which prompted presentation to [facility] ED via squad on 01/13/18. Found to be in DKA associated hypovolemic shock and septic shock d/t cystitis. Urine Gram stain revealed the presence of a gram-negative cherelle. Initially treated with fluid resuscitation and IV cephalosporin. Liver US obtained 01/13/18 to address transaminitis, showed no masses/lesions on the liver, no hepatomegaly but did demonstrate a small right pleural effusion and trace ascites. Thrombocytopenia and anemia noted from the time of admission, thus hematology consult requested. Patient reports she has not been evaluated by a medical provider since the delivery of her only son nearly 36 years ago. Patient reports she was in her usual state until this episode on 01/13/18, however spouse contributes that she has been weak with decreased appetite x several months. Estimates 15-20 lb weight loss in 6 mo. 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 Per son, recalls as long as he can remember patient has experienced chronic epistaxis, approx 1 nose bleed every 1-2 weeks worse in the winter months. She has never presented to an episodic care provider- patient states she is always able to stop bleeding at home. Did not have any bleeding issues occur in the post setting nor subsequent to her teeth being extracted in 2000. Drinks 16 oz or more of red wine daily, no tobacco use. Has never undergone colonoscopy but states she did have 1 mammogram in 1998 that was offered free by a mobile unit and was told imaging was normal. Does not perform BSE but denies any masses or skin changes she may have noted while bathing. Specifically denies abd pain, melena/hematochezia and constipation/diarrhea and post menopausal vaginal bleeding. LBM 01/17/18. Past family history significant for mother-,brain cancer, father- , bladder cancer and only sibiling/sister- colon ca, she is still living. Past Medical/Surgical History: Past Medical History - Most Recent Inpatient Visit Past Medical History Start: 01/13/18 14:40 Text: Status: Complete Freq: ONCE Protocol: Document 01/13/18 14:40 [facility] [place] (Rec: 01/13/18 15:31 [facility] [place] [id number]) BMI Required to complete PMH What is Patient's BMI 21.9 Neurologic Medical History Hx Stroke/TIA No Hx Dementia/Alzheimer's No Hx Parkinson's Disease No Hx Seizures No Hx Multiple Sclerosis No Hx Migraines No Cardiac Medical History VTE Present on Admission No Hx of Deep Vein Thrombosis/VTE/PE No Hx Hypertension No Hx Chest Pain/Angina No Hx Heart Attack No Hx Cardiac Surgery/Stents/Etc. No Hx Heart Failure No Hx Pacemaker/AICD No Hx Irregular Heartbeat and/or Afib No Hx Anticoagulant Therapy Yes: baby aspirin Query Text:(Coumadin, Aspirin, Plavix, Xarelto, etc.) Hx Pain in Legs when Walking/Leg Cramps No Respiratory Medical History Hx COPD No Hx Emphysema No Hx Smoking No Smoking Status Never smoker Hx Tobacco Use in last 12 months No Hx Sleep Apnea No Do you snore loudly (louder than talking No or can be heard through closed doors)? Do you often feel tired/ fatigued/ No sleepy during daytime? Has anyone observed you stop breathing No during sleep? STOP Results Negative GI Medical History Hx Ulcer No Hx Hepatitis No Hx Cirrhosis No Hx GI Bleed No Hx Unplanned Weight Loss No Genitourinary Medical History Indwelling Catheter in Place on Arrival/ No Admission Hx Renal Disease No Hx Dialysis No Musculoskeletal History Hx Arthritis Yes: generalized Hx Rheumatoid Arthritis No Endocrine Medical History Hx Diabetes Yes Hx Thyroid Disease No Hematologic Medical History Hx of Blood Transfusion No Hx of Transfusion in last 3 Months No Ever experience any problems with No transfusion(s)? Hx of Preganancy in last 3 Months N/A Nurse Filling Out Transfusion & [facility] Questions: Date: 01/13/18 Time: 15:30 Psycho/Social Medical History Hx Depression No Hx Anxiety No Hx Behavior Disorder No Hx Alcohol Use Yes: 4 glasses of wine per week Hx Substance Use No Other Medical History Hx Blood Disorders No Hx Anemia No Hx Cancer No Hx Drug Resistant Organism No Wound/Pressure Injury Present on Arrival No /Admission Query Text:If yes, chart assessment in Shift/Clinical Findings Central Line/PICC/VAD Present on Arrival No /Admission Antibiotics within last 7 days? No Methicillin Resistant Staphylococcus aureus Screening Active MRSA No Risk for Readmission Number of Risk Factors 3 At Risk for Readmission Patient is At Risk For Readmission Patient is eligible for Call Back Y Maternal Family History: No pertinent history Paternal Family History: No pertinent history - Social History Lives: Spouse/ Significant Other Smoking Status: Never smoker Tobacco Use: Non-smoker Alcohol: Occasional Drugs: None Allergies/Adverse Reactions: Allergy/AdvReac Type Severity Reaction Status Date / Time Penicillins Allergy Rash Verified 01/13/18 15:38 Review of Systems Constitutional:: Reports: Weakness, Fatigue, Weight loss, Appetite change. Denies: Fever, Sweats, Chills Cardiovascular:: Denies: Chest pain, Palpitations, Dyspnea on exertion, Orthopnea, PND, Shortness of breath Respiratory: Denies: Cough, Hemoptysis, Shortness of Breath, Wheezing Gastrointestinal:: Denies: Abdominal pain, Nausea, Vomiting, Diarrhea, Constipation, Melena, Hematochezia Genitourinary: Reports: Urinary frequency. Denies: Dysuria, Hematuria, Abnormal vaginal bleeding - specifically denies post menapausal bleeding, Flank pain Musculoskeletal:: Denies: Back pain, Myalgia, Arthralgia Skin: Denies: Rash, Skin Changes, Wounds Neurological:: Reports: Numbness, Tingling - hands bilat, Muscle weakness - BLE. Denies: Headache, Dizziness, Visual changes, Tinnitus, Hearing loss Psychiatric: Denies: Anxiety, Depression, Homicidal Ideations, Suicidal Ideations Vital Signs Height 5 ft 3 in Weight: 140 lb 14.006 oz Weight in Pounds 140.9 lbs Pulse Ox 97 Temperature 98.7 F Pulse Rate 104 Respiratory Rate 12 Blood Pressure [BP] 93/55 Blood Pressure 126/67 Blood Pressure Position [BP] Semi-Fowlers Blood Pressure Position Supine - Physical Exam General: Alert, Oriented x3, No apparent distress HEENT: Atraumatic, PERRLA, EOMI, Normocephalic Oropharynx:: Negative for: Dry mucosa, Ulcerated lesions Neck:: Supple, Trachea midline. Negative for: JVD, bilateral Cardiac:: Regular rate, Regular rhythm, Normal S1, Normal S2. Negative for: Murmur Lungs: Clear to auscultation, Excusion symmetrical. Negative for: Rhonchi, Wheezes Abdomen:: Bowel sounds x 4, Soft, Non-tender, Non-distended. Negative for: Hepatosplenomegaly - difficult to discern in chair Extremities:: Negative for: Cyanosis, Edema, Calf tenderness Skin:: Petechiae - RLE, Ecchymosis - left knee- patient attributes to fall Psychiatric:: Depressed affect, Anxious, Poor memory Lymphatics:: Negative for: Cervical lymphadenopathy, Supraclavicular lymphadenopathy, Axillary lymphadenopathy Breast:: No abnormalities noted Laboratory Data: Microbiology 01/16/18 22:15 Enteric Bacteriology - Final Stool 01/13/18 15:30 Urine Culture - Final Urine Catheter - Miranda Klebsiella pneumoniae sp pneum Streptococcus agalactiae (B) 01/16/18 22:15 C. difficile DNA Amplification - Final Stool 01/13/18 16:45 Blood Culture - Preliminary Blood Culture (Wb) - Line Draw No growth in 48 hours. Laboratory Tests 01/18/18 01/18/18 01/18/18 Range/Units 11:34 08:45 08:04 WBC (4.4-11.0) K/mm3 RBC (4.2-5.4) M/mm3 Hgb (12.0-15.0) g/dl Hct (37-47) % MCV (81-99) fL MCH (27.0-32.0) pg MCHC (32-36) g/gl RDW (11.6-14.6) % RDW Differential (35.1-43.9) fl Plt Count (150-450) K/mm3 MPV (6.2-12.0) fl Immature Gran % (Auto) (0.0-0.9) % Neut % (Auto) (47-70) % Lymph % (Auto) (19-41) % Wythe % (Auto) (0-10) % Eos % (Auto) (0-5) % Baso % (Auto) (0-1) % Absolute Neuts (auto) (2.0-7.7) X10^3/uL Absolute Lymphs (auto) (0.83-4.51) X10^3/ul Total Counted Differential Comment Diff Path Review PT 14.0 (11.7-14.9) SECONDS INR 1.1 Sodium (136-145) mmol/L Potassium (3.5-5.1) mmol/L Chloride (98-107) mmol/L Carbon Dioxide (21.0-32.0) mmol/L Anion Gap (5-15) BUN (7-18) mg/dL Creatinine (0.55-1.02) mg/dL Estim Creat Clear Calc ml/min Est GFR (MDRD) Af Amer (>60) mL/min Est GFR (MDRD) Non-Af (>60) mL/min BUN/Creatinine Ratio (10-20) RATIO Glucose (74-106) mg/dL Calcium (8.5-10.1) mg/dL Total Bilirubin (0.20-1.00) mg/dL AST (15-37) U/L ALT (13-56) U/L Alkaline Phosphatase (45-117) U/L Total Protein (6.4-8.2) g/dL Albumin (3.2-5.0) g/dL Globulin (2.2-4.2) g/dL Albumin/Globulin Ratio (0.9-2.4) RATIO Vitamin B12 (211-911) pg/mL POC Glucose 140 H 172 H (70-110) mg/dL 01/18/18 01/18/18 01/18/18 Range/Units 06:12 06:12 03:34 WBC 26.5 H (4.4-11.0) K/mm3 RBC 3.54 L (4.2-5.4) M/mm3 Hgb 10.1 L (12.0-15.0) g/dl Hct 29.2 L (37-47) % MCV 82.5 (81-99) fL MCH 28.5 (27.0-32.0) pg MCHC 34.6 (32-36) g/gl RDW 13.6 (11.6-14.6) % RDW Differential 39.5 (35.1-43.9) fl Plt Count 57 L (150-450) K/mm3 MPV 12.7 H (6.2-12.0) fl Immature Gran % (Auto) 2.300 H (0.0-0.9) % Neut % (Auto) 89.5 H (47-70) % Lymph % (Auto) 2.7 L (19-41) % Wythe % (Auto) 4.6 (0-10) % Eos % (Auto) 0.8 (0-5) % Baso % (Auto) 0.1 (0-1) % Absolute Neuts (auto) 23.8 H (2.0-7.7) X10^3/uL Absolute Lymphs (auto) 0.72 L (0.83-4.51) X10^3/ul Total Counted Not Reportable Differential Comment SCANNED Diff Path Review May foll PT (11.7-14.9) SECONDS INR Sodium 136 (136-145) mmol/L Potassium 4.4 (3.5-5.1) mmol/L Chloride 110 H (98-107) mmol/L Carbon Dioxide 15.0 L (21.0-32.0) mmol/L Anion Gap 11 (5-15) BUN 78 H (7-18) mg/dL Creatinine 2.08 H (0.55-1.02) mg/dL Estim Creat Clear Calc 22.31 ml/min Est GFR (MDRD) Af Amer 31 L (>60) mL/min Est GFR (MDRD) Non-Af 25 L (>60) mL/min BUN/Creatinine Ratio 37.5 H (10-20) RATIO Glucose 167 H (74-106) mg/dL Calcium 7.2 L (8.5-10.1) mg/dL Total Bilirubin 0.50 (0.20-1.00) mg/dL AST 65 H (15-37) U/L ALT 121 H (13-56) U/L Alkaline Phosphatase 485 H (45-117) U/L Total Protein 4.6 L (6.4-8.2) g/dL Albumin 1.3 L (3.2-5.0) g/dL Globulin 3.3 (2.2-4.2) g/dL Albumin/Globulin Ratio 0.4 L (0.9-2.4) RATIO Vitamin B12 (211-911) pg/mL POC Glucose 143 H (70-110) mg/dL 01/17/18 01/17/18 01/17/18 Range/Units 21:44 16:38 06:04 WBC (4.4-11.0) K/mm3 RBC (4.2-5.4) M/mm3 Hgb (12.0-15.0) g/dl Hct (37-47) % MCV (81-99) fL MCH (27.0-32.0) pg MCHC (32-36) g/gl RDW (11.6-14.6) % RDW Differential (35.1-43.9) fl Plt Count (150-450) K/mm3 MPV (6.2-12.0) fl Immature Gran % (Auto) (0.0-0.9) % Neut % (Auto) (47-70) % Lymph % (Auto) (19-41) % Wythe % (Auto) (0-10) % Eos % (Auto) (0-5) % Baso % (Auto) (0-1) % Absolute Neuts (auto) (2.0-7.7) X10^3/uL Absolute Lymphs (auto) (0.83-4.51) X10^3/ul Total Counted Differential Comment Diff Path Review PT (11.7-14.9) SECONDS INR Sodium (136-145) mmol/L Potassium (3.5-5.1) mmol/L Chloride (98-107) mmol/L Carbon Dioxide (21.0-32.0) mmol/L Anion Gap (5-15) BUN (7-18) mg/dL Creatinine (0.55-1.02) mg/dL Estim Creat Clear Calc ml/min Est GFR (MDRD) Af Amer (>60) mL/min Est GFR (MDRD) Non-Af (>60) mL/min BUN/Creatinine Ratio (10-20) RATIO Glucose (74-106) mg/dL Calcium (8.5-10.1) mg/dL Total Bilirubin (0.20-1.00) mg/dL AST (15-37) U/L ALT (13-56) U/L Alkaline Phosphatase (45-117) U/L Total Protein (6.4-8.2) g/dL Albumin (3.2-5.0) g/dL Globulin (2.2-4.2) g/dL Albumin/Globulin Ratio (0.9-2.4) RATIO Vitamin B12 > 2000 H (211-911) pg/mL POC Glucose 183 H 262 H (70-110) mg/dL 01/15/18 01/14/18 Range/Units 03:00 15:00 WBC (4.4-11.0) K/mm3 RBC (4.2-5.4) M/mm3 Hgb (12.0-15.0) g/dl Hct (37-47) % MCV (81-99) fL MCH (27.0-32.0) pg MCHC (32-36) g/gl RDW (11.6-14.6) % RDW Differential (35.1-43.9) fl Plt Count 13 L* (150-450) K/mm3 MPV (6.2-12.0) fl Immature Gran % (Auto) (0.0-0.9) % Neut % (Auto) (47-70) % Lymph % (Auto) (19-41) % Wythe % (Auto) (0-10) % Eos % (Auto) (0-5) % Baso % (Auto) (0-1) % Absolute Neuts (auto) (2.0-7.7) X10^3/uL Absolute Lymphs (auto) (0.83-4.51) X10^3/ul Total Counted Differential Comment Diff Path Review Reviewed PT (11.7-14.9) SECONDS INR Sodium (136-145) mmol/L Potassium (3.5-5.1) mmol/L Chloride (98-107) mmol/L Carbon Dioxide (21.0-32.0) mmol/L Anion Gap (5-15) BUN (7-18) mg/dL Creatinine (0.55-1.02) mg/dL Estim Creat Clear Calc ml/min Est GFR (MDRD) Af Amer (>60) mL/min Est GFR (MDRD) Non-Af (>60) mL/min BUN/Creatinine Ratio (10-20) RATIO Glucose (74-106) mg/dL Calcium (8.5-10.1) mg/dL Total Bilirubin (0.20-1.00) mg/dL AST (15-37) U/L ALT (13-56) U/L Alkaline Phosphatase (45-117) U/L Total Protein (6.4-8.2) g/dL Albumin (3.2-5.0) g/dL Globulin (2.2-4.2) g/dL Albumin/Globulin Ratio (0.9-2.4) RATIO Vitamin B12 (211-911) pg/mL POC Glucose (70-110) mg/dL Diagnostic Data: Diagnostic Data Brain CT 01/13/18 16:13 IMPRESSION: Normal unenhanced CT scan of the brain. Electronically Signed: Jamison Munguia MD at 17:33 EDT , Service support , Chest X-Ray 01/13/18 16:15 IMPRESSION: Right IJ catheter as above. No pneumothorax. Electronically Signed: Jamison Munguia MD at 16:23 EDT , Service support , Renal Ultrasound 01/13/18 17:18 IMPRESSION: Normal ultrasound of the kidneys and urinary bladder. Electronically Signed: Jamison Munguia MD at 20:48 EDT , Service support , Liver Ultrasound 01/13/18 21:45 IMPRESSION: Small right pleural effusion and ascites otherwise no acute disease Electronically Signed: Jamison Munguia MD at 23:07 EDT , Service support , Assessment and Plan This is a 67 years old female patient presented to the medicine because of lethargy and altered mental status, found to have diabetic ketoacidosis, hypovolemic and septic shock, acute cystitis, acute kidney injury, newly diagnosed type 2 diabetes mellitus, elevated LFT and thrombocytopenia. Care complicated by the fact she has not had any form healthcare in nearly 36 years. 1. Thrombocytopenia- Noted since the time of admission. ?Possibly ITP given patient's reported history of chronic epistaxis all her life. Platelet count today 57,000, nearly doubled from yesterday although she was given plt transfusion. No active bleeding at the present time. PT/INR WNL. Transaminitis noted, discussed below. 2. Normocytic anemia- As evidenced by Hgb 10.1 today, increasing. Ferritin 828, likely acute phase reaction. TIBC 199. Total protein low. SPEP with immunofixation pending. Haptoglobin pending. Orders placed for retic count. In the context of anemia and family history of colon ca, a FOB would be beneficial. Unintentional weight loss of nearly 20 lb/6mo. is of concern. 3. Neutrophilic leukocytosis- likely attributable to presence of Klebsiella pneumonia/Streptococcus agalactiae acute cystitis: She is on IV cefepime. WBC trending down. 4. Transaminitis- LFTs are trending down. Liver US 01/13/18 did not show any liver masses or lesions but report eluded to trace ascites. CT abd/pelvis without contrast ordered to evaluate ascites. Hepatitis panel ordered. Liver dysfunction may also be the result of ETOH intake as patient endorses significant ETOH intake, 16oz or more red wine/day. Case discussed with Dr. Grove who was in agreement with the aforementioned plan. Jody Atkinson, MSN, [employer], AOCNP Medications: Prescriptions This Visit Medication Instructions Recorded Aspirin [Aspirin, Baby] 81 mg PO DAILY@0800 01/13/18 Fish Oil/Dha/Epa [Fish Oil 1,200 2 each PO DAILY 01/13/18 mg Fish Oil] Lactobacillus Combination No.4 1 each PO DAILY 01/13/18 [Probiotic] Multivitamin [Daily Multiple 1 tab PO DAILY 01/13/18 Vitamin] Vit A/C/E/Zinc/Selenium/Copper 1 each PO DAILY 01/13/18 [Vision Formula Tablet] Medications Added to Medication List This Visit Category Date Time Status 0.9% Normal Saline 1,000 ml Med 01/18/18 11:05 Active IV 100 mls/hr Influenza Vaccine (36Mos+)/Pf [Fluarix/Fluzone] Med 01/19/18 10:00 Once 0.5 ml IM .ONCE ONE Primary Care Provider: No Primary Care Phys Referring Provider: Jignesh Miranda MD
[2018-01-18 15:17] LABS: Pathologist Review Reviewed
[2018-01-18 15:20] LABS: Pathologist Review Reviewed
[2018-01-18 16:21] VITALS: BP 112/60; PULSE 111; RESP 20; TEMP 36.5; O2SAT 100
[2018-01-18 16:39] LABS: RET-HE 31.1 pg (30-35); Reticulocyte Count 0.74 % (0.5-1.5)
--- NOTE | 2018-01-18 16:41 | CT_ITS ---
STUDY: CT ABDOMEN AND PELVIS WITHOUT CONTRAST REASON FOR EXAM: Female, 67 years old. DKA RADIATION DOSAGE (If Supplied By Facility): CTDIvol = ( 8.48 ) mGy, DLP = ( 406.87 ) mGycm TECHNIQUE: Transaxial 2.5 mm images were obtained from the dome of the diaphragm to the symphysis pubis without oral contrast, and without intravenous contrast. Sagittal and coronal images were reconstructed. This examination is limited for the evaluation of gastrointestinal, solid organs and vascular structures due to the lack of intravenous and oral contrast. There is image blurring as a result of patient motion. Diagnostic accuracy is somewhat reduced. However, there is substantial diagnostic information remaining available on this study. Individualized dose optimization techniques were used for this CT. COMPARISON: Abdominal and renal ultrasound 01/13/2018 FINDINGS: Moderate bilateral pleural effusions with compression of adjacent parenchyma of the bilateral lower lobes.. The visualized portions of the heart are within normal limits. Vague right peripheral hepatic low-attenuation of approximately 0.8 x 1.2 cm. liver. Poorly visualized gallbladder and extrahepatic biliary system. Heterogeneous enhancement of the posterior spleen. Normal pancreas. Normal bilateral adrenal glands. Right greater than left nephromegaly with indistinct contour. The bilateral collecting system appear mildly dilated. The right ureter is not sufficiently detailed. There is a punctate calculus in the left inferior renal pole. Normal left kidney. There is mild ascites within the abdomen and along the inferior colonic gutters extending into the pelvis. Normal visualized stomach. Normal small intestine. Extremity Limited colonic detail. There are few descending colonic diverticula consistent with diverticulosis. There is non-visualization of the appendix. Normal abdominal aorta. Normal inferior vena cava. Normal retroperitoneum. Miranda catheter decompressing the urinary bladder. There is atrophy of the uterus. Mild to moderate pelvic fluid. Normal abdominal wall. There is anasarca. There are diffuse degenerative changes of the visualized lumbar spine. There is a levoscoliosis. CT/Abdomen/Pelvis without Cont IMPRESSION: Limited examination due to lack of intravenous and oral contrast and motion. Bilateral kidney collecting system appear prominent, possible calyectasis or minimal hydronephrosis, the ureters are not sufficiently visualized. There are no obstructing renal calculi or ureteral calculi in the expected locations of the ureters. There is a tiny left inferior renal pole calculus. Both kidneys left greater than right appear enlarged, possible mildly edematous. Mild ascites and anasarca. Moderate bilateral pleural effusions with compression of adjacent parenchyma, November. Indeterminate low-attenuation right hepatic lobe and posterior spleen. Gallbladder is poorly visualized. Few colonic diverticula, the remainder of the colon is insufficiently detail. There is no small bowel obstruction. Appendix is not sufficiently detailed. Other nonacute findings as outlined above. Electronically Signed: Carol Khan MD at 7:27 EDT , Service support ,
[2018-01-18 16:55] LABS: Bedside Glucose 225 mg/dL (70-110)
[2018-01-18 21:56] LABS: Bedside Glucose 246 mg/dL (70-110)
[2018-01-18 22:00] VITALS: BP 120/62; PULSE 110; RESP 18; TEMP 36.6; O2SAT 98
[2018-01-19 04:00] VITALS: BP 125/61; PULSE 103; RESP 16; TEMP 36.9; O2SAT 96
[2018-01-19] MEDS: Nystatin Ointment 1 APPLIC TOPICAL ×3 (06:27→21:22)
[2018-01-19] MEDS: 0.9% Normal Saline 1,000 ML 100 ML IV ×2 (06:43→16:52)
[2018-01-19 07:50] LABS: Bedside Glucose 218 mg/dL (70-110)
[2018-01-19 07:55] VITALS: BP 131/76; PULSE 108; RESP 18; TEMP 36.6; O2SAT 96
[2018-01-19] MEDS: Insulin Lispro 100 UNIT/ML INSULN.PEN 10 UNIT SC ×3 (07:56→16:53)
[2018-01-19] MEDS: Insulin Lispro 100 UNIT/ML INSULN.PEN SC ×4 (07:56→21:23)
[2018-01-19] MEDS: Insulin Human 75/25 Kwickpen 30 UNIT SC ×2 (07:56→16:53)
[2018-01-19 08:04] LABS: Absolute Lymphocyte Count 0.66 X10^3/ul (0.83-4.51); Absolute Neutrophil Count 21.7 X10^3/uL (2.0-7.7); Basophil# 0.02 X10^3/uL; Basophil% 0.1 % (0-1); Eosinophils% 0.8 % (0-5); Hematocrit 25.3 % (37-47); Hemoglobin 8.7 g/dl (12.0-15.0); Lymphocyte # 0.66 X10^3/ul (4.0); Lymphocyte % 2.8 % (19-41); Mean Corp Hgb Conc 34.4 g/gl (32-36); Mean Corpuscular Hgb 28.9 pg (27.0-32.0); Mean Corpuscular Volume 84.1 fL (81-99); Mean Platelet Vol. 12.1 fl (6.2-12.0); Monocyte% 3.4 % (0-10); Neutrophil # 21.65 X10^3/uL (2.7-7.7); Neutrophil % 91.1 % (47-70); Platelet Count 104 K/mm3 (150-450); RBC Distribution Width CV 13.9 % (11.6-14.6); RBC Distribution Width SD 40.8 fl (35.1-43.9); Red Blood Count 3.01 M/mm3 (4.2-5.4); White Blood Count 23.8 K/mm3 (4.4-11.0)
[2018-01-19 08:05] LABS: Differential Indicated SCAN CRITERIA MET; POSITIVE COUNT NO; POSITIVE DIFFERENTIAL YES; POSITIVE MORPHOLOGY NO
--- NOTE | 2018-01-19 08:06 | PN_ITS ---
Patient Problems: Active and Suspected Problems Encephalopathy (Acute) Thrombocytopenia (Acute) Elevated LFTs (Acute) Acute kidney injury (Acute) Septic shock (Acute) Newly diagnosed type 2 diabetes mellitus (Acute) Diabetic ketoacidosis (Acute) Subjective: Chief complaint: Follow-up after admission for DKA, newly diagnosed type 2 diabetes mellitus, hypovolemic and septic shock, anemia, acute kidney injury and elevated LFT. Patient seen and examined. No acute events overnight. Today, she is feeling better. She denied any significant complaints. She is slightly tachycardic, heart rate has been around 100, other vital signs are stable, afebrile. - Physical Exam General: Alert, Oriented x3, Cooperative, No apparent distress HEENT: Atraumatic, PERRLA, EOMI, Normocephalic Oral: Moist Mucosa, No Gingival or Mucosal Lesions/ Ulcerations Neck: Supple, No JVD, Negative Carotid Bruits, Trachea Midline, Thyroid Normal Size and Texture Lungs: Clear to auscultation, No rhonchi, No wheeze, No rales, Diminished Cardiovascular: Regular rate, Regular Rhythm, Normal S1, Normal S2, PMI Normal, Tachycardic Abdomen: Bowel Sounds Present, Soft, Non Tender, Non-Distended, No Hepato- splenomegaly Extremities: No clubbing, No cyanosis, No edema Skin: No rashes, No breakdown Lymphatic: No Cervical, Supraclavicular, or Inguinal Adenopathy Neurological: Cranial nerves II-XII grossly intact, Motor Exam 5/5 strength throughout Psych/Mental Status: Flat Affect, Alert and oriented to time, place, person, mood and affect Vital Signs Temp Pulse Resp BP Pulse Ox 98.4 F 103 H 16 125/61 H 96 01/19/18 04:00 01/19/18 04:00 01/19/18 04:00 01/19/18 04:00 01/19/18 04:00 Oxygen Flow Rate (L/min) 2 Oxygen Delivery Method Room Air Weight: 137 lb 5.568 oz Body Mass Index (BMI) 21.9 Finger Stick Blood Glucose 152 Intake and Output for Last 24 Hours 01/17/18 01/18/18 01/19/18 23:59 23:59 23:59 Intake Total 2764 / 2764 1608 / 1608 2054 / 2054 Output Total 1600 / 1600 5900 / 5900 2100 / 2100 Balance 1164 / 1164 -4292 / -4292 -45 / -45 Microbiology Past 72 Hours 01/13/18 15:05 Blood Culture - Final Blood Culture (Wb) - No Site/Description Given No growth in 5 days. 01/13/18 16:45 Blood Culture - Final Blood Culture (Wb) - Line Draw No growth in 5 days. 01/18/18 17:50 Stool Occult Blood (RONIT) - Final Stool 01/16/18 22:15 Enteric Bacteriology - Final Stool 01/13/18 15:30 Urine Culture - Final Urine Catheter - Miranda Klebsiella pneumoniae sp pneum Streptococcus agalactiae (B) 01/16/18 22:15 C. difficile DNA Amplification - Final Stool Laboratory Tests Past 24 Hrs 01/14/18 01/15/18 01/16/18 15:00 03:00 03:20 WBC RBC Hgb Hct MCV MCH MCHC RDW RDW Differential Plt Count 13 L* Neut % (Auto) Absolute Neuts (auto) Total Counted Diff Path Review Reviewed Reviewed Immature Plt Fraction Retic Count Immature Retic Fraction Retic Hgb Equivalent PT INR Sodium Potassium Chloride Carbon Dioxide Anion Gap BUN Creatinine Est GFR (MDRD) Af Amer Est GFR (MDRD) Non-Af BUN/Creatinine Ratio Glucose Calcium Vitamin B12 Hepatitis A IgM Ab Hepatitis A Ab Total Hep Bs Antigen Hep B Core Total Ab Hep B Core IgM Ab 01/17/18 01/17/18 01/18/18 06:04 06:04 06:12 WBC RBC Hgb Hct MCV MCH MCHC RDW RDW Differential Plt Count Neut % (Auto) Absolute Neuts (auto) Total Counted Diff Path Review Reviewed Immature Plt Fraction TNP Retic Count 0.74 Immature Retic Fraction 35.70 H Retic Hgb Equivalent 31.1 PT INR Sodium Potassium Chloride Carbon Dioxide Anion Gap BUN Creatinine Est GFR (MDRD) Af Amer Est GFR (MDRD) Non-Af BUN/Creatinine Ratio Glucose Calcium Vitamin B12 > 2000 H Hepatitis A IgM Ab Hepatitis A Ab Total Hep Bs Antigen Hep B Core Total Ab Hep B Core IgM Ab 01/18/18 01/19/18 01/19/18 08:45 07:38 07:38 WBC Pending RBC Pending Hgb Pending Hct Pending MCV Pending MCH Pending MCHC Pending RDW Pending RDW Differential Pending Plt Count Pending Neut % (Auto) Pending Absolute Neuts (auto) Pending Total Counted Pending Diff Path Review Immature Plt Fraction Retic Count Immature Retic Fraction Retic Hgb Equivalent PT 14.0 INR 1.1 Sodium Pending Potassium Pending Chloride Pending Carbon Dioxide Pending Anion Gap Pending BUN Pending Creatinine Pending Est GFR (MDRD) Af Amer Pending Est GFR (MDRD) Non-Af Pending BUN/Creatinine Ratio Pending Glucose Pending Calcium Pending Vitamin B12 Hepatitis A IgM Ab Hepatitis A Ab Total Hep Bs Antigen Hep B Core Total Ab Hep B Core IgM Ab 01/19/18 07:38 WBC RBC Hgb Hct MCV MCH MCHC RDW RDW Differential Plt Count Neut % (Auto) Absolute Neuts (auto) Total Counted Diff Path Review Immature Plt Fraction Retic Count Immature Retic Fraction Retic Hgb Equivalent PT INR Sodium Potassium Chloride Carbon Dioxide Anion Gap BUN Creatinine Est GFR (MDRD) Af Amer Est GFR (MDRD) Non-Af BUN/Creatinine Ratio Glucose Calcium Vitamin B12 Hepatitis A IgM Ab Pending Hepatitis A Ab Total Pending Hep Bs Antigen Pending Hep B Core Total Ab Pending Hep B Core IgM Ab Pending POC Glucose 01/19/18 01/18/18 01/18/18 07:43 21:48 16:19 POC Glucose 218 H 246 H 225 H 01/18/18 01/18/18 11:34 08:04 POC Glucose 140 H 172 H Medical Necessity - Tobacco Use Smoking Status: Never smoker Tobacco Use: Non-smoker Assessment/Plan All Active Problems Encephalopathy (Acute) Thrombocytopenia (Acute) Elevated LFTs (Acute) Acute kidney injury (Acute) Septic shock (Acute) Newly diagnosed type 2 diabetes mellitus (Acute) Diabetic ketoacidosis (Acute) This is a 67 years old female patient presented to the medicine because of lethargy and altered mental status, found to have diabetic ketoacidosis, hypovolemic and septic shock, acute cystitis, acute kidney injury, newly diagnosed type 2 diabetes mellitus, elevated LFT and thrombocytopenia. #1 hypovolemic/septic shock: Resolved, her vital signs has been stable, blood pressure is maintained on IV fluids. It is hypovolemic shock because of diabetic ketoacidosis and also septic shock secondary to acute cystitis. She is on IV fluids and IV antibiotics. Plan: Continue same treatment. #2 diabetic ketoacidosis: Resolved. She is on long acting Humalog insulin, pre- meal Humalog insulin and sliding scale. Sugar has been in the range of 150-250, Anion gap closed but her serum bicarb still low. This could be due to because of acute kidney injury. Plan to continue insulin, continue sliding scale and Accu-Cheks. #3 newly diagnosed type 2 diabetes mellitus: Hemoglobin A1c was 13.5. Patient never been on treatment for diabetes before. This is new diagnosis. She is on Humalog long acting insulin and pre-meal insulin as above, plan as above. #4 Klebsiella pneumonia/Streptococcus agalactiae acute cystitis: She is on IV cefepime. Urine culture revealed Klebsiella pneumonia and Streptococcus agalactiae. Blood culture showed no growth. CT scan abdomen and pelvis revealed prominent collecting system of both kidneys, questionable minimal hydronephrosis, no stones. Plan: Continue same treatment, urology consult. #5 acute kidney injury: Probably due to acute tubular necrosis secondary to hypovolemic shock and DKA as well as septic shock. Patient has been on IV fluids, kidney function is improving slowly, today's creatinine is down to 1.9. Ultrasound of the kidneys were normal. CT scan abdomen and pelvis reviewed as above, plan for urology consult. #6 normocytic anemia: On admission, hemoglobin was 11.5 g/dL, no previous blood work to compare. Hemoglobin has been dropping and today's hemoglobin is 8.7 g/dL. This is could be due to hemodilution. At this time, no evidence of active bleeding. Stool is positive for occult blood. Serum ferritin was high. Serum iron is pending. Patient reported loss of weight which could be due to diabetes as well. CT scan abdomen revealed ascites, other findings reviewed. Plan: General surgery consult for colonoscopy. #7 Metabolic encephalopathy: This is because of shock and DKA. Today, patient remained alert and oriented. #8 elevated LFT: Likely due to hypovolemic/septic shock leading to hypoperfusion. Ultrasound liver revealed normal liver size, normal bile ducts, normal gallbladder, no gallstones, no periprostatic fluids and normal CBD diameter. Liver transaminases are trending down. #9 thrombocytopenia: Unclear etiology. Patient received 1 unit of plateletpheresis today's platelet count is 104,000, improved. No evidence of active bleeding. Immunoglobulin electrophoresis are pending. Hematology on the case. #10 DVT prophylaxis: SCDs, no chemical prophylaxis because of thrombocytopenia. This note was generated with Dragon dictation software. It may contain incorrect words, spelling, and punctuation that were not noted in checking the note before signing. Code Visit Inpatient E&M: 51292 Subs Hosp L2
[2018-01-19 08:24] LABS: Anion Gap 13 (5-15); BUN 72 mg/dL (7-18); BUN/Creat Ratio 37.7 RATIO (10-20); Chloride 110 mmol/L (98-107); Creatinine, Serum 1.91 mg/dL (0.55-1.02); EST Glomerular Filtration Rate 28 mL/min (>60); Est Glom Filt Rate - Afr Amer 34 mL/min (>60); Estimated Creatinine Clearance 24.29 ml/min; Glucose 218 mg/dL (74-106); Potassium 4.4 mmol/L (3.5-5.1); Sodium Level 139 mmol/L (136-145)
[2018-01-19 08:26] LABS: Hypochromasia 1+; Platelet Estimate SLT DEC (ADEQ)
[2018-01-19 08:54] LABS: Thyroid Stim Hormone (TSH) 5.11 uIU/mL (0.358-3.74)
[2018-01-19] MEDS: Pantoprazole Sodium 40 MG Tablet PO (09:15)
[2018-01-19] MEDS: Menthol/Lanolin/Calamine/Znox 113 GM Tube 1 APPLIC TOPICAL ×2 (09:16→21:22)
[2018-01-19] MEDS: Glucerna Shake 120 ML LIQUID PO ×4 (09:18→21:22)
[2018-01-19 09:54] LABS: Free T3 1.2 pg/mL (2.18-3.98); T4 Free Direct 0.86 ng/dL (0.76-1.46); T4 Total, Thyroxin 5.9 ug/dL (4.8-13.9)
[2018-01-19 10:46] LABS: Haptoglobin 369 mg/dL (34-200)
--- NOTE | 2018-01-19 11:31 | CASEMGMT ---
Addendum entered by Flor Elizalde 01/19/18 15:11: SW placed a call to Shara in TCU and left her a message informing her that pt is not ready for discharge today. Original Note: Social Work Note SW met with pt. Pt's present in room. Pt gave this worker permission to speak to her in front of her guest. SW informed pt and pt's that TCU will have a bed on hold for pt until she is medically cleared. HANS asked pt about any MH Hx or substance abuse Hx. Per oncology note, pt drinks 16oz or more of red wine daily. Pt denied any MH or substance abuse Hx. Denied additional needs or concerns at this time. Plan: TCU once medically cleared Flor Elizalde [employer]IST, [employer]
[2018-01-19 11:41] LABS: Bedside Glucose 248 mg/dL (70-110)
--- NOTE | 2018-01-19 12:06 | PCM.CONS.GEN ---
Problem List (1) Hydronephrosis Status: Acute (2) Urinary tract infection Status: Acute Reason for Consult Date of Consultation: 01/19/18 Reason for Consultation: hydronephrosis, urinary tract infection History of Present Illness: The patient is a 67 year old F admitted with diabetic ketoacidosis new onset of diabetes. She had a renal ultrasound revealing normal bilateral kidneys with no evidence of hydronephrosis, stones or mass. She subsequently had a CT scan of her abdomen pelvis that was read by radiology as minimal pelvic caliectasis bilaterally, and there is also document of artifact due to patient moving during the examination. The patient is currently sitting up at bedside eating lunch with her present. She reports no issues with her kidneys prior to admission. She has had one urinary tract infection in the last year. does report that in the few days just prior to admission that she was getting up almost hourly at night to void. She does not report significant urinary incontinence. She has never had gross hematuria. She has never had stones, hydronephrosis or any other abnormality of the kidneys that she can report. She currently does have low back pain but no flank pain on either side. Past Medical History Allergies Penicillins Allergy (Verified 01/13/18 15:38) Rash Home Medications: Ambulatory Orders Medication Instructions Recorded Aspirin [Aspirin, Baby] 81 mg PO DAILY@0800 01/13/18 Fish Oil/Dha/Epa [Fish Oil 1,200 2 each PO DAILY 01/13/18 mg Fish Oil] Lactobacillus Combination No.4 1 each PO DAILY 01/13/18 [Probiotic] Multivitamin [Daily Multiple 1 tab PO DAILY 01/13/18 Vitamin] Vit A/C/E/Zinc/Selenium/Copper 1 each PO DAILY 01/13/18 [Vision Formula Tablet] Surgical History: no surgical history Psychiatric History: No pertinent psych hx [employer] History: No pertinent [employer] history Lives: Spouse/ Significant Other Smoking Status: Never smoker Tobacco Use: Non-smoker Alcohol: Occasional Drugs: None - *Family History Maternal History Items: No pertinent history Paternal History Items: No pertinent history Review of Systems Eyes: Denies: Vision Change HEENT: Denies: Difficulty Hearing, Visual Changes Cardiovascular: Denies: Chest Pain Respiratory: Denies: Shortness of breath upon exertion Gastrointestinal: Reports: Melena - question of blood in the stool. Denies: Abdominal Pain, Nausea, Vomiting Genitourinary: Reports: Frequency, Nocturia, - - delgadillo catheter currently. Denies: Dysuria Musculoskeletal: Reports: Back Pain - low back pain bilaterally Skin: Denies: Rash, Skin Changes Patient Problems: Active and Suspected Problems Hydronephrosis (Acute) Urinary tract infection (Acute) - Physical Exam General: Alert, Oriented x3, Cooperative, No apparent distress HEENT: Atraumatic, Normocephalic Oral: Moist Mucosa Neck: Supple Lungs: Normal air movement Abdomen: Soft, Non Tender, - - no CVA tenderness Extremities: - - non-tender Skin: No rashes Neurological: Cranial nerves II-XII grossly intact, Neuro grossly intact Psych/Mental Status: Appropriate Vital Signs Temp Pulse Resp BP Pulse Ox 98 F 108 H 18 131/76 H 96 01/19/18 07:55 01/19/18 07:55 01/19/18 07:55 01/19/18 07:55 01/19/18 07:55 Oxygen Flow Rate (L/min) 2 Oxygen Delivery Method Room Air Weight: 62.3 kg Body Mass Index (BMI) 21.9 Finger Stick Blood Glucose 152 Intake and Output for Last 24 Hours 01/17/18 01/18/18 01/19/18 23:59 23:59 23:59 Intake Total 2764 / 2764 1608 / 1608 3265 / 3265 Output Total 1600 / 1600 5900 / 5900 3200 / 3200 Balance 1164 / 1164 -4292 / -4292 65 / 65 Microbiology Past 72 Hours 01/13/18 15:05 Blood Culture - Final Blood Culture (Wb) - No Site/Description Given No growth in 5 days. 01/13/18 16:45 Blood Culture - Final Blood Culture (Wb) - Line Draw No growth in 5 days. 01/18/18 17:50 Stool Occult Blood (RONIT) - Final Stool 01/16/18 22:15 Enteric Bacteriology - Final Stool 01/13/18 15:30 Urine Culture - Final Urine Catheter - Delgadillo Klebsiella pneumoniae sp pneum Streptococcus agalactiae (B) 01/16/18 22:15 C. difficile DNA Amplification - Final Stool Laboratory Tests Past 24 Hrs 01/14/18 01/15/18 01/16/18 15:00 03:00 03:20 WBC RBC Hgb Hct MCV MCH MCHC RDW RDW Differential Plt Count 13 L* MPV Immature Gran % (Auto) Neut % (Auto) Lymph % (Auto) [place] % (Auto) Eos % (Auto) Baso % (Auto) Absolute Neuts (auto) Absolute Lymphs (auto) Total Counted Diff Path Review Reviewed Reviewed Platelet Estimate Immature Plt Fraction Hypochromasia Retic Count Immature Retic Fraction Retic Hgb Equivalent Haptoglobin Sodium Potassium Chloride Carbon Dioxide Anion Gap BUN Creatinine Estim Creat Clear Calc Est GFR (MDRD) Af Amer Est GFR (MDRD) Non-Af BUN/Creatinine Ratio Glucose Calcium TSH Free T4 Thyroxine (T4) Free T3 pg/dL Hepatitis A IgM Ab Hepatitis A Ab Total Hep Bs Antigen Hep B Core Total Ab Hep B Core IgM Ab 01/17/18 01/18/18 01/18/18 06:04 06:12 06:12 WBC RBC Hgb Hct MCV MCH MCHC RDW RDW Differential Plt Count MPV Immature Gran % (Auto) Neut % (Auto) Lymph % (Auto) [place] % (Auto) Eos % (Auto) Baso % (Auto) Absolute Neuts (auto) Absolute Lymphs (auto) Total Counted Diff Path Review Reviewed Platelet Estimate Immature Plt Fraction TNP Hypochromasia Retic Count 0.74 Immature Retic Fraction 35.70 H Retic Hgb Equivalent 31.1 Haptoglobin 369 H Sodium Potassium Chloride Carbon Dioxide Anion Gap BUN Creatinine Estim Creat Clear Calc Est GFR (MDRD) Af Amer Est GFR (MDRD) Non-Af BUN/Creatinine Ratio Glucose Calcium TSH Free T4 Thyroxine (T4) Free T3 pg/dL Hepatitis A IgM Ab Hepatitis A Ab Total Hep Bs Antigen Hep B Core Total Ab Hep B Core IgM Ab 01/19/18 01/19/18 01/19/18 07:38 07:38 07:38 WBC 23.8 H RBC 3.01 L Hgb 8.7 L Hct 25.3 L MCV 84.1 MCH 28.9 MCHC 34.4 RDW 13.9 RDW Differential 40.8 Plt Count 104 L MPV 12.1 H Immature Gran % (Auto) 1.800 H Neut % (Auto) 91.1 H Lymph % (Auto) 2.8 L [place] % (Auto) 3.4 Eos % (Auto) 0.8 Baso % (Auto) 0.1 Absolute Neuts (auto) 21.7 H Absolute Lymphs (auto) 0.66 L Total Counted Not Reportable Diff Path Review Platelet Estimate SLT DEC Immature Plt Fraction Hypochromasia 1+ Retic Count Immature Retic Fraction Retic Hgb Equivalent Haptoglobin Sodium 139 Potassium 4.4 Chloride 110 H Carbon Dioxide 16.0 L Anion Gap 13 BUN 72 H Creatinine 1.91 H Estim Creat Clear Calc 24.29 Est GFR (MDRD) Af Amer 34 L Est GFR (MDRD) Non-Af 28 L BUN/Creatinine Ratio 37.7 H Glucose 218 H Calcium 7.0 L TSH Free T4 Thyroxine (T4) Free T3 pg/dL Hepatitis A IgM Ab Pending Hepatitis A Ab Total Pending Hep Bs Antigen Pending Hep B Core Total Ab Pending Hep B Core IgM Ab Pending 01/19/18 01/19/18 07:38 07:38 WBC RBC Hgb Hct MCV MCH MCHC RDW RDW Differential Plt Count MPV Immature Gran % (Auto) Neut % (Auto) Lymph % (Auto) [place] % (Auto) Eos % (Auto) Baso % (Auto) Absolute Neuts (auto) Absolute Lymphs (auto) Total Counted Diff Path Review Platelet Estimate Immature Plt Fraction Hypochromasia Retic Count Immature Retic Fraction Retic Hgb Equivalent Haptoglobin Sodium Potassium Chloride Carbon Dioxide Anion Gap BUN Creatinine Estim Creat Clear Calc Est GFR (MDRD) Af Amer Est GFR (MDRD) Non-Af BUN/Creatinine Ratio Glucose Calcium TSH 5.11 H Free T4 0.86 Thyroxine (T4) 5.9 Free T3 pg/dL 1.2 L Hepatitis A IgM Ab Hepatitis A Ab Total Hep Bs Antigen Hep B Core Total Ab Hep B Core IgM Ab POC Glucose 01/19/18 01/19/18 01/18/18 11:37 07:43 21:48 POC Glucose 248 H 218 H 246 H 01/18/18 16:19 POC Glucose 225 H Assessment/Plan All Active Problems Hydronephrosis (Acute) Urinary tract infection (Acute) Encephalopathy (Acute) Thrombocytopenia (Acute) Elevated LFTs (Acute) Acute kidney injury (Acute) Septic shock (Acute) Newly diagnosed type 2 diabetes mellitus (Acute) Diabetic ketoacidosis (Acute) I am not concerned with amount of dilation of the collecting systems present on the CT. She had a normal renal u/s approximately one week ago. Delgadillo is draining, Cr is falling. I will follow up with her in the office and plan to recheck renal U/S in 3 months. She will also need follow up for urinary tract infection risk, especially with her diabetes. Continue antbiotics now per primary team. Thank you for this consult.
--- NOTE | 2018-01-19 12:40 | PCM.CONS.GEN ---
Problem List (1) Anemia Status: Acute Reason for Consult Date of Consultation: 01/19/18 Reason for Consultation: Anemia History of Present Illness: The patient is a 67 year old F who presented with a fall at home secondary to hyperglycemia. Patient is a newly diagnosed diabetic. She has never been diagnosed with diabetes prior to admission. Her glucose was 903 when she arrived to [facility]. She was then transferred to [facility]. Per patient and her who was present in the room, noted she has not seen a doctor or been hospitalized since giving to her son 36 years ago. Patient' s noted she has had no reason to go to the doctor. Patient denies abdominal pain/discomfort, melena, bright red blood per rectum, change in bowel habits. She denies previous colonoscopy. She notes a 20 pound weight loss over the last 6 months. She notes her sister had colon cancer. Patient has had a decrease in her hgb from 11.5 to 8.7. Patient's platelet count has went from 39 to 104 after 1 unit of platelets. Patient continues to be tachycardiac. Patient had a positive fecal occult blood test. Enteric panel was negative. C Diff was negative. Patient has no known history of low platelets that she knows of. She has no known family history of bleeding disorders that she is aware of. She denies abdominal surgeries. Past Medical History Allergies Penicillins Allergy (Verified 01/13/18 15:38) Rash Home Medications: Ambulatory Orders Medication Instructions Recorded Aspirin [Aspirin, Baby] 81 mg PO DAILY@0800 01/13/18 Fish Oil/Dha/Epa [Fish Oil 1,200 2 each PO DAILY 01/13/18 mg Fish Oil] Lactobacillus Combination No.4 1 each PO DAILY 01/13/18 [Probiotic] Multivitamin [Daily Multiple 1 tab PO DAILY 01/13/18 Vitamin] Vit A/C/E/Zinc/Selenium/Copper 1 each PO DAILY 01/13/18 [Vision Formula Tablet] Surgical History: no surgical history Psychiatric History: No pertinent psych hx HISTOLOGY AIDE History: No pertinent HISTOLOGY AIDE history Lives: Spouse/ Significant Other Smoking Status: Never smoker Tobacco Use: Non-smoker Alcohol: Occasional Drugs: None - *Family History Maternal History Items: No pertinent history Paternal History Items: No pertinent history Review of Systems Constitutional: Reports: Anorexia, Weakness, Weight Change, Fatigue HEENT: Denies: Head Aches, Sinus Congestion, Sinus Drainage Cardiovascular: Denies: Chest Pain, Palpitations Respiratory: Denies: Cough, Shortness of breath at rest, Sputum production Gastrointestinal: Denies: Abdominal Pain, Nausea, Vomiting Genitourinary: Reports: Frequency. Denies: Dysuria Musculoskeletal: Denies: Joint Pain, Joint Tenderness Skin: Denies: Rash, Wounds Neurological: Reports: Balance problems, Incoordination Psychiatric: Denies: Anxiety, Depression, Homicidal Ideations, Suicidal Ideations Hematologic/ Lymphatic: Reports: Easy Bruising, Easy Bleeding. Denies: Hx of blood clot, Hx of blood transfusion Patient Problems: Active and Suspected Problems Hydronephrosis (Acute) Urinary tract infection (Acute) Anemia (Acute) - Physical Exam General: Alert, Oriented x3, Cooperative HEENT: Atraumatic, PERRLA, EOMI, Normocephalic Neck: Supple, No JVD, Negative Carotid Bruits Lungs: Clear to auscultation, Normal air movement Cardiovascular: Regular rate, No murmurs Abdomen: Bowel Sounds Present, Soft, Non Tender Extremities: Capillary Refill Less than 3 Seconds, Edema - 1+ Skin: No rashes, No breakdown Musculoskeletal: No Tenderness to Palpation of Joints or Extremities Neurological: Neuro grossly intact Psych/Mental Status: Appropriate, Flat Affect Vital Signs Temp Pulse Resp BP Pulse Ox 98 F 108 H 18 131/76 H 96 01/19/18 07:55 01/19/18 07:55 01/19/18 07:55 01/19/18 07:55 01/19/18 07:55 Oxygen Flow Rate (L/min) 2 Oxygen Delivery Method Room Air Weight: 137 lb 5.568 oz Body Mass Index (BMI) 21.9 Finger Stick Blood Glucose 152 Intake and Output for Last 24 Hours 01/17/18 01/18/18 01/19/18 23:59 23:59 23:59 Intake Total 2764 / 2764 1608 / 1608 3265 / 3265 Output Total 1600 / 1600 5900 / 5900 3200 / 3200 Balance 1164 / 1164 -4292 / -4292 65 / 65 Microbiology Past 72 Hours 01/13/18 15:05 Blood Culture - Final Blood Culture (Wb) - No Site/Description Given No growth in 5 days. 01/13/18 16:45 Blood Culture - Final Blood Culture (Wb) - Line Draw No growth in 5 days. 01/18/18 17:50 Stool Occult Blood (RONIT) - Final Stool 01/16/18 22:15 Enteric Bacteriology - Final Stool 01/13/18 15:30 Urine Culture - Final Urine Catheter - Miranda Klebsiella pneumoniae sp pneum Streptococcus agalactiae (B) 01/16/18 22:15 C. difficile DNA Amplification - Final Stool Laboratory Tests Past 24 Hrs 01/14/18 01/15/18 01/16/18 15:00 03:00 03:20 WBC RBC Hgb Hct MCV MCH MCHC RDW RDW Differential Plt Count 13 L* MPV Immature Gran % (Auto) Neut % (Auto) Lymph % (Auto) [place] % (Auto) Eos % (Auto) Baso % (Auto) Absolute Neuts (auto) Absolute Lymphs (auto) Total Counted Diff Path Review Reviewed Reviewed Platelet Estimate Immature Plt Fraction Hypochromasia Retic Count Immature Retic Fraction Retic Hgb Equivalent Haptoglobin Sodium Potassium Chloride Carbon Dioxide Anion Gap BUN Creatinine Estim Creat Clear Calc Est GFR (MDRD) Af Amer Est GFR (MDRD) Non-Af BUN/Creatinine Ratio Glucose Calcium TSH Free T4 Thyroxine (T4) Free T3 pg/dL Hepatitis A IgM Ab Hepatitis A Ab Total Hep Bs Antigen Hep B Core Total Ab Hep B Core IgM Ab 01/17/18 01/18/18 01/18/18 06:04 06:12 06:12 WBC RBC Hgb Hct MCV MCH MCHC RDW RDW Differential Plt Count MPV Immature Gran % (Auto) Neut % (Auto) Lymph % (Auto) [place] % (Auto) Eos % (Auto) Baso % (Auto) Absolute Neuts (auto) Absolute Lymphs (auto) Total Counted Diff Path Review Reviewed Platelet Estimate Immature Plt Fraction TNP Hypochromasia Retic Count 0.74 Immature Retic Fraction 35.70 H Retic Hgb Equivalent 31.1 Haptoglobin 369 H Sodium Potassium Chloride Carbon Dioxide Anion Gap BUN Creatinine Estim Creat Clear Calc Est GFR (MDRD) Af Amer Est GFR (MDRD) Non-Af BUN/Creatinine Ratio Glucose Calcium TSH Free T4 Thyroxine (T4) Free T3 pg/dL Hepatitis A IgM Ab Hepatitis A Ab Total Hep Bs Antigen Hep B Core Total Ab Hep B Core IgM Ab 01/19/18 01/19/18 01/19/18 07:38 07:38 07:38 WBC 23.8 H RBC 3.01 L Hgb 8.7 L Hct 25.3 L MCV 84.1 MCH 28.9 MCHC 34.4 RDW 13.9 RDW Differential 40.8 Plt Count 104 L MPV 12.1 H Immature Gran % (Auto) 1.800 H Neut % (Auto) 91.1 H Lymph % (Auto) 2.8 L Eddy % (Auto) 3.4 Eos % (Auto) 0.8 Baso % (Auto) 0.1 Absolute Neuts (auto) 21.7 H Absolute Lymphs (auto) 0.66 L Total Counted Not Reportable Diff Path Review Platelet Estimate SLT DEC Immature Plt Fraction Hypochromasia 1+ Retic Count Immature Retic Fraction Retic Hgb Equivalent Haptoglobin Sodium 139 Potassium 4.4 Chloride 110 H Carbon Dioxide 16.0 L Anion Gap 13 BUN 72 H Creatinine 1.91 H Estim Creat Clear Calc 24.29 Est GFR (MDRD) Af Amer 34 L Est GFR (MDRD) Non-Af 28 L BUN/Creatinine Ratio 37.7 H Glucose 218 H Calcium 7.0 L TSH Free T4 Thyroxine (T4) Free T3 pg/dL Hepatitis A IgM Ab Pending Hepatitis A Ab Total Pending Hep Bs Antigen Pending Hep B Core Total Ab Pending Hep B Core IgM Ab Pending 01/19/18 01/19/18 07:38 07:38 WBC RBC Hgb Hct MCV MCH MCHC RDW RDW Differential Plt Count MPV Immature Gran % (Auto) Neut % (Auto) Lymph % (Auto) Eddy % (Auto) Eos % (Auto) Baso % (Auto) Absolute Neuts (auto) Absolute Lymphs (auto) Total Counted Diff Path Review Platelet Estimate Immature Plt Fraction Hypochromasia Retic Count Immature Retic Fraction Retic Hgb Equivalent Haptoglobin Sodium Potassium Chloride Carbon Dioxide Anion Gap BUN Creatinine Estim Creat Clear Calc Est GFR (MDRD) Af Amer Est GFR (MDRD) Non-Af BUN/Creatinine Ratio Glucose Calcium TSH 5.11 H Free T4 0.86 Thyroxine (T4) 5.9 Free T3 pg/dL 1.2 L Hepatitis A IgM Ab Hepatitis A Ab Total Hep Bs Antigen Hep B Core Total Ab Hep B Core IgM Ab POC Glucose 01/19/18 01/19/18 01/18/18 11:37 07:43 21:48 POC Glucose 248 H 218 H 246 H 01/18/18 16:19 POC Glucose 225 H Assessment/Plan All Active Problems Hydronephrosis (Acute) Urinary tract infection (Acute) Anemia (Acute) Encephalopathy (Acute) Thrombocytopenia (Acute) Elevated LFTs (Acute) Acute kidney injury (Acute) Septic shock (Acute) Newly diagnosed type 2 diabetes mellitus (Acute) Diabetic ketoacidosis (Acute) I have been consulted in conjunction with Dr. Spring Impression: Anemia Plan: Patient was discussed with Dr. Spring. Dr. Spring will plan to perform an upper and lower endoscopy with possible biopsies with MAC. Procedure details, risks and benefits have been explained to the patient and her . Patient had the opportunity to ask and have questions answered. Patient verbally understands and agrees with the plan. Patient will be bowel prepped with Golytely. Upper/Lower scope scheduled for . Patient will need to have better glucose control prior to the procedure. Patient will be on clear liquid diet starting tomorrow morning. Thank you for allowing me to participate in this patient's care. My recommendations will be available via electronic medical records. Code Visit Office Visits / Consults: [id number] IP Consult L3
[2018-01-19 15:51] VITALS: BP 118/55; PULSE 113; RESP 18; TEMP 37.3; O2SAT 96
[2018-01-19 16:10] LABS: Albumin 1.5 g/dL (2.9-4.4); Alpha-1-Globulins 0.2 g/dL (0.0-0.4); Gamma Globulin 0.5 g/dL (0.4-1.8); Immunoglobulin A 117 mg/dL (87-352); Immunoglobulin G 482 mg/dL (700-1600); Immunoglobulin M 78 mg/dL (26-217); PROEL- TOTAL PROTEIN 4.1 g/dL (6.0-8.5)
[2018-01-19 16:41] LABS: Bedside Glucose 287 mg/dL (70-110)
[2018-01-19 21:13] VITALS: BP 124/65; PULSE 114; RESP 18; TEMP 36.9; O2SAT 96
[2018-01-19 21:21] LABS: Bedside Glucose 253 mg/dL (70-110)
[2018-01-20] VITALS (8 sets, daily range): BP systolic 117–148; BP diastolic 65–80; PULSE 100–114; RESP 16–18; TEMP 36.7–37.1; O2SAT 96–100
[2018-01-20] MEDS: 0.9% NaCl Peripheral Flush Adult/Peds IV (04:24)
[2018-01-20] MEDS: 0.9% Normal Saline 1,000 ML 100 ML IV (04:24)
[2018-01-20] MEDS: Nystatin Ointment 1 APPLIC TOPICAL ×3 (05:30→21:53)
[2018-01-20 06:57] LABS: Absolute Lymphocyte Count 0.65 X10^3/ul (0.83-4.51); Absolute Neutrophil Count 18.8 X10^3/uL (2.0-7.7); Basophil# 0.01 X10^3/uL; Eosinophil# 0.17 X10^3/uL; Eosinophils% 0.8 % (0-5); Hematocrit 23.3 % (37-47); Hemoglobin 7.5 g/dl (12.0-15.0); Lymphocyte # 0.65 X10^3/ul (4.0); Lymphocyte % 3.2 % (19-41); Mean Corp Hgb Conc 32.2 g/gl (32-36); Mean Corpuscular Hgb 27.7 pg (27.0-32.0); Mean Platelet Vol. 11.9 fl (6.2-12.0); Monocyte# 0.67 X10^3/uL; Monocyte% 3.3 % (0-10); Neutrophil # 18.82 X10^3/uL (2.7-7.7); Neutrophil % 91.3 % (47-70); Platelet Count 165 K/mm3 (150-450); RBC Distribution Width CV 14.1 % (11.6-14.6); RBC Distribution Width SD 41.9 fl (35.1-43.9); Red Blood Count 2.71 M/mm3 (4.2-5.4); White Blood Count 20.6 K/mm3 (4.4-11.0)
[2018-01-20 07:07] LABS: ALB/GLOB Ratio 0.4 RATIO (0.9-2.4); AST(SGOT) 23 U/L (15-37); Alanine Aminotransfer ALT/SGPT 65 U/L (13-56); Albumin, Serum 1.2 g/dL (3.2-5.0); Alkaline Phosphatase 350 U/L (45-117); Anion Gap 11 (5-15); BUN 65 mg/dL (7-18); BUN/Creat Ratio 36.1 RATIO (10-20); Chloride 114 mmol/L (98-107); EST Glomerular Filtration Rate 30 mL/min (>60); Est Glom Filt Rate - Afr Amer 36 mL/min (>60); Estimated Creatinine Clearance 25.78 ml/min; Globulin 3.1 g/dL (2.2-4.2); Glucose 190 mg/dL (74-106); Potassium 4.3 mmol/L (3.5-5.1); Protein, Total 4.3 g/dL (6.4-8.2); Sodium Level 140 mmol/L (136-145)
[2018-01-20 07:12] LABS: POSITIVE COUNT NO; POSITIVE DIFFERENTIAL NO; POSITIVE MORPHOLOGY NO
[2018-01-20 07:46] LABS: Bedside Glucose 197 mg/dL (70-110)
[2018-01-20] MEDS: Insulin Lispro 100 UNIT/ML INSULN.PEN SC (08:01)
[2018-01-20] MEDS: Insulin Lispro 100 UNIT/ML INSULN.PEN 10 UNIT SC ×2 (08:02→12:51)
[2018-01-20] MEDS: Insulin Human 75/25 Kwickpen 30 UNIT SC (08:06)
--- NOTE | 2018-01-20 08:22 | PCM.PN.BLA ---
Progress Note Patient evaluated with no new GI complaints or concerns. Plan for upper and lower scope tomorrow with Dr. Spring at 1:00 pm. If patient's glucose is above 250, her procedure will be canceled. Code Visit Inpatient E&M: 34094 Subs Hosp L1
--- NOTE | 2018-01-20 08:36 | PN_ITS ---
Progress Note Patient evaluated with no new GI complaints or concerns. Plan for upper and lower scope tomorrow with Dr. Spring at 1:00 pm. If patient's glucose is above 250, her procedure will be canceled. Code Visit Inpatient E&M: 14775 Subs Hosp L1
--- NOTE | 2018-01-20 08:53 | PCM.PROGNOTE ---
Patient Problems: Active and Suspected Problems Hydronephrosis (Acute) Urinary tract infection (Acute) Anemia (Acute) Subjective: Chief complaint: Follow-up after admission for DKA, newly diagnosed type 2 diabetes mellitus, hypovolemic and septic shock, anemia, acute kidney injury and elevated LFT. Patient seen and examined. No acute events overnight. Today, she denies any significant complaints. She is doing preparation for colonoscopy and upper EGD for tomorrow morning. Apart from mild tachycardia, other vital signs are stable. - Physical Exam General: Alert, Oriented x3, Cooperative, No apparent distress HEENT: Atraumatic, PERRLA, EOMI, Normocephalic Oral: Moist Mucosa, No Gingival or Mucosal Lesions/ Ulcerations Neck: Supple, No JVD, Negative Carotid Bruits, Trachea Midline, Thyroid Normal Size and Texture Lungs: Clear to auscultation, No rhonchi, No wheeze, No rales, Diminished Cardiovascular: Regular rate, Regular Rhythm, Normal S1, Normal S2, Tachycardic Abdomen: Bowel Sounds Present, Soft, Non Tender, Non-Distended, No Hepato-splenomegaly Extremities: No clubbing, No cyanosis, No edema Skin: No rashes, No breakdown Lymphatic: No Cervical, Supraclavicular, or Inguinal Adenopathy Neurological: Cranial nerves II-XII grossly intact, Motor Exam 5/5 strength throughout Psych/Mental Status: Normal Affect, Appropriate Vital Signs Temp Pulse Resp BP Pulse Ox 98.5 F 108 H 16 126/67 H 98 01/20/18 07:44 01/20/18 07:50 01/20/18 07:44 01/20/18 07:44 01/20/18 07:44 Oxygen Flow Rate (L/min) 2 Oxygen Delivery Method Room Air Weight: 141 lb 12.116 oz Body Mass Index (BMI) 21.9 Finger Stick Blood Glucose 152 Intake and Output for Last 24 Hours 01/18/18 01/19/18 01/20/18 23:59 23:59 23:59 Intake Total 1608 / 1608 5357 / 5357 1520 / 1520 Output Total 5900 / 5900 5725 / 5725 1300 / 1300 Balance -4292 / -4292 -368 / -368 220 / 220 Microbiology Past 72 Hours 01/13/18 15:05 Blood Culture - Final Blood Culture (Wb) - No Site/Description Given No growth in 5 days. 01/13/18 16:45 Blood Culture - Final Blood Culture (Wb) - Line Draw No growth in 5 days. 01/18/18 17:50 Stool Occult Blood (RONIT) - Final Stool 01/16/18 22:15 Enteric Bacteriology - Final Stool 01/13/18 15:30 Urine Culture - Final Urine Catheter - Miranda Klebsiella pneumoniae sp pneum Streptococcus agalactiae (B) Laboratory Tests Past 24 Hrs 01/18/18 01/19/18 01/19/18 06:12 07:38 07:38 WBC RBC Hgb Hct MCV MCH MCHC RDW RDW Differential Plt Count MPV Immature Gran % (Auto) Neut % (Auto) Lymph % (Auto) [place] % (Auto) Eos % (Auto) Baso % (Auto) Absolute Neuts (auto) Absolute Lymphs (auto) Total Counted Haptoglobin 369 H Sodium Potassium Chloride Carbon Dioxide Anion Gap BUN Creatinine Estim Creat Clear Calc Est GFR (MDRD) Af Amer Est GFR (MDRD) Non-Af BUN/Creatinine Ratio Glucose Calcium Total Bilirubin AST ALT Alkaline Phosphatase Total Protein Albumin Globulin Albumin/Globulin Ratio TSH 5.11 H Free T4 0.86 Thyroxine (T4) 5.9 Free T3 pg/dL 1.2 L 01/20/18 01/20/18 06:36 06:36 WBC 20.6 H RBC 2.71 L Hgb 7.5 L Hct 23.3 L MCV 86.0 MCH 27.7 MCHC 32.2 RDW 14.1 RDW Differential 41.9 Plt Count 165 MPV 11.9 Immature Gran % (Auto) 1.400 H Neut % (Auto) 91.3 H Lymph % (Auto) 3.2 L [place] % (Auto) 3.3 Eos % (Auto) 0.8 Baso % (Auto) 0.0 Absolute Neuts (auto) 18.8 H Absolute Lymphs (auto) 0.65 L Total Counted Not Reportable Haptoglobin Sodium 140 Potassium 4.3 Chloride 114 H Carbon Dioxide 15.0 L Anion Gap 11 BUN 65 H Creatinine 1.80 H Estim Creat Clear Calc 25.78 Est GFR (MDRD) Af Amer 36 L Est GFR (MDRD) Non-Af 30 L BUN/Creatinine Ratio 36.1 H Glucose 190 H Calcium 7.0 L Total Bilirubin 0.40 AST 23 ALT 65 H Alkaline Phosphatase 350 H Total Protein 4.3 L Albumin 1.2 L Globulin 3.1 Albumin/Globulin Ratio 0.4 L TSH Free T4 Thyroxine (T4) Free T3 pg/dL POC Glucose 01/20/18 01/19/18 01/19/18 07:38 21:17 16:36 POC Glucose 197 H 253 H 287 H 01/19/18 11:37 POC Glucose 248 H Medical Necessity - Tobacco Use Smoking Status: Never smoker Tobacco Use: Non-smoker Assessment/Plan All Active Problems Hydronephrosis (Acute) Urinary tract infection (Acute) Anemia (Acute) Encephalopathy (Acute) Thrombocytopenia (Acute) Elevated LFTs (Acute) Acute kidney injury (Acute) Septic shock (Acute) Newly diagnosed type 2 diabetes mellitus (Acute) Diabetic ketoacidosis (Acute) This is a 67 years old female patient presented to the medicine because of lethargy and altered mental status, found to have diabetic ketoacidosis, hypovolemic and septic shock, acute cystitis, acute kidney injury, newly diagnosed type 2 diabetes mellitus, elevated LFT and thrombocytopenia. #1 hypovolemic/septic shock: Resolved, her vital signs has been stable, blood pressure is maintained on minimal IV fluids. It is hypovolemic shock because of diabetic ketoacidosis and also septic shock secondary to acute cystitis. She is on IV fluids and IV antibiotics. Plan: Decrease IV fluids down to 75 cc/h, continue IV antibiotics. #2 diabetic ketoacidosis: Resolved. She is on long acting Humalog insulin, pre-meal Humalog insulin and sliding scale. Blood sugar has been stable. Anion gap closed but her serum bicarb still low. This could be due to because of acute kidney injury. Plan to continue insulin, continue sliding scale and Accu-Cheks. #3 newly diagnosed type 2 diabetes mellitus: Hemoglobin A1c was 13.5. Patient never been on treatment for diabetes before. This is new diagnosis. She is on Humalog long acting insulin and pre-meal insulin as above, plan as above. #4 Klebsiella pneumonia/Streptococcus agalactiae acute cystitis: Remained on IV cefepime. Urine culture revealed Klebsiella pneumonia and Streptococcus agalactiae. Blood culture showed no growth. CT scan abdomen and pelvis revealed prominent collecting system of both kidneys, questionable minimal hydronephrosis, no stones. Urology consulted, recommended no interventions of the prominent collecting system of both kidneys and are of no concern, recommended to repeat ultrasound in 3 months. Plan to potassium treatment. #5 acute kidney injury: Probably due to acute tubular necrosis secondary to hypovolemic shock and DKA as well as septic shock. Patient has been on IV fluids, kidney function is improving slowly, today's creatinine is down to 1.80. Ultrasound of the kidneys were normal. CT scan abdomen and pelvis reviewed as above, plan to decrease IV fluids down to 75 cc/h, repeat BMP tomorrow morning. #6 normocytic anemia: On admission, hemoglobin was 11.5 g/dL, no previous blood work to compare. Hemoglobin has been dropping and today's hemoglobin is 7.5 g/dL. This is could be due to hemodilution. At this time, no evidence of active bleeding. Stool is positive for occult blood. Serum ferritin was high. Serum iron is pending. Patient reported loss of weight which could be due to diabetes as well. General surgery consulted, plan for upper EGD and colonoscopy tomorrow morning. #7 Metabolic encephalopathy: This is because of shock and DKA. Today, patient remained alert and oriented. #8 elevated LFT: Likely due to hypovolemic/septic shock leading to hypoperfusion. Ultrasound liver revealed normal liver size, normal bile ducts, normal gallbladder, no gallstones, no periprostatic fluids and normal CBD diameter. Liver transaminases are trending down. #9 thrombocytopenia: Unclear etiology. Patient received 1 unit of plateletpheresis today's platelet count is 165,000, back to normal. No evidence of active bleeding. Immunoglobulin electrophoresis are pending. Hematology on the case. #10 DVT prophylaxis: SCDs, no chemical prophylaxis because of thrombocytopenia. This note was generated with [employer] dictation software. It may contain incorrect words, spelling, and punctuation that were not noted in checking the note before signing. Code Visit Inpatient E&M: 23303 Subs Hosp L2
[2018-01-20 10:40] LABS: HEPATITIS B SURFACE AG Negative (Negative); Hepatitis A AB, Total Positive (Negative); Hepatitis A IgM Antibody Negative (Negative); Hepatitis B Core AB IgM Negative (Negative); Hepatitis B Core Ab Total Negative (Negative); Hepatitis C Ab <0.1 s/co ratio (0.0-0.9)
[2018-01-20] MEDS: Menthol/Lanolin/Calamine/Znox 113 GM Tube 1 APPLIC TOPICAL ×2 (11:01→21:53)
[2018-01-20] MEDS: Pantoprazole Sodium 40 MG Tablet PO (11:01)
[2018-01-20 11:31] LABS: Hep B Surface Antibodies Non Reactive (.)
--- NOTE | 2018-01-20 11:42 | CASEMGMT ---
As per physician, pt may be ready for discharge on or Thursday (01/21 or 01/22). SW left a message for Shara in TCU letting her know the anticipated discharge date for pt. SW met w/pt in room, pt agreeable to complete POA form. Pt put as POA, son and then daughter in law as alternates. SW gave pt's the original with two copies, and SW placed a copy on the chart. Pt chose to not complete LW at this time. KEN Henderson, FACTORY ENGINEER
[2018-01-20 11:45] LABS: Bedside Glucose 142 mg/dL (70-110)
[2018-01-20 12:48] LABS: Pathologist Review Reviewed
[2018-01-20] MEDS: Electrolyte Solution/Peg's 4000 ML PO (12:58)
[2018-01-20 17:01] LABS: Bedside Glucose 88 mg/dL (70-110)
[2018-01-20] MEDS: 0.9% Normal Saline 1,000 ML 75 ML IV (19:55)
[2018-01-20 22:06] LABS: Bedside Glucose 77 mg/dL (70-110)
--- NOTE | 2018-01-20 23:00 | NURSING ---
Pt straight cathed for 999ml. Miranda catheter, 16F, inserted per physician orders.1000ml initial return. pt tolerated well
[2018-01-21] VITALS (8 sets, daily range): BP systolic 100–134; BP diastolic 54–74; PULSE 99–109; RESP 14–18; TEMP 36.6–37.5; O2SAT 95–99
[2018-01-21 01:26] LABS: Bedside Glucose 160 mg/dL (70-110)
[2018-01-21 05:42] LABS: International Normalized Ratio 1.2; Prothrombin Time (Protime)PT. 14.7 SECONDS (11.7-14.9)
[2018-01-21 05:43] LABS: Partial Thromboplast Time 30.1 Seconds (24.1-36.2)
[2018-01-21 05:55] LABS: AST(SGOT) 28 U/L (15-37); Alanine Aminotransfer ALT/SGPT 60 U/L (13-56); Albumin, Serum 1.3 g/dL (3.2-5.0); Alkaline Phosphatase 364 U/L (45-117); Anion Gap 11 (5-15); BUN 54 mg/dL (7-18); Bilirubin, Direct 0.16 mg/dL (0.00-0.30); Calcium,Total 7.2 mg/dL (8.5-10.1); Chloride 120 mmol/L (98-107); Creatinine, Serum 1.59 mg/dL (0.55-1.02); EST Glomerular Filtration Rate 35 mL/min (>60); Est Glom Filt Rate - Afr Amer 42 mL/min (>60); Estimated Creatinine Clearance 29.18 ml/min; Globulin 3.3 g/dL (2.2-4.2); Glucose 152 mg/dL (74-106); Potassium 4.1 mmol/L (3.5-5.1); Protein, Total 4.6 g/dL (6.4-8.2); Sodium Level 147 mmol/L (136-145)
[2018-01-21] MEDS: Nystatin Ointment 1 APPLIC TOPICAL (06:02)
[2018-01-21 06:11] LABS: Bedside Glucose 152 mg/dL (70-110)
[2018-01-21 06:40] LABS: Absolute Neutrophil Count 17.2 X10^3/uL (2.0-7.7); Basophil# 0.02 X10^3/uL; Basophil% 0.1 % (0-1); Eosinophil# 0.14 X10^3/uL; Eosinophils% 0.7 % (0-5); Hematocrit 29.4 % (37-47); Hemoglobin 9.6 g/dl (12.0-15.0); Lymphocyte % 2.1 % (19-41); Mean Corp Hgb Conc 32.7 g/gl (32-36); Mean Corpuscular Hgb 28.2 pg (27.0-32.0); Mean Corpuscular Volume 86.5 fL (81-99); Mean Platelet Vol. 11.2 fl (6.2-12.0); Monocyte# 0.82 X10^3/uL; Monocyte% 4.4 % (0-10); Neutrophil # 17.21 X10^3/uL (2.7-7.7); Neutrophil % 92.2 % (47-70); Platelet Count 184 K/mm3 (150-450); RBC Distribution Width CV 14.3 % (11.6-14.6); RBC Distribution Width SD 44.3 fl (35.1-43.9); White Blood Count 18.7 K/mm3 (4.4-11.0)
[2018-01-21 06:43] LABS: Differential Indicated SCAN CRITERIA MET; POSITIVE COUNT NO; POSITIVE DIFFERENTIAL YES; POSITIVE MORPHOLOGY YES
[2018-01-21 07:02] LABS: Differential Comment SCANNED
[2018-01-21] MEDS: Insulin Lispro 100 UNIT/ML INSULN.PEN 10 UNIT SC ×2 (08:40→13:30)
[2018-01-21] MEDS: Menthol/Lanolin/Calamine/Znox 113 GM Tube 1 APPLIC TOPICAL (08:42)
[2018-01-21] MEDS: CHLORHEXIDINE GLUC 2% CLOTH 1 EACH TOWELETTE TOPICAL (08:44)
[2018-01-21] MEDS: 0.9% Normal Saline 1,000 ML 75 ML IV (08:46)
--- NOTE | 2018-01-21 12:41 | OP.ENDO_ITS ---
Patient Name: Emy Leon Procedure Date: 01/21/2018 11:46 AM Date of : 1950 Age: 67 Procedure: Upper GI endoscopy Indications: Acute post hemorrhagic anemia Providers: Bhargav Spring MD Referring MD: Jignesh Miranda Medicines: See the Anesthesia note for documentation of the administered medications Patient Profile: This is a 67 year old female. Refer to note in patient chart for documentation of history and physical. Complications: No immediate complications. Procedure: Pre-Anesthesia Assessment: - Prior to the procedure, a History and Physical was performed, and patient medications and allergies were reviewed. The patient's tolerance of previous anesthesia was also reviewed. The risks and benefits of the procedure and the sedation options and risks were discussed with the patient. All questions were answered, and informed consent was obtained. Prior Anticoagulants: The patient has taken no previous anticoagulant or antiplatelet agents. ASA Grade Assessment: III - A patient with severe systemic disease. After reviewing the risks and benefits, the patient was deemed in satisfactory condition to undergo the procedure. After obtaining informed consent, the endoscope was passed under direct vision. Throughout the procedure, the patient's blood pressure, pulse, and oxygen saturations were monitored continuously. The gastroscope was introduced through the mouth, and advanced to the second part of duodenum. The upper GI endoscopy was accomplished without difficulty. The patient tolerated the procedure well. Scope In: 12:03:42 PM Scope Out: 12:05:56 PM Total Procedure Duration Time 0 hours 2 minutes 14 seconds Findings: The examined esophagus was normal. The entire examined stomach was normal. No biopsies or other specimens were collected for this exam. The examined duodenum was normal. No biopsies or other specimens were collected for this exam. The cardia and gastric fundus were normal on retroflexion. Impression: - Normal esophagus. - Normal stomach. No specimens collected. - Normal examined duodenum. No specimens collected. Recommendation: - [facility]. - Full liquid diet. - Continue present medications. - Repeat upper endoscopy (date not yet determined) for surveillance. - Return to primary care physician in 1 week. Procedure Code(s): --- Professional --- 55705, Esophagogastroduodenoscopy, flexible, transoral; diagnostic, including collection of specimen(s) by brushing or washing, when performed (separate procedure) Diagnosis Code(s): --- Professional --- D62, Acute posthemorrhagic anemia CPT copyright 2017 [employer]. All rights reserved. The codes documented in this report are preliminary and upon accounts supervisor review may be revised to meet current compliance requirements. MD Bhargav Lyons MD 01/21/2018 12:41:04 PM This report has been signed electronically. Number of Addenda: 0 Note Initiated On: 01/21/2018 11:46 AM
--- NOTE | 2018-01-21 12:45 | OP.ENDO_ITS ---
Patient Name: Emy Leon Procedure Date: 01/21/2018 12:07 PM Date of : 1950 Age: 67 Procedure: Colonoscopy Indications: Family history of colon cancer in a first-degree relative, Heme positive stool, Acute post hemorrhagic anemia Providers: Bhargav Spring MD Referring MD: Jignesh Miranda Medicines: See the Anesthesia note for documentation of the administered medications Patient Profile: This is a 67 year old female. Refer to note in patient chart for documentation of history and physical. Last Colonoscopy: none. The patient's first colonoscopy is today. Complications: No immediate complications. Procedure: Pre-Anesthesia Assessment: - Prior to the procedure, a History and Physical was performed, and patient medications and allergies were reviewed. The patient's tolerance of previous anesthesia was also reviewed. The risks and benefits of the procedure and the sedation options and risks were discussed with the patient. All questions were answered, and informed consent was obtained. Prior Anticoagulants: The patient has taken no previous anticoagulant or antiplatelet agents. ASA Grade Assessment: III - A patient with severe systemic disease. After reviewing the risks and benefits, the patient was deemed in satisfactory condition to undergo the procedure. After I obtained informed consent, the scope was passed under direct vision. Throughout the procedure, the patient's blood pressure, pulse, and oxygen saturations were monitored continuously. The colonoscope was introduced through the anus and advanced to the cecum, identified by appendiceal orifice and ileocecal valve. The colonoscopy was performed with moderate difficulty due to significant looping. Successful completion of the procedure was aided by using manual pressure. The patient tolerated the procedure well. The quality of the bowel preparation was fair. Scope In: 12:09:06 PM Scope Withdrawal Time 0 hours 6 minutes 4 seconds Scope Out: 12:28:04 PM Total Procedure Duration Time 0 hours 18 minutes 58 seconds Findings: Multiple small-mouthed diverticula were found in the sigmoid colon. The exam was otherwise without abnormality. The perianal exam findings include a decubitus ulceration. Impression: - Preparation of the colon was fair. - Diverticulosis in the sigmoid colon. - The examination was otherwise normal. - Decubitus ulceration found on perianal exam. - No specimens collected. Recommendation: - [facility] patient to [facility] for [facility] care. - Full liquid diet. - Continue present medications. - Repeat colonoscopy in 5 years for surveillance. - Return to primary care physician in 1 week. Procedure Code(s): --- Professional --- 63730, Colonoscopy, flexible; diagnostic, including collection of specimen(s) by brushing or washing, when performed (separate procedure) Diagnosis Code(s): --- Professional --- L89.899, Pressure ulcer of other site, unspecified stage Z80.0, Family history of malignant neoplasm of digestive organs R19.5, Other fecal abnormalities D62, Acute posthemorrhagic anemia K57.30, Diverticulosis of large intestine without perforation or abscess without bleeding CPT copyright 2017 [employer] [place] [employer]. All rights reserved. The codes documented in this report are preliminary and upon survey engineer review may be revised to meet current compliance requirements. MD Bhargav Lyons MD 01/21/2018 12:45:09 PM This report has been signed electronically. Number of Addenda: 0 Note Initiated On: 01/21/2018 12:07 PM
--- NOTE | 2018-01-21 13:25 | PCM.TXEXTCAR ---
- Diet 01/21/18 13:24 Diet: Carbohydrate Controlled Is pt able to select menu?: No - Routine Orders/Code Status Change Delgadillo Catheter: maintain delgadillo cath., voiding trial in 2 days. Routine Lab Work: CBC, BMP Code Status: Full Code - Wound(s) Reema area Wound Type: excoriation Right knee Wound Type: Abrasion Left knee Wound Type: Abrasion Left outer ankle Wound Type: Abrasion rt lateral ankle Wound Type: Abrasion coccyx Wound Type: Pressure Injury - Suggestions for Active Care Change Position every (hours): 3 Hours to sit in a chair: 2 Times a day to sit in chair: 3 - Therapies Weight Bearing: Weight bearing as tolerated Physical Therapy: Eval and Treat Occupational Therapy: Eval and Treat - Allergies/Procedures Done in Hospital Allergies/Adverse Reactions: Allergies Penicillins Allergy (Verified 01/13/18 15:38) Rash - Type of Care/Length of Stay Estimated LOS: Convalescent Care Less Than 30 days Type of Care Needed: Skilled Rehab Potential: Good Prognosis: Good - Additional Orders/Day of Discharge Additional Orders: Keep Delgadillo catheter in, continue Flomax, voiding trial in 2 days. H&P will serve as current which was dated: 01/13/18 Day of Discharge: 01/21/18 - Dietary and Speech Recommendations Dietitian Recommendations/Changes: Will continue to provide Glucerna Shake w/ medpass and w/ meals for increased nutrition, if consumed. Continue w/ CHO controlled diet. - Follow Up Care Primary Care Physician: Care Physician,No Primary [Primary Care Provider] - Please follow up with your Primary Care Physician in: 1 week. Please Follow Up With: Cindi Mcpherson MD When: 1-2 weeks. Please Follow Up With: Yuly Garcia MD When: please call her office.
[2018-01-21 13:26] LABS: Bedside Glucose 185 mg/dL (70-110)
[2018-01-21] MEDS: Insulin Lispro 100 UNIT/ML INSULN.PEN SC (13:30)
[2018-01-21] MEDS: Pantoprazole Sodium 40 MG Tablet PO (13:31)
--- NOTE | 2018-01-21 13:40 | DS.PCM_ITS ---
Discharge Date and Diagnosis - Problem List Patient Problems: Active and Suspected Problems Hydronephrosis (Acute) Urinary tract infection (Acute) Anemia (Acute) Date of Admission: 01/13/18 Date of Discharge: 01/21/18 - Primary Discharge Diagnosis Active and Suspected Problems #1 septic/hypovolemic shock. #2 diabetic ketoacidosis. #3 newly diagnosed type 2 diabetes mellitus. #4 Klebsiella pneumonia/Streptococcus agalactiae acute cystitis. #5 acute kidney injury. #6 normocytic anemia without evidence of acute blood loss. #7 leukocytosis/thrombocytopenia. #8 elevated LFT. #9 metabolic encephalopathy. Hospital Course and Treatment Imaging Results: Clinical Impression(s) from Imaging Studies Brain CT 01/13/18 16:13 IMPRESSION: Normal unenhanced CT scan of the brain. Electronically Signed: Jamison Munguia MD at 17:33 EDT , Service support , Chest X-Ray 01/13/18 16:15 IMPRESSION: Right IJ catheter as above. No pneumothorax. Electronically Signed: Jamison Munguia MD at 16:23 EDT , Service support , Renal Ultrasound 01/13/18 17:18 IMPRESSION: Normal ultrasound of the kidneys and urinary bladder. Electronically Signed: Jamison Munguia MD at 20:48 EDT , Service support , Liver Ultrasound 01/13/18 21:45 IMPRESSION: Small right pleural effusion and ascites otherwise no acute disease Electronically Signed: Jamison Munguia MD at 23:07 EDT , Service support , Abdomen/Pelvis CT 01/18/18 16:41 IMPRESSION: Limited examination due to lack of intravenous and oral contrast and motion. Bilateral kidney collecting system appear prominent, possible calyectasis or minimal hydronephrosis, the ureters are not sufficiently visualized. There are no obstructing renal calculi or ureteral calculi in the expected locations of the ureters. There is a tiny left inferior renal pole calculus. Both kidneys left greater than right appear enlarged, possible mildly edematous. Mild ascites and anasarca. Moderate bilateral pleural effusions with compression of adjacent parenchyma, November. Indeterminate low-attenuation right hepatic lobe and posterior spleen. Gallbladder is poorly visualized. Few colonic diverticula, the remainder of the colon is insufficiently detail. There is no small bowel obstruction. Appendix is not sufficiently detailed. Other nonacute findings as outlined above. Electronically Signed: Carol Khan MD at 7:27 EDT , Service support , Consultations 01/13/18 17:34 Consult: Onc/Wound/senior information security consultant Routine Comment: Reason for Consult:: knee and mavis area wounds on admit Dr. Stauffer, critical care. Dr. Spring, general surgery. , hematology. Dr. Garcia, urology. Operations: None Procedures: Blood transfusion, Colonoscopy, EGD, EKG Summary of Care Provided: Patient seen and examined on the day of discharge and appeared to be stable to be discharged to TCU. She has no specific complaints. All over, she is feeling better. She underwent upper EGD and colonoscopy that was unremarkable without evidence of acute GI bleed. Her vital signs were stable. This is a 67 years old female patient presented to the medicine because of lethargy and altered mental status, found to have diabetic ketoacidosis, hypovolemic and septic shock, acute cystitis, acute kidney injury, newly diagnosed type 2 diabetes mellitus, elevated LFT and thrombocytopenia. #1 hypovolemic/septic shock: Attributed to DKA and acute cystitis respectively. Patient initially was managed in the ICU with IV fluids and vasopressors as well as IV antibiotics. With above-mentioned treatment, her vital signs have stabilized and she was transferred to [facility] floor. She completed 6 days of IV cefepime and upon discharge, no antibiotic prescribed with because she received enough duration of antibiotic. Her blood culture revealed no growth in 5 days. Urine culture revealed Klebsiella pneumoniae and Streptococcus agalactiae. #2 diabetic ketoacidosis: Without prior known history of diabetes. She was treated with DKA protocol in the ICU and subsequently, she was started on H umalog insulin twice daily, pre-meal Humalog as well as insulin sliding scale. Her blood sugar stabilized. Her hemoglobin A1c was highly elevated. Patient was discharged on Humalog insulin units twice daily, pre-meal Humalog 10 units 3 times daily as well as insulin sliding scale. Recommended to check blood sugar before meals at bedtime, follow-up with PCP in 1 week. #3 newly diagnosed type 2 diabetes mellitus: Hemoglobin A1c was 13.5. This is new diagnosis. She was started on insulin as mentioned above. #4 Klebsiella pneumonia/Streptococcus agalactiae acute cystitis: Treated with IV cefepime. Urine culture revealed Klebsiella pneumonia and Streptococcus agalactiae. Blood culture showed no growth in [address] scan abdomen and pelvis revealed prominent collecting system of both kidneys, questionable minimal hydronephrosis, no stones. Urology consulted, recommended no interventions of the prominent collecting system of both kidneys and are of no concern, recommended to repeat ultrasound in 3 months. Patient discharged to TCU without antibiotics, she completed 6 days of IV cefepime. Voiding trial failed and Miranda catheter put back, started on Flomax, recommended voiding trial in 2 days and follow-up with urology as outpatient. #5 acute kidney injury: Attributed to acute tubular necrosis secondary to hypovolemic shock and DKA as well as septic shock. Treated with IV fluids and her kidney function improved. Admission creatinine was 3.04 and upon discharge, creatinine came down to 1.59 mg/dL. Ultrasound of the kidneys were normal. #6 normocytic anemia: Without evidence of acute blood loss. Hemoglobin came down to 7.5 g/dL, she received 1 unit of packed RBCs and hemoglobin went up to 9.6 g/dL. Stool was positive for occult blood. General surgery consulted and upper EGD and colonoscopy performed and both were unremarkable for GI bleed, masses or inflammation. Upon discharge, hemoglobin was 9.6 g/dL. Order given to repeat CBC in 5 days. #7 Metabolic encephalopathy: Resolved. #8 elevated LFT: Likely due to hypovolemic/septic shock leading to hypoperfusion. Liver transaminases and alkaline phosphatase trending down with treatment. Ultrasound liver revealed normal liver size, normal bile ducts, normal gallbladder, no gallstones, no periprostatic fluids and normal CBD diameter. #9 thrombocytopenia: Unclear etiology. Resolved. Because she has significant leukocytosis and thrombocytopenia on admission, hematology consult and recommended hepatitis panel. Hepatitis B core antigen and core antibodies as well as hepatitis C antibodies were negative. Immunoglobulin performed and reviewed. She received 1 unit of platelet pheresis. Her platelet count recovered to normal. Patient discharged to TCU in a stable medical condition, discharged on Humalog units twice daily, pre-meal Humalog 10 units 3 times daily as well as sliding scale, discharged on aspirin, Protonix and Flomax for urinary retention, Miranda catheter kept in, order given to repeat CBC and CMP in 5 days, recommended voiding trial in 2 days, plan to follow-up with PCP in 1 week, follow-up with hematology in 1-2 weeks and follow-up with urology according to Dr. Garcia recommendations. This note was generated with [employer] dictation software. It may contain incorrect words, spelling, and punctuation that were not noted in checking the note before signing. Patient Problems: Active and Suspected Problems Hydronephrosis (Acute) Urinary tract infection (Acute) Anemia (Acute) - Physical Exam General: Alert, Oriented x3, Cooperative, No apparent distress HEENT: Atraumatic, PERRLA, EOMI, Normocephalic Oral: Moist Mucosa, No Gingival or Mucosal Lesions/ Ulcerations Neck: Supple, No JVD, Negative Carotid Bruits, Thyroid Normal Size and Texture Lungs: Clear to auscultation, No rhonchi, No wheeze, No rales, Diminished Cardiovascular: Regular rate, Regular Rhythm, Normal S1, Normal S2, PMI Normal Abdomen: Bowel Sounds Present, Soft, Non Tender, Non-Distended, No Hepato- splenomegaly Extremities: No clubbing, No cyanosis, No edema Skin: No rashes, No breakdown Lymphatic: No Cervical, Supraclavicular, or Inguinal Adenopathy Neurological: Cranial nerves II-XII grossly intact, Motor Exam 5/5 strength throughout Psych/Mental Status: Normal Affect, Appropriate Vital Signs Temp Pulse Resp BP Pulse Ox 97.8 F 107 H 16 134/74 H 99 01/21/18 13:11 01/21/18 13:11 01/21/18 13:11 01/21/18 13:11 01/21/18 13:11 Oxygen Flow Rate (L/min) 2 Oxygen Delivery Method Room Air Weight: 142 lb 13.753 oz Body Mass Index (BMI) 21.9 Finger Stick Blood Glucose 152 Intake and Output for Last 24 Hours 01/19/18 01/20/18 01/21/18 23:59 23:59 23:59 Intake Total 5357 / 5357 4913 / 4913 1528 / 1528 Output Total 5725 / 5725 3550 / 3550 1830 / 1830 Balance -368 / -368 1363 / 1363 -302 / -302 Microbiology Past 72 Hours 01/13/18 15:05 Blood Culture - Final Blood Culture (Wb) - No Site/Description Given No growth in 5 days. 01/13/18 16:45 Blood Culture - Final Blood Culture (Wb) - Line Draw No growth in 5 days. 01/18/18 17:50 Stool Occult Blood (RONIT) - Final Stool Laboratory Tests Past 24 Hrs 01/20/18 01/21/18 01/21/18 09:12 05:00 05:00 WBC 18.7 H RBC 3.40 L Hgb 9.6 L Hct 29.4 L MCV 86.5 MCH 28.2 MCHC 32.7 RDW 14.3 RDW Differential 44.3 H Plt Count 184 MPV 11.2 Immature Gran % (Auto) 0.500 Neut % (Auto) 92.2 H Lymph % (Auto) 2.1 L [place] % (Auto) 4.4 Eos % (Auto) 0.7 Baso % (Auto) 0.1 Absolute Neuts (auto) 17.2 H Absolute Lymphs (auto) 0.40 L Total Counted Not Reportable Differential Comment SCANNED PT INR APTT Sodium 147 H Potassium 4.1 Chloride 120 H Carbon Dioxide 16.0 L Anion Gap 11 BUN 54 H Creatinine 1.59 H Estim Creat Clear Calc 29.18 Est GFR (MDRD) Af Amer 42 L Est GFR (MDRD) Non-Af 35 L BUN/Creatinine Ratio 34.0 H Glucose 152 H Calcium 7.2 L Total Bilirubin 0.50 Direct Bilirubin 0.16 AST 28 ALT 60 H Alkaline Phosphatase 364 H Total Protein 4.6 L Albumin 1.3 L Globulin 3.3 Crossmatch See Detail 01/21/18 05:00 WBC RBC Hgb Hct MCV MCH MCHC RDW RDW Differential Plt Count MPV Immature Gran % (Auto) Neut % (Auto) Lymph % (Auto) [place] % (Auto) Eos % (Auto) Baso % (Auto) Absolute Neuts (auto) Absolute Lymphs (auto) Total Counted Differential Comment PT 14.7 INR 1.2 APTT 30.1 Sodium Potassium Chloride Carbon Dioxide Anion Gap BUN Creatinine Estim Creat Clear Calc Est GFR (MDRD) Af Amer Est GFR (MDRD) Non-Af BUN/Creatinine Ratio Glucose Calcium Total Bilirubin Direct Bilirubin AST ALT Alkaline Phosphatase Total Protein Albumin Globulin Crossmatch POC Glucose 01/21/18 01/21/18 01/21/18 13:20 05:44 01:10 POC Glucose 185 H 152 H 160 H 01/20/18 01/20/18 21:47 16:54 POC Glucose 77 88 Home Medications: Medications to take at Discharge Aspirin [Aspirin, Baby] 81 mg PO DAILY@0800 01/13/18 Fish Oil/Dha/Epa [Fish Oil 1,200 mg Fish Oil] 2 each PO DAILY 01/13/18 Lactobacillus Combination No.4 [Probiotic] 1 each PO DAILY 01/13/18 Multivitamin [Daily Multiple Vitamin] 1 tab PO DAILY 01/13/18 Vit A/C/E/Zinc/Selenium/Copper [Vision Formula Tablet] 1 each PO DAILY 01/13/18 Insulin Human 75/25 [Humalog Mix 75-25 Kwikpen] 30 unit SC BIDAC #1 insuln.pen 01/21/18 Insulin Lispro [Humalog KwikPen] 10 unit SC TIDAC #1 insuln.pen 01/21/18 Insulin Lispro [Humalog KwikPen] See Protocol SC ACHS #1 insuln.pen 01/21/18 Pantoprazole Sodium [Protonix] 40 mg PO DAILY #30 tab 01/21/18 Tamsulosin HCl [Flomax] 0.4 mg PO DAILY@1730 #30 cap 01/21/18 Following Prescrptions Were Given to Patient: Insulin Human 75/25 [Humalog Mix 75-25 Kwikpen] 30 unit SC BIDAC #1 insuln.pen Insulin Lispro [Humalog KwikPen] 10 unit SC TIDAC #1 insuln.pen Insulin Lispro [Humalog KwikPen] See Protocol SC ACHS #1 insuln.pen Pantoprazole Sodium [Protonix] 40 mg PO DAILY #30 tab Tamsulosin HCl [Flomax] 0.4 mg PO DAILY@1730 #30 cap Other Amb Orders: CBC W/Diff, Automated Time Frame: 01/26/18, Location: Laboratory Comprehensive Metabolic Profil Time Frame: 01/26/18, Location: Laboratory Primary Care Physician: Care Physician,No Primary [Primary Care Provider] - Please follow up with your Primary Care Physician in: 1 week. Please Follow Up With: Cindi Mcpherson MD When: 1-2 weeks. Please Follow Up With: Yuly Garcia MD When: please call her office. Medical Necessity - Tobacco Use Smoking Status: Never smoker Tobacco Use: Non-smoker Meaningful Use Info Meaningful Use Diagnoses (Choose all that apply): None applicable Code Visit Inpatient E&M: 22744 Disch Hosp
--- NOTE | 2018-01-21 14:17 | CASEMGMT ---
Addendum entered by Jen Sampson 01/21/18 14:25: SW faxed orders to TCU, spoke w/pt, son and , they are in agreement w/pt going to TCU today. No further needs anticipated. KEN Henderson, [employer] Original Note: Pt is discharged and can go to TCU today. HANS left message for Shara letting her know pt will go to TCU today. No further needs anticipated. KEN Henderson, [employer]
== END 2018-01-21 14:50 | disposition skilled nursing facility (03) | DRG 871 ==
LOC: ICU 01-15 14:56 → MS2 01-15 17:24
PROVIDERS: Anesthesiology; Internal Medicine Critical Care Medicine; Internal Medicine Hematology & Oncology; Nurse Practitioner Family; Student in an Organized Health Care Education/Training Program; Surgery; Admitting Provider Family Medicine; Referring Provider Family Medicine; Visit Provider Hospitalist
PROC: 0DJD8ZZ Inspection of Lower Intestinal Tract, Via Natural or Artificial Opening Endoscopic (ICD-10-PCS; CPT 45378; principal; 2018-01-21 12:55)
DX: A41.9 Sepsis, unspecified organism (principal); G93.41 Metabolic encephalopathy; E11.10 Type 2 diabetes mellitus with ketoacidosis without coma; R57.1 Hypovolemic shock; R65.21 Severe sepsis with septic shock; N17.0 Acute kidney failure with tubular necrosis; E87.1 Hypo-osmolality and hyponatremia; N30.00 Acute cystitis without hematuria; D69.6 Thrombocytopenia, unspecified; D64.9 Anemia, unspecified; Z23 Encounter for immunization; B96.1 Klebsiella pneumoniae [K. pneumoniae] as the cause of diseases classified elsewhere; B95.1 Streptococcus, group B, as the cause of diseases classified elsewhere; D72.829 Elevated white blood cell count, unspecified; K57.30 Diverticulosis of large intestine without perforation or abscess without bleeding; R79.89 Other specified abnormal findings of blood chemistry
CPT/HCPCS: 36415; 36600; 70450; 71045; 74176; 76705; 76770; 80048; 80053; 80076; 81001; 82009; 82274; 82570; 82607; 82728; 82746; 82784; 82803; 82947; 82962; 82977; 83010; 83036; 83550; 83605; 83615; 83735; 83930; 84100; 84165; 84300; 84436; 84439; 84443; 84481; 85025; 85027; 85045; 85049; 85610; 85730; 86334; 86704; 86705; 86706; 86708; 86709; 86803; 86850; 86900; 86920; 86922; 86965; 87040; 87077; 87086; 87088; 87186; 87340; 87493; 87506; 87641; 92526; 97110; 97162; 97165; 97530; 97535; 97802; J7030; J7040; J7050; J7120; P9016; P9035; 90686; A4216; C1751; J1610; J3490; J7799

== ENCOUNTER 2018-01-21 15:20 | Inpatient (IN) | payer MEDICARE, OTHER, SELFPAY ==
[2018-01-21 16:00] VITALS: BP 112/53; PULSE 113; RESP 20; TEMP 36.1; O2SAT 98; BMI 26.2
[2018-01-21 16:28] VITALS: BMI 26.2
[2018-01-21 17:06] LABS: Bedside Glucose 187 mg/dL (70-110)
[2018-01-21] MEDS: Tamsulosin HCl 0.4 MG Capsule PO (18:18)
[2018-01-21] MEDS: Insulin Lispro 100 UNIT/ML INSULN.PEN 10 UNIT SC (18:19)
[2018-01-21] MEDS: Insulin Human 75/25 Kwickpen 30 UNIT SC (18:20)
--- NOTE | 2018-01-21 20:42 | PCM.HP.STD ---
Problem List (1) Lethargy Status: Acute (2) Change in mental status Status: Acute (3) Debility Status: Acute (4) Hydronephrosis Status: Acute (5) Urinary tract infection Status: Acute (6) Anemia Status: Acute (7) Encephalopathy Status: Acute (8) Thrombocytopenia Status: Acute (9) Elevated LFTs Status: Acute (10) Acute kidney injury Status: Acute (11) Septic shock Status: Acute (12) Newly diagnosed type 2 diabetes mellitus Status: Acute (13) Diabetic ketoacidosis Status: Acute History of Present Illness Date of Admission: 01/21/18 Chief Complaint: Here for rehabilitation, strengthening, prior to discharge home with spouse. The patient is a 67 year old Female with below past medical history admitted to [facility] 01/13/2018 from [facility] with lethargy, change in mental status. Losing weight x few months. Sodium 114, K 3.1, Bicarb 20, Cr 2.78, Glucose 903. Chest X-ray negative, UA showed acetone, consistent UTI. IV Fluids, IV potassium, IV Ceftriaxone given. Admit to ICU. Normal saline IV, insulin drip, Blood, urine cultures for DKA, sepsis. IV fluids, pressors for septic shock. IV Cefepime for UTI. Liver shock. 01/13/2018 CT brain normal. 01/13/2018 Renal ultrasound normal. 01/13/2018 Liver ultrasound showed small right pleural effusion, ascites. EGD/colonoscopy negative. Blood cultures negative. Urine cultures grew K. Pneumoniae, S. Agalactiae treated with IV Cefepime. Sugars stabilized with insulin. Urinary tract prominent, Dr. Garcia recommended no surgical intervention. Failed voiding trial, Tamsulosin started, indwelling delgadillo catheter inserted. Acute kidney injury responded to IV fluid resuscitation. 01/21/2018 Admit to TCU with debility, here for rehabilitation, strengthening, prior to discharge home with spouse. Past Medical History Allergies Penicillins Allergy (Verified 01/13/18 15:38) Rash Home Medications: Ambulatory Orders Medication Instructions Recorded Aspirin [Aspirin, Baby] 81 mg PO DAILY@0800 01/13/18 Fish Oil/Dha/Epa [Fish Oil 1,200 2 each PO DAILY 01/13/18 mg Fish Oil] Lactobacillus Combination No.4 1 each PO DAILY 01/13/18 [Probiotic] Multivitamin [Daily Multiple 1 tab PO DAILY 01/13/18 Vitamin] Vit A/C/E/Zinc/Selenium/Copper 1 each PO DAILY 01/13/18 [Vision Formula Tablet] Insulin Human 75/25 [Humalog Mix 30 unit SC BIDAC 01/21/18 75-25 Kwikpen] Insulin Lispro [Humalog KwikPen] 10 unit SC TIDAC 01/21/18 Insulin Lispro [Humalog KwikPen] See Protocol SC ACHS 01/21/18 Pantoprazole Sodium [Protonix] 40 mg PO DAILY 01/21/18 Tamsulosin HCl [Flomax] 0.4 mg PO DAILY@1730 01/21/18 Surgical History: no surgical history Psychiatric History: No pertinent psych hx QUALITY CONTROL History: No pertinent QUALITY CONTROL history Lives: Spouse/ Significant Other Smoking Status: Never smoker Tobacco Use: Non-smoker Alcohol: Occasional Drugs: None - *Family History Maternal History Items: No pertinent history Paternal History Items: No pertinent history Review of Systems Constitutional: Reports: Malaise, Weakness, Fatigue. Denies: Chills, Fever, Weight Change HEENT: Denies: Head Aches, Sinus Congestion, Sinus Drainage Cardiovascular: Denies: Chest Pain, Palpitations Respiratory: Denies: Cough, Shortness of breath at rest, Sputum production Gastrointestinal: Denies: Abdominal Pain, Nausea, Vomiting Genitourinary: Denies: Dysuria Musculoskeletal: Denies: Joint Pain, Joint Tenderness Skin: Denies: Rash, Wounds Neurological: Denies: Numbness, Tingling, Focal weakness Psychiatric: Denies: Anxiety, Depression, Homicidal Ideations, Suicidal Ideations Hematologic/ Lymphatic: Denies: Easy Bruising, Easy Bleeding VTE Information - Inpt Only VTE Present on Admission: No VTE Mechan Device Prophylaxis: Knee High MICHELL Hose VTE Pharm Prophylaxis ordered?: Yes Patient Problems: Active and Suspected Problems Lethargy (Acute) Change in mental status (Acute) Debility (Acute) - Physical Exam General: Alert, Oriented x3, Cooperative HEENT: Atraumatic, PERRLA, EOMI, Normocephalic Neck: Supple, No JVD, Negative Carotid Bruits Lungs: Clear to auscultation, Normal air movement Cardiovascular: Regular rate, No murmurs Abdomen: Bowel Sounds Present, Soft, Non Tender Extremities: No edema, Capillary Refill Less than 3 Seconds Skin: No rashes, No breakdown Musculoskeletal: No Tenderness to Palpation of Joints or Extremities Neurological: Cranial nerves II-XII grossly intact Psych/Mental Status: Normal Affect, Appropriate Vital Signs Temp Pulse Resp BP Pulse Ox 97.0 F L 113 H 20 H 112/53 L 98 01/21/18 16:00 01/21/18 16:00 01/21/18 16:00 01/21/18 16:00 01/21/18 16:00 Oxygen Delivery Method Room Air Weight: 64.9 kg Body Mass Index (BMI) 26.2 Finger Stick Blood Glucose 152 POC Glucose 01/21/18 16:55 POC Glucose 187 H Assessment/Plan All Active Problems Hydronephrosis (Acute) Urinary tract infection (Acute) Anemia (Acute) Lethargy (Acute) Change in mental status (Acute) Debility (Acute) Encephalopathy (Acute) Thrombocytopenia (Acute) Elevated LFTs (Acute) Acute kidney injury (Acute) Septic shock (Acute) Newly diagnosed type 2 diabetes mellitus (Acute) Diabetic ketoacidosis (Acute) 67 year old female with below past medical history significant for new onset Type 2 Diabetes Mellitus, hospitalized for diabetic ketoacidosis, complicated by septic shock, urinary tract infection, acute kidney injury, anemia, admitted to TCU with debility, here for rehabilitation, strengthening, prior to discharge home with spouse. Debility - PT/OT. Pain - Tylenol 1000MG Q8H PRN mild pain. Bowel - Miralax 17GM daily, Senna/colace 2 tablets BID PRN, Dulcolax 10MG PO daily PRN. Pneumonia vaccination - Administer Prevnar 13 and/or Pneumovax 23 as necessary. DVT prophylaxis - Lovenox 30MG SC daily. CV prophylaxis - Aspirin 81MG daily. Diabetes Mellitus II - Lantus 30 units BIDAC, Humalog 10 units TIDAC, Check urine micro. Hyperlipidemia - Consider high intensity statin Atorvastatin 40MG QHS. GI prophylaxis - Lactobacillus 1 tablet daily. Skin irritation - Calmoseptine BID. Nutrition - MVI daily, MVI (Healthy Eyes) daily. GERD - Pantoprazole 40MG daily. Urinary retention - Tamsulosin 0.4MG daily, delgadillo removal per protocol.
--- NOTE | 2018-01-21 20:48 | HP.PCM_ITS ---
Problem List (1) Lethargy Status: Acute (2) Change in mental status Status: Acute (3) Debility Status: Acute (4) Hydronephrosis Status: Acute (5) Urinary tract infection Status: Acute (6) Anemia Status: Acute (7) Encephalopathy Status: Acute (8) Thrombocytopenia Status: Acute (9) Elevated LFTs Status: Acute (10) Acute kidney injury Status: Acute (11) Septic shock Status: Acute (12) Newly diagnosed type 2 diabetes mellitus Status: Acute (13) Diabetic ketoacidosis Status: Acute History of Present Illness Date of Admission: 01/21/18 Chief Complaint: Here for rehabilitation, strengthening, prior to discharge home with spouse. The patient is a 67 year old Female with below past medical history admitted to [facility] 01/13/2018 from [facility] with lethargy, change in mental status. Losing weight x few months. Sodium 114, K 3.1, Bicarb 20, Cr 2.78, Glucose 903. Chest X-ray negative, UA showed acetone, consistent UTI. IV Fluids, IV potassium, IV Ceftriaxone given. Admit to ICU. Normal saline IV, insulin drip, Blood, urine cultures for DKA, sepsis. IV fluids, pressors for septic shock. IV Cefepime for UTI. Liver shock. 01/13/2018 CT brain normal. 01/13/2018 Renal ultrasound normal. 01/13/2018 Liver ultrasound showed small right pleural effusion, ascites. EGD/colonoscopy negative. Blood cultures negative. Urine cultures grew K. Pneumoniae, S. Agalactiae treated with IV Cefepime. Sugars stabilized with insulin. Urinary tract prominent, Dr. Garcia recommended no surgical intervention. Failed voiding trial, Tamsulosin started, indwelling delgadillo catheter inserted. Acute kidney injury responded to IV fluid resuscitation. 01/21/2018 Admit to TCU with debility, here for rehabilitation, strengthening, prior to discharge home with spouse. Past Medical History Allergies Penicillins Allergy (Verified 01/13/18 15:38) Rash Home Medications: Ambulatory Orders Medication Instructions Recorded Aspirin [Aspirin, Baby] 81 mg PO DAILY@0800 01/13/18 Fish Oil/Dha/Epa [Fish Oil 1,200 2 each PO DAILY 01/13/18 mg Fish Oil] Lactobacillus Combination No.4 1 each PO DAILY 01/13/18 [Probiotic] Multivitamin [Daily Multiple 1 tab PO DAILY 01/13/18 Vitamin] Vit A/C/E/Zinc/Selenium/Copper 1 each PO DAILY 01/13/18 [Vision Formula Tablet] Insulin Human 75/25 [Humalog Mix 30 unit SC BIDAC 01/21/18 75-25 Kwikpen] Insulin Lispro [Humalog KwikPen] 10 unit SC TIDAC 01/21/18 Insulin Lispro [Humalog KwikPen] See Protocol SC ACHS 01/21/18 Pantoprazole Sodium [Protonix] 40 mg PO DAILY 01/21/18 Tamsulosin HCl [Flomax] 0.4 mg PO DAILY@1730 01/21/18 Surgical History: no surgical history Psychiatric History: No pertinent psych hx TERMINAL OPERATIONS MANAGER 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 Denies: Chills, Fever, Weight Change HEENT: Denies: Head Aches, Sinus Congestion, Sinus Drainage Cardiovascular: Denies: Chest Pain, Palpitations Respiratory: Denies: Cough, Shortness of breath at rest, Sputum production Gastrointestinal: Denies: Abdominal Pain, Nausea, Vomiting Genitourinary: Denies: Dysuria Musculoskeletal: Denies: Joint Pain, Joint Tenderness Skin: Denies: Rash, Wounds Neurological: Denies: Numbness, Tingling, Focal weakness Psychiatric: Denies: Anxiety, Depression, Homicidal Ideations, Suicidal Ideations Hematologic/ Lymphatic: Denies: Easy Bruising, Easy Bleeding VTE Information - Inpt Only VTE Present on Admission: No VTE Mechan Device Prophylaxis: Knee High MICHELL Hose VTE Pharm Prophylaxis ordered?: Yes Patient Problems: Active and Suspected Problems Lethargy (Acute) Change in mental status (Acute) Debility (Acute) - Physical Exam General: Alert, Oriented x3, Cooperative HEENT: Atraumatic, PERRLA, EOMI, Normocephalic Neck: Supple, No JVD, Negative Carotid Bruits Lungs: Clear to auscultation, Normal air movement Cardiovascular: Regular rate, No murmurs Abdomen: Bowel Sounds Present, Soft, Non Tender Extremities: No edema, Capillary Refill Less than 3 Seconds Skin: No rashes, No breakdown Musculoskeletal: No Tenderness to Palpation of Joints or Extremities Neurological: Cranial nerves II-XII grossly intact Psych/Mental Status: Normal Affect, Appropriate Vital Signs Temp Pulse Resp BP Pulse Ox 97.0 F L 113 H 20 H 112/53 L 98 01/21/18 16:00 01/21/18 16:00 01/21/18 16:00 01/21/18 16:00 01/21/18 16:00 Oxygen Delivery Method Room Air Weight: 64.9 kg Body Mass Index (BMI) 26.2 Finger Stick Blood Glucose 152 POC Glucose 01/21/18 16:55 POC Glucose 187 H Assessment/Plan All Active Problems Hydronephrosis (Acute) Urinary tract infection (Acute) Anemia (Acute) Lethargy (Acute) Change in mental status (Acute) Debility (Acute) Encephalopathy (Acute) Thrombocytopenia (Acute) Elevated LFTs (Acute) Acute kidney injury (Acute) Septic shock (Acute) Newly diagnosed type 2 diabetes mellitus (Acute) Diabetic ketoacidosis (Acute) 67 year old female with below past medical history significant for new onset Type 2 Diabetes Mellitus, hospitalized for diabetic ketoacidosis, complicated by septic shock, urinary tract infection, acute kidney injury, anemia, admitted to TCU with debility, here for rehabilitation, strengthening, prior to discharge home with spouse. * Debility - PT/OT. * Pain - Tylenol 1000MG Q8H PRN mild pain. * Bowel - Miralax 17GM daily, Senna/colace 2 tablets BID PRN, Dulcolax 10MG PO daily PRN. * Pneumonia vaccination - Administer Prevnar 13 and/or Pneumovax 23 as necessary. * DVT prophylaxis - Lovenox 30MG SC daily. * CV prophylaxis - Aspirin 81MG daily. * Diabetes Mellitus II - Lantus 30 units BIDAC, Humalog 10 units TIDAC, Check urine micro. * Hyperlipidemia - Consider high intensity statin Atorvastatin 40MG QHS. * GI prophylaxis - Lactobacillus 1 tablet daily. * Skin irritation - Calmoseptine BID. * Nutrition - MVI daily, MVI (Healthy Eyes) daily. * GERD - Pantoprazole 40MG daily. * Urinary retention - Tamsulosin 0.4MG daily, delgadillo removal per protocol.
[2018-01-21] MEDS: Menthol/Lanolin/Calamine/Znox 113 GM Tube 1 APPLIC TOPICAL (21:42)
[2018-01-21 21:46] LABS: Bedside Glucose 183 mg/dL (70-110)
[2018-01-22 05:48] LABS: Absolute Lymphocyte Count 0.65 X10^3/ul (0.83-4.51); Absolute Neutrophil Count 14.5 X10^3/uL (2.0-7.7); Basophil# 0.03 X10^3/uL; Basophil% 0.2 % (0-1); Eosinophils% 0.6 % (0-5); Hematocrit 29.7 % (37-47); Hemoglobin 9.7 g/dl (12.0-15.0); Lymphocyte # 0.65 X10^3/ul (4.0); Lymphocyte % 4.1 % (19-41); Mean Corp Hgb Conc 32.7 g/gl (32-36); Mean Corpuscular Hgb 28.6 pg (27.0-32.0); Mean Corpuscular Volume 87.6 fL (81-99); Mean Platelet Vol. 11.6 fl (6.2-12.0); Monocyte# 0.58 X10^3/uL; Monocyte% 3.6 % (0-10); Neutrophil # 14.51 X10^3/uL (2.7-7.7); Neutrophil % 90.9 % (47-70); POSITIVE COUNT NO; POSITIVE DIFFERENTIAL NO; POSITIVE MORPHOLOGY NO; Platelet Count 236 K/mm3 (150-450); RBC Distribution Width CV 14.7 % (11.6-14.6); RBC Distribution Width SD 44.1 fl (35.1-43.9); Red Blood Count 3.39 M/mm3 (4.2-5.4)
[2018-01-22 06:12] LABS: Anion Gap 9 (5-15); BUN 44 mg/dL (7-18); BUN/Creat Ratio 29.5 RATIO (10-20); Calcium,Total 7.3 mg/dL (8.5-10.1); Chloride 119 mmol/L (98-107); Creatinine, Serum 1.49 mg/dL (0.55-1.02); EST Glomerular Filtration Rate 37 mL/min (>60); Est Glom Filt Rate - Afr Amer 45 mL/min (>60); Estimated Creatinine Clearance 29.77 ml/min; Glucose 118 mg/dL (74-106); Potassium 3.7 mmol/L (3.5-5.1); Sodium Level 146 mmol/L (136-145)
[2018-01-22] MEDS: Pantoprazole Sodium 40 MG Tablet PO (06:50)
[2018-01-22] MEDS: Menthol/Lanolin/Calamine/Znox 113 GM Tube 1 APPLIC TOPICAL ×2 (06:50→21:10)
[2018-01-22] MEDS: Enoxaparin 30 MG/0.3 ML Syringe SC (06:52)
[2018-01-22 07:06] LABS: Bedside Glucose 118 mg/dL (70-110)
[2018-01-22] MEDS: Multivitamins,Therapeutic Tablet 1 TABLET PO (09:21)
[2018-01-22] MEDS: Aspirin 81 MG TAB.CHEW PO (09:21)
[2018-01-22 11:35] LABS: Bedside Glucose 223 mg/dL (70-110)
[2018-01-22] MEDS: Insulin Lispro 100 UNIT/ML INSULN.PEN 10 UNIT SC ×2 (11:58→17:28)
--- NOTE | 2018-01-22 13:09 | NURSING ---
Pt's blood sugar 118 this AM, per Dr. León, hold AM dose of humalog 30 units.
[2018-01-22] MEDS: Tuberculin,Purif.prot.deriv. 50 TU/ML Vial 5 ML ID (13:49)
[2018-01-22] MEDS: Glucerna Shake 120 ML LIQUID PO ×3 (13:50→21:10)
--- NOTE | 2018-01-22 13:57 | CHAPLAIN ---
Type of Pastoral Visit _x__ Initial Visit ___ Follow-up Visit ___ On-call Visit ___ General Patient Visit ___ Spiritual Assessment ___ Family Conference ___ Bereavement ___ Rapid Response ___ Code Blue ___ Other (describe below) Pastoral Care Referral From _x__ Patient ___ Family ___ Nurse ___ Physician ___ Internet Sales Associate ___ Appliance Installer ___ Other (describe below) Sacrament/Intervention _x__ Active listening ___ Anointing ___ Evangelical ___ Bereavement ___ Communion _x__ Gabriella exploration ___ _x__ Life review _x__ Prayer ___ Reconciliation ___ Sacrament of Sick ___ Supportive presence ___ Wedding ___ Other (describe below) Pastoral Comments spouse is with pt; pt says that she is tired; pt goal is described as getting through this; family moved to [place] five years ago; family attend [employer] [facility] [employer]; pt requests a prayer and would welcome future visits of spiritual support
[2018-01-22 17:11] LABS: Bedside Glucose 291 mg/dL (70-110)
[2018-01-22] MEDS: Tamsulosin HCl 0.4 MG Capsule PO (17:27)
[2018-01-22 21:46] LABS: Bedside Glucose 262 mg/dL (70-110)
[2018-01-23] MEDS: Polyethylene Glycol 3350 17 GM PACKET PO (06:12)
[2018-01-23] MEDS: Pantoprazole Sodium 40 MG Tablet PO (06:13)
[2018-01-23] MEDS: Glucerna Shake 120 ML LIQUID PO ×4 (06:13→20:45)
[2018-01-23] MEDS: Enoxaparin 30 MG/0.3 ML Syringe SC (06:13)
[2018-01-23] MEDS: Menthol/Lanolin/Calamine/Znox 113 GM Tube 1 APPLIC TOPICAL ×2 (06:14→20:45)
[2018-01-23 06:36] LABS: Bedside Glucose 237 mg/dL (70-110)
[2018-01-23] MEDS: Multivitamins,Therapeutic Tablet 1 TABLET PO (08:55)
[2018-01-23] MEDS: Aspirin 81 MG TAB.CHEW PO (08:55)
[2018-01-23] MEDS: Insulin Lispro 100 UNIT/ML INSULN.PEN 10 UNIT SC ×2 (08:56→12:07)
[2018-01-23 12:06] LABS: Bedside Glucose 318 mg/dL (70-110)
[2018-01-23 14:22] VITALS: PULSE 110; RESP 18; O2SAT 98
--- NOTE | 2018-01-23 14:50 | NURSING ---
REMOVED PT CRAWFORD AT 1445. PT ALSO LOWER AB IS DISTENDED AND FIRM. REPORTED TO RENEE BRAND
[2018-01-23 16:00] VITALS: BP 137/70; PULSE 113; RESP 16; TEMP 36.4; O2SAT 94
[2018-01-23 17:00] LABS: Bedside Glucose 344 mg/dL (70-110)
[2018-01-23] MEDS: Insulin Lispro 100 UNIT/ML INSULN.PEN 13 UNIT SC (17:16)
[2018-01-23] MEDS: Tamsulosin HCl 0.4 MG Capsule PO (17:17)
[2018-01-23 21:16] LABS: Bedside Glucose 371 mg/dL (70-110)
--- NOTE | 2018-01-23 22:20 | NURSING ---
Dr. León notified of patient's delgadillo being removed at 1445 and that she was bladder scanned for > 1000. Orders given to reinsert Delgaidllo
--- NOTE | 2018-01-23 22:44 | NURSING ---
Delgadillo catheter 18FR inserted at this time per Dr León. Pt tolerated procedure well. 1600cc of cloudy yellow urine drained into delgadillo catheter bag.
[2018-01-24] MEDS: Menthol/Lanolin/Calamine/Znox 113 GM Tube 1 APPLIC TOPICAL ×2 (05:06→21:12)
[2018-01-24] MEDS: Polyethylene Glycol 3350 17 GM PACKET PO (05:06)
[2018-01-24] MEDS: Nystatin Powder 15gm Bottle 1 APPLIC TOPICAL ×2 (05:08→16:59)
[2018-01-24] MEDS: Enoxaparin 30 MG/0.3 ML Syringe SC (05:08)
[2018-01-24] MEDS: Glucerna Shake 120 ML LIQUID PO ×4 (05:08→21:12)
[2018-01-24] MEDS: Pantoprazole Sodium 40 MG Tablet PO (05:09)
[2018-01-24 06:21] LABS: Bedside Glucose 188 mg/dL (70-110)
[2018-01-24 07:06] LABS: Bedside Glucose 191 mg/dL (70-110)
[2018-01-24] MEDS: Aspirin 81 MG TAB.CHEW PO (07:49)
[2018-01-24] MEDS: Multivitamins,Therapeutic Tablet 1 TABLET PO (07:49)
[2018-01-24] MEDS: Insulin Lispro 100 UNIT/ML INSULN.PEN 16 UNIT SC (07:52)
[2018-01-24 09:00] VITALS: RESP 16
[2018-01-24 11:55] LABS: Bedside Glucose 176 mg/dL (70-110)
[2018-01-24] MEDS: Insulin Lispro 100 UNIT/ML INSULN.PEN 13 UNIT SC ×2 (12:48→16:55)
[2018-01-24 16:00] VITALS: BP 133/61; PULSE 111; RESP 16; TEMP 37; O2SAT 95
[2018-01-24] MEDS: Tamsulosin HCl 0.4 MG Capsule PO (16:57)
[2018-01-24 17:05] LABS: Bedside Glucose 202 mg/dL (70-110)
[2018-01-24 21:21] LABS: Bedside Glucose 160 mg/dL (70-110)
[2018-01-24] MEDS: Acetaminophen 500 MG Tablet 1000 MG PO (23:27)
--- NOTE | 2018-01-25 03:00 | NURSING ---
Addendum entered by Charleen Zeng 01/25/18 08:08: Dr. León aware of cloudy urine with sediment as well as rash to groin area. New orders given. Original Note: Addendum entered by Tran Hughes 01/25/18 03:36: Delgadillo catheter DC'd at this time due to no urine flow. New Delgadillo catheter 18FR inserted with 1600cc of cloudy urine with much sediment returned. Pt tolerated procedure well and pt stating she is feeling relief of pressure. Will continue to monitor and assess. Original Note: Patient ringing for assistance at this time. Patient states Empty my catheter I am feeling pressure. Catheter bag with only 50 cc of cloudy urine at this time. Abdomen distended at this time. Patient c/o pain with little pressure applied. No kinks noted with delgadillo tubing. Patient bladder scanned for > 1000 at this time.
[2018-01-25] MEDS: Menthol/Lanolin/Calamine/Znox 113 GM Tube 1 APPLIC TOPICAL ×2 (05:33→19:51)
[2018-01-25] MEDS: Enoxaparin 30 MG/0.3 ML Syringe SC (05:34)
[2018-01-25] MEDS: Pantoprazole Sodium 40 MG Tablet PO (05:34)
[2018-01-25] MEDS: Nystatin Powder 15gm Bottle 1 APPLIC TOPICAL ×2 (05:34→17:25)
[2018-01-25 06:51] LABS: Bedside Glucose 86 mg/dL (70-110)
[2018-01-25 08:18] LABS: Mucous, Urine 0 SEEN /hpf (<or=2+)
[2018-01-25 08:30] LABS: Color, Urine Yellow (Yellow); Glucose, Dipstick 100 mg/dl (Normal); Ketone-Dipstick Negative (Negative); Leukocyte Esterase-Dipstick 500 /ul (Negative); Nitrite-Dipstick Negative (Negative); Occult Blood-Urine 150 /ul (Negative); Protein-Dipstick 30 mg/dl (Negative); Urine Bilirubin Dipstick Negative (Negative); Urine Clarity Clear (Clear); Urine Urobilinogen Normal (Normal)
[2018-01-25 08:36] LABS: Bacteria 1+ /hpf (None Seen); Red Blood Cells-Urine 0-5 SEEN /hpf (0-5); Squamous Epithelial Cells - UA 0-5 SEEN /hpf (5-10); White Blood Cells 10-25 SEEN /hpf (0-5)
[2018-01-25] MEDS: Multivitamins,Therapeutic Tablet 1 TABLET PO (09:03)
[2018-01-25] MEDS: Aspirin 81 MG TAB.CHEW PO (09:03)
[2018-01-25 10:00] VITALS: PULSE 96; RESP 16; O2SAT 94
[2018-01-25 11:15] LABS: Bedside Glucose 231 mg/dL (70-110)
[2018-01-25] MEDS: Insulin Lispro 100 UNIT/ML INSULN.PEN 10 UNIT SC ×2 (12:14→17:26)
[2018-01-25] MEDS: Glucerna Shake 120 ML LIQUID PO ×2 (12:16→17:25)
[2018-01-25] MEDS: Acetaminophen 500 MG Tablet 1000 MG PO ×2 (12:16→20:22)
[2018-01-25 16:00] VITALS: BP 143/74; PULSE 104; RESP 20; TEMP 36.3; O2SAT 97
--- NOTE | 2018-01-25 16:42 | NURSING ---
UA sent to lab, Dr bowman aware of results, started pt on cipro
[2018-01-25 16:50] LABS: Bedside Glucose 199 mg/dL (70-110)
[2018-01-25] MEDS: Ciprofloxacin 500 MG Tablet PO (17:25)
[2018-01-25] MEDS: Tamsulosin HCl 0.4 MG Capsule PO (17:25)
--- NOTE | 2018-01-25 18:36 | NURSING ---
Addendum entered by China Reno 01/25/18 19:01: This nurse along with Noemi RN irrigated Pt 16 fr delgadillo with 200cc sterile water. Pt noted to have thick, creamy white discharge in mavis area. Delgadillo irrigated 1700 ml of urine drained from delgadillo back. Pt urine yellow thick and cloudy. delgadillo draining to gravity at this time. Original Note: pt noted to have no UOP since 1433 in delgadillo. bladder scanned for >999. Dr León notified, new order to irrigate delgadillo w/500cc water.
[2018-01-25] MEDS: Ketoconazole Cream 1 APPLIC TOPICAL (19:50)
[2018-01-25 21:21] LABS: Bedside Glucose 192 mg/dL (70-110)
[2018-01-26] MEDS: Glucerna Shake 120 ML LIQUID PO ×4 (06:39→20:36)
[2018-01-26] MEDS: Polyethylene Glycol 3350 17 GM PACKET PO (06:39)
[2018-01-26] MEDS: Enoxaparin 30 MG/0.3 ML Syringe SC (06:40)
[2018-01-26] MEDS: Pantoprazole Sodium 40 MG Tablet PO (06:40)
[2018-01-26] MEDS: Ketoconazole Cream 1 APPLIC TOPICAL ×2 (06:43→20:36)
[2018-01-26] MEDS: Nystatin Powder 15gm Bottle 1 APPLIC TOPICAL ×2 (06:49→17:18)
[2018-01-26] MEDS: Menthol/Lanolin/Calamine/Znox 113 GM Tube 1 APPLIC TOPICAL ×2 (06:49→20:40)
[2018-01-26 06:56] LABS: Bedside Glucose 144 mg/dL (70-110)
[2018-01-26] MEDS: Aspirin 81 MG TAB.CHEW PO (09:02)
[2018-01-26] MEDS: Multivitamins,Therapeutic Tablet 1 TABLET PO (09:02)
[2018-01-26] MEDS: Insulin Lispro 100 UNIT/ML INSULN.PEN 10 UNIT SC ×3 (09:03→17:19)
[2018-01-26] MEDS: Acetaminophen 500 MG Tablet 1000 MG PO ×2 (09:10→18:14)
[2018-01-26 11:16] LABS: Bedside Glucose 282 mg/dL (70-110)
[2018-01-26] MEDS: Fluconazole 100 MG Tablet PO (12:13)
--- NOTE | 2018-01-26 14:29 | NURSING ---
Was asked to see patient for open areas to bilateral buttocks. unable to truly assess area d/t calmoseptine just being applied. do not want to remove all the calmoseptine d/t discomfort. the open areas appear to be a combination of friction and incontinence associated dermatitis. the open areas are not in an area that are able to be covered with a dressing. would continue current treatment of stoma powder and calmoseptine. pt is on a strict turn schedule as well. will continue to monitor.
--- NOTE | 2018-01-26 15:03 | PCM.PN.RX ---
<Gurpreet Horton D - Last Filed: 01/26/18 15:03> Progress Note - Pharmacy Subjective: TCU Admission Objective: Allergies Penicillins Allergy (Verified 01/13/18 15:38) Rash Current Medications Generic Name Dose Route Start Last Admin Trade Name Freq PRN Reason Stop Dose Admin Acetaminophen 1,000 mg 01/21/18 20:59 01/26/18 09:10 Tylenol PO 1,000 mg Q8H PRN PRN Administration MILD PAIN (1-10) Aspirin 81 mg 01/22/18 08:00 01/26/18 09:02 Aspirin, Baby PO 81 mg DAILY@0800 [facility] Administration Bisacodyl 10 mg 01/21/18 21:00 Dulcolax PO DAILY PRN Constipation Calamine/Phenol 1 applic 01/21/18 22:00 01/26/18 06:49 Calmoseptine Ointment TOPICAL 1 applicatio 0600,2200 [facility] Administration Protocol Cefdinir 300 mg 01/26/18 18:00 Omnicef [Equiv] PO 02/05/18 18:01 Q12 [facility] Enoxaparin Sodium 30 mg 01/22/18 06:00 01/26/18 06:40 Lovenox SC 30 mg DAILY@0600 [facility] Administration Fluconazole 100 mg 01/27/18 06:00 01/26/18 12:13 Diflucan PO 02/06/18 06:01 100 mg DAILY [facility] Administration Insulin Glargine 15 units 01/25/18 08:30 01/26/18 06:45 Lantus ([facility]) SC 15 units BID MENG Administration Insulin Human Lispro 10 unit 01/25/18 06:45 01/26/18 11:51 Humalog Kwikpen ([facility]) SC 10 units TIDAC [facility] Administration Ketoconazole 1 applic 01/25/18 22:00 01/26/18 06:43 Nizoral TOPICAL 1 applicatio 0600,2200 [facility] Administration Protocol Lactobacillus Acidophilus 1 tablet 01/22/18 06:00 01/26/18 06:40 Acidophilus PO 1 tablet DAILY [facility] Administration Multivitamins 1 tablet 01/22/18 08:00 01/26/18 09:02 Multivitamin PO 1 tablet DAILY@0800 [facility] Administration Multivitamins/Minerals 1 tablet 01/22/18 08:00 01/26/18 09:02 Healthy Eyes PO 1 tablet DAILYCM [facility] Administration Nutritional Formula (Lactose Free) 120 ml 01/22/18 12:00 01/26/18 11:50 Glucerna Shake PO 120 ml 4X/DAY [facility] Administration Nystatin 1 applic 01/24/18 06:00 01/26/18 06:49 Mycostatin Powder TOPICAL 1 applicatio BID [facility] Administration Protocol Pantoprazole Sodium 40 mg 01/22/18 06:00 01/26/18 06:40 Protonix PO 40 mg DAILY [facility] Administration Polyethylene Glycol 17 gm 01/22/18 06:00 01/26/18 06:39 Miralax PO 17 gm DAILY [facility] Administration Senna/Docusate Sodium 2 tablet 01/21/18 20:59 Senokot-S, Reema-Colace PO BID PRN PRN Constipation Tamsulosin HCl 0.4 mg 01/21/18 17:30 01/25/18 17:25 Flomax PO 0.4 mg DAILY@1730 [facility] Administration Tuberculin PPD 5 tu 01/29/18 10:00 Tubersol, Aplisol, Ppd ID 01/29/18 10:01 X1 ONE Problem List Lethargy (Acute) Change in mental status (Acute) Debility (Acute) Vital Signs Temp Pulse Resp BP Pulse Ox 97.3 F L 104 H 20 H 143/74 H 97 01/25/18 16:00 01/25/18 16:00 01/25/18 16:00 01/25/18 16:00 01/25/18 16:00 Oxygen Delivery Method Room Air Weight: 64.9 kg Body Mass Index (BMI) 26.2 Finger Stick Blood Glucose 152 Sodium 146 mmol/L (136-145) H 01/22/18 05:30 Potassium 3.7 mmol/L (3.5-5.1) 01/22/18 05:30 Chloride 119 mmol/L (98-107) H 01/22/18 05:30 Carbon Dioxide 18.0 mmol/L (21.0-32.0) L 01/22/18 05:30 Anion Gap 9 (5-15) 01/22/18 05:30 BUN 44 mg/dL (7-18) H 01/22/18 05:30 Creatinine 1.49 mg/dL (0.55-1.02) H 01/22/18 05:30 Est GFR (MDRD) Af Amer 45 mL/min (>60) L 01/22/18 05:30 Est GFR (MDRD) Non-Af 37 mL/min (>60) L 01/22/18 05:30 BUN/Creatinine Ratio 29.5 RATIO (10-20) H 01/22/18 05:30 Glucose 118 mg/dL (74-106) H 01/22/18 05:30 Assessment/Plan: 1) ID Amoxicillin and fluconazole. Continue to monitor s/s infection. 2) DM2 Insulin glargine twice daily, lispro with meals, ASA. Continue to monitor BGT, s/s hyper/hypoglycemia. 3) DVT PPx Enoxaparin daily. Continue to monitor s/s bleeding/clot. 4) Nutrition Glucerna, multivitamin. Continue to monitor clinically. 5) GI Pantoprazole, lactobacillus. Continue to monitor s/s GI distress. 6) BPH Tamsulosin at 1730. Continue to monitor for symptoms. Psychotropic Medications: None Unnecessary Medications: None Bowel Regimen: 7) Senna/s, PEG, prn bisacodyl. Continue to monitor prn medication use, for constipation/diarrhea. Date of Note:: 01/26/18 - Provider Comments Provider responsibility: Provider responsible to enter orders to implement recommendations <Juaquin León Chi - Last Filed: 01/26/18 17:21> Progress Note - Pharmacy Subjective: [] Objective: Allergies Penicillins Allergy (Verified 01/13/18 15:38) Rash Current Medications Generic Name Dose Route Start Last Admin Trade Name Freq PRN Reason Stop Dose Admin Acetaminophen 1,000 mg 01/21/18 20:59 01/26/18 09:10 Tylenol PO 1,000 mg Q8H PRN PRN Administration MILD PAIN (1-3/10) Amoxicillin 500 mg 01/26/18 18:00 Amoxil PO 02/05/18 06:01 BID MENG Aspirin 81 mg 01/22/18 08:00 01/26/18 09:02 Aspirin, Baby PO 81 mg DAILY@0800 [facility] Administration Bisacodyl 10 mg 01/21/18 21:00 Dulcolax PO DAILY PRN Constipation Calamine/Phenol 1 applic 01/21/18 22:00 01/26/18 06:49 Calmoseptine Ointment TOPICAL 1 applicatio 0600,2200 [facility] Administration Protocol Enoxaparin Sodium 30 mg 01/22/18 06:00 01/26/18 06:40 Lovenox SC 30 mg DAILY@0600 [facility] Administration Fluconazole 100 mg 01/27/18 06:00 01/26/18 12:13 Diflucan PO 02/06/18 06:01 100 mg DAILY [facility]ENG Administration Insulin Glargine 15 units 01/25/18 08:30 01/26/18 17:19 Lantus ([facility]) SC 15 units BID MENG Administration Insulin Human Lispro 10 unit 01/25/18 06:45 01/26/18 17:19 Humalog Kwikpen ([facility]) SC 10 units TIDAC [facility] Administration Ketoconazole 1 applic 01/25/18 22:00 01/26/18 06:43 Nizoral TOPICAL 1 applicatio 599,2199 [facility] Administration Protocol Lactobacillus Acidophilus 1 tablet 01/22/18 06:00 01/26/18 06:40 Acidophilus PO 1 tablet DAILY [facility] Administration Multivitamins 1 tablet 01/22/18 08:00 01/26/18 09:02 Multivitamin PO 1 tablet DAILY@0800 [facility] Administration Multivitamins/Minerals 1 tablet 01/22/18 08:00 01/26/18 09:02 Healthy Eyes PO 1 tablet DAILYCM [facility] Administration Nutritional Formula (Lactose Free) 120 ml 01/22/18 12:00 01/26/18 17:18 Glucerna Shake PO 120 ml 4X/DAY [facility] Administration Nystatin 1 applic 01/24/18 06:00 01/26/18 17:18 Mycostatin Powder TOPICAL 1 applicatio BID [facility] Administration Protocol Pantoprazole Sodium 40 mg 01/22/18 06:00 01/26/18 06:40 Protonix PO 40 mg DAILY [facility] Administration Polyethylene Glycol 17 gm 01/22/18 06:00 01/26/18 06:39 Miralax PO 17 gm DAILY [facility] Administration Senna/Docusate Sodium 2 tablet 01/21/18 20:59 Senokot-S, Reema-Colace PO BID PRN PRN Constipation Tamsulosin HCl 0.4 mg 01/21/18 17:30 01/26/18 17:18 Flomax PO 0.4 mg DAILY@1730 [facility] Administration Tuberculin PPD 5 tu 01/29/18 10:00 Tubersol, Aplisol, Ppd ID 01/29/18 10:01 X1 ONE Problem List Lethargy (Acute) Change in mental status (Acute) Debility (Acute) Vital Signs Temp Pulse Resp BP Pulse Ox 98.8 F 110 H 18 151/64 H 98 01/26/18 16:00 01/26/18 16:00 01/26/18 16:37 01/26/18 16:00 01/26/18 16:37 Oxygen Delivery Method Room Air Weight: 64.9 kg Body Mass Index (BMI) 26.2 Finger Stick Blood Glucose 152 Sodium 146 mmol/L (136-145) H 01/22/18 05:30 Potassium 3.7 mmol/L (3.5-5.1) 01/22/18 05:30 Chloride 119 mmol/L (98-107) H 01/22/18 05:30 Carbon Dioxide 18.0 mmol/L (21.0-32.0) L 01/22/18 05:30 Anion Gap 9 (5-15) 01/22/18 05:30 BUN 44 mg/dL (7-18) H 01/22/18 05:30 Creatinine 1.49 mg/dL (0.55-1.02) H 01/22/18 05:30 Est GFR (MDRD) Af Amer 45 mL/min (>60) L 01/22/18 05:30 Est GFR (MDRD) Non-Af 37 mL/min (>60) L 01/22/18 05:30 BUN/Creatinine Ratio 29.5 RATIO (10-20) H 01/22/18 05:30 Glucose 118 mg/dL (74-106) H 01/22/18 05:30 Assessment/Plan: Psychotropic Medications: Unnecessary Medications: Bowel Regimen: - Provider Comments Provider responsibility: Provider responsible to enter orders to implement recommendations Provider Comments to Recommendations by Pharmacy: Agree
--- NOTE | 2018-01-26 15:18 | PHA.CONS_ITS ---
<Gurpreet Horton D - Last Filed: 01/26/18 15:03> Progress Note - Pharmacy Subjective: TCU Admission Objective: Allergies Penicillins Allergy (Verified 01/13/18 15:38) Rash Current Medications Generic Name Dose Route Start Last Admin Trade Name Freq PRN Reason Stop Dose Admin Acetaminophen 1,000 mg 01/21/18 20:59 01/26/18 09:10 Tylenol PO 1,000 mg Q8H PRN PRN Administration MILD PAIN (1-10) Aspirin 81 mg 01/22/18 08:00 01/26/18 09:02 Aspirin, Baby PO 81 mg DAILY@0800 [facility] Administration Bisacodyl 10 mg 01/21/18 21:00 Dulcolax PO DAILY PRN Constipation Calamine/Phenol 1 applic 01/21/18 22:00 01/26/18 06:49 Calmoseptine Ointment TOPICAL 1 applicatio 0600,2200 [facility] Administration Protocol Cefdinir 300 mg 01/26/18 18:00 Omnicef [Equiv] PO 02/05/18 18:01 Q12 [facility] Enoxaparin Sodium 30 mg 01/22/18 06:00 01/26/18 06:40 Lovenox SC 30 mg DAILY@0600 [facility] Administration Fluconazole 100 mg 01/27/18 06:00 01/26/18 12:13 Diflucan PO 02/06/18 06:01 100 mg DAILY [facility]ENG Administration Insulin Glargine 15 units 01/25/18 08:30 01/26/18 06:45 Lantus ([facility]) SC 15 units BID MENG Administration Insulin Human Lispro 10 unit 01/25/18 06:45 01/26/18 11:51 Humalog Kwikpen ([facility]) SC 10 units TIDAC [facility] Administration Ketoconazole 1 applic 01/25/18 22:00 01/26/18 06:43 Nizoral TOPICAL 1 applicatio 0600,2200 [facility] Administration Protocol Lactobacillus Acidophilus 1 tablet 01/22/18 06:00 01/26/18 06:40 Acidophilus PO 1 tablet DAILY [facility] Administration Multivitamins 1 tablet 01/22/18 08:00 01/26/18 09:02 Multivitamin PO 1 tablet DAILY@0800 [facility] Administration Multivitamins/Minerals 1 tablet 01/22/18 08:00 01/26/18 09:02 Healthy Eyes PO 1 tablet DAILYCM [facility]ENG Administration Nutritional Formula (Lactose Free) 120 ml 01/22/18 12:00 01/26/18 11:50 Glucerna Shake PO 120 ml 4X/DAY [facility] Administration Nystatin 1 applic 01/24/18 06:00 01/26/18 06:49 Mycostatin Powder TOPICAL 1 applicatio BID [facility] Administration Protocol Pantoprazole Sodium 40 mg 01/22/18 06:00 01/26/18 06:40 Protonix PO 40 mg DAILY [facility]ENG Administration Polyethylene Glycol 17 gm 01/22/18 06:00 01/26/18 06:39 Miralax PO 17 gm DAILY [facility]ENG Administration Senna/Docusate Sodium 2 tablet 01/21/18 20:59 Senokot-S, Reema-Colace PO BID PRN PRN Constipation Tamsulosin HCl 0.4 mg 01/21/18 17:30 01/25/18 17:25 Flomax PO 0.4 mg DAILY@1730 [facility] Administration Tuberculin PPD 5 tu 01/29/18 10:00 Tubersol, Aplisol, Ppd ID 01/29/18 10:01 X1 ONE Problem List Lethargy (Acute) Change in mental status (Acute) Debility (Acute) Vital Signs Temp Pulse Resp BP Pulse Ox 97.3 F L 104 H 20 H 143/74 H 97 01/25/18 16:00 01/25/18 16:00 01/25/18 16:00 01/25/18 16:00 01/25/18 16:00 Oxygen Delivery Method Room Air Weight: 64.9 kg Body Mass Index (BMI) 26.2 Finger Stick Blood Glucose 152 Sodium 146 mmol/L (136-145) H 01/22/18 05:30 Potassium 3.7 mmol/L (3.5-5.1) 01/22/18 05:30 Chloride 119 mmol/L (98-107) H 01/22/18 05:30 Carbon Dioxide 18.0 mmol/L (21.0-32.0) L 01/22/18 05:30 Anion Gap 9 (5-15) 01/22/18 05:30 BUN 44 mg/dL (7-18) H 01/22/18 05:30 Creatinine 1.49 mg/dL (0.55-1.02) H 01/22/18 05:30 Est GFR (MDRD) Af Amer 45 mL/min (>60) L 01/22/18 05:30 Est GFR (MDRD) Non-Af 37 mL/min (>60) L 01/22/18 05:30 BUN/Creatinine Ratio 29.5 RATIO (10-20) H 01/22/18 05:30 Glucose 118 mg/dL (74-106) H 01/22/18 05:30 Assessment/Plan: 1) ID Amoxicillin and fluconazole. Continue to monitor s/s infection. 2) DM2 Insulin glargine twice daily, lispro with meals, ASA. Continue to monitor BGT, s/s hyper/hypoglycemia. 3) DVT PPx Enoxaparin daily. Continue to monitor s/s bleeding/clot. 4) Nutrition Glucerna, multivitamin. Continue to monitor clinically. 5) GI Pantoprazole, lactobacillus. Continue to monitor s/s GI distress. 6) BPH Tamsulosin at 1730. Continue to monitor for symptoms. Psychotropic Medications: None Unnecessary Medications: None Bowel Regimen: 7) Senna/s, PEG, prn bisacodyl. Continue to monitor prn medication use, for constipation/diarrhea. Date of Note:: 01/26/18 - Provider Comments Provider responsibility: Provider responsible to enter orders to implement recommendations <Juaquin León Chi - Last Filed: 01/26/18 17:21> Progress Note - Pharmacy Subjective: [] Objective: Allergies Penicillins Allergy (Verified 01/13/18 15:38) Rash Current Medications Generic Name Dose Route Start Last Admin Trade Name Freq PRN Reason Stop Dose Admin Acetaminophen 1,000 mg 01/21/18 20:59 01/26/18 09:10 Tylenol PO 1,000 mg Q8H PRN PRN Administration MILD PAIN (1-3/10) Amoxicillin 500 mg 01/26/18 18:00 Amoxil PO 02/05/18 06:01 BID MENG Aspirin 81 mg 01/22/18 08:00 01/26/18 09:02 Aspirin, Baby PO 81 mg DAILY@0800 [facility] Administration Bisacodyl 10 mg 01/21/18 21:00 Dulcolax PO DAILY PRN Constipation Calamine/Phenol 1 applic 01/21/18 22:00 01/26/18 06:49 Calmoseptine Ointment TOPICAL 1 applicatio 0600,2200 [facility] Administration Protocol Enoxaparin Sodium 30 mg 01/22/18 06:00 01/26/18 06:40 Lovenox SC 30 mg DAILY@0600 [facility] Administration Fluconazole 100 mg 01/27/18 06:00 01/26/18 12:13 Diflucan PO 02/06/18 06:01 100 mg DAILY [facility] Administration Insulin Glargine 15 units 01/25/18 08:30 01/26/18 17:19 Lantus ([facility]) SC 15 units BID [facility]ENG Administration Insulin Human Lispro 10 unit 01/25/18 06:45 01/26/18 17:19 Humalog Kwikpen ([facility]) SC 10 units TIDAC [facility] Administration Ketoconazole 1 applic 01/25/18 22:00 01/26/18 06:43 Nizoral TOPICAL 1 applicatio 599,2199 [facility] Administration Protocol Lactobacillus Acidophilus 1 tablet 01/22/18 06:00 01/26/18 06:40 Acidophilus PO 1 tablet DAILY [facility] Administration Multivitamins 1 tablet 01/22/18 08:00 01/26/18 09:02 Multivitamin PO 1 tablet DAILY@0800 [facility] Administration Multivitamins/Minerals 1 tablet 01/22/18 08:00 01/26/18 09:02 Healthy Eyes PO 1 tablet DAILYCM [facility] Administration Nutritional Formula (Lactose Free) 120 ml 01/22/18 12:00 01/26/18 17:18 Glucerna Shake PO 120 ml 4X/DAY [facility] Administration Nystatin 1 applic 01/24/18 06:00 01/26/18 17:18 Mycostatin Powder TOPICAL 1 applicatio BID [facility] Administration Protocol Pantoprazole Sodium 40 mg 01/22/18 06:00 01/26/18 06:40 Protonix PO 40 mg DAILY [facility] Administration Polyethylene Glycol 17 gm 01/22/18 06:00 01/26/18 06:39 Miralax PO 17 gm DAILY [facility] Administration Senna/Docusate Sodium 2 tablet 01/21/18 20:59 Senokot-S, Reema-Colace PO BID PRN PRN Constipation Tamsulosin HCl 0.4 mg 01/21/18 17:30 01/26/18 17:18 Flomax PO 0.4 mg DAILY@1730 [facility] Administration Tuberculin PPD 5 tu 01/29/18 10:00 Tubersol, Aplisol, Ppd ID 01/29/18 10:01 X1 ONE Problem List Lethargy (Acute) Change in mental status (Acute) Debility (Acute) Vital Signs Temp Pulse Resp BP Pulse Ox 98.8 F 110 H 18 151/64 H 98 01/26/18 16:00 01/26/18 16:00 01/26/18 16:37 01/26/18 16:00 01/26/18 16:37 Oxygen Delivery Method Room Air Weight: 64.9 kg Body Mass Index (BMI) 26.2 Finger Stick Blood Glucose 152 Sodium 146 mmol/L (136-145) H 01/22/18 05:30 Potassium 3.7 mmol/L (3.5-5.1) 01/22/18 05:30 Chloride 119 mmol/L (98-107) H 01/22/18 05:30 Carbon Dioxide 18.0 mmol/L (21.0-32.0) L 01/22/18 05:30 Anion Gap 9 (5-15) 01/22/18 05:30 BUN 44 mg/dL (7-18) H 01/22/18 05:30 Creatinine 1.49 mg/dL (0.55-1.02) H 01/22/18 05:30 Est GFR (MDRD) Af Amer 45 mL/min (>60) L 01/22/18 05:30 Est GFR (MDRD) Non-Af 37 mL/min (>60) L 01/22/18 05:30 BUN/Creatinine Ratio 29.5 RATIO (10-20) H 01/22/18 05:30 Glucose 118 mg/dL (74-106) H 01/22/18 05:30 Assessment/Plan: Psychotropic Medications: Unnecessary Medications: Bowel Regimen: - Provider Comments Provider responsibility: Provider responsible to enter orders to implement recommendations Provider Comments to Recommendations by Pharmacy: Agree
[2018-01-26 16:00] VITALS: BP 151/64; PULSE 110; RESP 20; TEMP 37.1; O2SAT 97
--- NOTE | 2018-01-26 16:36 | CASEMGMT ---
Brief interview for mental status (BIMS) and resident mood interview (PHQ-9) completed on this day. BIMS score 15. PHQ-9 score 05/19
[2018-01-26 16:37] VITALS: RESP 18; O2SAT 98
[2018-01-26 17:10] LABS: Bedside Glucose 282 mg/dL (70-110)
[2018-01-26] MEDS: Tamsulosin HCl 0.4 MG Capsule PO (17:18)
[2018-01-26] MEDS: Amoxicillin 250 MG Capsule 500 MG PO (18:12)
[2018-01-26 20:51] LABS: Bedside Glucose 243 mg/dL (70-110)
[2018-01-27] MEDS: Polyethylene Glycol 3350 17 GM PACKET PO (05:38)
[2018-01-27] MEDS: Pantoprazole Sodium 40 MG Tablet PO (05:41)
[2018-01-27] MEDS: Amoxicillin 250 MG Capsule 500 MG PO ×2 (05:41→16:48)
[2018-01-27] MEDS: Fluconazole 100 MG Tablet PO (05:41)
[2018-01-27] MEDS: Glucerna Shake 120 ML LIQUID PO ×4 (05:41→20:27)
[2018-01-27] MEDS: Enoxaparin 30 MG/0.3 ML Syringe SC (05:41)
[2018-01-27] MEDS: Nystatin Powder 15gm Bottle 1 APPLIC TOPICAL ×2 (05:42→16:49)
[2018-01-27] MEDS: Menthol/Lanolin/Calamine/Znox 113 GM Tube 1 APPLIC TOPICAL ×2 (05:42→20:28)
[2018-01-27 06:45] LABS: Bedside Glucose 186 mg/dL (70-110)
[2018-01-27] MEDS: Insulin Lispro 100 UNIT/ML INSULN.PEN 10 UNIT SC ×3 (09:31→16:46)
[2018-01-27] MEDS: Ketoconazole Cream 1 APPLIC TOPICAL ×2 (09:31→20:29)
[2018-01-27] MEDS: Aspirin 81 MG TAB.CHEW PO (09:31)
[2018-01-27] MEDS: Multivitamins,Therapeutic Tablet 1 TABLET PO (09:32)
--- NOTE | 2018-01-27 11:13 | CASEMGMT ---
Plan of care meeting held. Resident present as well as resident family. No discharge date set at this time. Resident to continue with further care and treatment on the Transitional Care Unit at this time. Resident plans to discharge to home with spouse at time of discharge. Team also voicing concerns of resident being able to return home with spouse at this time, but plan to continue to work with resident. Resident also does not have a Medicare part D plan and is reporting to have difficulty affording medications and is now new on Insulin. This social sciences research scientist giving resident family information on Medicare Part D and current open enrollment period. This social sciences research scientist encouraging resident family to set up Medicare Part D for resident to assist with medication coverage. Support given. Will continue to follow. AMANDA MondragonW, FOOD AND DRUG RESEARCH SCIENTIST
[2018-01-27 12:06] LABS: Bedside Glucose 192 mg/dL (70-110)
[2018-01-27 16:00] VITALS: BP 141/75; PULSE 114; RESP 18; TEMP 37.3; O2SAT 97
[2018-01-27] MEDS: Tamsulosin HCl 0.4 MG Capsule PO (16:48)
[2018-01-27 16:56] LABS: Bedside Glucose 262 mg/dL (70-110)
--- NOTE | 2018-01-27 17:57 | PCA ---
At 15:40 check and turned pt.
--- NOTE | 2018-01-27 18:05 | PCA ---
At 17:15 checked and turned pt at this time.
--- NOTE | 2018-01-27 19:30 | PCA ---
cleaned up,changed and turned on pt on left side.
[2018-01-27 21:16] LABS: Bedside Glucose 293 mg/dL (70-110)
[2018-01-28] MEDS: Pantoprazole Sodium 40 MG Tablet PO (05:45)
[2018-01-28] MEDS: Fluconazole 100 MG Tablet PO (05:45)
[2018-01-28] MEDS: Nystatin Powder 15gm Bottle 1 APPLIC TOPICAL ×2 (05:45→18:02)
[2018-01-28] MEDS: Menthol/Lanolin/Calamine/Znox 113 GM Tube 1 APPLIC TOPICAL ×2 (05:45→19:47)
[2018-01-28] MEDS: Amoxicillin 250 MG Capsule 500 MG PO ×2 (05:45→18:01)
[2018-01-28] MEDS: Enoxaparin 30 MG/0.3 ML Syringe SC (05:45)
[2018-01-28] MEDS: Glucerna Shake 120 ML LIQUID PO ×3 (05:46→18:02)
[2018-01-28] MEDS: Ketoconazole Cream 1 APPLIC TOPICAL ×2 (06:38→19:49)
[2018-01-28 06:51] LABS: Bedside Glucose 164 mg/dL (70-110)
[2018-01-28] MEDS: Multivitamins,Therapeutic Tablet 1 TABLET PO (10:04)
[2018-01-28] MEDS: Aspirin 81 MG TAB.CHEW PO (10:05)
[2018-01-28] MEDS: Insulin Lispro 100 UNIT/ML INSULN.PEN 10 UNIT SC ×3 (10:05→18:02)
[2018-01-28 11:21] LABS: Bedside Glucose 239 mg/dL (70-110)
[2018-01-28 15:28] VITALS: BP 131/55; PULSE 16; RESP 16; TEMP 37.2; O2SAT 99
[2018-01-28 17:01] LABS: Bedside Glucose 180 mg/dL (70-110)
[2018-01-28] MEDS: Tamsulosin HCl 0.4 MG Capsule PO (18:01)
[2018-01-28 21:16] LABS: Bedside Glucose 192 mg/dL (70-110)
[2018-01-28] MEDS: Acetaminophen 500 MG Tablet 1000 MG PO (23:23)
[2018-01-29 05:56] LABS: Absolute Lymphocyte Count 0.59 X10^3/ul (0.83-4.51); Absolute Neutrophil Count 5.6 X10^3/uL (2.0-7.7); Basophil# 0.06 X10^3/uL; Basophil% 0.8 % (0-1); Eosinophil# 0.16 X10^3/uL; Eosinophils% 2.2 % (0-5); Hemoglobin 7.9 g/dl (12.0-15.0); Lymphocyte # 0.59 X10^3/ul (4.0); Lymphocyte % 8.3 % (19-41); Mean Corp Hgb Conc 31.6 g/gl (32-36); Mean Corpuscular Hgb 28.3 pg (27.0-32.0); Mean Corpuscular Volume 89.6 fL (81-99); Mean Platelet Vol. 11.6 fl (6.2-12.0); Monocyte# 0.67 X10^3/uL; Monocyte% 9.4 % (0-10); Neutrophil % 78.7 % (47-70); Platelet Count 308 K/mm3 (150-450); RBC Distribution Width CV 14.2 % (11.6-14.6); RBC Distribution Width SD 44.2 fl (35.1-43.9); Red Blood Count 2.79 M/mm3 (4.2-5.4); White Blood Count 7.1 K/mm3 (4.4-11.0)
[2018-01-29] MEDS: Amoxicillin 250 MG Capsule 500 MG PO ×2 (05:58→16:35)
[2018-01-29] MEDS: Fluconazole 100 MG Tablet PO (05:58)
[2018-01-29] MEDS: Pantoprazole Sodium 40 MG Tablet PO (05:58)
[2018-01-29] MEDS: Enoxaparin 30 MG/0.3 ML Syringe SC (05:58)
[2018-01-29 06:01] LABS: Differential Indicated SCAN CRITERIA MET; POSITIVE COUNT NO; POSITIVE DIFFERENTIAL YES; POSITIVE MORPHOLOGY NO
[2018-01-29] MEDS: Menthol/Lanolin/Calamine/Znox 113 GM Tube 1 APPLIC TOPICAL ×2 (06:06→16:35)
[2018-01-29] MEDS: Zinc Oxide 30gm Tube 1 APPLIC TOPICAL ×2 (06:06→16:37)
[2018-01-29 06:14] LABS: Anion Gap 9 (5-15); BUN 29 mg/dL (7-18); BUN/Creat Ratio 27.6 RATIO (10-20); Calcium,Total 7.6 mg/dL (8.5-10.1); Chloride 107 mmol/L (98-107); Creatinine, Serum 1.05 mg/dL (0.55-1.02); EST Glomerular Filtration Rate 56 mL/min (>60); Est Glom Filt Rate - Afr Amer 67 mL/min (>60); Estimated Creatinine Clearance 41.68 ml/min; Glucose 116 mg/dL (74-106); Potassium 3.6 mmol/L (3.5-5.1); Sodium Level 143 mmol/L (136-145)
[2018-01-29] MEDS: Nystatin Powder 15gm Bottle 1 APPLIC TOPICAL ×2 (06:18→16:34)
[2018-01-29 06:41] LABS: Bedside Glucose 122 mg/dL (70-110)
[2018-01-29] MEDS: Aspirin 81 MG TAB.CHEW PO (09:04)
[2018-01-29] MEDS: Multivitamins,Therapeutic Tablet 1 TABLET PO (09:04)
[2018-01-29] MEDS: Insulin Lispro 100 UNIT/ML INSULN.PEN 10 UNIT SC ×3 (09:04→17:49)
[2018-01-29] MEDS: Tuberculin,Purif.prot.deriv. 50 TU/ML Vial 5 ML ID (10:31)
[2018-01-29 11:20] LABS: Bedside Glucose 138 mg/dL (70-110)
[2018-01-29] MEDS: Glucerna Shake 120 ML LIQUID PO ×2 (11:48→16:33)
[2018-01-29 15:40] VITALS: BP 127/64; PULSE 108; RESP 18; TEMP 37.5; O2SAT 95
[2018-01-29] MEDS: Acetaminophen 500 MG Tablet 1000 MG PO (15:52)
--- NOTE | 2018-01-29 16:18 | PCM.PN.GU ---
Physical Exam Subjective: Patient is a 68yo diabetic female that I recently saw for hydronephrosis and urinary tract infection. She is now in transitional care due to deconditioning. She has not been ambulating regularly, and failed her trial of void with greater than 1000cc post void residual. She has been having diarrhea due to antibiotics and there is therefore no constipation. We are unsure of how long she has had diabetes. - Physical Exam Vital Signs Temp 99.5 F H 01/29/18 15:40 Pulse 108 H 01/29/18 15:40 Resp 18 01/29/18 15:40 BP 127/64 H 01/29/18 15:40 Pulse Ox 95 01/29/18 15:40 Intake & Output 01/27/18 01/28/18 01/29/18 23:59 23:59 23:59 Intake Total 1040 / 1040 600 / 600 720 / 720 Output Total 2550 / 2550 4725 / 4725 1375 / 1375 Balance -1510 / -1510 -4125 / -4125 -655 / -655 Weight: 64.9 kg 63.2 kg Intake: Oral 1040 / 1040 600 / 600 720 / 720 Output: Urine 2550 / 2550 4725 / 4725 1375 / 1375 Other: Number of Bowel Movements 1 General: Alert, Oriented x3, Cooperative, No apparent distress HEENT: Atraumatic, Normocephalic Oral: Moist Mucosa Neck: Supple, Trachea Midline Lungs: Normal air movement Abdomen: Soft, - - delgadillo catheter draining clear yellow urine. Rectal: Exam deferred Skin: No rashes Neurological: Cranial nerves II-XII grossly intact Microbiology Past 72 Hours 01/25/18 03:00 Urine Culture - Final Urine Catheter - Catheter Enterococcus faecalis Laboratory Tests Past 24 Hrs 01/29/18 01/29/18 05:25 05:25 WBC 7.1 RBC 2.79 L Hgb 7.9 L Hct 25.0 L MCV 89.6 MCH 28.3 MCHC 31.6 L RDW 14.2 RDW Differential 44.2 H Plt Count 308 MPV 11.6 Immature Gran % (Auto) 0.600 Neut % (Auto) 78.7 H Lymph % (Auto) 8.3 L [place] % (Auto) 9.4 Eos % (Auto) 2.2 Baso % (Auto) 0.8 Absolute Neuts (auto) 5.6 Absolute Lymphs (auto) 0.59 L Total Counted Not Reportable Sodium 143 Potassium 3.6 Chloride 107 Carbon Dioxide 27.0 Anion Gap 9 BUN 29 H Creatinine 1.05 H Estim Creat Clear Calc 41.68 Est GFR (MDRD) Af Amer 67 Est GFR (MDRD) Non-Af 56 L BUN/Creatinine Ratio 27.6 H Glucose 116 H Calcium 7.6 L Medical Necessity - Tobacco Use Smoking Status: Never smoker Tobacco Use: Non-smoker Assessment/Plan All Active Problems (Last Updated 01/29/18 @ 13:09 by Gloria Lopez) Diabetic ketoacidosis (Acute) Newly diagnosed type 2 diabetes mellitus (Acute) Septic shock (Acute) Acute kidney injury (Acute) Elevated LFTs (Acute) Thrombocytopenia (Acute) Encephalopathy (Acute) Hydronephrosis (Acute) Urinary tract infection (Acute) Anemia (Acute) Lethargy (Acute) Change in mental status (Acute) Debility (Acute) Delgadillo in and draining. Cr has normalized. I am recommending that we continue delgadillo catheter with changes every 4 weeks with plans for urodynamics and cystoscopy in the office after discharge. She will likely be a candidate for intermittent cathing vs Interstim if she fails another trial of void after she is more ambulatory. We can repeat her renal imaging just prior to discharge home to ensure that her collecting system dilation has resolved. Thank you for the consult. Please call with questions or concerns.
[2018-01-29] MEDS: Tamsulosin HCl 0.4 MG Capsule PO (16:35)
[2018-01-29 17:16] LABS: Bedside Glucose 200 mg/dL (70-110)
[2018-01-29 21:35] LABS: Bedside Glucose 246 mg/dL (70-110)
[2018-01-30] MEDS: Acetaminophen 500 MG Tablet 1000 MG PO ×2 (00:33→17:16)
[2018-01-30] MEDS: Amoxicillin 250 MG Capsule 500 MG PO ×2 (05:59→17:15)
[2018-01-30] MEDS: Pantoprazole Sodium 40 MG Tablet PO (05:59)
[2018-01-30] MEDS: Fluconazole 100 MG Tablet PO (05:59)
[2018-01-30] MEDS: Nystatin Powder 15gm Bottle 1 APPLIC TOPICAL ×2 (06:00→17:16)
[2018-01-30] MEDS: Zinc Oxide 30gm Tube 1 APPLIC TOPICAL ×2 (06:00→17:16)
[2018-01-30] MEDS: Enoxaparin 30 MG/0.3 ML Syringe SC (06:00)
[2018-01-30] MEDS: Menthol/Lanolin/Calamine/Znox 113 GM Tube 1 APPLIC TOPICAL ×2 (06:01→20:32)
[2018-01-30 06:51] LABS: Bedside Glucose 147 mg/dL (70-110)
[2018-01-30] MEDS: Insulin Lispro 100 UNIT/ML INSULN.PEN 10 UNIT SC ×3 (08:11→17:15)
[2018-01-30] MEDS: Aspirin 81 MG TAB.CHEW PO (08:15)
[2018-01-30] MEDS: Multivitamins,Therapeutic Tablet 1 TABLET PO (08:15)
[2018-01-30] MEDS: Iron Polysaccharide Complex 150 MG CAPSULE PO (08:15)
[2018-01-30 11:10] LABS: Bedside Glucose 218 mg/dL (70-110)
--- NOTE | 2018-01-30 11:21 | NURSING ---
Pt requesting glucerna be d/c'd, states it upsets her stomach and gives her loose stools.
[2018-01-30 16:00] VITALS: BP 150/56; PULSE 67; RESP 18; TEMP 37.3; O2SAT 95
[2018-01-30 16:50] LABS: Bedside Glucose 261 mg/dL (70-110)
[2018-01-30] MEDS: Tamsulosin HCl 0.4 MG Capsule PO (17:15)
--- NOTE | 2018-01-30 17:52 | NURSING ---
Pt c/o bladder pressure, bladder scanned for 500. Miranda irrigated per order, 250 return of clear, pale yellow urine. Pt states pressure improved. Will continue to monitor output.
[2018-01-30 21:16] LABS: Bedside Glucose 164 mg/dL (70-110)
[2018-01-31] MEDS: Amoxicillin 250 MG Capsule 500 MG PO ×2 (06:03→17:28)
[2018-01-31] MEDS: Enoxaparin 30 MG/0.3 ML Syringe SC (06:03)
[2018-01-31] MEDS: Fluconazole 100 MG Tablet PO (06:03)
[2018-01-31] MEDS: Menthol/Lanolin/Calamine/Znox 113 GM Tube 1 APPLIC TOPICAL ×2 (06:03→20:36)
[2018-01-31] MEDS: Zinc Oxide 30gm Tube 1 APPLIC TOPICAL ×2 (06:04→17:28)
[2018-01-31] MEDS: Nystatin Powder 15gm Bottle 1 APPLIC TOPICAL ×2 (06:04→17:28)
[2018-01-31] MEDS: Pantoprazole Sodium 40 MG Tablet PO (06:04)
[2018-01-31] MEDS: Acetaminophen 500 MG Tablet 1000 MG PO ×2 (06:05→17:31)
[2018-01-31 06:56] LABS: Bedside Glucose 138 mg/dL (70-110)
[2018-01-31] MEDS: Multivitamins,Therapeutic Tablet 1 TABLET PO (08:06)
[2018-01-31] MEDS: Iron Polysaccharide Complex 150 MG CAPSULE PO (08:06)
[2018-01-31] MEDS: Aspirin 81 MG TAB.CHEW PO (08:06)
[2018-01-31] MEDS: Insulin Lispro 100 UNIT/ML INSULN.PEN 10 UNIT SC ×3 (08:07→17:27)
[2018-01-31 11:15] LABS: Bedside Glucose 154 mg/dL (70-110)
[2018-01-31 15:33] VITALS: BP 125/59; PULSE 55; RESP 20; TEMP 35.7; O2SAT 97
[2018-01-31 16:55] LABS: Bedside Glucose 149 mg/dL (70-110)
[2018-01-31] MEDS: Tamsulosin HCl 0.4 MG Capsule PO (17:28)
[2018-01-31 21:01] LABS: Bedside Glucose 157 mg/dL (70-110)
[2018-02-01] MEDS: Acetaminophen 500 MG Tablet 1000 MG PO ×2 (01:58→18:27)
[2018-02-01] MEDS: Fluconazole 100 MG Tablet PO (05:39)
[2018-02-01] MEDS: Enoxaparin 30 MG/0.3 ML Syringe SC (05:39)
[2018-02-01] MEDS: Menthol/Lanolin/Calamine/Znox 113 GM Tube 1 APPLIC TOPICAL ×2 (05:39→20:16)
[2018-02-01] MEDS: Amoxicillin 250 MG Capsule 500 MG PO ×2 (05:39→18:23)
[2018-02-01] MEDS: Zinc Oxide 30gm Tube 1 APPLIC TOPICAL ×2 (05:40→18:43)
[2018-02-01] MEDS: Pantoprazole Sodium 40 MG Tablet PO (05:40)
[2018-02-01] MEDS: Nystatin Powder 15gm Bottle 1 APPLIC TOPICAL ×2 (05:40→18:43)
[2018-02-01 07:01] LABS: Bedside Glucose 104 mg/dL (70-110)
[2018-02-01] MEDS: Multivitamins,Therapeutic Tablet 1 TABLET PO (08:02)
[2018-02-01] MEDS: Aspirin 81 MG TAB.CHEW PO (08:02)
[2018-02-01] MEDS: Iron Polysaccharide Complex 150 MG CAPSULE PO (08:02)
[2018-02-01] MEDS: Insulin Lispro 100 UNIT/ML INSULN.PEN 10 UNIT SC ×3 (08:03→18:24)
[2018-02-01 11:45] LABS: Bedside Glucose 187 mg/dL (70-110)
[2018-02-01 15:55] VITALS: BP 136/94; PULSE 56; RESP 16; TEMP 37.3; O2SAT 96
[2018-02-01 16:55] LABS: Bedside Glucose 133 mg/dL (70-110)
[2018-02-01] MEDS: Tamsulosin HCl 0.4 MG Capsule PO (18:24)
[2018-02-01 21:06] LABS: Bedside Glucose 189 mg/dL (70-110)
[2018-02-02] MEDS: Menthol/Lanolin/Calamine/Znox 113 GM Tube 1 APPLIC TOPICAL ×2 (05:59→20:56)
[2018-02-02] MEDS: Pantoprazole Sodium 40 MG Tablet PO (05:59)
[2018-02-02] MEDS: Fluconazole 100 MG Tablet PO (05:59)
[2018-02-02] MEDS: Amoxicillin 250 MG Capsule 500 MG PO ×2 (05:59→17:36)
[2018-02-02] MEDS: Nystatin Powder 15gm Bottle 1 APPLIC TOPICAL ×2 (05:59→17:36)
[2018-02-02] MEDS: Enoxaparin 30 MG/0.3 ML Syringe SC (05:59)
[2018-02-02] MEDS: Zinc Oxide 30gm Tube 1 APPLIC TOPICAL ×2 (06:00→17:37)
[2018-02-02] MEDS: Acetaminophen 500 MG Tablet 1000 MG PO ×2 (06:06→20:57)
[2018-02-02 06:16] LABS: Bedside Glucose 91 mg/dL (70-110)
[2018-02-02] MEDS: Iron Polysaccharide Complex 150 MG CAPSULE PO (08:32)
[2018-02-02] MEDS: Multivitamins,Therapeutic Tablet 1 TABLET PO (08:32)
[2018-02-02] MEDS: Aspirin 81 MG TAB.CHEW PO (08:32)
--- NOTE | 2018-02-02 08:34 | NURSING ---
pt blood sugar 91, held novolog 10 ujhits this am. Pt only ate half of her brkfst.
[2018-02-02 11:35] LABS: Bedside Glucose 254 mg/dL (70-110)
[2018-02-02] MEDS: Insulin Lispro 100 UNIT/ML INSULN.PEN 10 UNIT SC ×2 (12:13→17:33)
--- NOTE | 2018-02-02 14:13 | NURSING ---
OFF UNIT TO DR HDZ OFFICE FOR APPT VIA , AT SIDE.
[2018-02-02 16:00] VITALS: BP 138/64; PULSE 52; RESP 16; TEMP 37.1; O2SAT 97
[2018-02-02 16:20] VITALS: PULSE 93; RESP 18; O2SAT 96
[2018-02-02 16:55] LABS: Bedside Glucose 161 mg/dL (70-110)
--- NOTE | 2018-02-02 17:27 | NUR.TO.PHY ---
MEPILEX TO BILATERAL HEELS DONE BY RENEE LOMBARDI WOUND NURSE TODAY.
[2018-02-02] MEDS: Tamsulosin HCl 0.4 MG Capsule PO (17:34)
--- NOTE | 2018-02-02 18:48 | RAD_ITS ---
STUDY: X-RAY - ABDOMEN/PELVIS REASON FOR EXAM: Female, 68 years old. Diarrhea TECHNIQUE: Two AP supine views of the abdomen and pelvis. COMPARISON: January 18, 2018 CT scan abdomen and pelvis FINDINGS: Normal visualized lung bases. There is moderate stool in the visualized transverse colon. There are minimally distended small bowel loops within the pelvis. There is no demonstrated free abdominal air. The visualized liver, spleen and kidneys are grossly normal in size and morphology. Normal soft tissue structures. Normal visualized osseous structures. RAD/Abdomen Single View (Portable) IMPRESSION: Nonspecific bowel gas pattern. Electronically Signed: Karolina Jerez MD at 19:09 EST Tel , Service support ,
[2018-02-02] MEDS: Magnesium Citrate 300 ML PO (20:52)
[2018-02-02] MEDS: MELATONIN 10 MG TABLET PO (20:52)
[2018-02-02 21:06] LABS: Bedside Glucose 188 mg/dL (70-110)
[2018-02-03] MEDS: Fluconazole 100 MG Tablet PO (05:47)
[2018-02-03] MEDS: Amoxicillin 250 MG Capsule 500 MG PO ×2 (05:47→17:15)
[2018-02-03] MEDS: Pantoprazole Sodium 40 MG Tablet PO (05:47)
[2018-02-03] MEDS: Enoxaparin 30 MG/0.3 ML Syringe SC (05:47)
[2018-02-03] MEDS: Menthol/Lanolin/Calamine/Znox 113 GM Tube 1 APPLIC TOPICAL ×2 (05:48→22:07)
[2018-02-03] MEDS: Nystatin Powder 15gm Bottle 1 APPLIC TOPICAL ×2 (05:48→17:19)
[2018-02-03] MEDS: Zinc Oxide 30gm Tube 1 APPLIC TOPICAL ×2 (05:49→17:21)
[2018-02-03 06:46] LABS: Bedside Glucose 93 mg/dL (70-110)
[2018-02-03] MEDS: Insulin Lispro 100 UNIT/ML INSULN.PEN 10 UNIT SC ×3 (07:52→17:22)
[2018-02-03] MEDS: Aspirin 81 MG TAB.CHEW PO (09:08)
[2018-02-03] MEDS: Multivitamins,Therapeutic Tablet 1 TABLET PO (09:08)
[2018-02-03] MEDS: Iron Polysaccharide Complex 150 MG CAPSULE PO (09:09)
--- NOTE | 2018-02-03 10:26 | CASEMGMT ---
Brief interview for mental stats (BIMS) and resident mood interview (PHQ-9) completed on this day. BIMS score . PHQ-9 score 04/18
--- NOTE | 2018-02-03 10:41 | MDS.RN ---
Information for the mds was obtained from review of the clinical record, interview of resident, staff, and direct observation of resident's care.
[2018-02-03 11:50] LABS: Bedside Glucose 111 mg/dL (70-110)
--- NOTE | 2018-02-03 14:49 | NURSING ---
Pt returned to floor from [address] Mishra, Dtr went along to vilmat, Emy RODRIGUEZ in room applying wound vac back to [facility]
[2018-02-03 15:50] VITALS: BP 142/70; PULSE 74; RESP 20; TEMP 35.8; O2SAT 99
[2018-02-03 16:50] LABS: Bedside Glucose 118 mg/dL (70-110)
[2018-02-03] MEDS: Tamsulosin HCl 0.4 MG Capsule PO (17:14)
[2018-02-03 21:21] LABS: Bedside Glucose 212 mg/dL (70-110)
[2018-02-03] MEDS: MELATONIN 10 MG TABLET PO (22:05)
[2018-02-03] MEDS: Acetaminophen 500 MG Tablet 1000 MG PO (22:06)
[2018-02-04] MEDS: Fluconazole 100 MG Tablet PO (05:12)
[2018-02-04] MEDS: Pantoprazole Sodium 40 MG Tablet PO (05:12)
[2018-02-04] MEDS: Amoxicillin 250 MG Capsule 500 MG PO ×2 (05:13→17:44)
[2018-02-04] MEDS: Enoxaparin 30 MG/0.3 ML Syringe SC (05:13)
[2018-02-04] MEDS: Menthol/Lanolin/Calamine/Znox 113 GM Tube 1 APPLIC TOPICAL ×2 (05:16→19:54)
[2018-02-04] MEDS: Zinc Oxide 30gm Tube 1 APPLIC TOPICAL ×2 (05:16→17:47)
[2018-02-04] MEDS: Nystatin Powder 15gm Bottle 1 APPLIC TOPICAL ×2 (05:17→17:47)
[2018-02-04 06:51] LABS: Bedside Glucose 171 mg/dL (70-110)
[2018-02-04] MEDS: Aspirin 81 MG TAB.CHEW PO (07:42)
[2018-02-04] MEDS: Multivitamins,Therapeutic Tablet 1 TABLET PO (07:42)
[2018-02-04] MEDS: Iron Polysaccharide Complex 150 MG CAPSULE PO (07:42)
[2018-02-04] MEDS: Insulin Lispro 100 UNIT/ML INSULN.PEN 10 UNIT SC ×3 (07:46→17:44)
[2018-02-04] MEDS: Senna/Docusate Sodium 1 Tablet PO (09:53)
[2018-02-04 10:00] VITALS: PULSE 99; RESP 18; O2SAT 95
[2018-02-04 11:01] LABS: Bedside Glucose 132 mg/dL (70-110)
--- NOTE | 2018-02-04 11:40 | NURSING ---
Attempted to educate patient on how to give self insulin injections. Patient states she is just not ready yet. Encouragement and support offered.
[2018-02-04 16:00] VITALS: BP 123/61; PULSE 101; RESP 18; TEMP 36.3; O2SAT 91
[2018-02-04 17:01] LABS: Bedside Glucose 180 mg/dL (70-110)
[2018-02-04] MEDS: Tamsulosin HCl 0.4 MG Capsule PO (17:45)
[2018-02-04] MEDS: MELATONIN 10 MG TABLET PO (19:49)
[2018-02-04] MEDS: Acetaminophen 500 MG Tablet 1000 MG PO (19:52)
[2018-02-04 21:51] LABS: Bedside Glucose 143 mg/dL (70-110)
[2018-02-05] MEDS: Acetaminophen 500 MG Tablet 1000 MG PO ×2 (03:58→20:25)
[2018-02-05] MEDS: Fluconazole 100 MG Tablet PO (03:59)
[2018-02-05] MEDS: Amoxicillin 250 MG Capsule 500 MG PO (03:59)
[2018-02-05] MEDS: Pantoprazole Sodium 40 MG Tablet PO (04:00)
[2018-02-05] MEDS: Enoxaparin 30 MG/0.3 ML Syringe SC (04:00)
[2018-02-05] MEDS: Menthol/Lanolin/Calamine/Znox 113 GM Tube 1 APPLIC TOPICAL ×2 (04:01→21:29)
[2018-02-05] MEDS: Zinc Oxide 30gm Tube 1 APPLIC TOPICAL ×2 (04:01→21:30)
[2018-02-05] MEDS: Nystatin Powder 15gm Bottle 1 APPLIC TOPICAL ×2 (04:02→21:29)
[2018-02-05 06:25] LABS: Absolute Lymphocyte Count 0.92 X10^3/ul (0.83-4.51); Absolute Neutrophil Count 8.8 X10^3/uL (2.0-7.7); Basophil# 0.05 X10^3/uL; Basophil% 0.5 % (0-1); Eosinophil# 0.21 X10^3/uL; Hematocrit 26.5 % (37-47); Hemoglobin 8.1 g/dl (12.0-15.0); Lymphocyte # 0.92 X10^3/ul (4.0); Lymphocyte % 8.6 % (19-41); Mean Corp Hgb Conc 30.6 g/gl (32-36); Mean Corpuscular Hgb 27.4 pg (27.0-32.0); Mean Corpuscular Volume 89.5 fL (81-99); Mean Platelet Vol. 11.3 fl (6.2-12.0); Monocyte# 0.71 X10^3/uL; Monocyte% 6.6 % (0-10); Neutrophil # 8.78 X10^3/uL (2.7-7.7); Neutrophil % 81.8 % (47-70); Platelet Count 458 K/mm3 (150-450); RBC Distribution Width CV 14.2 % (11.6-14.6); RBC Distribution Width SD 44.9 fl (35.1-43.9); Red Blood Count 2.96 M/mm3 (4.2-5.4); White Blood Count 10.7 K/mm3 (4.4-11.0)
[2018-02-05 06:26] LABS: POSITIVE COUNT NO; POSITIVE DIFFERENTIAL NO; POSITIVE MORPHOLOGY NO
[2018-02-05 06:36] LABS: Anion Gap 9 (5-15); BUN 17 mg/dL (7-18); BUN/Creat Ratio 20.6 RATIO (10-20); Chloride 101 mmol/L (98-107); Creatinine, Serum 0.83 mg/dL (0.55-1.02); EST Glomerular Filtration Rate 73 mL/min (>60); Est Glom Filt Rate - Afr Amer 89 mL/min (>60); Estimated Creatinine Clearance 52.73 ml/min; Glucose 137 mg/dL (74-106); Potassium 3.2 mmol/L (3.5-5.1); Sodium Level 141 mmol/L (136-145)
[2018-02-05 06:56] LABS: Bedside Glucose 143 mg/dL (70-110)
[2018-02-05] MEDS: Aspirin 81 MG TAB.CHEW PO (08:04)
[2018-02-05] MEDS: Iron Polysaccharide Complex 150 MG CAPSULE PO (08:04)
[2018-02-05] MEDS: Multivitamins,Therapeutic Tablet 1 TABLET PO (08:04)
[2018-02-05] MEDS: Insulin Lispro 100 UNIT/ML INSULN.PEN 10 UNIT SC ×3 (08:05→17:49)
[2018-02-05 11:55] LABS: Bedside Glucose 153 mg/dL (70-110)
--- NOTE | 2018-02-05 12:05 | NURSING ---
ASKED PT IF SHE WANTED TO GIVE HER SELF INSULIN WITH TEACHING. PT STATED NO ANGELITO NOT READY FOR THAT.THIS NURSE WILL TRY AGAIN AT SUPPER.
[2018-02-05 13:45] VITALS: PULSE 110; RESP 18; O2SAT 95
[2018-02-05 16:00] VITALS: BP 144/78; PULSE 104; RESP 16; TEMP 36.9; O2SAT 94
[2018-02-05 17:06] LABS: Bedside Glucose 143 mg/dL (70-110)
[2018-02-05] MEDS: Tamsulosin HCl 0.4 MG Capsule PO (17:48)
[2018-02-05 21:06] LABS: Bedside Glucose 144 mg/dL (70-110)
[2018-02-05] MEDS: MELATONIN 10 MG TABLET PO (21:28)
[2018-02-05] MEDS: Doxepin Hcl 25 MG Capsule PO (21:28)
[2018-02-06] MEDS: Enoxaparin 30 MG/0.3 ML Syringe SC (06:38)
[2018-02-06] MEDS: Polyethylene Glycol 3350 17 GM PACKET PO (06:38)
[2018-02-06] MEDS: Pantoprazole Sodium 40 MG Tablet PO (06:38)
[2018-02-06] MEDS: Fluconazole 100 MG Tablet PO (06:38)
[2018-02-06] MEDS: Senna/Docusate Sodium 1 Tablet PO ×2 (06:38→17:23)
[2018-02-06] MEDS: Nystatin Powder 15gm Bottle 1 APPLIC TOPICAL ×2 (06:39→21:37)
[2018-02-06] MEDS: Menthol/Lanolin/Calamine/Znox 113 GM Tube 1 APPLIC TOPICAL ×2 (06:43→21:36)
[2018-02-06] MEDS: Zinc Oxide 30gm Tube 1 APPLIC TOPICAL ×2 (06:43→21:38)
[2018-02-06 06:51] LABS: Bedside Glucose 102 mg/dL (70-110)
[2018-02-06] MEDS: Aspirin 81 MG TAB.CHEW PO (08:01)
[2018-02-06] MEDS: Multivitamins,Therapeutic Tablet 1 TABLET PO (08:01)
[2018-02-06] MEDS: Iron Polysaccharide Complex 150 MG CAPSULE PO (08:01)
[2018-02-06] MEDS: Insulin Lispro 100 UNIT/ML INSULN.PEN 10 UNIT SC ×3 (08:46→17:23)
[2018-02-06 11:26] LABS: Bedside Glucose 199 mg/dL (70-110)
[2018-02-06 15:39] VITALS: BP 145/80; PULSE 101; RESP 16; TEMP 37; O2SAT 97
--- NOTE | 2018-02-06 16:06 | NURSING ---
Aware of Vital Signs taken this afternoon.
[2018-02-06 16:55] LABS: Bedside Glucose 171 mg/dL (70-110)
[2018-02-06] MEDS: Tamsulosin HCl 0.4 MG Capsule PO (17:23)
[2018-02-06 21:11] LABS: Bedside Glucose 196 mg/dL (70-110)
[2018-02-06] MEDS: MELATONIN 10 MG TABLET PO (21:36)
[2018-02-06] MEDS: Doxepin Hcl 25 MG Capsule PO (21:36)
[2018-02-06] MEDS: Acetaminophen 500 MG Tablet 1000 MG PO (21:38)
[2018-02-07] MEDS: Enoxaparin 30 MG/0.3 ML Syringe SC (05:25)
[2018-02-07] MEDS: Pantoprazole Sodium 40 MG Tablet PO (05:25)
[2018-02-07] MEDS: Zinc Oxide 30gm Tube 1 APPLIC TOPICAL ×2 (05:26→21:51)
[2018-02-07] MEDS: Nystatin Powder 15gm Bottle 1 APPLIC TOPICAL ×2 (05:26→21:51)
[2018-02-07] MEDS: Menthol/Lanolin/Calamine/Znox 113 GM Tube 1 APPLIC TOPICAL ×2 (05:26→21:50)
[2018-02-07] MEDS: Acetaminophen 500 MG Tablet 1000 MG PO ×2 (05:44→21:49)
[2018-02-07 06:55] LABS: Bedside Glucose 123 mg/dL (70-110)
[2018-02-07 06:56] LABS: Anion Gap 11 (5-15); BUN 17 mg/dL (7-18); BUN/Creat Ratio 19.8 RATIO (10-20); Calcium,Total 8.2 mg/dL (8.5-10.1); Chloride 102 mmol/L (98-107); Creatinine, Serum 0.86 mg/dL (0.55-1.02); EST Glomerular Filtration Rate 70 mL/min (>60); Est Glom Filt Rate - Afr Amer 85 mL/min (>60); Estimated Creatinine Clearance 50.89 ml/min; Glucose 114 mg/dL (74-106); Sodium Level 143 mmol/L (136-145)
[2018-02-07] MEDS: Multivitamins,Therapeutic Tablet 1 TABLET PO (08:43)
[2018-02-07] MEDS: Aspirin 81 MG TAB.CHEW PO (08:43)
[2018-02-07] MEDS: Iron Polysaccharide Complex 150 MG CAPSULE PO (08:43)
[2018-02-07] MEDS: Insulin Lispro 100 UNIT/ML INSULN.PEN 10 UNIT SC ×3 (08:43→17:41)
--- NOTE | 2018-02-07 09:32 | NURSING ---
Addendum entered by Noemi Golden 02/07/18 11:33: dr león upated on UA results, new order to consult Infect disease and start diflucan. Original Note: pt urine cloudy with sediment, recently finished diflucan and PO ATB. Miranda has been irrigated intermittantly. Dr León updated, new order for UA.
[2018-02-07 10:32] LABS: Bacteria 0 SEEN /hpf (None Seen); Mucous, Urine 0 SEEN /hpf (<or=2+); Red Blood Cells-Urine 0 SEEN /hpf (0-5); Squamous Epithelial Cells - UA 0 SEEN /hpf (5-10)
[2018-02-07 10:36] LABS: Color, Urine Yellow (Yellow); Glucose, Dipstick Normal (Normal); Ketone-Dipstick Negative (Negative); Leukocyte Esterase-Dipstick 500 /ul (Negative); Nitrite-Dipstick Negative (Negative); Occult Blood-Urine 50 /ul (Negative); Protein-Dipstick 30 mg/dl (Negative); Urine Bilirubin Dipstick Negative (Negative); Urine Clarity Clear (Clear); Urine Urobilinogen Normal (Normal)
[2018-02-07 10:46] LABS: White Blood Cells 50-100 SEEN /hpf (0-5); Yeast-Urine 2+ /hpf (None Seen)
[2018-02-07 11:41] LABS: Bedside Glucose 168 mg/dL (70-110)
[2018-02-07 16:00] VITALS: BP 141/82; PULSE 105; RESP 16; TEMP 36.8; O2SAT 95
[2018-02-07 17:06] LABS: Bedside Glucose 155 mg/dL (70-110)
[2018-02-07] MEDS: Tamsulosin HCl 0.4 MG Capsule PO (17:41)
[2018-02-07] MEDS: FLUCONAZOLE 150 MG TABLET PO (17:41)
--- NOTE | 2018-02-07 20:09 | NURSING ---
Pt requesting oral meds to control diabetes instead of insulin. Pt complaint of increased pain to sciatica. Dr. León updated. New orders entered.
--- NOTE | 2018-02-07 20:11 | RAD_ITS ---
STUDY: X-RAY - LUMBAR SPINE REASON FOR EXAM: Female, 68 years old. Pain. TECHNIQUE: 5 view(s) of the lumbar spine were obtained. COMPARISON: None FINDINGS: Normal lumbar lordosis. There is mild levoscoliosis of the lumbar spine. There is a normal alignment of the vertebrae. There is multilevel endplate spondylosis of the lumbar vertebrae. There is multi-level degenerative disc disease with multi-level disc space narrowing. Findings most pronounced in the thoracolumbar spine, and L2-L3. The soft tissue structures are unremarkable. RAD/L/S Spine Min 4 Views IMPRESSION: No acute body. Multilevel degenerative disc disease, especially at L2-L3. Electronically Signed: Jerson Chapin MD at 21:06 EST , Service support ,
[2018-02-07 21:11] LABS: Bedside Glucose 132 mg/dL (70-110)
[2018-02-07] MEDS: Doxepin Hcl 25 MG Capsule PO (21:49)
[2018-02-07] MEDS: MELATONIN 10 MG TABLET PO (21:49)
[2018-02-08] MEDS: FLUCONAZOLE 150 MG TABLET PO (04:39)
[2018-02-08] MEDS: Pantoprazole Sodium 40 MG Tablet PO (04:39)
[2018-02-08] MEDS: Enoxaparin 30 MG/0.3 ML Syringe SC (04:39)
[2018-02-08] MEDS: Nystatin Powder 15gm Bottle 1 APPLIC TOPICAL ×2 (04:41→20:25)
[2018-02-08] MEDS: Menthol/Lanolin/Calamine/Znox 113 GM Tube 1 APPLIC TOPICAL ×2 (04:41→20:32)
[2018-02-08] MEDS: Zinc Oxide 30gm Tube 1 APPLIC TOPICAL ×2 (04:42→20:25)
[2018-02-08] MEDS: Acetaminophen 500 MG Tablet 1000 MG PO ×2 (05:50→20:27)
[2018-02-08] MEDS: LINAGLIPTIN 5 MG TABLET PO (05:50)
[2018-02-08 06:46] LABS: Bedside Glucose 136 mg/dL (70-110)
[2018-02-08] MEDS: Iron Polysaccharide Complex 150 MG CAPSULE PO (08:46)
[2018-02-08] MEDS: Multivitamins,Therapeutic Tablet 1 TABLET PO (08:46)
[2018-02-08] MEDS: Aspirin 81 MG TAB.CHEW PO (08:46)
[2018-02-08] MEDS: metFORMIN HCl 1,000 MG Tablet 1000 MG PO ×2 (08:47→17:33)
[2018-02-08] MEDS: Pioglitazone Hydrochloride 30 MG Tablet PO (08:47)
[2018-02-08 11:16] LABS: Bedside Glucose 265 mg/dL (70-110)
--- NOTE | 2018-02-08 13:45 | NURSING ---
PT BLADDER SCANNED FOR 47.
--- NOTE | 2018-02-08 13:56 | PCM.HP.ID ---
Problem List (1) Urinary tract infection Status: Acute Reason for Consult: uti Consulted by: Dr. León History of Present Illness: The patient is a 68 year old F who initially presented to [place] and then transferred to [place] with lethargy and altered mental status, found to have diabetic ketoacidosis, hypovolemic and septic shock, acute cystitis, acute kidney injury, newly diagnosed type 2 diabetes mellitus, elevated LFT and thrombocytopenia. Found to have Klebsiella pneumonia/Streptococcus agalactiae acute cystitis, reated with IV cefepime. CT scan abdomen and pelvis revealed prominent collecting system of both kidneys, questionable minimal hydronephrosis, no stones. Urology consulted, recommended no interventions of the prominent collecting system of both kidneys and are of no concern, recommended to repeat ultrasound in 3 months. Patient discharged to TCU without antibiotics, she completed 6 days of IV cefepime. Voiding trial failed and Delgadillo catheter put back, started on Flomax. UA at TCU with some pyuria and leuk esterase. She denies any symptoms at that time. Ucx with enterococcus, so started on 10 day course of amoxicillin. C/o constant diarrhea while on amoxicillin. Completed course, feeling better off the med, UA and UCx now repeated. Yeast seen on UA, so fluconazole started. No vaginal discharge, no abd pain, no fever. Full ROS performed and neg except as noted above. - Medical History Allergies/Adverse Reactions: Allergies Penicillins Adverse Reaction (Mild, Verified 02/02/18 14:39) Rash Home Medications: Ambulatory Orders Medication Instructions Recorded Aspirin [Aspirin, Baby] 81 mg PO DAILY@0800 01/13/18 Fish Oil/Dha/Epa [Fish Oil 1,200 2 each PO DAILY 01/13/18 mg Fish Oil] Lactobacillus Combination No.4 1 each PO DAILY 01/13/18 [Probiotic] Multivitamin [Daily Multiple 1 tab PO DAILY 01/13/18 Vitamin] Vit A/C/E/Zinc/Selenium/Copper 1 each PO DAILY 01/13/18 [Vision Formula Tablet] Insulin Human 75/25 [Humalog Mix 30 unit SC BIDAC 01/21/18 75-25 Kwikpen] Insulin Lispro [Humalog KwikPen] 10 unit SC TIDAC 01/21/18 Insulin Lispro [Humalog KwikPen] See Protocol SC ACHS 01/21/18 Pantoprazole Sodium [Protonix] 40 mg PO DAILY 01/21/18 Tamsulosin HCl [Flomax] 0.4 mg PO DAILY@1730 01/21/18 - Social History Tobacco Use: non-smoker Vital Signs Temp Pulse Resp BP Pulse Ox 98.3 F 105 H 16 141/82 H 95 02/07/18 16:00 02/07/18 16:00 02/07/18 16:00 02/07/18 16:00 02/07/18 16:00 Oxygen Delivery Method Room Air Weight: 54.204 kg Body Mass Index (BMI) 26.2 Finger Stick Blood Glucose 152 reviewed. UA with 2+ yeast seen. - Other Studies Radiology: [] reviewed Other Studies: [] Route of nutrition/ use of supplements: [] Nutritional Intake: [] IV Site: [] Delgadillo Catheter: [] - Physical Exam General: Alert, Oriented x3, Cooperative, No apparent distress HEENT: Atraumatic, PERRLA, EOMI Neck: Supple, No Nodes Lungs: Clear to auscultation, Normal air movement Cardiovascular: Regular rate, Regular Rhythm, No murmurs Abdomen: Soft, Non Tender, Non-Distended Extremities: No edema Skin: No rashes IV Site: Peripheral, without redness Musculoskeletal: No Tenderness to Palpation of Joints or Extremities Neurological: Cranial nerves II-XII grossly intact - Assessment/Plan Antibiotics: [] Assessment/Plan: [] Active and Suspected Problems (Last Reviewed 02/02/18 @ 14:37 by Gloria Lopez) Leukocytosis (Acute) Thrombocytopenia (Acute) Anemia (Acute) Recent septic shock due to UTI. Requires delgadillo in place due to urinary retention. Urology following. Given delgadillo, her UA and Ucx may always be abnormal due to colonization. It will be important to only treat symptomatic infection in order to prevent bacterial resistance and side effects. It sounds like she had a lot of diarrhea with amoxicillin without clear improvement in urine studies/symptoms. Will stop fluconazole and recommend avoiding UA/Ucx or abx unless she develops fever, confusion, abd pain, nausea, flank pain, or other symptoms of uti. Discussed with her and she is in agreement. Ideally, delgadillo can be removed eventually which will also help prevent these issues from developing. Will follow, thank you.
[2018-02-08 16:00] VITALS: BP 128/66; PULSE 115; RESP 20; TEMP 36.8; O2SAT 92
--- NOTE | 2018-02-08 16:37 | CASEMGMT ---
Social Work Assisted resident and resident spouse in completing Medicare Part D application. Application faxed at this time. DALJIT Mondragon, AIRPLANE RENTAL CLERK
[2018-02-08 16:56] LABS: Bedside Glucose 213 mg/dL (70-110)
[2018-02-08] MEDS: Tamsulosin HCl 0.4 MG Capsule PO (17:33)
[2018-02-08] MEDS: MELATONIN 10 MG TABLET PO (20:24)
[2018-02-08] MEDS: Doxepin Hcl 25 MG Capsule PO (20:24)
[2018-02-08 21:26] LABS: Bedside Glucose 185 mg/dL (70-110)
[2018-02-09] MEDS: Acetaminophen 500 MG Tablet 1000 MG PO ×3 (06:17→23:00)
[2018-02-09] MEDS: Nystatin Powder 15gm Bottle 1 APPLIC TOPICAL ×2 (06:18→21:56)
[2018-02-09] MEDS: Enoxaparin 30 MG/0.3 ML Syringe SC (06:18)
[2018-02-09] MEDS: Pantoprazole Sodium 40 MG Tablet PO (06:18)
[2018-02-09] MEDS: LINAGLIPTIN 5 MG TABLET PO (06:19)
[2018-02-09] MEDS: Menthol/Lanolin/Calamine/Znox 113 GM Tube 1 APPLIC TOPICAL ×2 (06:22→21:56)
[2018-02-09] MEDS: Zinc Oxide 30gm Tube 1 APPLIC TOPICAL ×2 (06:22→21:56)
[2018-02-09 06:45] LABS: Bedside Glucose 154 mg/dL (70-110)
[2018-02-09] MEDS: Iron Polysaccharide Complex 150 MG CAPSULE PO (08:35)
[2018-02-09] MEDS: metFORMIN HCl 1,000 MG Tablet 1000 MG PO ×2 (08:35→17:32)
[2018-02-09] MEDS: Multivitamins,Therapeutic Tablet 1 TABLET PO (08:35)
[2018-02-09] MEDS: Aspirin 81 MG TAB.CHEW PO (08:36)
[2018-02-09] MEDS: Pioglitazone Hydrochloride 30 MG Tablet PO (08:36)
--- NOTE | 2018-02-09 10:38 | PCM.PN.ID ---
Patient Problems: Active and Suspected Problems (Last Reviewed 02/02/18 @ 14:37 by Gloria Lopez) Leukocytosis (Acute) Thrombocytopenia (Acute) Anemia (Acute) Subjective: Feeling well, no complaints, no fever, no abd pain. - Physical Exam General: Alert, Cooperative, No apparent distress Lungs: Clear to auscultation, Normal air movement Cardiovascular: Regular rate, Regular Rhythm Abdomen: Soft, Non Tender, Non-Distended Skin: No rashes Vital Signs Temp Pulse Resp BP Pulse Ox 98.2 F 115 H 20 H 128/66 H 92 02/08/18 16:00 02/08/18 16:00 02/08/18 16:00 02/08/18 16:00 02/08/18 16:00 Oxygen Delivery Method Room Air Weight: 54.204 kg Body Mass Index (BMI) 26.2 Finger Stick Blood Glucose 152 Intake and Output for Last 24 Hours 02/07/18 02/08/18 02/09/18 23:59 23:59 23:59 Intake Total 640 / 640 840 / 840 480 / 480 Output Total 1600 / 1600 3425 / 3425 1200 / 1200 Balance -960 / -960 -2585 / -2585 -720 / -720 POC Glucose 02/09/18 02/08/18 02/08/18 06:31 21:18 16:49 POC Glucose 154 H 185 H 213 H 02/08/18 11:08 POC Glucose 265 H Medical Necessity - Tobacco Use Smoking Status: Never smoker Tobacco Use: Non-smoker Route of nutrition/ use of supplements: [] Nutritional Intake: [] IV Site: [] Delgadillo Catheter: [] - Assessment/Plan Antibiotics: [] Assessment/Plan: [] Active and Suspected Problems (Last Reviewed 02/02/18 @ 14:37 by Gloria Lopez) Leukocytosis (Acute) Thrombocytopenia (Acute) Anemia (Acute) Recent septic shock due to UTI. Requires delgadillo in place due to urinary retention. Urology following. Given delgadillo, her UA and Ucx may always be abnormal due to colonization. It will be important to only treat symptomatic infection in order to prevent bacterial resistance and side effects. It sounds like she had a lot of diarrhea with amoxicillin without clear improvement in urine studies/symptoms. Monitoring off of abx, and recommend avoiding UA/Ucx or abx unless she develops fever, confusion, abd pain, nausea, flank pain, or other symptoms of uti. Ideally, delgadillo can be removed eventually which will also help prevent these issues from developing. Will follow as needed, please call with any questions
--- NOTE | 2018-02-09 15:36 | CASEMGMT ---
Social Work Met with resident and resident family. Resident wanting to explore options of discharge to home and whether or not resident is ready to discharge home. Resident does have family training tomorrow with therapy. This social science instructor to meet with resident and resident spouse tomorrow morning after family training to see if resident/resident spouse are ready for resident to transition to home. Therapy is currently recommending for resident to continue with another week of therapy. Resident/resident spouse aware of recommendation. Support given. Will continue to follow. AMANDA MondragonW, FERRYBOAT OPERATOR CABLE
[2018-02-09 16:00] VITALS: BP 131/72; PULSE 118; RESP 18; TEMP 36.6; O2SAT 97
[2018-02-09 16:31] VITALS: PULSE 120; RESP 18
[2018-02-09] MEDS: Tamsulosin HCl 0.4 MG Capsule PO (17:32)
--- NOTE | 2018-02-09 17:58 | NURSING ---
Addendum entered by Tran Hughes 02/09/18 22:08: Pt's HR assessed this evening. HR remains elevated running between 118-120. Dr León notified. N.O. to give 12.5mg of Lopressor now and start Lopressor 25mg BID. Will continue to monitor. Original Note: PT HR elevated at times, dr león notified, new order for lopressor 12.5mg BID. pt updated.
[2018-02-09 18:55] VITALS: PULSE 113
[2018-02-09] MEDS: Metoprolol Tartrate 25 MG Tablet 12.5 MG PO ×2 (18:55→22:27)
[2018-02-09] MEDS: Doxepin Hcl 25 MG Capsule PO (21:57)
[2018-02-09] MEDS: MELATONIN 10 MG TABLET PO (21:57)
[2018-02-09 22:27] VITALS: BP 153/80; PULSE 117
[2018-02-10 05:45] VITALS: BP 159/95; PULSE 112
[2018-02-10] MEDS: Menthol/Lanolin/Calamine/Znox 113 GM Tube 1 APPLIC TOPICAL ×2 (05:45→21:59)
[2018-02-10] MEDS: Metoprolol Tartrate 25 MG Tablet PO ×2 (05:45→17:30)
[2018-02-10] MEDS: Enoxaparin 30 MG/0.3 ML Syringe SC (05:45)
[2018-02-10] MEDS: Nystatin Powder 15gm Bottle 1 APPLIC TOPICAL ×2 (05:45→22:01)
[2018-02-10] MEDS: LINAGLIPTIN 5 MG TABLET PO (05:46)
[2018-02-10] MEDS: Pantoprazole Sodium 40 MG Tablet PO (05:46)
[2018-02-10] MEDS: Zinc Oxide 30gm Tube 1 APPLIC TOPICAL ×2 (05:46→22:00)
[2018-02-10 06:50] LABS: Bedside Glucose 146 mg/dL (70-110)
[2018-02-10] MEDS: metFORMIN HCl 1,000 MG Tablet 1000 MG PO ×2 (08:06→17:30)
[2018-02-10] MEDS: Multivitamins,Therapeutic Tablet 1 TABLET PO (08:07)
[2018-02-10] MEDS: Acetaminophen 500 MG Tablet 1000 MG PO ×2 (08:07→22:03)
[2018-02-10] MEDS: Aspirin 81 MG TAB.CHEW PO (08:07)
[2018-02-10] MEDS: Pioglitazone Hydrochloride 30 MG Tablet PO (08:07)
[2018-02-10] MEDS: Iron Polysaccharide Complex 150 MG CAPSULE PO (08:07)
--- NOTE | 2018-02-10 10:50 | CASEMGMT ---
Social Work Spoke with resident and resident family in room. Resident is wanting to discharge home on 02/19/18. Spoke with staff/therapy, 02/19/18 is an agreeable date at this time. Resident plans to discharge to home with spouse. Team is recommending for resident to continue with services within the home at time of discharge for physical and occupational therapy as well as care home. Resident reporting to also have no durable medical equipment at home and to need a walker and a wheelchair. Support given. Will continue to follow for further discharge planning and support. Proposed discharge date: 02/19/18. PLAN: Discharge to home with spouse and home health care. DALJIT Mondragon, TREE DOCTOR
--- NOTE | 2018-02-10 14:17 | NURSING ---
BLADDER SCANNED PT FOR 66. REPORTED TO RENEE ALAN
--- NOTE | 2018-02-10 14:20 | NURSING ---
RENEE LOMBARDI WOUND NURSE CHANGED PT HEEL DRESSINGS[MEPILEX].
[2018-02-10 14:23] VITALS: PULSE 105; RESP 18; O2SAT 98
--- NOTE | 2018-02-10 14:47 | NURSING ---
wound photo: left heel
--- NOTE | 2018-02-10 14:48 | NURSING ---
wound photo: right lateral ankle
[2018-02-10 15:53] VITALS: BP 116/66; PULSE 107; RESP 18; TEMP 36.9; O2SAT 95
--- NOTE | 2018-02-10 17:19 | DCINST_ITS ---
- Discharge Diagnoses Current Active Problems: Current Active and Chronic Problems (Last Reviewed 02/02/18 @ 14:37 by Gloria Lopez) Leukocytosis (Acute) Thrombocytopenia (Acute) Anemia (Acute) You will use the following diet at home:: No restrictions, Regular Your food should be the consistency of: Regular Your liquids should be the consistency of: Regular/Thin Discharge Activity: Return to Normal Activity, May Shower, Use Walker Weight Bearing Status: Weight bearing as tolerated Call your doctor if you observe: Fever of 101 or Higher, Inability to urinate, Inability to have a bowel movement, Shortness of breath, Chest pain, Uncontrolled pain Allergies/Adverse Reactions: Allergies Penicillins Adverse Reaction (Mild, Verified 02/02/18 14:39) Rash Medications to take at Discharge Aspirin [Aspirin, Baby] 81 mg PO DAILY@0800 01/13/18 Fish Oil/Dha/Epa [Fish Oil 1,200 mg Fish Oil] 2 each PO DAILY 01/13/18 Lactobacillus Combination No.4 [Probiotic] 1 each PO DAILY 01/13/18 Multivitamin [Daily Multiple Vitamin] 1 tab PO DAILY 01/13/18 Vit A/C/E/Zinc/Selenium/Copper [Vision Formula Tablet] 1 each PO DAILY 01/13/18 Acetaminophen [Tylenol] 1,000 mg PO Q8H PRN PRN tablet 02/10/18 Doxepin HCl [Sinequan] 25 mg PO QHS #30 capsule 02/10/18 Iron Polysaccharide Complex [Ferrex 150] 150 mg PO DAILYCM #30 capsule 02/10/18 Lactobacillus Acidophilus [Acidophilus] 1 tablet PO DAILY tablet 02/10/18 Linagliptin [Tradjenta] 5 mg PO DAILY #30 tablet 02/10/18 Melatonin 10 mg PO QHS tablet 02/10/18 Menthol/Lanolin/Calamine/Znox [Calmoseptine Ointment] 1 applic TOPICAL 0600,2200 tube 02/10/18 Metformin HCl [Glucophage] 1,000 mg PO BIDCM #60 tablet 02/10/18 Metoprolol Tartrate [Lopressor (beta georgie)] 25 mg PO BID #60 tablet 02/10/18 Nystatin Powder [Mycostatin Powder] 1 applic TOPICAL 0600,2200 bottle 02/10/18 Pantoprazole Sodium [Protonix] 40 mg PO DAILY #30 tablet 02/10/18 Pioglitazone [Actos] 30 mg PO DAILY@0800 #30 tablet 02/10/18 Potassium Chloride [K-Dur] 20 meq PO DAILYCM #30 tablet 02/10/18 Tamsulosin HCl [Flomax] 0.4 mg PO DAILY@1730 #30 capsule 02/10/18 Zinc Oxide 1 applic TOPICAL 0600,2200 tube 02/10/18 The following prescriptions were given: Doxepin HCl [Sinequan] 25 mg PO QHS #30 capsule Iron Polysaccharide Complex [Ferrex 150] 150 mg PO DAILYCM #30 capsule Linagliptin [Tradjenta] 5 mg PO DAILY #30 tablet Pantoprazole Sodium [Protonix] 40 mg PO DAILY #30 tablet Pioglitazone [Actos] 30 mg PO DAILY@0800 #30 tablet Potassium Chloride [K-Dur] 20 meq PO DAILYCM #30 tablet Tamsulosin HCl [Flomax] 0.4 mg PO DAILY@1730 #30 capsule Metformin HCl [Glucophage] 1,000 mg PO BIDCM #60 tablet Metoprolol Tartrate [Lopressor (beta georgie)] 25 mg PO BID #60 tablet Primary Care Physician: Jw Flores MD [STAFF PHYSICIAN] - Test Results: Test results from this visit will be discussed in further detail at your follow- up appointment, if applicable. Please Follow Up With: Dr Cindi Salmeron When: 2 weeks. Please Follow Up With: Dr Steinberg When: 1 week. Proposed Discharge Date: 02/19/18
--- NOTE | 2018-02-10 17:21 | DS.PCM_ITS ---
Discharge Date and Diagnosis - Problem List Patient Problems: Active and Suspected Problems (Last Reviewed 02/02/18 @ 14:37 by Gloria Lopez) Leukocytosis (Acute) Thrombocytopenia (Acute) Anemia (Acute) Date of Admission: 01/21/18 Date of Discharge: 02/10/18 - Primary Discharge Diagnosis Active and Suspected Problems (Last Reviewed 02/02/18 @ 14:37 by Gloria Lopez) Leukocytosis (Acute) Thrombocytopenia (Acute) Anemia (Acute) Hospital Course and Treatment Imaging Results: 01/21/18 15:39 Diet: Carbohydrate Controlled Food consistency:: Regular Liquid Consistency:: Regular/Thin Is pt able to select menu?: Yes Clinical Impression(s) from Imaging Studies KUB X-Ray 02/02/18 18:48 IMPRESSION: Nonspecific bowel gas pattern. Electronically Signed: Karolina Jerez MD at 19:09 EST Tel , Service support , Lumbar Spine X-Ray 02/07/18 20:11 IMPRESSION: No acute body. Multilevel degenerative disc disease, especially at L2-L3. Electronically Signed: Jerson Chapin MD at 21:06 EST , Service support , Labs (Last 48 Hours) 02/08/18 02/09/18 02/10/18 21:18 06:31 06:33 POC Glucose 185 H 154 H 146 H Microbiology 02/07/18 10:24 Urine Catheter - Catheter Urine Culture - Final Lisa albicans Consultations 01/23/18 23:17 Consult: Onc/Wound/flow machine operator Routine Comment: Reason for Consult:: pressure area to coccyx Operations: None Summary of Care Provided: The patient is a 68 year old Female with below past medical history significant for new onset Type 2 Diabetes Mellitus, hospitalized for diabetic ketoacidosis, complicated by septic shock, urinary tract infection, acute kidney injury, anemia, admitted to TCU with debility, here for rehabilitation, strengthening, prior to discharge home with spouse. On TCU, resident developed left heel deep tissue pressure ulcer, unstageable. Resident developed right lateral malleolus stage 1 pressure ulcer. Discharge home with spouse, and Home Health Services. Patient Problems: Active and Suspected Problems (Last Reviewed 02/02/18 @ 14:37 by Gloria Lopez) Leukocytosis (Acute) Thrombocytopenia (Acute) Anemia (Acute) - Physical Exam Vital Signs Temp Pulse Resp BP Pulse Ox 98.4 F 107 H 18 116/66 95 02/10/18 15:53 02/10/18 15:53 02/10/18 15:53 02/10/18 15:53 02/10/18 15:53 Oxygen Delivery Method Room Air Weight: 54.204 kg Body Mass Index (BMI) 26.2 Finger Stick Blood Glucose 152 Intake and Output for Last 24 Hours 02/08/18 02/09/18 02/10/18 23:59 23:59 23:59 Intake Total 840 / 840 1080 / 1080 240 / 240 Output Total 3425 / 3425 3175 / 3175 2200 / 2200 Balance -2585 / -2585 -2095 / -2095 -1960 / -1960 Microbiology Past 72 Hours 02/07/18 10:24 Urine Culture - Final Urine Catheter - Catheter Lisa albicans POC Glucose 02/10/18 06:33 POC Glucose 146 H Discharge Diet: No Restrictions Discharge Activity: Return to Normal Activity, May Shower, Use Walker Weight Bearing Status: Weight bearing as tolerated Call your doctor if you observe: Fever of 101 or Higher, Inability to urinate, Inability to have a bowel movement, Shortness of breath, Chest pain, Uncontrolled pain Home Medications: Medications to take at Discharge Aspirin [Aspirin, Baby] 81 mg PO DAILY@0800 01/13/18 Fish Oil/Dha/Epa [Fish Oil 1,200 mg Fish Oil] 2 each PO DAILY 01/13/18 Lactobacillus Combination No.4 [Probiotic] 1 each PO DAILY 01/13/18 Multivitamin [Daily Multiple Vitamin] 1 tab PO DAILY 01/13/18 Vit A/C/E/Zinc/Selenium/Copper [Vision Formula Tablet] 1 each PO DAILY 01/13/18 Acetaminophen [Tylenol] 1,000 mg PO Q8H PRN PRN tablet 02/10/18 Doxepin HCl [Sinequan] 25 mg PO QHS #30 capsule 02/10/18 Iron Polysaccharide Complex [Ferrex 150] 150 mg PO DAILYCM #30 capsule 02/10/18 Lactobacillus Acidophilus [Acidophilus] 1 tablet PO DAILY tablet 02/10/18 Linagliptin [Tradjenta] 5 mg PO DAILY #30 tablet 02/10/18 Melatonin 10 mg PO QHS tablet 02/10/18 Menthol/Lanolin/Calamine/Znox [Calmoseptine Ointment] 1 applic TOPICAL 0600,2200 tube 02/10/18 Metformin HCl [Glucophage] 1,000 mg PO BIDCM #60 tablet 02/10/18 Metoprolol Tartrate [Lopressor (beta georgie)] 25 mg PO BID #60 tablet 02/10/18 Nystatin Powder [Mycostatin Powder] 1 applic TOPICAL 0600,2200 bottle 02/10/18 Pantoprazole Sodium [Protonix] 40 mg PO DAILY #30 tablet 02/10/18 Pioglitazone [Actos] 30 mg PO DAILY@0800 #30 tablet 02/10/18 Potassium Chloride [K-Dur] 20 meq PO DAILYCM #30 tablet 02/10/18 Tamsulosin HCl [Flomax] 0.4 mg PO DAILY@1730 #30 capsule 02/10/18 Zinc Oxide 1 applic TOPICAL 0600,2200 tube 02/10/18 Following Prescrptions Were Given to Patient: Doxepin HCl [Sinequan] 25 mg PO QHS #30 capsule Iron Polysaccharide Complex [Ferrex 150] 150 mg PO DAILYCM #30 capsule Linagliptin [Tradjenta] 5 mg PO DAILY #30 tablet Pantoprazole Sodium [Protonix] 40 mg PO DAILY #30 tablet Pioglitazone [Actos] 30 mg PO DAILY@0800 #30 tablet Potassium Chloride [K-Dur] 20 meq PO DAILYCM #30 tablet Tamsulosin HCl [Flomax] 0.4 mg PO DAILY@1730 #30 capsule Metformin HCl [Glucophage] 1,000 mg PO BIDCM #60 tablet Metoprolol Tartrate [Lopressor (beta georgie)] 25 mg PO BID #60 tablet Primary Care Physician: Jw Flores MD [STAFF PHYSICIAN] - Please Follow Up With: Dr Cindi Salmeron When: 2 weeks. Please Follow Up With: Dr Steinberg When: 1 week. Disposition: Home with Home Health Minutes spent on discharge:: 35 Patient Condition:: Stable Medical Necessity - Tobacco Use Smoking Status: Never smoker Tobacco Use: Non-smoker Meaningful Use Info Meaningful Use Diagnoses (Choose all that apply): None applicable
--- NOTE | 2018-02-10 17:22 | HHNOTE_ITS ---
Home Health Note - Plan Overview of reason of hospitalization: The patient is a 68 year old Female with below past medical history significant for new onset Type 2 Diabetes Mellitus, hospitalized for diabetic ketoacidosis, complicated by septic shock, urinary tract infection, acute kidney injury, anemia, admitted to TCU with debility, here for rehabilitation, strengthening, prior to discharge home with spouse. On TCU, resident developed left heel deep tissue pressure ulcer, unstageable. Resident developed right lateral malleolus stage 1 pressure ulcer. Discharge home with spouse, and Home Health Services. Problems: Patient was seen for (Last Reviewed 02/02/18 @ 14:37 by Gloria Lopez) Leukocytosis (Acute) Thrombocytopenia (Acute) Anemia (Acute) Complete List of Medical Problems (Last Reviewed 02/02/18 @ 14:37 by Gloria Lopez) Leukocytosis (Acute) Diabetic ketoacidosis (Acute) Newly diagnosed type 2 diabetes mellitus (Acute) Septic shock (Acute) Acute kidney injury (Acute) Elevated LFTs (Acute) Thrombocytopenia (Acute) Encephalopathy (Acute) Hydronephrosis (Acute) Urinary tract infection (Acute) Anemia (Acute) Lethargy (Acute) Change in mental status (Acute) Debility (Acute) - Requirements and Reasons Disciplines Needed/Ordered: Senior Care, Physical Therapy Reason for Disciplines: Disease Specific Monitoring/education, Medication Management/Knowledge Deficit, Cather Care and/or Changes Related To: Limited/Poor Endurance, Shortness of Breath with Activity, Physical Impairments, Unsteady Gait/Balance, Fall Risk Patient is unable to leave the home: Without Aid of Supportive Devices (crutches, cane, wheelchair, walker), Without the assistance of another person - Additional Disciplines Additional Disciplines Needed/Ordered: Occupational Therapy
[2018-02-10 17:30] VITALS: BP 116/66; PULSE 107
[2018-02-10] MEDS: Tamsulosin HCl 0.4 MG Capsule PO (17:30)
[2018-02-10] MEDS: Doxepin Hcl 25 MG Capsule PO (22:02)
[2018-02-10] MEDS: MELATONIN 10 MG TABLET PO (22:02)
[2018-02-11] MEDS: Enoxaparin 30 MG/0.3 ML Syringe SC (05:48)
[2018-02-11] MEDS: Zinc Oxide 30gm Tube 1 APPLIC TOPICAL ×2 (05:48→22:11)
[2018-02-11] MEDS: Nystatin Powder 15gm Bottle 1 APPLIC TOPICAL ×2 (05:48→22:09)
[2018-02-11] MEDS: LINAGLIPTIN 5 MG TABLET PO (05:49)
[2018-02-11] MEDS: Pantoprazole Sodium 40 MG Tablet PO (05:49)
[2018-02-11] MEDS: Menthol/Lanolin/Calamine/Znox 113 GM Tube 1 APPLIC TOPICAL ×2 (05:49→22:09)
[2018-02-11 05:51] VITALS: BP 146/79; PULSE 113
[2018-02-11] MEDS: Metoprolol Tartrate 25 MG Tablet PO ×2 (05:51→19:06)
[2018-02-11] MEDS: Acetaminophen 500 MG Tablet 1000 MG PO ×2 (06:21→22:16)
[2018-02-11 06:35] LABS: Bedside Glucose 142 mg/dL (70-110)
[2018-02-11] MEDS: metFORMIN HCl 1,000 MG Tablet 1000 MG PO ×2 (08:17→19:06)
[2018-02-11] MEDS: Pioglitazone Hydrochloride 30 MG Tablet PO (08:17)
[2018-02-11] MEDS: Iron Polysaccharide Complex 150 MG CAPSULE PO (08:17)
[2018-02-11] MEDS: Aspirin 81 MG TAB.CHEW PO (08:17)
[2018-02-11] MEDS: Multivitamins,Therapeutic Tablet 1 TABLET PO (08:17)
[2018-02-11 15:53] VITALS: BP 130/70; PULSE 110; RESP 18; TEMP 36.8; O2SAT 94
[2018-02-11 19:06] VITALS: BP 130/70; PULSE 110
[2018-02-11] MEDS: Tamsulosin HCl 0.4 MG Capsule PO (19:06)
[2018-02-11] MEDS: MELATONIN 10 MG TABLET PO (22:12)
[2018-02-11] MEDS: Doxepin Hcl 25 MG Capsule PO (22:12)
[2018-02-11 22:20] VITALS: PULSE 90; RESP 18; O2SAT 94
[2018-02-12] MEDS: Menthol/Lanolin/Calamine/Znox 113 GM Tube 1 APPLIC TOPICAL ×2 (06:59→21:11)
[2018-02-12] MEDS: LINAGLIPTIN 5 MG TABLET PO (07:01)
[2018-02-12] MEDS: Pantoprazole Sodium 40 MG Tablet PO (07:01)
[2018-02-12 07:02] VITALS: BP 120/64; PULSE 88
[2018-02-12] MEDS: Enoxaparin 30 MG/0.3 ML Syringe SC (07:02)
[2018-02-12] MEDS: Metoprolol Tartrate 25 MG Tablet PO ×2 (07:02→17:14)
[2018-02-12 08:15] LABS: Bedside Glucose 161 mg/dL (70-110)
[2018-02-12] MEDS: Zinc Oxide 30gm Tube 1 APPLIC TOPICAL ×2 (08:34→21:14)
[2018-02-12] MEDS: Nystatin Powder 15gm Bottle 1 APPLIC TOPICAL ×2 (08:34→21:14)
[2018-02-12] MEDS: metFORMIN HCl 1,000 MG Tablet 1000 MG PO ×2 (08:35→17:13)
[2018-02-12] MEDS: Iron Polysaccharide Complex 150 MG CAPSULE PO (08:35)
[2018-02-12] MEDS: Pioglitazone Hydrochloride 30 MG Tablet PO (08:35)
[2018-02-12] MEDS: Aspirin 81 MG TAB.CHEW PO (08:35)
[2018-02-12] MEDS: Multivitamins,Therapeutic Tablet 1 TABLET PO (08:36)
[2018-02-12 15:11] VITALS: BP 129/73; PULSE 112; RESP 18; TEMP 36.8; O2SAT 94
[2018-02-12 17:14] VITALS: PULSE 112
[2018-02-12] MEDS: Tamsulosin HCl 0.4 MG Capsule PO (17:14)
[2018-02-12] MEDS: MELATONIN 10 MG TABLET PO (21:10)
[2018-02-12] MEDS: Acetaminophen 500 MG Tablet 1000 MG PO (21:10)
[2018-02-12] MEDS: Doxepin Hcl 25 MG Capsule PO (21:10)
[2018-02-13] MEDS: Enoxaparin 30 MG/0.3 ML Syringe SC (06:36)
[2018-02-13] MEDS: Menthol/Lanolin/Calamine/Znox 113 GM Tube 1 APPLIC TOPICAL ×2 (06:40→21:22)
[2018-02-13] MEDS: Pantoprazole Sodium 40 MG Tablet PO (06:40)
[2018-02-13] MEDS: Acetaminophen 500 MG Tablet 1000 MG PO ×2 (06:40→21:28)
[2018-02-13] MEDS: LINAGLIPTIN 5 MG TABLET PO (06:40)
[2018-02-13 06:41] VITALS: BP 138/76; PULSE 110
[2018-02-13] MEDS: Nystatin Powder 15gm Bottle 1 APPLIC TOPICAL ×2 (06:41→21:24)
[2018-02-13] MEDS: Zinc Oxide 30gm Tube 1 APPLIC TOPICAL ×2 (06:41→21:25)
[2018-02-13] MEDS: Metoprolol Tartrate 25 MG Tablet PO ×2 (06:41→16:45)
[2018-02-13 07:01] LABS: Bedside Glucose 155 mg/dL (70-110)
[2018-02-13] MEDS: Multivitamins,Therapeutic Tablet 1 TABLET PO (08:12)
[2018-02-13] MEDS: metFORMIN HCl 1,000 MG Tablet 1000 MG PO ×2 (08:13→16:47)
[2018-02-13] MEDS: Pioglitazone Hydrochloride 30 MG Tablet PO (08:13)
[2018-02-13] MEDS: Iron Polysaccharide Complex 150 MG CAPSULE PO (08:13)
[2018-02-13] MEDS: Aspirin 81 MG TAB.CHEW PO (08:13)
[2018-02-13 10:25] VITALS: PULSE 112; RESP 18; O2SAT 97
--- NOTE | 2018-02-13 11:19 | NURSING ---
PT QUESTIONING METFORMIN AND WONDERING IF THE MED IS CAUSING HER DIARRHEA. DIARRHEA IS ONE OF THE SIDE AFFECTS. REPORTED TO RENEE BARND
[2018-02-13 16:00] VITALS: BP 129/66; PULSE 109; RESP 18; TEMP 36.6; O2SAT 97
[2018-02-13 16:45] VITALS: BP 129/66; PULSE 109
[2018-02-13] MEDS: Tamsulosin HCl 0.4 MG Capsule PO (16:47)
[2018-02-13] MEDS: MELATONIN 10 MG TABLET PO (21:24)
[2018-02-13] MEDS: Doxepin Hcl 25 MG Capsule PO (21:25)
[2018-02-14 04:57] VITALS: BP 121/70; PULSE 112
[2018-02-14] MEDS: Metoprolol Tartrate 25 MG Tablet PO ×2 (04:57→17:14)
[2018-02-14] MEDS: Enoxaparin 30 MG/0.3 ML Syringe SC (04:57)
[2018-02-14] MEDS: LINAGLIPTIN 5 MG TABLET PO (04:58)
[2018-02-14] MEDS: Pantoprazole Sodium 40 MG Tablet PO (04:58)
[2018-02-14] MEDS: Nystatin Powder 15gm Bottle 1 APPLIC TOPICAL ×2 (05:02→20:48)
[2018-02-14] MEDS: Menthol/Lanolin/Calamine/Znox 113 GM Tube 1 APPLIC TOPICAL ×2 (05:02→20:47)
[2018-02-14] MEDS: Zinc Oxide 30gm Tube 1 APPLIC TOPICAL ×2 (05:04→20:46)
[2018-02-14 06:45] LABS: Bedside Glucose 147 mg/dL (70-110)
[2018-02-14] MEDS: Multivitamins,Therapeutic Tablet 1 TABLET PO (07:42)
[2018-02-14] MEDS: Iron Polysaccharide Complex 150 MG CAPSULE PO (07:43)
[2018-02-14] MEDS: Aspirin 81 MG TAB.CHEW PO (07:43)
[2018-02-14] MEDS: metFORMIN HCl 1,000 MG Tablet 1000 MG PO ×2 (07:43→17:14)
[2018-02-14] MEDS: Pioglitazone Hydrochloride 30 MG Tablet PO (07:43)
[2018-02-14 13:00] VITALS: PULSE 112; RESP 18; O2SAT 98
[2018-02-14 15:48] VITALS: BP 120/59; PULSE 117; RESP 20; TEMP 36.2; O2SAT 96
[2018-02-14 17:14] VITALS: BP 120/59; PULSE 117
[2018-02-14] MEDS: Tamsulosin HCl 0.4 MG Capsule PO (17:14)
[2018-02-14] MEDS: MELATONIN 10 MG TABLET PO (20:44)
[2018-02-14] MEDS: Doxepin Hcl 25 MG Capsule PO (20:44)
[2018-02-14] MEDS: Acetaminophen 500 MG Tablet 1000 MG PO (20:44)
[2018-02-15 06:50] VITALS: BP 135/75; PULSE 94
[2018-02-15] MEDS: Pantoprazole Sodium 40 MG Tablet PO (06:50)
[2018-02-15] MEDS: Metoprolol Tartrate 25 MG Tablet PO ×2 (06:50→17:59)
[2018-02-15] MEDS: LINAGLIPTIN 5 MG TABLET PO (06:50)
[2018-02-15 06:51] LABS: Bedside Glucose 146 mg/dL (70-110)
[2018-02-15] MEDS: Enoxaparin 30 MG/0.3 ML Syringe SC (06:51)
[2018-02-15] MEDS: Zinc Oxide 30gm Tube 1 APPLIC TOPICAL ×2 (06:52→21:34)
[2018-02-15] MEDS: Menthol/Lanolin/Calamine/Znox 113 GM Tube 1 APPLIC TOPICAL ×2 (06:54→21:35)
[2018-02-15] MEDS: Nystatin Powder 15gm Bottle 1 APPLIC TOPICAL ×2 (06:55→21:35)
[2018-02-15] MEDS: metFORMIN HCl 1,000 MG Tablet 1000 MG PO ×2 (08:25→17:58)
[2018-02-15] MEDS: Multivitamins,Therapeutic Tablet 1 TABLET PO (08:25)
[2018-02-15] MEDS: Aspirin 81 MG TAB.CHEW PO (08:26)
[2018-02-15] MEDS: Iron Polysaccharide Complex 150 MG CAPSULE PO (08:26)
[2018-02-15] MEDS: Pioglitazone Hydrochloride 30 MG Tablet PO (08:26)
[2018-02-15 08:30] VITALS: PULSE 114
--- NOTE | 2018-02-15 09:32 | MDS.RN ---
Information for the mds was obtained from review of the clinical record, interview of resident, staff, and direct observation of resident's care.
--- NOTE | 2018-02-15 15:04 | NURSING ---
Pt is currently in therapy. Discussed with patient's nurse. bilateral heel dressings and the sacral dressing was changed on 02/12/18. will try to reassess in am.
[2018-02-15 15:29] VITALS: BP 105/59; PULSE 120; RESP 16; TEMP 36.6; O2SAT 98
--- NOTE | 2018-02-15 16:11 | CASEMGMT ---
Social Work Spoke with resident and resident spouse in room. Resident now requesting for discharge date to be set for 02/20/18, team is agreeable to this discharge date change. Resident plans to discharge to home with spouse. This social media strategist communicating that physical and occupational therapy as well as half-way are recommending for resident to continue with services within the home. Resident is agreeable to recommendation and requesting for home health care to be set up through [facility] ([facility]). Resident also voicing to need a walker and wheelchair. Support given. Telephone call to [facility], Mikayla. This social media strategist making referral for physical and occupational therapy as well as half-way. Order completed. Will continue to follow to set up mentioned medical equipment. Proposed discharge date: 02/20/18 PLAN: Discharge to home with spouse and home health care. DALJIT Mondragon, [employer]
[2018-02-15] MEDS: Tamsulosin HCl 0.4 MG Capsule PO (17:58)
[2018-02-15 17:59] VITALS: PULSE 120
[2018-02-15] MEDS: MELATONIN 10 MG TABLET PO (21:32)
[2018-02-15] MEDS: Acetaminophen 500 MG Tablet 1000 MG PO (21:32)
[2018-02-15] MEDS: Doxepin Hcl 25 MG Capsule PO (21:32)
[2018-02-16 05:38] VITALS: BP 141/83; PULSE 114
[2018-02-16] MEDS: Metoprolol Tartrate 25 MG Tablet PO ×2 (05:38→16:59)
[2018-02-16] MEDS: Pantoprazole Sodium 40 MG Tablet PO (05:38)
[2018-02-16] MEDS: LINAGLIPTIN 5 MG TABLET PO (05:38)
[2018-02-16] MEDS: Enoxaparin 30 MG/0.3 ML Syringe SC (05:38)
[2018-02-16] MEDS: Zinc Oxide 30gm Tube 1 APPLIC TOPICAL ×2 (05:40→21:38)
[2018-02-16] MEDS: Nystatin Powder 15gm Bottle 1 APPLIC TOPICAL ×2 (05:41→21:37)
[2018-02-16] MEDS: Menthol/Lanolin/Calamine/Znox 113 GM Tube 1 APPLIC TOPICAL ×2 (05:41→21:37)
[2018-02-16] MEDS: Acetaminophen 500 MG Tablet 1000 MG PO ×2 (06:00→21:36)
--- NOTE | 2018-02-16 06:03 | NURSING ---
Miranda cath removed per order. Pt tolerated well. Encouraged pt to use call light when having the urge to void and ask for assistance to the restroom. Pt in agreement. Call light in reach.
[2018-02-16 06:09] LABS: Absolute Lymphocyte Count 1.24 X10^3/ul (0.83-4.51); Absolute Neutrophil Count 6.2 X10^3/uL (2.0-7.7); Basophil# 0.06 X10^3/uL; Basophil% 0.7 % (0-1); Eosinophils% 2.3 % (0-5); Hemoglobin 9.3 g/dl (12.0-15.0); Lymphocyte # 1.24 X10^3/ul (4.0); Lymphocyte % 14.6 % (19-41); Mean Corpuscular Hgb 27.1 pg (27.0-32.0); Mean Corpuscular Volume 87.5 fL (81-99); Mean Platelet Vol. 11.1 fl (6.2-12.0); Monocyte# 0.75 X10^3/uL; Monocyte% 8.8 % (0-10); Neutrophil # 6.24 X10^3/uL (2.7-7.7); Neutrophil % 73.2 % (47-70); Platelet Count 423 K/mm3 (150-450); RBC Distribution Width SD 46.7 fl (35.1-43.9); Red Blood Count 3.43 M/mm3 (4.2-5.4); White Blood Count 8.5 K/mm3 (4.4-11.0)
[2018-02-16 06:17] LABS: POSITIVE COUNT NO; POSITIVE DIFFERENTIAL NO; POSITIVE MORPHOLOGY NO
[2018-02-16 06:21] LABS: Bedside Glucose 141 mg/dL (70-110)
[2018-02-16 06:25] LABS: Anion Gap 11 (5-15); BUN 18 mg/dL (7-18); BUN/Creat Ratio 19.4 RATIO (10-20); Calcium,Total 8.7 mg/dL (8.5-10.1); Chloride 100 mmol/L (98-107); Creatinine, Serum 0.93 mg/dL (0.55-1.02); EST Glomerular Filtration Rate 64 mL/min (>60); Est Glom Filt Rate - Afr Amer 78 mL/min (>60); Estimated Creatinine Clearance 47.06 ml/min; Glucose 140 mg/dL (74-106); Potassium 3.9 mmol/L (3.5-5.1); Sodium Level 137 mmol/L (136-145)
[2018-02-16] MEDS: Multivitamins,Therapeutic Tablet 1 TABLET PO (07:57)
[2018-02-16] MEDS: Pioglitazone Hydrochloride 30 MG Tablet PO (07:57)
[2018-02-16] MEDS: Iron Polysaccharide Complex 150 MG CAPSULE PO (07:57)
[2018-02-16] MEDS: metFORMIN HCl 1,000 MG Tablet 1000 MG PO ×2 (07:57→16:59)
[2018-02-16] MEDS: Aspirin 81 MG TAB.CHEW PO (07:57)
--- NOTE | 2018-02-16 10:53 | CASEMGMT ---
Brief interview for mental status (BIMS) and resident mood interview (PHQ-9) completed on this day. BIMS score 15. PHQ-9 score 04/18
--- NOTE | 2018-02-16 10:53 | CASEMGMT ---
Social Work Telephone call to [employer] to make referral for wheelchair and walker, Lin reporting that a wheelchair will not be covered by resident insurance. This social work therapist faxing order for walker at this time. Spoke with resident in room. This social work therapist communicating above information. Resident voicing understanding and agreeable to just getting the walker through [employer] at this time. Resident provided with list of local stores that carry wheelchairs. Resident plans to have resident spouse purchase a transport chair for resident for when resident is going to doctor appointments. Resident reporting to only need the wheelchair for the doctor appointments. Resident spouse to provide transportation home for resident at time of discharge. Support given. Proposed discharge date: 02/20/18 PLAN: Discharge to home with spouse and home health care. DALJIT Mondragon, CONTRACT TECHNICIAN
--- NOTE | 2018-02-16 12:12 | NURSING ---
wound photo: right lateral ankle
--- NOTE | 2018-02-16 12:12 | NURSING ---
wound photo: left heel
[2018-02-16 16:00] VITALS: BP 128/71; PULSE 111; RESP 18; TEMP 37.1; O2SAT 97
--- NOTE | 2018-02-16 16:34 | NURSING ---
Dr bowman notified of pt unable to void, new order to reinsert delgadillo and get renal ultrasound, f/u dr rose after DC.
--- NOTE | 2018-02-16 16:50 | NURSING ---
PER DOCTOR ORDER,REINSERTED CRAWFORD ON PT. PT TOLERATED WELL. RENEE ALAN AWARE
[2018-02-16 16:59] VITALS: BP 128/71; PULSE 111
[2018-02-16] MEDS: Tamsulosin HCl 0.4 MG Capsule PO (16:59)
--- NOTE | 2018-02-16 19:18 | NURSING ---
script given to for glucometer, strips and lancets. pt wants him to pick it up and bring it to hospital so she can review how to use it with staff.
[2018-02-16] MEDS: Doxepin Hcl 25 MG Capsule PO (21:37)
[2018-02-16] MEDS: MELATONIN 10 MG TABLET PO (21:37)
[2018-02-17 05:41] VITALS: BP 133/73; PULSE 110
[2018-02-17] MEDS: Enoxaparin 30 MG/0.3 ML Syringe SC (05:41)
[2018-02-17] MEDS: Metoprolol Tartrate 25 MG Tablet PO ×2 (05:41→18:24)
[2018-02-17] MEDS: LINAGLIPTIN 5 MG TABLET PO (05:41)
[2018-02-17] MEDS: Menthol/Lanolin/Calamine/Znox 113 GM Tube 1 APPLIC TOPICAL ×2 (05:42→20:15)
[2018-02-17] MEDS: Pantoprazole Sodium 40 MG Tablet PO (05:42)
[2018-02-17] MEDS: Nystatin Powder 15gm Bottle 1 APPLIC TOPICAL ×2 (05:43→20:15)
[2018-02-17] MEDS: Zinc Oxide 30gm Tube 1 APPLIC TOPICAL ×2 (05:43→20:16)
[2018-02-17 07:40] LABS: Bedside Glucose 144 mg/dL (70-110)
--- NOTE | 2018-02-17 08:00 | US_ITS ---
STUDY: RENAL ULTRASOUND - COMPLETE REASON FOR EXAM: Female, 68 years old. Urinary retention. TECHNIQUE: Ultrasound evaluation of the kidneys was performed with real-time and static jolly-scale imaging. COMPARISON: Comparison is made with prior examination January 13, 2018. FINDINGS: RIGHT KIDNEY: Normal location of the right kidney, which is normal in size. The right kidney measures 10.6 sinus by 5.1 cm x 6.3 cm. There is a normal cortex of the right kidney. The renal cortex measures 2.3 cm. There is no right renal mass or cyst. There are no right renal calculi. There is no right hydronephrosis. DISTAL RIGHT URETER: There is non-visualization of the distal right ureter. There is no demonstrated right ureterovesical junction calculus. There is no demonstrated right ureteral jet. LEFT KIDNEY: Normal location of the left kidney, which is normal in size. The left kidney measures 10.9 cm x 4.7 cm x 5.9 cm. There is a normal cortex of the left kidney. The renal cortex measures 1.8 cm. There is no left renal mass or cyst. There are no left renal calculi. There is no left hydronephrosis. DISTAL LEFT URETER: There is non-visualization of the distal left ureter. There is no demonstrated left ureterovesical junction calculus. There is no demonstrated left ureteral jet. BLADDER: A Miranda catheter is seen within the decompressed urinary bladder. US/Kidney and Bladder IMPRESSION: Normal ultrasound of the kidneys and urinary bladder. Electronically Signed: Maynor Le MD at 12:54 EST Tel [phone], Service support ,
[2018-02-17] MEDS: Multivitamins,Therapeutic Tablet 1 TABLET PO (08:24)
[2018-02-17] MEDS: metFORMIN HCl 1,000 MG Tablet 1000 MG PO ×2 (08:25→18:24)
[2018-02-17] MEDS: Iron Polysaccharide Complex 150 MG CAPSULE PO (08:25)
[2018-02-17] MEDS: Pioglitazone Hydrochloride 30 MG Tablet PO (08:25)
[2018-02-17] MEDS: Aspirin 81 MG TAB.CHEW PO (08:25)
[2018-02-17] MEDS: Acetaminophen 500 MG Tablet 1000 MG PO ×2 (12:09→20:20)
[2018-02-17 14:00] VITALS: PULSE 112; RESP 18; O2SAT 96
--- NOTE | 2018-02-17 15:48 | CHAPLAIN ---
Type of Pastoral Visit ___ Initial Visit _x__ Follow-up Visit ___ On-call Visit ___ General Patient Visit ___ Spiritual Assessment ___ Family Conference ___ Bereavement ___ Rapid Response ___ Code Blue ___ Other (describe below) Pastoral Care Referral From _x__ Patient ___ Family ___ Nurse ___ Physician ___ Tower Excavator Operator ___ Service Delivery Director ___ Other (describe below) Sacrament/Intervention _x__ Active listening ___ Anointing ___ Moravian ___ Bereavement ___ Communion ___ Gabriella exploration ___ ___ Life review _x__ Prayer ___ Reconciliation ___ Sacrament of Sick ___ Supportive presence ___ Wedding ___ Other (describe below) Pastoral Comments
[2018-02-17 16:00] VITALS: BP 104/57; PULSE 118; RESP 18; TEMP 36.7; O2SAT 99
[2018-02-17] MEDS: Tamsulosin HCl 0.4 MG Capsule PO (18:23)
[2018-02-17 18:24] VITALS: BP 104/57; PULSE 118
[2018-02-17] MEDS: Doxepin Hcl 25 MG Capsule PO (20:15)
[2018-02-17] MEDS: MELATONIN 10 MG TABLET PO (20:15)
[2018-02-18] MEDS: Nystatin Powder 15gm Bottle 1 APPLIC TOPICAL ×2 (05:28→21:34)
[2018-02-18] MEDS: Enoxaparin 30 MG/0.3 ML Syringe SC (05:28)
[2018-02-18] MEDS: Pantoprazole Sodium 40 MG Tablet PO (05:28)
[2018-02-18] MEDS: Menthol/Lanolin/Calamine/Znox 113 GM Tube 1 APPLIC TOPICAL ×2 (05:28→21:34)
[2018-02-18 05:29] VITALS: BP 121/68; PULSE 115
[2018-02-18] MEDS: LINAGLIPTIN 5 MG TABLET PO (05:29)
[2018-02-18] MEDS: Metoprolol Tartrate 25 MG Tablet PO ×2 (05:29→17:12)
[2018-02-18] MEDS: Zinc Oxide 30gm Tube 1 APPLIC TOPICAL ×2 (05:29→21:35)
[2018-02-18 06:51] LABS: Bedside Glucose 147 mg/dL (70-110)
[2018-02-18] MEDS: metFORMIN HCl 1,000 MG Tablet 1000 MG PO ×2 (10:14→17:12)
[2018-02-18] MEDS: Iron Polysaccharide Complex 150 MG CAPSULE PO (10:14)
[2018-02-18] MEDS: Pioglitazone Hydrochloride 30 MG Tablet PO (10:14)
[2018-02-18] MEDS: Aspirin 81 MG TAB.CHEW PO (10:14)
[2018-02-18] MEDS: Multivitamins,Therapeutic Tablet 1 TABLET PO (10:14)
[2018-02-18] MEDS: Glucerna Shake 120 ML LIQUID PO (11:48)
[2018-02-18 15:03] VITALS: BP 125/65; PULSE 116; RESP 16; TEMP 36.6; O2SAT 95
[2018-02-18 15:30] VITALS: PULSE 100; RESP 18
[2018-02-18 17:12] VITALS: BP 125/65; PULSE 116
[2018-02-18] MEDS: Tamsulosin HCl 0.4 MG Capsule PO (17:12)
[2018-02-18] MEDS: Acetaminophen 500 MG Tablet 1000 MG PO (21:38)
[2018-02-18] MEDS: MELATONIN 10 MG TABLET PO (21:39)
[2018-02-18] MEDS: Doxepin Hcl 25 MG Capsule PO (21:39)
[2018-02-19] MEDS: Pantoprazole Sodium 40 MG Tablet PO (05:33)
[2018-02-19] MEDS: LINAGLIPTIN 5 MG TABLET PO (05:33)
[2018-02-19] MEDS: Enoxaparin 30 MG/0.3 ML Syringe SC (05:33)
[2018-02-19] MEDS: Menthol/Lanolin/Calamine/Znox 113 GM Tube 1 APPLIC TOPICAL ×2 (05:34→21:05)
[2018-02-19 05:35] VITALS: BP 124/76; PULSE 113
[2018-02-19] MEDS: Zinc Oxide 30gm Tube 1 APPLIC TOPICAL (05:35)
[2018-02-19] MEDS: Metoprolol Tartrate 25 MG Tablet PO ×2 (05:35→17:13)
[2018-02-19] MEDS: Nystatin Powder 15gm Bottle 1 APPLIC TOPICAL ×2 (05:35→21:05)
[2018-02-19 06:55] LABS: Bedside Glucose 149 mg/dL (70-110)
[2018-02-19] MEDS: Glucerna Shake 120 ML LIQUID PO (09:22)
[2018-02-19] MEDS: Multivitamins,Therapeutic Tablet 1 TABLET PO (09:23)
[2018-02-19] MEDS: Pioglitazone Hydrochloride 30 MG Tablet PO (09:23)
[2018-02-19] MEDS: Iron Polysaccharide Complex 150 MG CAPSULE PO (09:23)
[2018-02-19] MEDS: Aspirin 81 MG TAB.CHEW PO (09:23)
[2018-02-19 15:50] VITALS: BP 119/76; PULSE 112; RESP 18; TEMP 36.8; O2SAT 97
[2018-02-19] MEDS: Tamsulosin HCl 0.4 MG Capsule PO (17:12)
[2018-02-19 17:13] VITALS: PULSE 112
[2018-02-19] MEDS: Doxepin Hcl 25 MG Capsule PO (21:04)
[2018-02-19] MEDS: MELATONIN 10 MG TABLET PO (21:04)
[2018-02-19] MEDS: Acetaminophen 500 MG Tablet 1000 MG PO (21:09)
[2018-02-19 22:05] VITALS: RESP 16
[2018-02-20] MEDS: Pantoprazole Sodium 40 MG Tablet PO (06:55)
[2018-02-20] MEDS: LINAGLIPTIN 5 MG TABLET PO (06:55)
[2018-02-20] MEDS: Menthol/Lanolin/Calamine/Znox 113 GM Tube 1 APPLIC TOPICAL (06:55)
[2018-02-20] MEDS: Enoxaparin 30 MG/0.3 ML Syringe SC (06:58)
[2018-02-20 06:59] VITALS: BP 122/71; PULSE 116
[2018-02-20] MEDS: Metoprolol Tartrate 25 MG Tablet PO (06:59)
[2018-02-20] MEDS: Zinc Oxide 30gm Tube 1 APPLIC TOPICAL (07:01)
[2018-02-20] MEDS: Nystatin Powder 15gm Bottle 1 APPLIC TOPICAL (07:02)
[2018-02-20 07:06] LABS: Bedside Glucose 156 mg/dL (70-110)
[2018-02-20] MEDS: Iron Polysaccharide Complex 150 MG CAPSULE PO (08:42)
[2018-02-20] MEDS: Multivitamins,Therapeutic Tablet 1 TABLET PO (08:42)
[2018-02-20] MEDS: Pioglitazone Hydrochloride 30 MG Tablet PO (08:42)
[2018-02-20] MEDS: Aspirin 81 MG TAB.CHEW PO (08:43)
[2018-02-20 10:00] VITALS: PULSE 119; O2SAT 95
[2018-02-20 15:49] VITALS: BP 111/64; PULSE 119; RESP 16; TEMP 36.3; O2SAT 95
[2018-02-20 17:00] VITALS: BP 111/64; PULSE 111; RESP 16; TEMP 36.3; O2SAT 95
== END 2018-02-20 15:30 | disposition home health service (06) | DRG 948 ==
PROVIDERS: Admitting Provider Family Medicine Geriatric Medicine; Referring Provider Family Medicine Geriatric Medicine; Visit Provider Family Medicine Geriatric Medicine
DX: R53.81 Other malaise (principal); E78.5 Hyperlipidemia, unspecified; R33.9 Retention of urine, unspecified; K21.9 Gastro-esophageal reflux disease without esophagitis; E11.9 Type 2 diabetes mellitus without complications; G47.00 Insomnia, unspecified; D69.6 Thrombocytopenia, unspecified; D64.9 Anemia, unspecified; L89.620 Pressure ulcer of left heel, unstageable; L89.511 Pressure ulcer of right ankle, stage 1; Z87.440 Personal history of urinary (tract) infections
CPT/HCPCS: 36415; 72110; 74018; 76770; 80048; 81001; 82043; 82962; 85025; 87077; 87086; 87088; 87186; 92507; 92523; 97110; 97116; 97163; 97166; 97530; 97535; 97802

== ENCOUNTER → 2018-02-26 15:48 | Outpatient (CLI) | payer MEDICARE, SELFPAY ==
[2018-02-02 14:40] VITALS: BMI 21.5
[2018-02-26 18:00] LABS: Hemoglobin A1c 8.3 % (4.2-6.3)
[2018-02-26 18:09] LABS: AST(SGOT) 13 U/L (15-37); Alanine Aminotransfer ALT/SGPT 24 U/L (13-56); Albumin, Serum 3.4 g/dL (3.2-5.0); Alkaline Phosphatase 89 U/L (45-117); Anion Gap 13 (5-15); BUN 19 mg/dL (7-18); Calcium,Total 9.5 mg/dL (8.5-10.1); Chloride 99 mmol/L (98-107); Cholesterol 268 mg/dL (200); EST Glomerular Filtration Rate 59 mL/min (>60); Est Glom Filt Rate - Afr Amer 71 mL/min (>60); Globulin 4.4 g/dL (2.2-4.2); Glucose 116 mg/dL (74-106); High Density Lipoprotein 45 mg/dL; Potassium 4.7 mmol/L (3.5-5.1); Protein, Total 7.8 g/dL (6.4-8.2); Sodium Level 137 mmol/L (136-145); Triglycerides 257 mg/dL; Very Low Density Lipoprotein 51 mg/dL (5-40)
[2018-02-26 18:15] LABS: Microalbumin:Creatinine Ratio 325.7 mg/g CRE (<30 mg/g CRE)
== END ==
PROVIDERS: Family Provider Family Medicine; PCP Family Medicine; Visit Provider Family Medicine
DX: E11.9 Type 2 diabetes mellitus without complications (principal)
CPT/HCPCS: 36415; 80048; 80061; 80076; 82043; 82570; 83036

== ENCOUNTER 2018-05-27 15:00 | Outpatient (RCR) | payer MEDICARE, SELFPAY ==
--- NOTE | 2018-04-26 15:04 | HP.PTEVAL_ITS ---
Patient's Visit Information HARJIT LR is a 68 year old F referred to Physical Therapy by Jw Flores MD with a diagnosis of LE weakness. Date of Evaluation: 04/26/18 Physical Therapist: Rich Linda DPT, OCS, CSCS - Visit Plan Frequency: 3x /Week Duration: 4-6 Weeks Plan: 3x/week for 3-6 for. 1. balance and gait training with decreasing assistance. 2. DF strength, gastroc stretch. 3. general strength and fucntional progression to tolerance...LE strength and posture focus. - Subjective Findings: I have diabetes. Found on floor in bedroom December 2017. Diagnosed with DM with blood sugar 930. In hospital 6 weeks. 4 weeks on TCU form weakness. Using oral insulin. Out of hospital Feb 20. Had PT at home for the last couple months through last week. Time for outpatient PT. Strength adn balance are still issues. Needs to be stronger to walk without walker as she did prior to this. Uses it for balance. As she does not feel overly steady. Has carpet adn tile at home. has 13 steps with 2 railings at home. Dresses self, and bathroom and shower by yourself. Cooks at home with assist. Sometimes needs help with stockings. Dusting a little bit but has not vaccumed. Wants to get back to walking outside and cleaning house. Enjoys reading. No active hobbies. 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 - Pain L leg scrape Pain Intensity (Out of 10): 0 Pain Intensity Range: 0, 2 - Objective Pt is pushed back to eval room in . Trasnfers to stadn with UE and tends posterior. Stadn with wide ALEXANDER, hesitant adn weight posterior, needs eo. Walks without AD slow adn wide ALEXANDER and reaching for objects with fear. Walks with wh walker mod I 150 feet today. Steps ascending with two hand pull, descending with two rails only. Sit to supine and back I. PF strength 4- and DF 3/5 B, ankle inv/ev 3 and poor MC. Knee flexion and extension 4- adn hip abd and flexion 3+. quads and HS min tight, gastroc mod tight at 0 DF. reflexes 0/3 patella and achilles. Sensation WNl to gross light touch in B LE. Coordination to reciprocal toe tap is poor(DF weakness), heel tap and heel to harper OK. Balance in stadning i oor and requires assist for safety. Unable ec. - Goals Goal 1:: standi from chair safe and I without UE adn close eyes 30 sec Goal Time Frame: 4-6 Weeks Goal 2:: Walk without AD across room I and FGA 21/30 Goal Time Frame: 4-6 Weeks Goal 3:: Pt feel back to 75% of activities level Goal Time Frame: 4-6 Weeks Goal 4:: I approp HEP for group home management. 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 Rehabilitation Potential: Fair - Anticipated Interventions Patient/Client Instruction: Educate patient on: Condition, Plan of Care For the Purpose of:: To decrease pain, To increase ROM, To increase tolerance to activity/condition/position Therapeutic Exercise to Include: Strength training, Balance training, Flexibilty training, Gait and locomotor training, Passive ROM, Active ROM For the Purpose of:: To increase ROM, To improve nutrient delivery to tissue, To improve muscle performance and motor function, To increase tolerance to act ivity/condition/position, To improve gait and locomotor functions Thank you for the opportunity to evaluate your patient. For Medicare and Medicare HMO plans, please review the plan of care and approve it. It will need to be FAXED BACK to us at [phone] for Medicare purposes. For Medicare only, by signing this I certify the plan of care. Please let me know if there are questions or concerns regarding this plan of care. Physician Signature: Date:
--- NOTE | 2018-06-01 10:51 | HP.PT.NRP ---
HP - Discharge Summary (1) - Patient Information HARJIT LR was seen in my office for initial evaluation on 04/26/18. The following Plan of Care was established for this patient: Initial Frequency: 3x /Week Initial Duration: 4-6 Weeks - Anticipated Interventions Patient/Client Instruction: Educate patient on: Condition, Plan of Care For the Purpose of:: To decrease pain, To increase ROM, To increase tolerance to activity/condition/position Therapeutic Exercise to Include: Strength training, Balance training, Flexibilty training, Gait and locomotor training, Passive ROM, Active ROM For the Purpose of:: To increase ROM, To improve nutrient delivery to tissue, To improve muscle performance and motor function, To increase tolerance to activity/condition/position, To improve gait and locomotor functions This patient was last seen in our office 05/27/18. Pertinent comments regarding their Physical therapy will appear below: Pt seen 10 visits and is slowly improving. Has called to cancel all visits stating she will continue via silver sneakers instead. I will discontinue her at her request. At this point I will be discontinuing this patient from physical therapy. I would be happy to see this patient again in the future if found appropriate by the physician. Thank you! Rich Linda, DPT, OCS, CSCS
== END 2018-05-27 19:00 | disposition home or self-care (01) ==
LOC: PT 15:00
PROVIDERS: Family Provider Family Medicine; PCP Family Medicine; Visit Provider Family Medicine
DX: R29.898 Other symptoms and signs involving the musculoskeletal system (principal)
CPT/HCPCS: 97110; 97162; 97530

== ENCOUNTER 2018-06-07 13:44 | Outpatient (RCR) | payer MEDICARE, SELFPAY ==
[2018-05-04 14:37] VITALS: BMI 18.2
== END 2018-06-20 23:59 ==
LOC: DC 13:44
PROVIDERS: Family Provider Family Medicine; PCP Family Medicine; Visit Provider Family Medicine
DX: E11.9 Type 2 diabetes mellitus without complications (principal)
CPT/HCPCS: 97802

== ENCOUNTER 2018-06-28 16:07 | Outpatient (RCR) | payer MEDICARE, SELFPAY ==
[2018-05-04 14:37] VITALS: BMI 18.2
== END 2018-07-20 23:59 ==
LOC: DC 16:07
PROVIDERS: Family Provider Family Medicine; PCP Family Medicine; Visit Provider Family Medicine
DX: E11.9 Type 2 diabetes mellitus without complications (principal); Z71.3 Dietary counseling and surveillance
CPT/HCPCS: 97803

== ENCOUNTER → 2018-07-02 | Outpatient (CLI) | payer MEDICARE, SELFPAY ==
[2018-05-04 14:37] VITALS: BMI 18.2
[2018-07-02 10:42] LABS: AST(SGOT) 18 U/L (15-37); Alanine Aminotransfer ALT/SGPT 36 U/L (13-56); Albumin, Serum 3.6 g/dL (3.2-5.0); Alkaline Phosphatase 64 U/L (45-117); Anion Gap 5 (5-15); BUN 34 mg/dL (7-18); BUN/Creat Ratio 34.4 RATIO (10-20); Bilirubin, Direct 0.09 mg/dL (0.00-0.30); Calcium,Total 8.8 mg/dL (8.5-10.1); Chloride 107 mmol/L (98-107); Cholesterol 149 mg/dL (200); Creatinine, Serum 0.99 mg/dL (0.55-1.02); EST Glomerular Filtration Rate 60 mL/min (>60); Est Glom Filt Rate - Afr Amer 72 mL/min (>60); Globulin 3.4 g/dL (2.2-4.2); Glucose 105 mg/dL (74-106); High Density Lipoprotein 63 mg/dL; Potassium 4.4 mmol/L (3.5-5.1); Sodium Level 141 mmol/L (136-145); Triglycerides 86 mg/dL; Very Low Density Lipoprotein 17 mg/dL (5-40)
== END | disposition home or self-care (01) ==
LOC: MFPLAB 09:08
PROVIDERS: Family Provider Family Medicine; PCP Family Medicine; Referring Provider Family Medicine; Visit Provider Family Medicine
DX: E11.9 Type 2 diabetes mellitus without complications (principal)
CPT/HCPCS: 36415; 80048; 80061; 80076

== ENCOUNTER → 2018-07-06 | Outpatient (CLI) | payer MEDICARE, SELFPAY ==
[2018-05-04 14:37] VITALS: BMI 18.2
[2018-07-06 14:02] LABS: Microalbumin,Random Urine 21.5 mg/L (NO RANGE EST.); Microalbumin:Creatinine Ratio 76.5 mg/g CRE (<30 mg/g CRE)
== END | disposition home or self-care (01) ==
LOC: LABSPEC 13:06
PROVIDERS: Family Provider Family Medicine; PCP Family Medicine; Referring Provider Family Medicine; Visit Provider Family Medicine
DX: E11.9 Type 2 diabetes mellitus without complications (principal)
CPT/HCPCS: 36415; 82043; 82570

== ENCOUNTER → 2018-07-06 | Outpatient (CLI) | payer MEDICARE, SELFPAY ==
[2018-05-04 14:37] VITALS: BMI 18.2
--- NOTE | 2018-07-06 13:35 | BI_ITS ---
MAMMOGRAPHY - BILATERAL SCREENING REASON FOR EXAM: Female, 68 years old. Routine annual screening examination. PERTINENT HISTORY: Non-contributory. TECHNIQUE: Digital bilateral breast thelma (3D mammographic acquisition) in the CC and MLO projections. 2-D mediolateral oblique (MLO) and craniocaudad (CC) views of both breasts were obtained. CAD: Full Field Digital Mammography with Computer Added Detection was performed. COMPARISON: No comparison mammograms available at this time. If any prior films become available, an addendum to this report can be generated. FINDINGS: Breast Composition: There are scattered areas of fibroglandular density. There are no dominant masses or suspicious calcifications. No other significant abnormalities are identified. BI/SCREENING MAMM (CAD), BILAT IMPRESSION: Negative screening mammogram. Yearly followup mammogram recommended. (A) ASSESSMENT CATEGORY: BIRADS Category 1: Negative. A letter regarding these results will be sent to the patient by the facility within 30 days. Approximately 10% of breast cancers are not detected by mammography. A normal mammogram should not delay biopsy of a clinically suspicious abnormality. [id number] Electronically Signed: Maynor Le, at 15:50 EDT , Service support ,
== END | disposition home or self-care (01) ==
LOC: OPBI 13:19
PROVIDERS: Family Provider Family Medicine; PCP Family Medicine; Referring Provider Internal Medicine Hematology & Oncology; Visit Provider Internal Medicine Hematology & Oncology
DX: Z12.31 Encounter for screening mammogram for malignant neoplasm of breast (principal); E11.9 Type 2 diabetes mellitus without complications
CPT/HCPCS: 36415; 77063; 77067; 82043; 82570

== ENCOUNTER 2018-07-29 14:00 | Outpatient (RCR) | payer MEDICARE, SELFPAY ==
[2018-05-04 14:37] VITALS: BMI 18.2
== END 2018-08-20 23:59 ==
LOC: DC 14:00
PROVIDERS: Family Provider Family Medicine; PCP Family Medicine; Visit Provider Family Medicine
DX: E11.9 Type 2 diabetes mellitus without complications (principal); Z71.3 Dietary counseling and surveillance
CPT/HCPCS: 97803; G0108

== ENCOUNTER 2018-09-15 11:00 | Outpatient (RCR) | payer MEDICARE, SELFPAY ==
[2018-05-04 14:37] VITALS: BMI 18.2
[2018-08-27 11:51] VITALS: BP 126/77; PULSE 83; RESP 16; TEMP 35.7; BMI 20.5
--- NOTE | 2018-08-27 12:44 | HP.PCM_ITS ---
(1) Non-pressure ulcer of left lower extremity with fat layer exposed Status: Acute Current Visit: Yes Code(s): L97.922 - Non-pressure chronic ulcer of unspecified part of left lower leg with fat layer exposed (2) Diabetic ketoacidosis Status: Acute Current Visit: Yes Code(s): E13.10 - Other specified diabetes mellitus with ketoacidosis without coma (3) Newly diagnosed type 2 diabetes mellitus Status: Acute Current Visit: Yes (4) Diabetes mellitus with peripheral vascular disease Status: Acute Current Visit: Yes Code(s): E11.51 - Type 2 diabetes mellitus with diabetic peripheral angiopathy without gangrene (5) Diabetic ulcer of lower leg Status: Acute Current Visit: Yes Code(s): E11.622 - Type 2 diabetes mellitus with other skin ulcer; L97.909 - Non-pressure chronic ulcer of unspecified part of unspecified lower leg with unspecified severity History of Present Illness Date of Service: 08/27/18 Chief Complaint: Left lateral lower leg wound from April History of Wound: 68-year-old white female that was newly diagnosed with diabe sarai in this past 3 months. Was admitted to the hospital for other problems due to her diabetes with a infection in her kidneys became weak and has had physical therapy and has lost over 50 pounds in the last 3 months. Patient was on home health physical therapy and using leg weights when noticed that she was got a little glory on her leg and the next thing she knows it was wide open. The wound actually looks peripheral vascular and is probably more related to her diabetes. She has some neuropathy of the lower extremities definitely diabetic she states controlled with diet and high cholesterol. She states her last hemoglobin A1c was 5.8 in June. Past Medical History Past Medical History: New onset diabetes type 2. Traumatic diabetic wound to the left lateral lower leg diabetic. Leg ulcer Surgical History: no surgical history Allergies/Adverse Reactions: Allergies Penicillins Adverse Reaction (Mild, Verified 05/04/18 14:28) Rash Home Medications: Ambulatory Orders Medication Instructions Recorded Aspirin [Aspirin, Baby] 81 mg PO DAILY@0800 01/13/18 Fish Oil/Dha/Epa [Fish Oil 1,200 2 each PO DAILY 01/13/18 mg Fish Oil] Multivitamin [Daily Multiple 1 tab PO DAILY 01/13/18 Vitamin] Vit A/C/E/Zinc/Selenium/Copper 1 each PO DAILY 01/13/18 [Vision Formula Tablet] Acetaminophen [Tylenol] 1,000 mg PO Q8H PRN PRN tablet 02/10/18 Iron Polysaccharide Complex 150 mg PO DAILYCM #30 capsule 02/10/18 [Ferrex 150] Lactobacillus Acidophilus 1 tablet PO DAILY tablet 02/10/18 [Acidophilus] Menthol/Lanolin/Calamine/Znox 1 applic TOPICAL 0600,2200 tube 02/10/18 [Calmoseptine Ointment] Metoprolol Tartrate [Lopressor 25 mg PO BID #60 tablet 02/10/18 (beta georgie)] Potassium Chloride [K-Dur] 20 meq PO DAILYCM #30 tablet 02/10/18 Tamsulosin HCl [Flomax] 0.4 mg PO DAILY@1730 #30 capsule 02/10/18 Empagliflozin [Jardiance] 10 mg PO DAILY 05/05/18 Glimepiride [Amaryl] 1 mg PO DAILY 05/05/18 Pyridoxine HCl [Vitamin B-6] 100 mg PO DAILY 05/05/18 Rosuvastatin Calcium [Crestor] 5 mg PO DAILY 05/05/18 - Family History Maternal Family History: Family History (Last Reviewed 05/04/18 @ 14:28 by Gloria Lopez) Grandmother Brain cancer Father Bladder cancer No pertinent history Paternal Family History: Family History (Last Reviewed 05/04/18 @ 14:28 by Gloria Lopez) Grandmother Brain cancer Father Bladder cancer No pertinent history Lives: Spouse/ Significant Other Smoking Status: Never smoker Tobacco Use: Non-smoker Alcohol: None Drugs: None Review of Systems Constitutional: Denies: Chills, Fever Eyes: Denies: Blurred vision, Drainage, Pain HEENT: Denies: Difficulty Hearing, Difficulty Swallowing, Sore Throat, Visual Changes Cardiovascular: Denies: Chest Pain, Palpitations, Syncope Respiratory: Denies: Cough, Shortness of Breath Gastrointestinal: Denies: Abdominal Pain, Nausea, Vomiting Genitourinary: Denies: Dysuria, Frequency Musculoskeletal: Denies: Joint Pain, Muscle pain Skin: Reports: - - Lateral lower leg wound. Denies: Jaundice, Rash Neurological: Denies: Balance problems, Change in Speech, Difficulty swallowing, Focal weakness Psychiatric: Denies: Anxiety, Depression Endocrine: Denies: Change in Body Habitus Hematologic/ Lymphatic: Denies: Adenopathy - Physical Exam Vital Signs Temp Pulse Resp BP 96.2 F L 83 16 126/77 H 08/27/18 11:51 08/27/18 11:51 08/27/18 11:51 08/27/18 11:51 General: Oriented x3, Cooperative, Well developed HEENT: Atraumatic, PERRLA Oral: Moist Mucosa Neck: Supple, No JVD Lungs: Clear to auscultation, Normal air movement Cardiovascular: Regular rate, Regular Rhythm Abdomen: Bowel Sounds Present, Soft, Non Tender, No Hepato-splenomegaly Extremities: No clubbing, No edema, - - Left lateral lower leg wound from trauma and diabetes Wound Measurements and Assessment WC - Nurse 1 - General Ulcer Measurement Start: 08/27/18 11:17 Freq: Status: Active Protocol: Activity Type Activity Date Activity User E-Sign Co-Sign Detail Recorded Client Recorded Date Recorded By Document 08/27/18 11:51 AN [id number] 08/27/18 12:04 AN 08/27/18 11:51 Wound Center Nurse 1 [Ulcer Assessment] #1 LEFT LOWER LEG CLUSTER -Current Size (cm) - Length 6.6 -Current Size (cm) - Width 5.2 -Current Size (cm) - Depth 0.1 -Total Square Cm 34.32 -Date of Last Picture (Recall this 08/27/18 field) -Photo Taken Yes -Classification - Thickness Unclassifiable (Eschar Covered ) -Exudate Amt Small -Exudate Type Serosanguineous -Wound Margin Distinct, Outline Attached -Slough/Fibrin Yes -Necrosis Amt Large (67-100%) -Necrotic Tissue Type Eschar -Structure Exposed None/Limited to Skin Breakdown -Texture (Reema-wound Skin Appearance) Assessed Localized Edema -Moisture (Reema-wound Skin Appearance Assessed ) -Color (Reema-wound Skin Appearance) Assessed Erythema -Temperature (Reema-wound Skin Hot Appearance) -Tenderness on Palpation (Reema-wound No Skin Appearance) -Ulcer Cleansing Rinsed/ Irrigated with Saline -Foul Odor after Cleansing No -Anesthetic Used 4% Lidocaine Solution [Edema Assessment] -Right Calf (cm) 31.9 -Right Ankle (cm) 19.5 -Left Ankle (cm) 19 -Left Foot (cm) 31.3 WC - Nurse 2 - General Ulcer CM Notes Start: 08/27/18 11:17 Freq: Status: Active Protocol: Activity Type Activity Date Activity User E-Sign Co-Sign Detail Recorded Client Recorded Date Recorded By Document 08/27/18 12:17 MW [id number] 08/27/18 12:23 MW 08/27/18 12:17 Wound Center Nurse 2 [Procedure/Treatment] #1 LEFT LOWER LEG CLUSTER -Time 12:17 -Correct Patient Yes -Correct Side, Site, Position Yes -Correct Procedure Yes -Procedure Performed Yes -Type of Procedure Debridement -Clinical Debridement Subcutaneous -Post Debridement Size (cm) - Length 6.9 -Post Debridement Size (cm) - Width 5.2 -Post Debridement Size (cm) - Depth 0.3 -Total Square Cm 35.88 -Wound/Ulcer Outcome Not Healed -Ulcer Cleansing Rinsed/ Irrigated with Saline -Foul Odor after Cleansing No -Bioengineered Tissue No -Bleeding Controlled with Pressure -Offloading No -Treatment Response Procedure Tolerated Well [See Physician Procedure note for Specifics] Pain Scale: 0-10 Numeric [Pain] -Is Patient Pain Free? Yes Musculoskeletal: No Tenderness to Palpation of Joints or Extremities Lymphatic: No Cervical, Supraclavicular, or Inguinal Adenopathy Neurological: Cranial nerves II-XII grossly intact, Neuro grossly intact Psych/Mental Status: Normal Affect, Appropriate Debridement Note Post-Debridement Measurements/Treatment WC - Nurse 2 - General Ulcer CM Notes Start: 08/27/18 11:17 Freq: Status: Active Protocol: Activity Type Activity Date Activity User E-Sign Co-Sign Detail Recorded Client Recorded Date Recorded By Document 08/27/18 12:17 MW [id number] 08/27/18 12:23 MW 08/27/18 12:17 Wound Center Nurse 2 #1 LEFT LOWER LEG CLUSTER -Time 12:17 -Correct Patient Yes -Correct Side, Site, Position Yes -Correct Procedure Yes -Procedure Performed Yes -Type of Procedure Debridement -Clinical Debridement Subcutaneous -Post Debridement Size (cm) - Length 6.9 -Post Debridement Size (cm) - Width 5.2 -Post Debridement Size (cm) - Depth 0.3 -Total Square Cm 35.88 -Wound/Ulcer Outcome Not Healed -Ulcer Cleansing Rinsed/ Irrigated with Saline -Foul Odor after Cleansing No -Bioengineered Tissue No -Bleeding Controlled with Pressure -Offloading No -Treatment Response Procedure Tolerated Well Pain Scale: 0-10 Numeric Is Patient Pain Free? Yes Wound debrided: Left lateral lower leg wound Type of Debridement: Excisional debridement Anesthesia Used: 5% Lidocaine Gel Depth: Down to and including healthy tissue, in the subcutaneous layer Percentage of wound debrided: 100 Instrument Used: 5mm curette Tissue Removed: Slough and devitalized tissue Severity: Limited To Skin Breakdown Amount of bleeding with debridement: Mild Bleeding Controlled with: Compression and gauze Patient tolerated procedure well Assessment/Plan Active Problems (Last Reviewed 05/04/18 @ 14:28 by Gloria Lopez) Non-pressure ulcer of left lower extremity with fat layer exposed (Acute) Diabetes mellitus with peripheral vascular disease (Acute) Diabetic ulcer of lower leg (Acute) Diabetic ketoacidosis (Acute) Newly diagnosed type 2 diabetes mellitus (Acute) Assessment: Diabetic leg ulcer left lateral lower leg diabetes type 2 newly onset. Peripheral vascular disease. Neuropathy lower extremities Plan: Wash leg with Hibiclens or antibacterial soap apply Brie to the wound base moisten cover with Adaptic gauze Simone and double layer Tubigrip to the lower leg follow-up in 1 week we will contact patient with culture results. And labs.
[2018-09-03 11:59] VITALS: BP 127/76; PULSE 85; RESP 16; TEMP 36.7; BMI 20.5
[2018-09-15 11:29] VITALS: BP 153/78; PULSE 92; RESP 16; TEMP 36.4; BMI 20.5
--- NOTE | 2018-09-15 20:26 | PN.PCM_ITS ---
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 Was admitted to the hospital for other problems due to her diabetes with a infection in her kidneys became weak and has had physical therapy and has lost over 50 pounds in the last 3 months. Patient was on home health physical therapy and using leg weights when noticed that she was got a little glory on her leg and the next thing she knows it was wide open. The wound actually looks peripheral vascular and is probably more related to her diabetes. She has some neuropathy of the lower extremities definitely diabetic she states controlled with diet and high cholesterol. She states her last hemoglobin A1c was 5.8 in June. Progress of Wound: New concerns at this time. - Physical Exam Vital Signs Temp Pulse Resp BP 97.5 F L 92 16 153/78 H 09/15/18 11:29 09/15/18 11:29 09/15/18 11:29 09/15/18 11:29 General: Alert, Oriented x3, Cooperative, No apparent distress HEENT: Atraumatic, Normocephalic Oral: Moist Mucosa Neck: Supple Lungs: Normal air movement Extremities: No cyanosis Skin: Ulcer/ Wound Wound Measurements and Assessment WC - Nurse 1 - General Ulcer Measurement Start: 08/27/18 11:17 Freq: Status: Active Protocol: Activity Type Activity Date Activity User E-Sign Co-Sign Detail Recorded Client Recorded Date Recorded By Document 09/15/18 11:29 [facility] [id number] 09/15/18 11:35 [facility] 09/15/18 11:29 Wound Center Nurse 1 [Ulcer Assessment] #1 LEFT LOWER LEG CLUSTER -Combined with other wound No -Current Size (cm) - Length 6.7 -Current Size (cm) - Width 2.4 -Current Size (cm) - Depth 0.2 -Total Square Cm 16.08 -Photo Taken No -Epithelialization None Present -Tunneling No -Undermining/Tunneling No -Circular Undermining No -Exudate Amt Small -Exudate Type Serous -Wound Margin Distinct, Outline Attached -Granulation Amt Small (1-33%) -Granulation Quality [place] -Slough/Fibrin Yes -Necrosis Amt Large (67-100%) -Necrotic Tissue Type Adherent Slough -Texture (Reema-wound Skin Appearance) Assessed, Excoriation, Scarring -Moisture (Reema-wound Skin Appearance Assessed,Dry/ ) Scaly -Color (Reema-wound Skin Appearance) Assessed, Erythema -Temperature (Reema-wound Skin No Abnormality Appearance) (Pt Warm) -Tenderness on Palpation (Reema-wound No Skin Appearance) -Ulcer Cleansing Rinsed/ Irrigated with Saline -Foul Odor after Cleansing No -Anesthetic Used 5% Lidocaine Gel [Edema Assessment] -Lower Limb Edema Present Yes -Left Calf (cm) 32 -Left Ankle (cm) 19.1 WC - Nurse 2 - General Ulcer CM Notes Start: 08/27/18 11:17 Freq: Status: Active Protocol: Activity Type Activity Date Activity User E-Sign Co-Sign Detail Recorded Client Recorded Date Recorded By Document 09/15/18 12:34 MW [id number] 09/15/18 12:36 MW 09/15/18 12:34 Wound Center Nurse 2 [Procedure/Treatment] #1 LEFT LOWER LEG CLUSTER -Time 12:35 -Correct Patient Yes -Correct Side, Site, Position Yes -Correct Procedure Yes -Procedure Performed Yes -Type of Procedure Debridement -Clinical Debridement Subcutaneous -Post Debridement Size (cm) - Length 6.7 -Post Debridement Size (cm) - Width 2.0 -Post Debridement Size (cm) - Depth 0.1 -Total Square Cm 13.40 -Wound/Ulcer Outcome Not Healed -Ulcer Cleansing Rinsed/ Irrigated with Saline -Foul Odor after Cleansing No -Bioengineered Tissue No -Bleeding Controlled with Pressure -Offloading No -Treatment Response Procedure Tolerated Well [See Physician Procedure note for Specifics] Pain Scale: 0-10 Numeric [Pain] -Is Patient Pain Free? Yes Musculoskeletal: No Muscle Wasting Neurological: Cranial nerves II-XII grossly intact Psych/Mental Status: Normal Affect Debridement Note Post-Debridement Measurements/Treatment WC - Nurse 2 - General Ulcer CM Notes Start: 08/27/18 11:17 Freq: Status: Active Protocol: Activity Type Activity Date Activity User E-Sign Co-Sign Detail Recorded Client Recorded Date Recorded By Document 08/27/18 12:17 MW [id number] 08/27/18 12:23 MW Document 09/03/18 12:22 MW [id number] 09/03/18 12:27 MW Document 09/15/18 12:34 MW [id number] 09/15/18 12:36 MW 08/27/18 09/03/18 09/15/18 12:17 12:22 12:34 Wound Center Nurse 2 #1 LEFT LOWER LEG CLUSTER -Time 12:17 12:23 12:35 -Correct Patient Yes Yes Yes -Correct Side, Site, Position Yes Yes Yes -Correct Procedure Yes Yes Yes -Procedure Performed Yes Yes Yes -Type of Procedure Debridement Debridement Debridement -Clinical Debridement Subcutaneous Subcutaneous Subcutaneous -Post Debridement Size (cm) - Length 6.9 6.5 6.7 -Post Debridement Size (cm) - Width 5.2 5.5 2.0 -Post Debridement Size (cm) - Depth 0.3 0.3 0.1 -Total Square Cm 35.88 35.75 13.40 -Wound/Ulcer Outcome Not Healed Not Healed Not Healed -Ulcer Cleansing Rinsed/ Rinsed/ Rinsed/ Irrigated with Irrigated with Irrigated with Saline Saline Saline -Foul Odor after Cleansing No No No -Bioengineered Tissue No No No -Bleeding Controlled with Pressure Pressure Pressure -Offloading No No No -Treatment Response Procedure Procedure Procedure Tolerated Well Tolerated Well Tolerated Well Pain Scale: 0-10 Numeric Is Patient Pain Free? 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 Peripheral vascular disease. Neuropathy lower extremities Plan: Courtesy Visit. Debridement done as documented above, procedure was well- tolerated. Continue Promogran with Adaptic over top. Change daily. Continue edema management. Continue protein supplements. Elevate lower extremities when seated in bed. Follow-up in 1 week with Nisreen Lu NP.
== END 2018-09-19 23:59 ==
LOC: WC 11:00
PROVIDERS: Family Provider Family Medicine; PCP Family Medicine; Visit Provider Nurse Practitioner
DX: E11.622 Type 2 diabetes mellitus with other skin ulcer (principal); E11.51 Type 2 diabetes mellitus with diabetic peripheral angiopathy without gangrene; L97.822 Non-pressure chronic ulcer of other part of left lower leg with fat layer exposed; E78.00 Pure hypercholesterolemia, unspecified; Z79.899 Other long term (current) drug therapy; Z79.84 Long term (current) use of oral hypoglycemic drugs; Z79.82 Long term (current) use of aspirin
CPT/HCPCS: 11042; 11045; 87070; 87075; 87077; 87186; 87205; 99213; G0463

== ENCOUNTER 2018-10-13 15:00 | Outpatient (RCR) | payer MEDICARE, SELFPAY ==
[2018-05-04 14:37] VITALS: BMI 18.2
[2018-09-24 11:09] VITALS: BMI 20.5
== END 2018-10-20 23:59 ==
LOC: DC 15:00
PROVIDERS: Family Provider Family Medicine; PCP Family Medicine; Visit Provider Family Medicine
DX: E11.9 Type 2 diabetes mellitus without complications (principal); Z71.3 Dietary counseling and surveillance
CPT/HCPCS: G0108

== ENCOUNTER 2018-10-15 10:45 | Outpatient (RCR) | payer MEDICARE, SELFPAY ==
[2018-09-20 01:04] VITALS: BP 153/78; PULSE 92; RESP 16; TEMP 36.4
[2018-09-24 11:09] VITALS: BP 118/66; PULSE 83; RESP 16; TEMP 36.5; BMI 20.5
--- NOTE | 2018-09-24 11:52 | PCM.WC.PN ---
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 Was admitted to the hospital for other problems due to her diabetes with a infection in her kidneys became weak and has had physical therapy and has lost over 50 pounds in the last 3 months. Patient was on home health physical therapy and using leg weights when noticed that she was got a little glory on her leg and the next thing she knows it was wide open. The wound actually looks peripheral vascular and is probably more related to her diabetes. She has some neuropathy of the lower extremities definitely diabetic she states controlled with diet and high cholesterol. She states her last hemoglobin A1c was 5.8 in June. Progress of Wound: The wounds are about the same we will attempt to use Apligraf #1 applied today to see if we can get good closure. - Physical Exam Vital Signs Temp Pulse Resp BP 97.7 F L 83 16 118/66 09/24/18 11:09 09/24/18 11:09 09/24/18 11:09 09/24/18 11:09 General: Oriented x3, Cooperative, Well developed HEENT: Atraumatic, PERRLA Oral: Moist Mucosa Neck: Supple, No JVD Lungs: Clear to auscultation, Normal air movement Cardiovascular: Regular rate, Regular Rhythm Abdomen: Bowel Sounds Present, Soft, Non Tender, No Hepato-splenomegaly Extremities: No clubbing, No edema Skin: Ulcer/ Wound - Wound left lower lateral leg Wound Measurements and Assessment WC - Nurse 1 - General Ulcer Measurement Start: 09/24/18 11:09 Freq: Status: Active Protocol: Activity Type Activity Date Activity User E-Sign Co-Sign Detail Recorded Client Recorded Date Recorded By Document 09/24/18 11:09 [facility] [id number] 09/24/18 11:15 [facility] 09/24/18 11:09 Wound Center Nurse 1 [Ulcer Assessment] #1 LEFT LOWER LEG CLUSTER -Combined with other wound No -Current Size (cm) - Length 6.5 -Current Size (cm) - Width 2.2 -Current Size (cm) - Depth 0.1 -Total Square Cm 14.30 -Photo Taken No -Epithelialization None Present -Tunneling No -Undermining/Tunneling No -Circular Undermining No -Exudate Amt Small -Exudate Type Serosanguineous -Wound Margin Flat & Intact -Granulation Amt Small (1-33%) -Granulation Quality Red -Slough/Fibrin Yes -Necrosis Amt Large (67-100%) -Necrotic Tissue Type Adherent Slough -Texture (Reema-wound Skin Appearance) Assessed, Scarring -Moisture (Reema-wound Skin Appearance Assessed,Dry/ ) Scaly -Color (Reema-wound Skin Appearance) Assessed, Erythema -Temperature (Reema-wound Skin No Abnormality Appearance) (Pt Warm) -Tenderness on Palpation (Reema-wound No Skin Appearance) -Ulcer Cleansing Rinsed/ Irrigated with Saline -Foul Odor after Cleansing No -Anesthetic Used 4% Lidocaine Solution [Edema Assessment] -Lower Limb Edema Present Yes -Left Calf (cm) 31.9 -Left Ankle (cm) 19 WC - Nurse 2 - General Ulcer CM Notes Start: 09/24/18 11:09 Freq: Status: Active Protocol: Activity Type Activity Date Activity User E-Sign Co-Sign Detail Recorded Client Recorded Date Recorded By Document 09/24/18 11:35 [id number] 09/24/18 11:42 MW 09/24/18 11:35 Wound Center Nurse 2 [Procedure/Treatment] #1 LEFT LOWER LEG CLUSTER -Time 11:40 -Correct Patient Yes -Correct Side, Site, Position Yes -Correct Procedure Yes -Procedure Performed Yes -Type of Procedure Debridement -Clinical Debridement Subcutaneous -Post Debridement Size (cm) - Length 6.7 -Post Debridement Size (cm) - Width 1.7 -Post Debridement Size (cm) - Depth 0.1 -Total Square Cm 11.39 -Wound/Ulcer Outcome Not Healed -Ulcer Cleansing Rinsed/ Irrigated with Saline -Foul Odor after Cleansing No -Bioengineered Tissue Yes -Type of bioengineered Tissue Apligraf -Expiration Date 09/30/18 -Product Lot Number [id number] -Percent Used 100 -Saline Lot Number [id number] -Bleeding Controlled with Pressure -Offloading No -Treatment Response Procedure Tolerated Well [See Physician Procedure note for Specifics] Pain Scale: 0-10 Numeric [Pain] -Is Patient Pain Free? Yes Musculoskeletal: No Tenderness to Palpation of Joints or Extremities Lymphatic: No Cervical, Supraclavicular, or Inguinal Adenopathy Neurological: Cranial nerves II-XII grossly intact, Neuro grossly intact Psych/Mental Status: Normal Affect, Appropriate Debridement Note Post-Debridement Measurements/Treatment WC - Nurse 2 - General Ulcer CM Notes Start: 09/24/18 11:09 Freq: Status: Active Protocol: Activity Type Activity Date Activity User E-Sign Co-Sign Detail Recorded Client Recorded Date Recorded By Document 09/24/18 11:35 MW [id number] 09/24/18 11:42 MW 09/24/18 11:35 Wound Center Nurse 2 #1 LEFT LOWER LEG CLUSTER -Time 11:40 -Correct Patient Yes -Correct Side, Site, Position Yes -Correct Procedure Yes -Procedure Performed Yes -Type of Procedure Debridement -Clinical Debridement Subcutaneous -Post Debridement Size (cm) - Length 6.7 -Post Debridement Size (cm) - Width 1.7 -Post Debridement Size (cm) - Depth 0.1 -Total Square Cm 11.39 -Wound/Ulcer Outcome Not Healed -Ulcer Cleansing Rinsed/ Irrigated with Saline -Foul Odor after Cleansing No -Bioengineered Tissue Yes -Type of bioengineered Tissue Apligraf -Expiration Date 09/30/18 -Product Lot Number [id number] -Percent Used 100 -Saline Lot Number [id number] -Bleeding Controlled with Pressure -Offloading No -Treatment Response Procedure Tolerated Well Pain Scale: 0-10 Numeric Is Patient Pain Free? 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 Peripheral vascular disease. Neuropathy lower extremities Plan: 1. Apligraf applied. Leave dressing alone only change outer dressing follow-up in 1 week
[2018-10-01 11:00] VITALS: BP 133/79; PULSE 86; RESP 18; TEMP 36.6; BMI 20.5
--- NOTE | 2018-10-01 11:02 | WC ---
PT STERISTRIPS INTACT AND APPLIGRAF LEFT INTACT. WOUND UNABLE TO MEASURE TODAY D/T STERISTRIPS LEFT INPLACE
--- NOTE | 2018-10-01 11:38 | PCM.WC.PN ---
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 Was admitted to the hospital for other problems due to her diabetes with a infection in her kidneys became weak and has had physical therapy and has lost over 50 pounds in the last 3 months. Patient was on home health physical therapy and using leg weights when noticed that she was got a little glory on her leg and the next thing she knows it was wide open. The wound actually looks peripheral vascular and is probably more related to her diabetes. She has some neuropathy of the lower extremities definitely diabetic she states controlled with diet and high cholesterol. She states her last hemoglobin A1c was 5.8 in June. Progress of Wound: The top part of the wound is healed from one Apligraf. The bottom part is smaller and may be healed after its second Apligraf we will follow her up in 2 weeks. - Physical Exam Vital Signs Temp Pulse Resp BP 97.8 F 86 18 133/79 H 10/01/18 11:00 10/01/18 11:00 10/01/18 11:00 10/01/18 11:00 General: Oriented x3, Cooperative, Well developed HEENT: Atraumatic, PERRLA Oral: Moist Mucosa Neck: Supple, No JVD Lungs: Clear to auscultation, Normal air movement Cardiovascular: Regular rate, Regular Rhythm Abdomen: Bowel Sounds Present, Soft, Non Tender, No Hepato-splenomegaly Extremities: No clubbing, No edema Skin: Ulcer/ Wound Wound Measurements and Assessment WC - Nurse 1 - General Ulcer Measurement Start: 09/24/18 11:09 Freq: Status: Active Protocol: Activity Type Activity Date Activity User E-Sign Co-Sign Detail Recorded Client Recorded Date Recorded By Document 10/01/18 11:00 RB [id number] 10/01/18 11:03 RB 10/01/18 11:00 Wound Center Nurse 1 [Ulcer Assessment] #1 LEFT LOWER LEG CLUSTER -Tunneling No -Undermining/Tunneling No -Circular Undermining No -Exudate Amt Small -Exudate Type Serosanguineous -Temperature (Reema-wound Skin No Abnormality Appearance) (Pt Warm) -Tenderness on Palpation (Reema-wound No Skin Appearance) -Foul Odor after Cleansing No [Edema Assessment] -Lower Limb Edema Present No -Left Calf (cm) 30.5 -Left Ankle (cm) 19.2 10/01/18 11:02 Wound Center by Debora Deras PT STERISTRIPS INTACT AND APPLIGRAF LEFT INTACT. WOUND UNABLE TO MEASURE TODAY D/T STERISTRIPS LEFT INPLACE Initialized on 10/01/18 11:02 - END OF NOTE WC - Nurse 2 - General Ulcer CM Notes Start: 09/24/18 11:09 Freq: Status: Active Protocol: Activity Type Activity Date Activity User E-Sign Co-Sign Detail Recorded Client Recorded Date Recorded By Document 10/01/18 11:23 MW [id number] 10/01/18 11:30 MW 10/01/18 11:23 Wound Center Nurse 2 [Procedure/Treatment] #1 LEFT LOWER LEG CLUSTER -Time 11:27 -Correct Patient Yes -Correct Side, Site, Position Yes -Correct Procedure Yes -Procedure Performed Yes -Type of Procedure Debridement -Clinical Debridement Subcutaneous -Post Debridement Size (cm) - Length 2.8 -Post Debridement Size (cm) - Width 1.7 -Post Debridement Size (cm) - Depth 0.2 -Total Square Cm 4.76 -Wound/Ulcer Outcome Not Healed -Ulcer Cleansing Rinsed/ Irrigated with Saline -Foul Odor after Cleansing No -Bioengineered Tissue Yes -Type of bioengineered Tissue Apligraf -Expiration Date 10/06/18 -Product Lot Number [id number] -Percent Used 100 -Saline Lot Number [id number] -Bleeding Controlled with Pressure -Offloading No -Treatment Response Procedure Tolerated Well [See Physician Procedure note for Specifics] Pain Scale: 0-10 Numeric [Pain] -Is Patient Pain Free? Yes Musculoskeletal: No Tenderness to Palpation of Joints or Extremities Lymphatic: No Cervical, Supraclavicular, or Inguinal Adenopathy Neurological: Cranial nerves II-XII grossly intact, Neuro grossly intact Psych/Mental Status: Normal Affect, Appropriate, Alert and oriented to time, place, person, mood and affect Debridement Note Post-Debridement Measurements/Treatment WC - Nurse 2 - General Ulcer CM Notes Start: 09/24/18 11:09 Freq: Status: Active Protocol: Activity Type Activity Date Activity User E-Sign Co-Sign Detail Recorded Client Recorded Date Recorded By Document 09/24/18 11:35 MW [id number] 09/24/18 11:42 MW Document 10/01/18 11:23 MW [id number] 10/01/18 11:30 MW 09/24/18 10/01/18 11:35 11:23 Wound Center Nurse 2 #1 LEFT LOWER LEG CLUSTER -Time 11:40 11:27 -Correct Patient Yes Yes -Correct Side, Site, Position Yes Yes -Correct Procedure Yes Yes -Procedure Performed Yes Yes -Type of Procedure Debridement Debridement -Clinical Debridement Subcutaneous Subcutaneous -Post Debridement Size (cm) - Length 6.7 2.8 -Post Debridement Size (cm) - Width 1.7 1.7 -Post Debridement Size (cm) - Depth 0.1 0.2 -Total Square Cm 11.39 4.76 -Wound/Ulcer Outcome Not Healed Not Healed -Ulcer Cleansing Rinsed/ Rinsed/ Irrigated with Irrigated with Saline Saline -Foul Odor after Cleansing No No -Bioengineered Tissue Yes Yes -Type of bioengineered Tissue Apligraf Apligraf -Expiration Date 09/30/18 10/06/18 -Product Lot Number [id number] -Percent Used 100 100 -Saline Lot Number [id number] -Bleeding Controlled with Pressure Pressure -Offloading No No -Treatment Response Procedure Procedure Tolerated Well Tolerated Well Pain Scale: 0-10 Numeric Is Patient Pain Free? 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 Peripheral vascular disease. Neuropathy lower extremities Plan: Apligraf #2 applied. Leave dressing alone only change outer dressing follow-up in 2 week
[2018-10-15 11:14] VITALS: RESP 16; TEMP 35; BMI 20.5
--- NOTE | 2018-10-15 12:19 | PCM.WC.PN ---
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 Was admitted to the hospital for other problems due to her diabetes with a infection in her kidneys became weak and has had physical therapy and has lost over 50 pounds in the last 3 months. Patient was on home health physical therapy and using leg weights when noticed that she was got a little glory on her leg and the next thing she knows it was wide open. The wound actually looks peripheral vascular and is probably more related to her diabetes. She has some neuropathy of the lower extremities definitely diabetic she states controlled with diet and high cholesterol. She states her last hemoglobin A1c was 5.8 in June. Progress of Wound: The top part of the wound is healed from one Apligraf. The bottom part is smaller and may be healed after its second Apligraf we will follow her up in 1 week. - Physical Exam Vital Signs Temp Pulse Resp BP 95 F L 86 16 133/79 H 10/15/18 11:14 10/01/18 11:00 10/15/18 11:14 10/01/18 11:00 General: Oriented x3, Cooperative, Well developed HEENT: Atraumatic, PERRLA Oral: Moist Mucosa Neck: Supple, No JVD Lungs: Clear to auscultation, Normal air movement Cardiovascular: Regular rate, Regular Rhythm Abdomen: Bowel Sounds Present, Soft, Non Tender, No Hepato-splenomegaly Extremities: No clubbing, No edema Skin: Ulcer/ Wound - Right harper area Wound Measurements and Assessment WC - Nurse 1 - General Ulcer Measurement Start: 09/24/18 11:09 Freq: Status: Active Protocol: Activity Type Activity Date Activity User E-Sign Co-Sign Detail Recorded Client Recorded Date Recorded By Document 10/15/18 11:14 [facility] [id number] 10/15/18 11:22 [facility] 10/15/18 11:14 Wound Center Nurse 1 [Ulcer Assessment] #1 LEFT LOWER LEG CLUSTER -Combined with other wound No -Current Size (cm) - Length 2.3 -Current Size (cm) - Width 1.7 -Current Size (cm) - Depth 0.1 -Total Square Cm 3.91 -Photo Taken No -Epithelialization None Present -Tunneling No -Undermining/Tunneling No -Circular Undermining No -Exudate Amt Large -Exudate Type Serosanguineous -Wound Margin Distinct, Outline Attached -Granulation Amt Small (1-33%) -Granulation Quality Red -Slough/Fibrin Yes -Necrosis Amt Large (67-100%) -Necrotic Tissue Type Adherent Slough -Texture (Reema-wound Skin Appearance) Assessed -Moisture (Reema-wound Skin Appearance Assessed ) -Color (Reema-wound Skin Appearance) Assessed, Erythema -Temperature (Reema-wound Skin No Abnormality Appearance) (Pt Warm) -Tenderness on Palpation (Reema-wound No Skin Appearance) -Ulcer Cleansing soap and water -Foul Odor after Cleansing No -Anesthetic Used 5% Lidocaine Gel [Edema Assessment] -Lower Limb Edema Present Yes -Left Calf (cm) 31.1 -Left Ankle (cm) 18.3 WC - Nurse 2 - General Ulcer CM Notes Start: 09/24/18 11:09 Freq: Status: Active Protocol: Activity Type Activity Date Activity User E-Sign Co-Sign Detail Recorded Client Recorded Date Recorded By Document 10/15/18 11:33 MW [id number] 10/15/18 11:40 MW 10/15/18 11:33 Wound Center Nurse 2 [Procedure/Treatment] #1 LEFT LOWER LEG CLUSTER -Time 11:35 -Correct Patient Yes -Correct Side, Site, Position Yes -Correct Procedure Yes -Procedure Performed Yes -Type of Procedure Debridement -Clinical Debridement Subcutaneous -Post Debridement Size (cm) - Length 2.3 -Post Debridement Size (cm) - Width 1.5 -Post Debridement Size (cm) - Depth 0.1 -Total Square Cm 3.45 -Wound/Ulcer Outcome Not Healed -Ulcer Cleansing Rinsed/ Irrigated with Saline -Foul Odor after Cleansing No -Bioengineered Tissue Yes -Type of bioengineered Tissue Apligraf -Expiration Date 10/22/18 -Product Lot Number [id number] -Percent Used 100 -Saline Lot Number [id number] -Bleeding Controlled with Pressure -Offloading No -Treatment Response Procedure Tolerated Well [See Physician Procedure note for Specifics] Pain Scale: 0-10 Numeric [Pain] -Is Patient Pain Free? Yes Musculoskeletal: No Tenderness to Palpation of Joints or Extremities Lymphatic: No Cervical, Supraclavicular, or Inguinal Adenopathy Neurological: Cranial nerves II-XII grossly intact, Neuro grossly intact Psych/Mental Status: Normal Affect, Appropriate Debridement Note Post-Debridement Measurements/Treatment WC - Nurse 2 - General Ulcer CM Notes Start: 09/24/18 11:09 Freq: Status: Active Protocol: Activity Type Activity Date Activity User E-Sign Co-Sign Detail Recorded Client Recorded Date Recorded By Document 09/24/18 11:35 MW [id number] 09/24/18 11:42 MW Document 10/01/18 11:23 MW [id number] 10/01/18 11:30 MW Document 10/15/18 11:33 MW [id number] 10/15/18 11:40 MW 09/24/18 10/01/18 10/15/18 11:35 11:23 11:33 Wound Center Nurse 2 #1 LEFT LOWER LEG CLUSTER -Time 11:40 11:27 11:35 -Correct Patient Yes Yes Yes -Correct Side, Site, Position Yes Yes Yes -Correct Procedure Yes Yes Yes -Procedure Performed Yes Yes Yes -Type of Procedure Debridement Debridement Debridement -Clinical Debridement Subcutaneous Subcutaneous Subcutaneous -Post Debridement Size (cm) - Length 6.7 2.8 2.3 -Post Debridement Size (cm) - Width 1.7 1.7 1.5 -Post Debridement Size (cm) - Depth 0.1 0.2 0.1 -Total Square Cm 11.39 4.76 3.45 -Wound/Ulcer Outcome Not Healed Not Healed Not Healed -Ulcer Cleansing Rinsed/ Rinsed/ Rinsed/ Irrigated with Irrigated with Irrigated with Saline Saline Saline -Foul Odor after Cleansing No No No -Bioengineered Tissue Yes Yes Yes -Type of bioengineered Tissue Apligraf Apligraf Apligraf -Expiration Date 09/30/18 10/06/18 10/22/18 -Product Lot Number [id number] -Percent Used 100 100 100 -Saline Lot Number [id number] -Bleeding Controlled with Pressure Pressure Pressure -Offloading No No No -Treatment Response Procedure Procedure Procedure Tolerated Well Tolerated Well Tolerated Well Pain Scale: 0-10 Numeric Is Patient Pain Free? 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 Peripheral vascular disease. Neuropathy lower extremities Plan: Apligraf #2 applied. Leave dressing alone only change outer dressing follow-up in 1 week
== END 2018-10-20 23:59 ==
LOC: WC 10:45
PROVIDERS: Family Provider Family Medicine; PCP Family Medicine; Visit Provider Nurse Practitioner
DX: E11.622 Type 2 diabetes mellitus with other skin ulcer (principal); E11.51 Type 2 diabetes mellitus with diabetic peripheral angiopathy without gangrene; E11.40 Type 2 diabetes mellitus with diabetic neuropathy, unspecified; E78.00 Pure hypercholesterolemia, unspecified; L97.821 Non-pressure chronic ulcer of other part of left lower leg limited to breakdown of skin
CPT/HCPCS: 15271; 15272; Q4101

== ENCOUNTER 2018-11-05 11:00 | Outpatient (RCR) | payer MEDICARE, SELFPAY ==
[2018-10-21 00:59] VITALS: BP 133/79; PULSE 86; RESP 16; TEMP 35
[2018-10-29 11:24] VITALS: BP 155/84; PULSE 83; RESP 16; TEMP 36.9; BMI 20.5
--- NOTE | 2018-10-29 12:50 | PN.PCM_ITS ---
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 Was admitted to the hospital for other problems due to her diabetes with a infection in her kidneys became weak and has had phys ical therapy and has lost over 50 pounds in the last 3 months. Patient was on home health physical therapy and using leg weights when noticed that she was got a little glory on her leg and the next thing she knows it was wide open. The wound actually looks peripheral vascular and is probably more related to her diabetes. She has some neuropathy of the lower extremities definitely diabetic she states controlled with diet and high cholesterol. She states her last hemoglobin A1c was 5.8 in June. Progress of Wound: The top part of the wound is healed from one Apligraf. We will use Promogran for 1 week and probably discharge her next week mostly healed just a couple areas that need to be filled in. - Physical Exam Vital Signs Temp Pulse Resp BP 98.4 F 83 16 155/84 H 10/29/18 11:24 10/29/18 11:24 10/29/18 11:24 10/29/18 11:24 General: Oriented x3, Cooperative, Well developed HEENT: Atraumatic, PERRLA Oral: Moist Mucosa Neck: Supple, No JVD Lungs: Clear to auscultation, Normal air movement Cardiovascular: Regular rate, Regular Rhythm Abdomen: Bowel Sounds Present, Soft, Non Tender, No Hepato-splenomegaly Extremities: No clubbing, No edema, - - Left lower leg cluster Wound Measurements and Assessment WC - Nurse 1 - General Ulcer Measurement Start: 10/29/18 11:24 Freq: Status: Active Protocol: Activity Type Activity Date Activity User E-Sign Co-Sign Detail Recorded Client Recorded Date Recorded By Document 10/29/18 11:24 DV [id number] 10/29/18 11:42 DV 10/29/18 11:24 Wound Center Nurse 1 [Ulcer Assessment] #1 LEFT LOWER LEG CLUSTER -Combined with other wound No -Current Size (cm) - Length 7.0 -Current Size (cm) - Width 1.7 -Current Size (cm) - Depth 0.1 -Total Square Cm 11.90 -Photo Taken No -Epithelialization None Present -Tunneling No -Undermining/Tunneling No -Circular Undermining No -Classification - Thickness Full Thickness without Exposed Support Structure -Exudate Amt Medium -Exudate Type Serosanguineous -Wound Margin Indistinct, Non -Visible -Granulation Amt Small (1-33%) -Granulation Quality Pale,Red -Slough/Fibrin Yes -Necrosis Amt Large (67-100%) -Necrotic Tissue Type Adherent Slough -Structure Exposed None/Limited to Skin Breakdown -Texture (Reema-wound Skin Appearance) No Abnormality, Assessed -Moisture (Reema-wound Skin Appearance No Abnormality, ) Assessed -Color (Reema-wound Skin Appearance) No Abnormality, Assessed -Temperature (Reema-wound Skin No Abnormality Appearance) (Pt Warm) -Tenderness on Palpation (Reema-wound No Skin Appearance) -Ulcer Cleansing Rinsed/ Irrigated with Saline -Foul Odor after Cleansing No -Anesthetic Used 5% Lidocaine Gel [Edema Assessment] -Lower Limb Edema Present No WC - Nurse 2 - General Ulcer CM Notes Start: 10/29/18 11:24 Freq: Status: Active Protocol: Activity Type Activity Date Activity User E-Sign Co-Sign Detail Recorded Client Recorded Date Recorded By Document 10/29/18 11:54 MW [id number] 10/29/18 11:59 MW 10/29/18 11:54 Wound Center Nurse 2 [Procedure/Treatment] #1 LEFT LOWER LEG CLUSTER -Time 11:54 -Correct Patient Yes -Correct Side, Site, Position Yes -Correct Procedure Yes -Procedure Performed Yes -Type of Procedure Debridement -Clinical Debridement Subcutaneous -Post Debridement Size (cm) - Length 5.0 -Post Debridement Size (cm) - Width 0.6 -Post Debridement Size (cm) - Depth 0.1 -Total Square Cm 3.00 -Wound/Ulcer Outcome Not Healed -Ulcer Cleansing Rinsed/ Irrigated with Saline -Foul Odor after Cleansing No -Bioengineered Tissue No -Bleeding Controlled with Pressure -Offloading No -Treatment Response Procedure Tolerated Well [See Physician Procedure note for Specifics] Pain Scale: 0-10 Numeric [Pain] -Is Patient Pain Free? Yes Musculoskeletal: No Tenderness to Palpation of Joints or Extremities Lymphatic: No Cervical, Supraclavicular, or Inguinal Adenopathy Neurological: Cranial nerves II-XII grossly intact, Neuro grossly intact Psych/Mental Status: Normal Affect, Appropriate Debridement Note Post-Debridement Measurements/Treatment WC - Nurse 2 - General Ulcer CM Notes Start: 10/29/18 11:24 Freq: Status: Active Protocol: Activity Type Activity Date Activity User E-Sign Co-Sign Detail Recorded Client Recorded Date Recorded By Document 10/29/18 11:54 MW [id number] 10/29/18 11:59 MW 10/29/18 11:54 Wound Center Nurse 2 #1 LEFT LOWER LEG CLUSTER -Time 11:54 -Correct Patient Yes -Correct Side, Site, Position Yes -Correct Procedure Yes -Procedure Performed Yes -Type of Procedure Debridement -Clinical Debridement Subcutaneous -Post Debridement Size (cm) - Length 5.0 -Post Debridement Size (cm) - Width 0.6 -Post Debridement Size (cm) - Depth 0.1 -Total Square Cm 3.00 -Wound/Ulcer Outcome Not Healed -Ulcer Cleansing Rinsed/ Irrigated with Saline -Foul Odor after Cleansing No -Bioengineered Tissue No -Bleeding Controlled with Pressure -Offloading No -Treatment Response Procedure Tolerated Well Pain Scale: 0-10 Numeric Is Patient Pain Free? Yes Wound debrided: Left lower leg cluster Type of Debridement: Excisional debridement Anesthesia Used: 5% Lidocaine Gel Depth: Down to and including healthy tissue, in the subcutaneous layer Percentage of wound debrided: 100 Instrument Used: 3mm curette Tissue Removed: Fibrin Amount of bleeding with debridement: None Patient tolerated procedure well Assessment/Plan Active Problems (Last Reviewed 05/04/18 @ 14:28 by Gloria Lopez) Non-pressure ulcer of left lower extremity with fat layer exposed (Acute) Diabetes mellitus with peripheral vascular disease (Chronic) Debility (Chronic) Assessment: Traumatic wound left lower leg. Peripheral vascular disease. Neuropathy lower extremities Plan: Apply Promogran every other day cover with Adaptic. Gauze and tape Tubigrip. Follow-up in 1 week
[2018-11-05 11:17] VITALS: BP 131/71; PULSE 80; RESP 16; TEMP 36.3; BMI 20.5
--- NOTE | 2018-11-05 12:01 | PN.PCM_ITS ---
(1) Debility Status: Chronic Current Visit: Yes Code(s): R53.81 - Other malaise (2) Diabetes mellitus with peripheral vascular disease Status: Chronic Current Visit: Yes Code(s): E11.51 - Type 2 diabetes mellitus with diabetic peripheral angiopathy without gangrene (3) Non-pressure ulcer of left lower extremity with fat layer exposed Status: Acute Current Visit: Yes Code(s): L97.922 - Non-pressure chronic ulcer of unspecified part of left lower leg with fat layer exposed Type of Wound Date of Service: 11/05/18 Chief Complaint: Left lateral lower leg wound from April History of Wound: 68-year-old white female that was newly diagnosed with diabetes in this past 3 months. Was admitted to the hospital for other problems due to her diabetes with a infection in her kidneys became weak and has had phys ical therapy and has lost over 50 pounds in the last 3 months. Patient was on home health physical therapy and using leg weights when noticed that she was got a little glory on her leg and the next thing she knows it was wide open. The wound actually looks peripheral vascular and is probably more related to her diabetes. She has some neuropathy of the lower extremities definitely diabetic she states controlled with diet and high cholesterol. She states her last hemoglobin A1c was 5.8 in June. Progress of Wound: Wound is healed patient will be discharged from the wound center - Physical Exam Vital Signs Temp Pulse Resp BP 97.3 F L 80 16 131/71 H 11/05/18 11:17 11/05/18 11:17 11/05/18 11:17 11/05/18 11:17 General: Oriented x3, Cooperative, Well developed HEENT: Atraumatic, PERRLA Oral: Moist Mucosa Neck: Supple, No JVD Lungs: Clear to auscultation, Normal air movement Cardiovascular: Regular rate, Regular Rhythm Abdomen: Bowel Sounds Present, Soft, Non Tender, No Hepato-splenomegaly Extremities: No clubbing, No edema, - - Left lateral lower leg wound Skin: - Wound Measurements and Assessment WC - Nurse 1 - General Ulcer Measurement Start: 10/29/18 11:24 Freq: Status: Active Protocol: Activity Type Activity Date Activity User E-Sign Co-Sign Detail Recorded Client Recorded Date Recorded By Document 11/05/18 11:17 [facility] [id number] 11/05/18 11:22 [facility] 11/05/18 11:17 Wound Center Nurse 1 [Ulcer Assessment] #1 LEFT LOWER LEG CLUSTER -Combined with other wound No -Current Size (cm) - Length 0.1 -Current Size (cm) - Width 0.1 -Current Size (cm) - Depth 0.1 -Total Square Cm 0.01 -Photo Taken No -Epithelialization Large 67-100% -Tunneling No -Undermining/Tunneling No -Circular Undermining No -Exudate Amt None Present -Texture (Reema-wound Skin Appearance) Scarring -Moisture (Reema-wound Skin Appearance Assessed,Dry/ ) Scaly -Color (Reema-wound Skin Appearance) Assessed -Temperature (Reema-wound Skin No Abnormality Appearance) (Pt Warm) -Tenderness on Palpation (Reema-wound No Skin Appearance) -Ulcer Cleansing Rinsed/ Irrigated with Saline -Foul Odor after Cleansing No -Anesthetic Used 5% Lidocaine Gel [Edema Assessment] -Lower Limb Edema Present No -Left Calf (cm) 30.5 -Left Ankle (cm) 17.5 WC - Nurse 2 - General Ulcer CM Notes Start: 10/29/18 11:24 Freq: Status: Active Protocol: Activity Type Activity Date Activity User E-Sign Co-Sign Detail Recorded Client Recorded Date Recorded By Document 11/05/18 11:33 [id number] 11/05/18 11:35 11/05/18 11:33 Wound Center Nurse 2 [Procedure/Treatment] #1 LEFT LOWER LEG CLUSTER -Correct Patient No -Correct Side, Site, Position No -Correct Procedure No -Procedure Performed No -Post Debridement Size (cm) - Length 0 -Post Debridement Size (cm) - Width 0 -Post Debridement Size (cm) - Depth 0 -Total Square Cm 0 -Wound/Ulcer Outcome Healed- Epithelialized [See Physician Procedure note for Specifics] Pain Scale: 0-10 Numeric [Pain] -Is Patient Pain Free? Yes Musculoskeletal: No Tenderness to Palpation of Joints or Extremities Lymphatic: No Cervical, Supraclavicular, or Inguinal Adenopathy Neurological: Cranial nerves II-XII grossly intact, Neuro grossly intact Psych/Mental Status: Normal Affect, Appropriate Debridement Note Post-Debridement Measurements/Treatment WC - Nurse 2 - General Ulcer CM Notes Start: 10/29/18 11:24 Freq: Status: Active Protocol: Activity Type Activity Date Activity User E-Sign Co-Sign Detail Recorded Client Recorded Date Recorded By Document 10/29/18 11:54 MW [id number] 10/29/18 11:59 MW Document 11/05/18 11:33 JF [id number] 11/05/18 11:35 10/29/18 11/05/18 11:54 11:33 Wound Center Nurse 2 #1 LEFT LOWER LEG CLUSTER -Time 11:54 -Correct Patient Yes No -Correct Side, Site, Position Yes No -Correct Procedure Yes No -Procedure Performed Yes No -Type of Procedure Debridement -Clinical Debridement Subcutaneous -Post Debridement Size (cm) - Length 5.0 0 -Post Debridement Size (cm) - Width 0.6 0 -Post Debridement Size (cm) - Depth 0.1 0 -Total Square Cm 3.00 0 -Wound/Ulcer Outcome Not Healed Healed- Epithelialized -Ulcer Cleansing Rinsed/ Irrigated with Saline -Foul Odor after Cleansing No -Bioengineered Tissue No -Bleeding Controlled with Pressure -Offloading No -Treatment Response Procedure Tolerated Well Pain Scale: 0-10 Numeric Is Patient Pain Free? Yes Yes No debridement was completed today Assessment/Plan Active Problems (Last Reviewed 05/04/18 @ 14:28 by Gloria Lopez) Non-pressure ulcer of left lower extremity with fat layer exposed (Acute) Diabetes mellitus with peripheral vascular disease (Chronic) Debility (Chronic) Assessment: Traumatic wound left lower leg solved. Peripheral vascular disease. Neuropathy lower extremities Plan: Keep covered for 1 week continue wearing the stockinette. Discharge from the wound center follow-up as needed
== END 2018-11-20 23:59 ==
LOC: WC 11:00
PROVIDERS: Family Provider Family Medicine; PCP Family Medicine; Visit Provider Nurse Practitioner
DX: E11.622 Type 2 diabetes mellitus with other skin ulcer (principal); E11.51 Type 2 diabetes mellitus with diabetic peripheral angiopathy without gangrene; E78.00 Pure hypercholesterolemia, unspecified; E11.40 Type 2 diabetes mellitus with diabetic neuropathy, unspecified; L97.822 Non-pressure chronic ulcer of other part of left lower leg with fat layer exposed
CPT/HCPCS: 11042; 99212; G0463

== ENCOUNTER → 2018-12-30 | Outpatient (CLI) | payer MEDICARE, SELFPAY ==
[2018-11-17 13:26] VITALS: BMI 19.8
[2018-12-30 16:47] LABS: Anion Gap 6 (5-15); BUN 48 mg/dL (7-18); BUN/Creat Ratio 36.4 RATIO (10-20); Chloride 106 mmol/L (98-107); Creatinine, Serum 1.32 mg/dL (0.55-1.02); EST Glomerular Filtration Rate 43 mL/min (>60); Est Glom Filt Rate - Afr Amer 52 mL/min (>60); Glucose 98 mg/dL (74-106); Potassium 4.3 mmol/L (3.5-5.1); Sodium Level 141 mmol/L (136-145)
== END | disposition home or self-care (01) ==
LOC: MFPLAB 14:17
PROVIDERS: Family Provider Family Medicine; PCP Family Medicine; Referring Provider Family Medicine; Visit Provider Family Medicine
DX: E11.9 Type 2 diabetes mellitus without complications (principal)
CPT/HCPCS: 36415; 80048

== ENCOUNTER → 2019-03-24 14:44 | Outpatient (CLI) | payer MEDICARE, SELFPAY ==
[2018-11-17 13:26] VITALS: BMI 19.8
--- NOTE | 2019-03-24 14:48 | US_ITS ---
STUDY: RENAL ULTRASOUND - COMPLETE REASON FOR EXAM: Female, 69 years old. Gross hematuria TECHNIQUE: Ultrasound evaluation of the kidneys was performed with real-time and static jolly-scale imaging. COMPARISON: None. FINDINGS: RIGHT KIDNEY: Normal location of the right kidney, which is normal in size. The right kidney measures 10.4 x 6.1 x 5.6 cm. There is a normal cortex of the right kidney. The renal cortex measures 2.0 cm. There is a simple 1.5 cm cyst. There are no right renal calculi. There is no right hydronephrosis, there is dilated renal pelvis. DISTAL RIGHT URETER: There is non-visualization of the distal right ureter. There is no demonstrated right ureterovesical junction calculus. There is a visualized right ureteral jet. LEFT KIDNEY: Normal location of the left kidney, which is normal in size. The left kidney measures 9.7 x 5.2 x 4.5 cm. There is a normal cortex of the left kidney. The renal cortex measures 1.8 cm. There is no left renal mass or cyst. There are no left renal calculi. There is moderate hydronephrosis of the left kidney. DISTAL LEFT URETER: There is non-visualization of the distal left ureter. There is no demonstrated left ureterovesical junction calculus. There is a visualized left ureteral jet. AORTA: There is no elongation or tortuosity of the abdominal aorta. I.V.C.: The IVC is patent. BLADDER: The bladder distends normally and contains echogenic debris suggesting inflammation. There are posterior wall irregularities. US/Kidney and Bladder IMPRESSION: Moderate left hydronephrosis of uncertain etiology Simple right renal cyst Dilated right renal pelvis Bladder distends normally, echogenic debris noted within the bladder suggests underlying inflammation Electronically Signed: Efren Carter MD at 13:56 EST , Service support ,
== END ==
PROVIDERS: Family Provider Family Medicine; PCP Family Medicine; Referring Provider Urology; Visit Provider Urology
DX: R31.0 Gross hematuria (principal); Z87.440 Personal history of urinary (tract) infections
CPT/HCPCS: 76770

== ENCOUNTER → 2019-04-11 15:30 | Outpatient (CLI) | payer MEDICARE, SELFPAY ==
[2018-11-17 13:26] VITALS: BMI 19.8
[2019-04-11 17:44] LABS: Anion Gap 6 (5-15); BUN 43 mg/dL (7-18); BUN/Creat Ratio 33.1 RATIO (10-20); Calcium,Total 8.8 mg/dL (8.5-10.1); Chloride 106 mmol/L (98-107); EST Glomerular Filtration Rate 43 mL/min (>60); Est Glom Filt Rate - Afr Amer 53 mL/min (>60); Glucose 89 mg/dL (74-106); Potassium 4.4 mmol/L (3.5-5.1); Sodium Level 140 mmol/L (136-145)
== END ==
PROVIDERS: PCP Family Medicine; Referring Provider Urology; Visit Provider Urology
DX: N39.0 Urinary tract infection, site not specified (principal); N13.30 Unspecified hydronephrosis
CPT/HCPCS: 36415; 80048

== ENCOUNTER → 2019-04-15 18:30 | Outpatient (CLI) | payer MEDICARE, SELFPAY ==
[2018-11-17 13:26] VITALS: BMI 19.8
--- NOTE | 2019-04-15 18:45 | US_ITS ---
STUDY: RENAL ULTRASOUND - COMPLETE REASON FOR EXAM: Female, 69 years old. HYDRO RECURRING UTIS TECHNIQUE: Ultrasound evaluation of the kidneys was performed with real-time and static jolly-scale imaging. COMPARISON: 03/24/2019 FINDINGS: RIGHT KIDNEY: Normal location of the right kidney, which is normal in size. The right kidney measures 9.8 cm. There is a normal cortex of the right kidney. The renal cortex measures 1.5 cm. There is no right renal mass or cyst. There are no right renal calculi. There is moderate hydronephrosis of the right kidney. DISTAL RIGHT URETER: There is non-visualization of the distal right ureter. There is no demonstrated right ureterovesical junction calculus. There is a visualized right ureteral jet. LEFT KIDNEY: Normal location of the left kidney, which is normal in size. The left kidney measures 10.0 cm. There is a normal cortex of the left kidney. The renal cortex measures 1.6 cm. There is no left renal mass or cyst. There are no left renal calculi. There is moderate hydronephrosis of the left kidney. DISTAL LEFT URETER: There is non-visualization of the distal left ureter. There is no demonstrated left ureterovesical junction calculus. There is a visualized left ureteral jet. BLADDER: The distended urinary bladder has a volume of 1172 ml. The empty urinary bladder has a volume of 844 ml. There is a normal wall thickness of the distended urinary bladder. There is no demonstrated mass within the urinary bladder. There are no demonstrated bladder calculi. US/Kidney and Bladder IMPRESSION: Significant post void residual with moderate hydronephrosis bilaterally worrisome for bladder outlet obstruction. Electronically Signed: Martell Nguyen MD at 8:14 EST Tel , Service support ,
== END ==
PROVIDERS: PCP Family Medicine; Referring Provider Urology; Visit Provider Urology
DX: N39.0 Urinary tract infection, site not specified (principal); N13.30 Unspecified hydronephrosis
CPT/HCPCS: 76770

== ENCOUNTER → 2019-05-19 | Outpatient (CLI) | payer MEDICARE, SELFPAY ==
[2018-11-17 13:26] VITALS: BMI 19.8
--- NOTE | 2019-05-19 15:50 | US_ITS ---
STUDY: RENAL ULTRASOUND - COMPLETE REASON FOR EXAM: Female, 69 years old. HYDRO TECHNIQUE: Ultrasound evaluation of the kidneys was performed with real-time and static jolly-scale imaging. COMPARISON: 04/15/2019 FINDINGS: RIGHT KIDNEY: Normal location of the right kidney, which is normal in size. The right kidney measures 9.3 cm. Increased echogenicity of the renal cortex consistent with chronic medical renal disease. The renal cortex measures 1.2 cm. There is no right renal mass or cyst. There are no right renal calculi. There is an extra-renal pelvis of the right kidney. There is no distention of the renal calyces. DISTAL RIGHT URETER: There is non-visualization of the distal right ureter. There is no demonstrated right ureterovesical junction calculus. There is a visualized right ureteral jet. LEFT KIDNEY: Normal location of the left kidney, which is normal in size. The left kidney measures 9.8 cm. Increased echogenicity of the renal cortex consistent with chronic medical renal disease. The renal cortex measures 1.6 cm. There is no left renal mass or cyst. There are no left renal calculi. There is no left hydronephrosis. DISTAL LEFT URETER: There is non-visualization of the distal left ureter. There is no demonstrated left ureterovesical junction calculus. There is a visualized left ureteral jet. BLADDER: The distended urinary bladder has a volume of 350 ml. The empty urinary bladder has a volume of 10 ml. There is a normal wall thickness of the distended urinary bladder. There is no demonstrated mass within the urinary bladder. There are no demonstrated bladder calculi. Possibly some debris within the bladder. US/Kidney and Bladder IMPRESSION: Chronic medical renal disease but no hydronephrosis to suggest obstruction. Interval resolution of bilateral hydronephrosis. Electronically Signed: Martell Nguyen MD at 17:05 EST Tel , Service support ,
== END | disposition home or self-care (01) ==
LOC: US 15:49
PROVIDERS: PCP Family Medicine; Referring Provider Urology; Visit Provider Urology
DX: N39.0 Urinary tract infection, site not specified (principal); N13.30 Unspecified hydronephrosis
CPT/HCPCS: 76770

== ENCOUNTER → 2019-09-06 | Outpatient (CLI) | payer MEDICARE, SELFPAY ==
[2018-11-17 13:26] VITALS: BMI 19.8
[2019-09-06 10:43] LABS: Anion Gap 7 (5-15); BUN 40 mg/dL (7-18); BUN/Creat Ratio 35.7 RATIO (10-20); Calcium,Total 8.8 mg/dL (8.5-10.1); Chloride 108 mmol/L (98-107); Cholesterol 148 mg/dL (200); Creatinine, Serum 1.12 mg/dL (0.55-1.02); EST Glomerular Filtration Rate 52 mL/min (>60); Est Glom Filt Rate - Afr Amer 62 mL/min (>60); Glucose 120 mg/dL (74-106); High Density Lipoprotein 69 mg/dL; Potassium 4.4 mmol/L (3.5-5.1); Sodium Level 141 mmol/L (136-145); Triglycerides 78 mg/dL; Very Low Density Lipoprotein 16 mg/dL (5-40)
== END | disposition home or self-care (01) ==
LOC: MFPLAB 09:21
PROVIDERS: PCP Family Medicine; Referring Provider Family Medicine; Visit Provider Family Medicine
DX: I10 Essential (primary) hypertension (principal)
CPT/HCPCS: 36415; 80048; 80061

== ENCOUNTER → 2020-01-13 | Outpatient (CLI) | payer MEDICARE, SELFPAY ==
[2018-11-17 13:26] VITALS: BMI 19.8
== END | disposition home or self-care (01) ==
PROVIDERS: PCP Family Medicine; Visit Provider Registered Nurse
DX: Z20.828 Contact with and (suspected) exposure to other viral communicable diseases (principal)
CPT/HCPCS: 87635; U0003

== ENCOUNTER → 2020-03-01 16:56 | Outpatient (CLI) | payer MEDICARE, SELFPAY ==
[2018-11-17 13:26] VITALS: BMI 19.8
[2020-03-01 18:16] LABS: ALB/GLOB Ratio 1.1 RATIO (0.9-2.4); AST(SGOT) 25 U/L (15-37); Alanine Aminotransfer ALT/SGPT 44 U/L (13-56); Albumin, Serum 3.9 g/dL (3.2-5.0); Alkaline Phosphatase 68 U/L (45-117); Anion Gap 5 (5-15); BUN 27 mg/dL (7-18); BUN/Creat Ratio 23.9 RATIO (10-20); Calcium,Total 8.6 mg/dL (8.5-10.1); Chloride 104 mmol/L (98-107); Cholesterol 186 mg/dL (200); Creatinine, Serum 1.13 mg/dL (0.55-1.02); EST Glomerular Filtration Rate 51 mL/min (>60); Est Glom Filt Rate - Afr Amer 62 mL/min (>60); Globulin 3.5 g/dL (2.2-4.2); Glucose 62 mg/dL (74-106); High Density Lipoprotein 74 mg/dL; Potassium 3.9 mmol/L (3.5-5.1); Protein, Total 7.4 g/dL (6.4-8.2); Sodium Level 138 mmol/L (136-145); Triglycerides 151 mg/dL; Very Low Density Lipoprotein 30 mg/dL (5-40)
== END ==
PROVIDERS: PCP Family Medicine; Referring Provider Family Medicine; Visit Provider Family Medicine
DX: E78.5 Hyperlipidemia, unspecified (principal)
CPT/HCPCS: 36415; 80053; 80061

== ENCOUNTER → 2020-09-11 08:25 | Outpatient (CLI) | payer MEDICARE, SELFPAY ==
[2018-11-17 13:26] VITALS: BMI 19.8
[2020-09-11 10:42] LABS: Anion Gap 6 (5-15); BUN 39 mg/dL (7-18); BUN/Creat Ratio 26.4 RATIO (10-20); Calcium,Total 8.7 mg/dL (8.5-10.1); Chloride 105 mmol/L (98-107); Cholesterol 155 mg/dL (200); Creatinine, Serum 1.48 mg/dL (0.55-1.02); EST Glomerular Filtration Rate 37 mL/min (>60); Est Glom Filt Rate - Afr Amer 45 mL/min (>60); Glucose 123 mg/dL (74-106); High Density Lipoprotein 65 mg/dL; Potassium 4.3 mmol/L (3.5-5.1); Sodium Level 140 mmol/L (136-145); Triglycerides 84 mg/dL; Very Low Density Lipoprotein 17 mg/dL (5-40)
[2020-09-11 10:48] LABS: Microalbumin,Random Urine 34.7 mg/L (NO RANGE EST.); Microalbumin:Creatinine Ratio 90.8 mg/g CRE (<30 mg/g CRE)
== END ==
PROVIDERS: PCP Family Medicine; Referring Provider Family Medicine; Visit Provider Family Medicine
DX: I10 Essential (primary) hypertension (principal)
CPT/HCPCS: 36415; 80048; 80061; 82043; 82570

== ENCOUNTER → 2020-09-13 12:53 | Outpatient (CLI) | payer MEDICARE, SELFPAY ==
[2018-11-17 13:26] VITALS: BMI 19.8
--- NOTE | 2020-09-13 13:07 | US_ITS ---
STUDY: RENAL ULTRASOUND - COMPLETE REASON FOR EXAM: Female, 70 years old. RETENTION TECHNIQUE: Ultrasound evaluation of the kidneys was performed with real-time and static jolly-scale imaging. COMPARISON: 05/19/2019 FINDINGS: RIGHT KIDNEY: Normal location of the right kidney, which is normal in size. The right kidney measures 8.8 cm. There is a normal cortex of the right kidney. The renal cortex measures 1.3 cm. There is no right renal mass or cyst. There are no right renal calculi. There is no right hydronephrosis. DISTAL RIGHT URETER: There is non-visualization of the distal right ureter. There is no demonstrated right ureterovesical junction calculus. There is a visualized right ureteral jet. LEFT KIDNEY: Normal location of the left kidney, which is normal in size. The left kidney measures 8.5 cm. There is a normal cortex of the left kidney. The renal cortex measures 1.8 cm. There is no left renal mass or cyst. There are no left renal calculi. There is no left hydronephrosis. DISTAL LEFT URETER: There is non-visualization of the distal left ureter. There is no demonstrated left ureterovesical junction calculus. There is a visualized left ureteral jet. BLADDER: The distended urinary bladder has a volume of 8:30 ml. The empty urinary bladder has a volume of ml. There is a normal wall thickness of the distended urinary bladder. There is no demonstrated mass within the urinary bladder. There are no demonstrated bladder calculi. US/Kidney and Bladder IMPRESSION: 1. No hydronephrosis to suggest obstruction. 2. Moderate bladder distention. Electronically Signed: Martell Nguyen MD at 15:10 EDT Tel , Service support ,
== END ==
PROVIDERS: PCP Family Medicine; Referring Provider Urology; Visit Provider Urology
DX: N31.9 Neuromuscular dysfunction of bladder, unspecified (principal); N28.9 Disorder of kidney and ureter, unspecified; R33.9 Retention of urine, unspecified
CPT/HCPCS: 76770

== ENCOUNTER → 2021-10-30 | Outpatient (CLI) | payer MEDICARE, SELFPAY ==
[2021-10-30 17:59] LABS: Anion Gap 7 (5-15); BUN 43 mg/dL (7-18); BUN/Creat Ratio 27.9 RATIO (10-20); Calcium,Total 8.8 mg/dL (8.5-10.1); Chloride 102 mmol/L (98-107); Cholesterol 186 mg/dL (200); Creatinine, Serum 1.54 mg/dL (0.55-1.02); EST Glomerular Filtration Rate 35 mL/min (>60); Est Glom Filt Rate - Afr Amer 43 mL/min (>60); Glucose 116 mg/dL (74-106); High Density Lipoprotein 64 mg/dL; Potassium 4.3 mmol/L (3.5-5.1); Sodium Level 138 mmol/L (136-145); Triglycerides 204 mg/dL; Very Low Density Lipoprotein 41 mg/dL (5-40)
[2021-10-30 18:12] LABS: Microalbumin,Random Urine 29.3 mg/L (NO RANGE EST.); Microalbumin:Creatinine Ratio 122.6 mg/g CRE (<30 mg/g CRE)
== END | disposition home or self-care (01) ==
LOC: MTLAB 16:06
PROVIDERS: PCP Family Medicine; Referring Provider Family Medicine; Visit Provider Family Medicine
DX: E11.9 Type 2 diabetes mellitus without complications (principal)
CPT/HCPCS: 36415; 80048; 80061; 82043; 82570

== ENCOUNTER → 2021-12-06 | Outpatient (CLI) | payer MEDICARE, SELFPAY ==
--- NOTE | 2021-12-06 16:40 | US_ITS ---
STUDY: RENAL ULTRASOUND - COMPLETE REASON FOR EXAM: Female, 71 years old. NEUROGENIC BLADDER TECHNIQUE: Ultrasound evaluation of the kidneys was performed with real-time and static jolly-scale imaging. COMPARISON: 09/13/2020 FINDINGS: RIGHT KIDNEY: Normal location of the right kidney, which is normal in size. The right kidney measures 8.4 cm. There is a normal cortex of the right kidney. The renal cortex measures 1.6 cm. There is no right renal mass or cyst. There are no right renal calculi. There is no right hydronephrosis. DISTAL RIGHT URETER: There is non-visualization of the distal right ureter. There is no demonstrated right ureterovesical junction calculus. There is a visualized right ureteral jet. LEFT KIDNEY: Normal location of the left kidney, which is normal in size. The left kidney measures 8.3 cm. There is a normal cortex of the left kidney. The renal cortex measures 1.6 cm. There is no left renal mass or cyst. There are no left renal calculi. There is no left hydronephrosis. DISTAL LEFT URETER: There is non-visualization of the distal left ureter. There is no demonstrated left ureterovesical junction calculus. There is a visualized left ureteral jet. BLADDER: The distended urinary bladder has a volume of 993 ml. The empty urinary bladder has a volume of ml. There is a normal wall thickness of the distended urinary bladder. There is no demonstrated mass within the urinary bladder. There are no demonstrated bladder calculi. US/Kidney and Bladder IMPRESSION: 1. No hydronephrosis to suggest obstruction. 2. Moderate bladder distention. Electronically Signed: Martell Nguyen MD at 9:46 EDT ,
== END | disposition home or self-care (01) ==
LOC: US 16:36
PROVIDERS: PCP Family Medicine; Referring Provider Urology; Visit Provider Urology
DX: N31.9 Neuromuscular dysfunction of bladder, unspecified (principal)
CPT/HCPCS: 76770

== ENCOUNTER → 2022-06-04 | Outpatient (CLI) | payer MEDICARE, SELFPAY ==
[2022-06-04 18:59] LABS: ALB/GLOB Ratio 1.2 RATIO (0.9-2.4); AST(SGOT) 24 U/L (15-37); Alanine Aminotransfer ALT/SGPT 36 U/L (13-56); Albumin, Serum 4.2 g/dL (3.2-5.0); Alkaline Phosphatase 81 U/L (45-117); Anion Gap 8 (5-15); BUN 29 mg/dL (7-18); BUN/Creat Ratio 23.4 RATIO (10-20); Calcium,Total 9.6 mg/dL (8.5-10.1); Chloride 102 mmol/L (98-107); Cholesterol 188 mg/dL (200); Creatinine, Serum 1.24 mg/dL (0.55-1.02); EST Glomerular Filtration Rate 45 mL/min (>60); Est Glom Filt Rate - Afr Amer 55 mL/min (>60); Globulin 3.6 g/dL (2.2-4.2); Glucose 72 mg/dL (74-106); High Density Lipoprotein 63 mg/dL; Potassium 4.2 mmol/L (3.5-5.1); Protein, Total 7.8 g/dL (6.4-8.2); Sodium Level 138 mmol/L (136-145); Triglycerides 215 mg/dL; Very Low Density Lipoprotein 43 mg/dL (5-40)
== END | disposition home or self-care (01) ==
LOC: MTLAB 16:52
PROVIDERS: PCP Family Medicine; Referring Provider Family Medicine; Visit Provider Family Medicine
DX: E11.9 Type 2 diabetes mellitus without complications (principal)
CPT/HCPCS: 36415; 80053; 80061

== ENCOUNTER → 2023-01-09 | Outpatient (CLI) | payer MEDICARE, SELFPAY ==
[2023-01-09 12:54] LABS: Anion Gap 7 (5-15); BUN 23 mg/dL (7-18); BUN/Creat Ratio 18.7 RATIO (10-20); Chloride 108 mmol/L (98-107); Cholesterol 140 mg/dL (200); Creatinine, Serum 1.23 mg/dL (0.55-1.02); EST Glomerular Filtration Rate 46 mL/min (>60); Est Glom Filt Rate - Afr Amer 55 mL/min (>60); Glucose 119 mg/dL (74-106); High Density Lipoprotein 59 mg/dL; Potassium 4.5 mmol/L (3.5-5.1); Sodium Level 142 mmol/L (136-145); Triglycerides 191 mg/dL; Very Low Density Lipoprotein 38 mg/dL (5-40)
== END | disposition home or self-care (01) ==
LOC: MTLAB 10:08
PROVIDERS: PCP Family Medicine; Referring Provider Family Medicine; Visit Provider Family Medicine
DX: E11.9 Type 2 diabetes mellitus without complications (principal)
CPT/HCPCS: 36415; 80048; 80061; 82043; 82570

== ENCOUNTER → 2023-01-22 | Outpatient (CLI) | payer MEDICARE, SELFPAY ==
--- NOTE | 2023-01-22 15:39 | US_ITS ---
EXAM: US RETROPERITONEAL LIMITED, RENAL CLINICAL INDICATION: UTI TECHNIQUE: Limited grayscale and color Doppler sonographic evaluation of the retroperitoneum was performed. COMPARISON: No relevant prior studies available. FINDINGS: RIGHT KIDNEY: Right kidney measures 9.5 cm in length. No hydronephrosis. No shadowing calculus. No perinephric collection is demonstrated. LEFT KIDNEY: Left kidney measures 8.8 cm in length. No hydronephrosis. No shadowing calculus. No perinephric collection is demonstrated. BLADDER: Prominent distention of the urinary bladder without wall thickening. US/Kidney and Bladder IMPRESSION: Small kidneys without hydronephrosis. Distended urinary bladder. Electronically Signed: Chu Dsouza MD at 16:55 EDT ,
== END | disposition home or self-care (01) ==
LOC: US 15:37
PROVIDERS: PCP Family Medicine; Referring Provider Urology; Visit Provider Urology
DX: N39.0 Urinary tract infection, site not specified (principal)
CPT/HCPCS: 76770

== ENCOUNTER → 2023-06-22 | Outpatient (CLI) | payer MEDICARE, SELFPAY ==
[2023-06-22 18:36] LABS: Anion Gap 5 (5-15); BUN 27 mg/dL (7-18); Chloride 107 mmol/L (98-107); Creatinine, Serum 1.35 mg/dL (0.55-1.02); EST Glomerular Filtration Rate 41 mL/min (>60); Est Glom Filt Rate - Afr Amer 50 mL/min (>60); Glucose 166 mg/dL (74-106); Potassium 4.8 mmol/L (3.5-5.1); Sodium Level 141 mmol/L (136-145)
== END | disposition home or self-care (01) ==
LOC: MFPLAB 14:24
PROVIDERS: PCP Family Medicine; Visit Provider Family Medicine
DX: E11.9 Type 2 diabetes mellitus without complications (principal)
CPT/HCPCS: 36415; 80048

== ENCOUNTER → 2024-02-05 | Outpatient (CLI) | payer MEDICARE, SELFPAY ==
[2024-02-05 18:12] LABS: ALB/GLOB Ratio 1.1 RATIO (0.9-2.4); AST(SGOT) 20 U/L (15-37); Alanine Aminotransfer ALT/SGPT 25 U/L (13-56); Alkaline Phosphatase 77 U/L (45-117); Anion Gap 4 (5-15); BUN 21 mg/dL (7-18); BUN/Creat Ratio 17.8 RATIO (10-20); Calcium,Total 9.5 mg/dL (8.5-10.1); Chloride 106 mmol/L (98-107); Cholesterol 175 mg/dL (200); Creatinine, Serum 1.18 mg/dL (0.55-1.02); EST Glomerular Filtration Rate 48 mL/min (>60); Est Glom Filt Rate - Afr Amer 58 mL/min (>60); Globulin 3.5 g/dL (2.2-4.2); Glucose 78 mg/dL (74-106); High Density Lipoprotein 69 mg/dL; Potassium 4.3 mmol/L (3.5-5.1); Protein, Total 7.5 g/dL (6.4-8.2); Sodium Level 138 mmol/L (136-145); Triglycerides 224 mg/dL; Very Low Density Lipoprotein 45 mg/dL (5-40)
[2024-02-05 18:20] LABS: Hemoglobin A1c 6.6 % (3.8-5.6)
== END | disposition home or self-care (01) ==
LOC: MFPLAB 15:31
PROVIDERS: PCP Family Medicine; Visit Provider Family Medicine
DX: E11.29 Type 2 diabetes mellitus with other diabetic kidney complication (principal)
CPT/HCPCS: 36415; 80053; 80061; 83036

== ENCOUNTER → 2024-05-10 | Outpatient (CLI) | payer MEDICARE, SELFPAY | END | disposition home or self-care (01) | PROVIDERS: PCP Family Medicine; Visit Provider Ophthalmology | DX: H16.041 Marginal corneal ulcer, right eye (principal); H21.01 Hyphema, right eye | CPT/HCPCS: 87070; 87075; 87077; 87205; 87640 ==

== ENCOUNTER → 2024-06-24 | Outpatient (CLI) | payer MEDICARE, SELFPAY ==
--- NOTE | 2024-06-24 14:00 | US_ITS ---
PROCEDURE: KIDNEY AND BLADDER 06/24/2024 REASON FOR EXAM: UTI TECHNIQUE: Bilateral renal and bladder ultrasound. COMPARISON: None available FINDINGS: The right kidney measures 9.7 x 5.8 x 5.2 cm with a cortical thickness of 1.3 cm. Asymmetrically smaller left kidney measuring 7.8 x 3.8 x 4 cm with a cortical thickness of 1.4 cm. The kidneys appear within limits for echogenicity without renal stone or perinephric edema seen. Mild bilateral appearing hydronephrosis prevoid. Bladder volume 533 cc. Wall thickness 3 mm. Bilateral ureteral jets are seen during imaging. The distal ureters are not identified. Postvoid volume 8 cc. Bilateral hydronephrosis mostly appears resolved postvoid. No free fluid seen. US/Kidney and Bladder IMPRESSION: Prevoid with appearance of mild bilateral hydronephrosis which appears mostly r esolved on the postvoid images. Bladder volume 533 cc, postvoid volume 8 cc. Reading Location: [id number]
== END | disposition home or self-care (01) ==
LOC: US 13:56
PROVIDERS: PCP Family Medicine; Referring Provider Urology; Visit Provider Urology
DX: N39.0 Urinary tract infection, site not specified (principal)
CPT/HCPCS: 76770

== ENCOUNTER → 2025-02-10 | Outpatient (CLI) | payer MEDICARE, SELFPAY ==
[2025-02-10 15:56] LABS: Creatinine, Urine (random) 58.00 mg/dL (28.00-217.00); Microalbumin,Random Urine 93.1 mg/L (<20 mg/L)
[2025-02-10 16:05] LABS: AST(SGOT) 27 U/L (<=31); Alanine Aminotransfer ALT/SGPT 23 U/L (<=34); Albumin, Serum 4.3 g/dL (3.4-4.8); Alkaline Phosphatase 70 U/L (35-104); Anion Gap 9 (5-15); BUN 24 mg/dL (4-19); BUN/Creat Ratio 20.9 RATIO (10-20); Calcium,Total 9.9 mg/dL (7.6-11.0); Carbon Dioxide 26.4 mmol/L (21.0-32.0); Chloride 101 mmol/L (98-108); Cholesterol 176 mg/dL (<=200); Globulin 2.7 g/dL (2.2-4.2); Glucose 219 mg/dL (70-99); Low Density Lipoprotein Calc. 89 mg/dL; Potassium 5.3 mmol/L (3.3-5.1); Triglycerides 110 mg/dL; Very Low Density Lipoprotein 22 mg/dL (5-40); cholesterol:hdl ratio screen 2.59
== END | disposition home or self-care (01) ==
LOC: MFPLAB 11:58
PROVIDERS: PCP Family Medicine; Visit Provider Family Medicine
DX: E11.9 Type 2 diabetes mellitus without complications (principal)
CPT/HCPCS: 36415; 80053; 80061; 82043; 82570